=== PATIENT | male | born 1940 | race Caucasian/White ===

== ENCOUNTER 2019-01-05 08:22 | Inpatient (IN) ==
[2019-01-05 09:26] LABS: Hematocrit (blood only) 22.9 % (42-52); Hemoglobin 7.9 g/dL (14.0-18.0); Mean Corpuscular Hgb Conc 34.5 g/dL (32-36); Mean Corpuscular Volume 106.5 fL (80-100); Nucleated RBC # (auto) 0.06 K/uL (0-0); Nucleated RBC % (auto) 1.1 %; Platelet Count 259 K/uL (130-400); RDW Coefficient of Variation 21.7 % (11.5-14.5); RDW Standard Deviation 82.5 fL (36.4-46.3); Red Blood Count 2.15 M/uL (4.7-6.1); White Blood Count 4.96 K/uL (4.8-10.8)
[2019-01-05] MEDS ORDERED: SODIUM CHLORIDE 0.9% 1000ML 1,000 ML IV SCH (09:30)
[2019-01-05 09:34] LABS: Albumin Level 3.5 gm/dl (3.4-5.0); BUN Creatinine Ratio 17.8 (10-20); Calcium 8.4 mg/dl (8.5-10.1); Creatinine Clr Calc Pharmacy 45.3 ml/min; Est GFR (African American) 60.6; Est GFR (Non-African American) 52.3; Magnesium 2.2 mg/dl (1.8-2.4); Potassium 3.7 mmol/L (3.5-5.1)
[2019-01-05 09:42] LABS: Albumin Globulin Ratio 0.9 (0.9-2); Bilirubin,Total 1.2 mg/dl (0.2-1); Globulin 3.9 gm/dl (2.5-4.0); Total Protein 7.4 gm/dl (6.4-8.2); Troponin I 6.77 ng/ml (0-0.045)
[2019-01-05 09:43] LABS: INR 1.2 (0.9-1.1); Partial Thromboplastin Ratio 1.2; Prothrombin Time 12.4 Seconds (9.0-12.0)
[2019-01-05] MEDS ORDERED: OPTIRAY 320 125ml IV PRN (10:07)
[2019-01-05 10:11] LABS: Anisocytosis Present; Giant Platelets 1+; Ovalocytes 1+; Polychromasia 1+
[2019-01-05 10:13] LABS: ALC (manual) 0.13 K/uL (1.2-3.4); Basophils # (manual) 0.04 K/uL (0-0.2); Basophils % (manual) 0.9 %; Blast # (manual) 0.26 K/uL (0-0); Blast Cells % (manual) 5.3 %; Lymphocytes # (manual) 0.13 K/uL (1.2-3.4); Lymphocytes % (manual) 2.6 %; Monocytes # (manual) 0.09 K/uL (0.11-0.59); Monocytes % (manual) 1.8 %; Neutrophils % (manual) 89.4 %
--- NOTE | 2019-01-05 10:25 | XRay Report ---
XR chest 1V portable CLINICAL HISTORY: Sepsis COMPARISON STUDY: 06/30/2013 FINDINGS: The heart is at the upper limits of normal in size. There is an interstitial pulmonary mavis a pattern. There is no focal pulmonary consolidation. There are no large pleural effusions.[ IMPRESSION: Interstitial pulmonary edema Electronically signed by: Elmo Salazar M.D. 01/05/2019 10:23 AM
--- NOTE | 2019-01-05 10:26 | CT Scan Report ---
CT ANGIOGRAM OF THE CHEST CLINICAL HISTORY: Dyspnea. COMPARISON STUDY: Chest x-ray dated 01/05/2019. TECHNIQUE: Following the IV administration of 118 cc of Optiray 320, CT angiogram of the chest was pe rformed from the upper abdomen to the thoracic inlet utilizing the pulmonary embolus protocol. Images are reviewed in the axial, sagittal, and coronal planes. 3-D MIPS images are created and assessed. I V contrast was administered without complication. A dose lowering technique was utilized adhering to the principles of ALARA. CT DOSE: 416.50 mGy.cm FINDINGS: Thyroid: Imaged portions of the thyroid gland are normal in size and attenuation. Thoracic aorta: There is mild atherosclerotic calcification of the thoracic aorta, which is normal in caliber and demonstrates standard 3-vessel arch anatomy. No dissection is seen. Pulmonary vasculature: The pulmonary trunk is normal in caliber. There are no filling defects identif ied in main, lobar, or segmental pulmonary branches to suggest pulmonary embolus. Evaluation of the p eripheral branches is modestly degraded by motion artifact. Heart: The heart is enlarged and without pericardial effusion. The coronary arteries are densely calc ified. Lungs and pleural spaces: There are small bilateral pleural effusions with bibasilar consolidation. D iffuse intralobular septal thickening and peribronchial thickening are noted. The trachea and central airways are clear. Mediastinum: There is no mediastinal lymphadenopathy. Litzy: Clear. Axillae: There is no axillary lymphadenopathy. Upper abdomen: A 2.4 cm cyst is noted in the upper pole of the left kidney. Partially visualized uppe r abdominal viscera is otherwise grossly unremarkable. Skeletal structures: The skeletal structures are osteopenic. No lytic or blastic bony lesions are see n. Arthritic change is noted in the shoulders. Soft tissues: Gynecomastia is noted. IMPRESSION: 1. There is no evidence of pulmonary embolus in the main, lobar, or segmental pulmonary arteries. 2. Cardiomegaly with evidence of congestive failure. 3. There are small pleural effusions with bibasilar consolidation. This likely represents atelectasis . Correlate clinically for evidence of superimposed pneumonia. Radiographic follow-up to resolution i s recommended. Electronically signed by: Bryson Curry M.D. 01/05/2019 10:25 AM
[2019-01-05 10:33] LABS: Appearance Urine Clear (Clear); Bacteria Urine Automated Negative (Negative); Bilirubin Urine Negative (Negative); Blood Urine Negative (Negative); Color Urine Dark Yellow; Epithelial Cell Urine Auto >30 /lpf (0-5); Glucose Urine UA Trace (Negative); Ketones Urine Trace (Negative); Leukocyte Esterase Urine Negative (Negative); Nitrite Urine Negative (Negative); Protein Urine 1+ (Negative); RBC Urine Automated 0-4 /hpf (0-4); Specific Gravity Urine 1.039 (1.000-1.030); Urobilinogen Urine Negative (Negative)
--- NOTE | 2019-01-05 10:40 | Emergency Department Note ---
History of Present Illness General Chief complaint: Fever Stated complaint: FEVER Time Seen by Provider: 01/05/19 09:06 History of Present Illness Maximum Pain Intensity: 8 This is a 78-year-old male that presents to the emergency department via private vehicle accompanied by family member with complaints of "high fever and weakness". The patient presents to us today noting that he had blood work performed yesterday and notes that he has a platelet problem for the past 10 years. He is on medication for the elevated platelet count. He notes that his white cells are low. He states that over the past day or so he has had body aches, fatigue and increased shortness of breath. This is new. He denies any chest pain over the past few days or currently. He denies any history of AR or PE. He denies anticoagulant use. He does take an aspirin. 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) Hypercholesteremia (Chronic) Prostate cancer (Chronic) Surgical History History of appendectomy (Chronic) Family History Brother Heart disease Stroke Social History Preferred Language: Latvian Survey Coordinator Required: No Beliefs That Will Affect Care: None Current Living Situation: Family Other Information That Helps Us Care for You: No Feels Safe at Home: Yes Safety Concerns: Feels Safe At This Time Smoking Status: Former smoker Tobacco Type: cigars Do You Dip or Chew Tobacco: No Second Hand Exposure: No Tobacco Cessation Education Requested by Patient: No Hx Alcohol Use: No Hx Substance Use: No Review of Systems A total of 10 systems reviewed and were otherwise negative Physical Exam Vital Signs Vital Signs - 24 hr 01/05/19 08:26 01/05/19 08:47 01/05/19 09:44 Temperature 36.6 C Temperature Source Oral Sepsis Recent Fever Within 48 Hours No Sepsis Action Taken by Nursing No Action Required Pulse Rate 66 Pulse Rate [Left Finger] 109 H Respiratory Rate 20 24 Respiratory Effort / Characteristics Non-Labored Spontaneous Respiratory Depth Normal Blood Pressure 105/58 L Blood Pressure [Left Arm] 103/67 Blood Pressure Mean 73 Blood Pressure Mean [Left Arm] 79 Blood Pressure Position Sitting Pulse Oximetry 100 95 91 Oxygen Delivery Method Room Air Room Air Room Air Oxygen Flow Rate Fraction of Inspired Oxygen 01/05/19 10:20 01/05/19 11:22 01/05/19 11:48 Temperature Temperature Source Sepsis Recent Fever Within 48 Hours Sepsis Action Taken by Nursing Pulse Rate Pulse Rate [Left Finger] 113 H 112 H 120 H Respiratory Rate 26 H 28 H 36 H Respiratory Effort / Characteristics Respiratory Depth Blood Pressure Blood Pressure [Left Arm] 121/83 100/66 91/59 L Blood Pressure Mean Blood Pressure Mean [Left Arm] 95 77 69 Blood Pressure Position Pulse Oximetry 98 92 100 Oxygen Delivery Method Nasal Cannula Nasal Cannula Nasal Cannula Oxygen Flow Rate 4 4 4 Fraction of Inspired Oxygen 01/05/19 13:15 Temperature Temperature Source Sepsis Recent Fever Within 48 Hours Sepsis Action Taken by Nursing Pulse Rate 108 H Pulse Rate [Left Finger] Respiratory Rate 20 Respiratory Effort / Characteristics Non-Labored Spontaneous Respiratory Depth Blood Pressure Blood Pressure [Left Arm] Blood Pressure Mean Blood Pressure Mean [Left Arm] Blood Pressure Position Pulse Oximetry 93 Oxygen Delivery Method Oxygen Flow Rate Fraction of Inspired Oxygen 50 VITAL SIGNS - Vital signs and nursing notes were reviewed. Borderline hypotensive, saturating well on room air with normal respiratory rate. He is afebrile on arrival. GENERAL -78-year-old female appearing his stated age who is in no acute distress. He is resting comfortably in the examination bed. Communicates well with provider and answers questions appropriately. SKIN - Without rashes. No meningeal or petechial rash. HEAD - NC/AT. EYES - PERRL with EOMI bilaterally. Sclera anicteric. EARS - No deformities of external structures noted on gross examination bilaterally. NOSE - Midline and without cyanosis. No epistaxis or purulent drainage noted. MOUTH/OROPHARYNX - Without perioral cyanosis. NECK - Neck with FROM. Supple to palpation. No lymphadenopathy noted. No nuchal rigidity. LUNGS - Chest wall symmetric without accessory muscle use, intercostals retractions, or central cyanosis. Normal vesicular breath sounds CTA B/L. No wheezes, rales, or rhonchi appreciated. CARDIAC - RRR ABDOMEN - Abdominal contour normal without pulsations or visible masses. BS normoactive all four quadrants. No tenderness, palpable masses, hepatosplenomegaly, or ascites noted. EXTREMITIES - No clubbing or peripheral cyanosis. No pretibial edema present. +5/5 strength noted in UE/LE bilaterally. NEUROLOGIC - Cranial nerves II through XII grossly intact. PSYCH - A&O, and cooperates fully with examiner. Pt is very pleasant and inte racts well with examiner. Course Administered Medications Acetaminophen (Tylenol) 650 mg PO TODAY@1445 [facility] Stop: 01/05/19 23:59 Last Admin: 01/05/19 15:54 Dose: 650 mg Documented by: [id number] Admin: 01/05/19 15:32 Dose: 650 mg Documented by: [id number] Diphenhydramine HCl (Benadryl Capsule) 25 mg PO TODAY@1445 [facility] Stop: 01/05/19 23:59 Last Admin: 01/05/19 15:32 Dose: 25 mg Documented by: [id number] Norepinephrine Bitartrate 8 mg (/ Dextrose) 508 mls @ 0 mls/hr IV .Q0M [facility]; Protocol Stop: 02/04/19 14:14 Last Titration: 01/05/19 18:03 Dose: 0 mcg/kg/min, 0 mls/hr Documented by: [id number] Titration: 01/05/19 15:59 Dose: 0.01 mcg/kg/min, 3.1 mls/hr Documented by: [id number] Titration: 01/05/19 15:30 Dose: 0.02 mcg/kg/min, 6.2 mls/hr Documented by: [id number] Admin: 01/05/19 14:56 Dose: 0.03 mcg/kg/min, 9.3 mls/hr Documented by: [id number] Cosigned by: [id number] Furosemide 40 mg/ Syringe 4 mls @ 4 mls/min IV TODAY@1600 [facility] Stop: 01/05/19 23:59 Last Admin: 01/05/19 18:19 Dose: 4 mls/min Documented by: [id number] Miscellaneous (Order Awaiting Action) 1 ea N/A QS [facility] Stop: 02/04/19 15:59 Last Admin: 01/05/19 19:03 Dose: Not Given Documented by: [id number] Discontinued Medications Clopidogrel Bisulfate (Plavix) Confirm Administered Dose 600 mg .ROUTE .STK-MED ONE Stop: 01/05/19 13:54 Last Admin: 01/05/19 14:02 Dose: 600 mg Documented by: [id number] Fentanyl Citrate (Fentanyl Citrate) Confirm Administered Dose 100 mcg .ROUTE .STK-MED ONE Stop: 01/05/19 12:03 Last Increment: 01/05/19 13:57 Dose: 50 mcg Documented by: [id number] Furosemide (Lasix) Confirm Administered Dose 40 mg IV .STK-MED ONE Stop: 01/05/19 12:52 Last Admin: 01/05/19 14:02 Dose: 40 mg Documented by: [id number] Heparin Sodium (Porcine) (Heparin Sodium (Porcine)) Confirm Administered Dose 5,000 units .ROUTE .STK-MED ONE Stop: 01/05/19 11:16 Last Admin: 01/05/19 11:19 Dose: 4,000 units Documented by: [id number] Cosigned by: [id number] Heparin Sodium (Porcine) (Heparin Iv Bolus (Infrastructure Design Engineer Use Only)) Confirm Administered Dose 10,000 units .ROUTE .STK-MED ONE Stop: 01/05/19 12:03 Last Admin: 01/05/19 13:57 Dose: 8,000 units Documented by: [id number] Heparin Sodium/Dextrose () 1 ea IV NOW STA; Protocol Stop: 01/05/19 11:04 Last Admin: 01/05/19 11:21 Dose: Not Given Documented by: [id number] Heparin Sodium/Dextrose (Heparin Sodium/Dextrose) Confirm Administered Dose 25,000 units IV .STK-MED ONE Stop: 01/05/19 11:15 Last Admin: 01/05/19 11:20 Dose: 18 ml Documented by: [id number] Cosigned by: [id number] Heparin Sodium/Sodium Chloride (Heparin/Nss 1000 Unit/500ml Flush Bag) Confirm Administered Dose 3,000 units IV .STK-MED ONE Stop: 01/05/19 12:03 Last Admin: 01/05/19 13:58 Dose: 3,000 units Documented by: [id number] Sodium Chloride (Nss 1000ml) 1,000 mls @ 999 mls/hr IV .Q1H1M [facility] Stop: 01/05/19 10:30 Last Infusion: 01/05/19 10:35 Dose: 0 mls/hr Documented by: [id number] Admin: 01/05/19 09:34 Dose: 999 mls/hr Documented by: [id number] Furosemide 40 mg/ Syringe 4 mls @ 4 mls/min IV TODAY@1430 ONE Stop: 01/05/19 14:31 Last Admin: 01/05/19 15:13 Dose: Not Given Documented by: [id number] Ioversol (Optiray 320 125ml) 118 ml IV ONCE PRN PRN Reason: Interaction Checking Stop: 01/09/19 10:06 Last Admin: 01/05/19 10:08 Dose: 118 ml Documented by: [id number] Midazolam HCl (Versed) Confirm Administered Dose 2 mg .ROUTE .STK-MED ONE Stop: 01/05/19 12:02 Last Admin: 01/05/19 13:55 Dose: 2 mg Documented by: [id number] Midazolam HCl (Versed) Confirm Administered Dose 2 mg .ROUTE .STK-MED ONE Stop: 01/05/19 13:08 Last Admin: 01/05/19 14:02 Dose: Not Given Documented by: [id number] Nicardipine HCl (Cardene) Confirm Administered Dose 25 mg .ROUTE .STK-MED ONE Stop: 01/05/19 12:03 Last Admin: 01/05/19 13:56 Dose: Not Given Documented by: [id number] Nitroglycerin/Dextrose (Nitroglycerin/D5w 100 Mcg/Ml 20ml Syringe) Confirm A dministered Dose 2,000 mcg .ROUTE .STK-MED ONE Stop: 01/05/19 12:04 Last Admin: 01/05/19 13:58 Dose: 2,000 mcg Documented by: [id number] Norepinephrine Bitartrate (Levophed (Infrastructure Design Engineer Use Only)) Confirm Administered Dose 8 mg .ROUTE .STK-MED ONE Stop: 01/05/19 12:41 Last Admin: 01/05/19 13:58 Dose: 8 mg Documented by: [id number] Medical Decision Making Laboratory Data Result diagrams: 01/05/19 08:47 01/05/19 08:47 Lab Results 01/05/19 01/05/19 01/05/19 Range/Units 08:47 08:47 08:47 WBC 4.96 (4.8-10.8) K/uL RBC 2.15 L (4.7-6.1) M/uL Hgb 7.9 L (14.0-18.0) g/dL Hct 22.9 L (42-52) % MCV 106.5 H (80-100) fL MCH 36.7 H (25-34) pg MCHC 34.5 (32-36) g/dL RDW Std Deviation 82.5 H (36.4-46.3) fL RDW Coeff of Eliana 21.7 H (11.5-14.5) % Plt Count 259 (130-400) K/uL MPV 11.0 H (7.4-10.4) fL Absolute Nucleated RBC 0.06 H (0-0) K/uL Nucleated RBC % (auto) 1.1 % Neutrophils % (Manual) 89.4 % Lymphocytes % (Manual) 2.6 % Monocytes % (Manual) 1.8 % Basophils % (Manual) 0.9 % Blast Cells % (Manual) 5.3 % Neutrophils # (Manual) 4.43 (1.4-6.5) K/uL Total Absolute Neuts 4.43 (1.4-6.5) K/uL Lymphocytes # (Manual) 0.13 L (1.2-3.4) K/uL Total Abs Lymphocytes 0.13 L (1.2-3.4) K/uL Monocytes # (Manual) 0.09 L (0.11-0.59) K/uL Basophils # (Manual) 0.04 (0-0.2) K/uL Blast Cells # (Man) 0.26 H (0-0) K/uL Blood Smear Review Giant Platelets 1+ Polychromasia 1+ Anisocytosis Present Ovalocytes 1+ PT 12.4 H (9.0-12.0) Seconds INR 1.2 H (0.9-1.1) APTT 33.0 H (21.0-31.0) Seconds PTT Ratio 1.2 Activ Coag Time Kaolin (94-140) SECONDS POC pH (7.35-7.45) POC pCO2 (35-46) mmHg POC pO2 (80-95) mmHg POC HCO3 (19-24) mildred/L POC Total CO2 (24-31) mEq/l POC Base Excess (-9-1.8) mildred/L POC ABG O2 Sat (90-95) % Sodium 135 L (136-145) mmol/L Potassium 3.7 (3.5-5.1) mmol/L Chloride 103 (98-107) mmol/L Carbon Dioxide 21 (21-32) mmol/L Anion Gap 11.0 (3-11) BUN 23 H (7-18) mg/dl Creatinine 1.30 (0.6-1.4) mg/dl Est Cr Clr Drug Dosing 45.3 ml/min Est GFR ( Amer) 60.6 Est GFR (Non-Af Amer) 52.3 BUN/Creatinine Ratio 17.8 (10-20) Glucose 162 H (70-99) mg/dl Lactate (0.4-2.0) mmol/L Calcium 8.4 L (8.5-10.1) mg/dl Magnesium 2.2 (1.8-2.4) mg/dl Total Bilirubin 1.2 H (0.2-1) mg/dl AST 85 H (15-37) U/L ALT 24 (12-78) U/L Alkaline Phosphatase 60 (45-117) U/L Troponin I 6.770 H* (0-0.045) ng/ml Total Protein 7.4 (6.4-8.2) gm/dl Albumin 3.5 (3.4-5.0) gm/dl Globulin 3.9 (2.5-4.0) gm/dl Albumin/Globulin Ratio 0.9 (0.9-2) Lipase 48 L (73-393) U/L Urine Color Urine Appearance (Clear) Urine pH (4.5-7.5) Ur Specific Peculiar (1.000-1.030) Urine Protein (Negative) Urine Glucose (UA) (Negative) Urine Ketones (Negative) Urine Blood (Negative) Urine Nitrite (Negative) Urine Bilirubin (Negative) Urine Urobilinogen (Negative) Ur Leukocyte Esterase (Negative) Urine WBC (Auto) (0-5) /hpf Urine RBC (Auto) (0-4) /hpf U Hyaline Cast (Auto) (0-5) /lpf U Epithel Cells (Auto) (0-5) /lpf Urine Bacteria (Auto) (Negative) Ur Renal Epithelial Cell Urine Mucus (None Prsent) Influenza Type A Ag (Neg) Influenza Type B Ag (Neg) Blood Type Antibody Screen Crossmatch 01/05/19 01/05/19 01/05/19 Range/Units 09:31 10:00 10:20 WBC (4.8-10.8) K/uL RBC (4.7-6.1) M/uL Hgb (14.0-18.0) g/dL Hct (42-52) % MCV (80-100) fL MCH (25-34) pg MCHC (32-36) g/dL RDW Std Deviation (36.4-46.3) fL RDW Coeff of Eliana (11.5-14.5) % Plt Count (130-400) K/uL MPV (7.4-10.4) fL Absolute Nucleated RBC (0-0) K/uL Nucleated RBC % (auto) % Neutrophils % (Manual) % Lymphocytes % (Manual) % Monocytes % (Manual) % Basophils % (Manual) % Blast Cells % (Manual) % Neutrophils # (Manual) (1.4-6.5) K/uL Total Absolute Neuts (1.4-6.5) K/uL Lymphocytes # (Manual) (1.2-3.4) K/uL Total Abs Lymphocytes (1.2-3.4) K/uL Monocytes # (Manual) (0.11-0.59) K/uL Basophils # (Manual) (0-0.2) K/uL Blast Cells # (Man) (0-0) K/uL Blood Smear Review Giant Platelets Polychromasia Anisocytosis Ovalocytes PT (9.0-12.0) Seconds INR (0.9-1.1) APTT (21.0-31.0) Seconds PTT Ratio Activ Coag Time Kaolin (94-140) SECONDS POC pH (7.35-7.45) POC pCO2 (35-46) mmHg POC pO2 (80-95) mmHg POC HCO3 (19-24) mildred/L POC Total CO2 (24-31) mEq/l POC Base Excess (-9-1.8) mildred/L POC ABG O2 Sat (90-95) % Sodium (136-145) mmol/L Potassium (3.5-5.1) mmol/L Chloride (98-107) mmol/L Carbon Dioxide (21-32) mmol/L Anion Gap (3-11) BUN (7-18) mg/dl Creatinine (0.6-1.4) mg/dl Est Cr Clr Drug Dosing ml/min Est GFR ( Amer) Est GFR (Non-Af Amer) BUN/Creatinine Ratio (10-20) Glucose (70-99) mg/dl Lactate 2.0 (0.4-2.0) mmol/L Calcium (8.5-10.1) mg/dl Magnesium (1.8-2.4) mg/dl Total Bilirubin (0.2-1) mg/dl AST (15-37) U/L ALT (12-78) U/L Alkaline Phosphatase (45-117) U/L Troponin I (0-0.045) ng/ml Total Protein (6.4-8.2) gm/dl Albumin (3.4-5.0) gm/dl Globulin (2.5-4.0) gm/dl Albumin/Globulin Ratio (0.9-2) Lipase (73-393) U/L Urine Color Dark Yellow Urine Appearance Clear (Clear) Urine pH 5.0 (4.5-7.5) Ur Specific Peculiar 1.039 H (1.000-1.030) Urine Protein 1+ H (Negative) Urine Glucose (UA) Trace H (Negative) Urine Ketones Trace H (Negative) Urine Blood Negative (Negative) Urine Nitrite Negative (Negative) Urine Bilirubin Negative (Negative) Urine Urobilinogen Negative (Negative) Ur Leukocyte Esterase Negative (Negative) Urine WBC (Auto) 1-5 (0-5) /hpf Urine RBC (Auto) 0-4 (0-4) /hpf U Hyaline Cast (Auto) 5-10 H (0-5) /lpf U Epithel Cells (Auto) >30 H (0-5) /lpf Urine Bacteria (Auto) Negative (Negative) Ur Renal Epithelial Cell Not Reportable Urine Mucus Present A (None Prsent) Influenza Type A Ag Neg for Influ A (Neg) Influenza Type B Ag Neg for Influ B (Neg) Blood Type Antibody Screen Crossmatch 01/05/19 01/05/19 01/05/19 Range/Units 10:43 12:40 12:42 WBC (4.8-10.8) K/uL RBC (4.7-6.1) M/uL Hgb (14.0-18.0) g/dL Hct (42-52) % MCV (80-100) fL MCH (25-34) pg MCHC (32-36) g/dL RDW Std Deviation (36.4-46.3) fL RDW Coeff of Eliana (11.5-14.5) % Plt Count (130-400) K/uL MPV (7.4-10.4) fL Absolute Nucleated RBC (0-0) K/uL Nucleated RBC % (auto) % Neutrophils % (Manual) % Lymphocytes % (Manual) % Monocytes % (Manual) % Basophils % (Manual) % Blast Cells % (Manual) % Neutrophils # (Manual) (1.4-6.5) K/uL Total Absolute Neuts (1.4-6.5) K/uL Lymphocytes # (Manual) (1.2-3.4) K/uL Total Abs Lymphocytes (1.2-3.4) K/uL Monocytes # (Manual) (0.11-0.59) K/uL Basophils # (Manual) (0-0.2) K/uL Blast Cells # (Man) (0-0) K/uL Blood Smear Review Giant Platelets Polychromasia Anisocytosis Ovalocytes PT (9.0-12.0) Seconds INR (0.9-1.1) APTT (21.0-31.0) Seconds PTT Ratio Activ Coag Time Kaolin 169 H (94-140) SECONDS POC pH 7.41 (7.35-7.45) POC pCO2 31 L (35-46) mmHg POC pO2 63 L (80-95) mmHg POC HCO3 19 (19-24) mildred/L POC Total CO2 20 L (24-31) mEq/l POC Base Excess -6.0 (-9-1.8) mildred/L POC ABG O2 Sat 92.0 (90-95) % Sodium (136-145) mmol/L Potassium (3.5-5.1) mmol/L Chloride (98-107) mmol/L Carbon Dioxide (21-32) mmol/L Anion Gap (3-11) BUN (7-18) mg/dl Creatinine (0.6-1.4) mg/dl Est Cr Clr Drug Dosing ml/min Est GFR ( Amer) Est GFR (Non-Af Amer) BUN/Creatinine Ratio (10-20) Glucose (70-99) mg/dl Lactate (0.4-2.0) mmol/L Calcium (8.5-10.1) mg/dl Magnesium (1.8-2.4) mg/dl Total Bilirubin (0.2-1) mg/dl AST (15-37) U/L ALT (12-78) U/L Alkaline Phosphatase (45-117) U/L Troponin I (0-0.045) ng/ml Total Protein (6.4-8.2) gm/dl Albumin (3.4-5.0) gm/dl Globulin (2.5-4.0) gm/dl Albumin/Globulin Ratio (0.9-2) Lipase (73-393) U/L Urine Color Urine Appearance (Clear) Urine pH (4.5-7.5) Ur Specific Peculiar (1.000-1.030) Urine Protein (Negative) Urine Glucose (UA) (Negative) Urine Ketones (Negative) Urine Blood (Negative) Urine Nitrite (Negative) Urine Bilirubin (Negative) Urine Urobilinogen (Negative) Ur Leukocyte Esterase (Negative) Urine WBC (Auto) (0-5) /hpf Urine RBC (Auto) (0-4) /hpf U Hyaline Cast (Auto) (0-5) /lpf U Epithel Cells (Auto) (0-5) /lpf Urine Bacteria (Auto) (Negative) Ur Renal Epithelial Cell Urine Mucus (None Prsent) Influenza Type A Ag (Neg) Influenza Type B Ag (Neg) Blood Type O Positive Antibody Screen NEGATIVE Crossmatch See Detail 01/05/19 01/05/19 Range/Units 12:48 13:10 WBC (4.8-10.8) K/uL RBC (4.7-6.1) M/uL Hgb (14.0-18.0) g/dL Hct (42-52) % MCV (80-100) fL MCH (25-34) pg MCHC (32-36) g/dL RDW Std Deviation (36.4-46.3) fL RDW Coeff of Eliana (11.5-14.5) % Plt Count (130-400) K/uL MPV (7.4-10.4) fL Absolute Nucleated RBC (0-0) K/uL Nucleated RBC % (auto) % Neutrophils % (Manual) % Lymphocytes % (Manual) % Monocytes % (Manual) % Basophils % (Manual) % Blast Cells % (Manual) % Neutrophils # (Manual) (1.4-6.5) K/uL Total Absolute Neuts (1.4-6.5) K/uL Lymphocytes # (Manual) (1.2-3.4) K/uL Total Abs Lymphocytes (1.2-3.4) K/uL Monocytes # (Manual) (0.11-0.59) K/uL Basophils # (Manual) (0-0.2) K/uL Blast Cells # (Man) (0-0) K/uL Blood Smear Review Giant Platelets Polychromasia Anisocytosis Ovalocytes PT (9.0-12.0) Seconds INR (0.9-1.1) APTT (21.0-31.0) Seconds PTT Ratio Activ Coag Time Kaolin 219 H (94-140) SECONDS POC pH 7.39 (7.35-7.45) POC pCO2 31 L (35-46) mmHg POC pO2 79 L (80-95) mmHg POC HCO3 19 (19-24) mildred/L POC Total CO2 20 L (24-31) mEq/l POC Base Excess -6.0 (-9-1.8) mildred/L POC ABG O2 Sat 96.0 H (90-95) % Sodium (136-145) mmol/L Potassium (3.5-5.1) mmol/L Chloride (98-107) mmol/L Carbon Dioxide (21-32) mmol/L Anion Gap (3-11) BUN (7-18) mg/dl Creatinine (0.6-1.4) mg/dl Est Cr Clr Drug Dosing ml/min Est GFR ( Amer) Est GFR (Non-Af Amer) BUN/Creatinine Ratio (10-20) Glucose (70-99) mg/dl Lactate (0.4-2.0) mmol/L Calcium (8.5-10.1) mg/dl Magnesium (1.8-2.4) mg/dl Total Bilirubin (0.2-1) mg/dl AST (15-37) U/L ALT (12-78) U/L Alkaline Phosphatase (45-117) U/L Troponin I (0-0.045) ng/ml Total Protein (6.4-8.2) gm/dl Albumin (3.4-5.0) gm/dl Globulin (2.5-4.0) gm/dl Albumin/Globulin Ratio (0.9-2) Lipase (73-393) U/L Urine Color Urine Appearance (Clear) Urine pH (4.5-7.5) Ur Specific Peculiar (1.000-1.030) Urine Protein (Negative) Urine Glucose (UA) (Negative) Urine Ketones (Negative) Urine Blood (Negative) Urine Nitrite (Negative) Urine Bilirubin (Negative) Urine Urobilinogen (Negative) Ur Leukocyte Esterase (Negative) Urine WBC (Auto) (0-5) /hpf Urine RBC (Auto) (0-4) /hpf U Hyaline Cast (Auto) (0-5) /lpf U Epithel Cells (Auto) (0-5) /lpf Urine Bacteria (Auto) (Negative) Ur Renal Epithelial Cell Urine Mucus (None Prsent) Influenza Type A Ag (Neg) Influenza Type B Ag (Neg) Blood Type Antibody Screen Crossmatch Imaging Data Radiologist's Impression: XR chest 1V portable CLINICAL HISTORY: Sepsis COMPARISON STUDY: 06/30/2013 FINDINGS: The heart is at the upper limits of normal in size. There is an interstitial pulmonary edema pattern. There is no focal pulmonary consolidation. There are no large pleural effusions.[ IMPRESSION: Interstitial pulmonary edema Electronically signed by: Elmo Salazar M.D. 01/05/2019 10:[address] ANGIOGRAM OF THE CHEST CLINICAL HISTORY: Dyspnea. COMPARISON STUDY: Chest x-ray dated 01/05/2019. TECHNIQUE: Following the IV administration of 118 cc of Optiray 320, CT angiogram of the chest was performed from the upper abdomen to the thoracic inlet utilizing the pulmonary embolus protocol. Images are reviewed in the axial , sagittal, and coronal planes. 3-D MIPS images are created and assessed. IV contrast was administered without complication. A dose lowering technique was utilized adhering to the principles of ALARA. CT DOSE: 416.50 mGy.cm FINDINGS: Thyroid: Imaged portions of the thyroid gland are normal in size and attenuation. Thoracic aorta: There is mild atherosclerotic calcification of the thoracic aor ta, which is normal in caliber and demonstrates standard 3-vessel arch anatomy. No dissection is seen. Pulmonary vasculature: The pulmonary trunk is normal in caliber. There are no filling defects identified in main, lobar, or segmental pulmonary branches to suggest pulmonary embolus. Evaluation of the peripheral branches is modestly degraded by motion artifact. Heart: The heart is enlarged and without pericardial effusion. The coronary arteries are densely calcified. Lungs and pleural spaces: There are small bilateral pleural effusions with bibasilar consolidation. Diffuse intralobular septal thickening and peribronchial thickening are noted. The trachea and central airways are clear. Mediastinum: There is no mediastinal lymphadenopathy. Litzy: Clear. Axillae: There is no axillary lymphadenopathy. Upper abdomen: A 2.4 cm cyst is noted in the upper pole of the left kidney. Partially visualized upper abdominal viscera is otherwise grossly unremarkable. Skeletal structures: The skeletal structures are osteopenic. No lytic or blastic bony lesions are seen. Arthritic change is noted in the shoulders. Soft tissues: Gynecomastia is noted. IMPRESSION: 1. There is no evidence of pulmonary embolus in the main, lobar, or segmental pulmonary arteries. 2. Cardiomegaly with evidence of congestive failure. 3. There are small pleural effusions with bibasilar consolidation. This likely represents atelectasis. Correlate clinically for evidence of superimposed pneumonia. Radiographic follow-up to resolution is recommended. Electronically signed by: Bryson Curry M.D. 01/05/2019 10:25 AM MDM Narrative Patient was seen and evaluated as above in room B02. Review was performed of nursing notes and vital signs. After obtaining a thorough history and physical examination the above work up was performed. He presents to us today with body aches, subjective fevers recently and increased fatigue and dyspnea. He feels short of breath. No history of AR or PE. He denies chest pain today or over the past few days. On examination the patient looks okay, he does not appear to be in pain. IV access was established. Cultures were drawn. Lactic was drawn. A bedside EKG was also performed as well as a troponin. I was called e mergently noting the patient's troponin of 6.770. I then went to the bedside and again asked the patient if had any chest pain that he said no. I then noted that the patient was tachycardic in the 110-120 area, and his oxygen was no longer great noting it was in the low 90s to high 80s. With the increased heart rate with mild hypoxia and feeling short of breath it was felt that a CTA of the chest was emergently warranted. Although the chest x-ray was noncontributory to his presentation today the CTA did not reveal any PE. There is cardiomegaly with evidence of congestive failure. The patient was started on a heparin low-dose bolus and drip for suspected NSTEMI. Cardiology came to bedside with an emergent echocardiogram. There were findings concerning for need for cardiac catheterization and he was taken to the Infrastructure Design Engineer for further evaluation and management. Please refer to further documentation regarding his stay. Case was discussed with the attending physician. EKG reveals sinus tachycardia with PACs. There are ST depressions in leads V4 through 6. I attest that I have personally reviewed the patient medication list. I attest that I have reviewed the patient's blood pressure and it was found to be Low GCS: 15 In the evaluation and treatment of this patient, the following differential diagnoses were considered: AR, ASC, Dysrhythmia, Angina, Mediastinitis, GERD, Esophagitis, PE, Pneumonia, Bronchitis, Costochondritis, Rib Fracture, Zoster. Impression & Plan NSTEMI (non-ST elevated myocardial infarction), Anemia Critical Care Time I have personally spent greater than 60 minutes of critical care time in the direct management of this patient. This includes bedside care, interpretation of diagnostic studies, and testing, discussion with consultants, patient, and family members, and other required patient management activities. This 60 minutes is in excess of all separately billable procedures. Discharge Plan Visit Data *Final* Discharge Date/Time: 01/05/19 12:11 Chief Complaint: Fever Stated Complaint: FEVER ED Provider: Josey Trujillo ED Midlevel Provider: Stephen Romo Discharge Problem: NSTEMI (non-ST elevated myocardial infarction), Anemia Patient Disposition: Still a Patient Condition: Fair Discharge Instructions Interventions: ED Discharge Assessment Last Done: 01/05/19 12:11
[2019-01-05] MEDS ORDERED: Heparin IV Low Dose WITH Bolus IV STA (11:03)
[2019-01-05 11:04] LABS: Mucus Urine Present (None Prsent)
[2019-01-05] MEDS ORDERED: HEPARIN 25000 UNIT/500 ML D5W IV ONE (11:14)
[2019-01-05] MEDS ORDERED: HEPARIN SOD 5,000 UNIT/0.5 ML VIAL ONE (11:15)
[2019-01-05] MEDS ORDERED: MIDAZOLAM HCL 1 MG/ML 2ML VIAL ONE ×2 (12:01→13:07)
[2019-01-05] MEDS ORDERED: HEPARIN (PORCINE) 1000 UNIT/ML 10 ML (CATH LAB USE ONLY) ONE (12:02)
[2019-01-05] MEDS ORDERED: NiCARDipine HCL INJ 2.5 MG/ML 10 ML AMP ONE (12:02)
[2019-01-05] MEDS ORDERED: fentaNYL citrate 100 MCG/2 ML VIAL ONE (12:02)
[2019-01-05] MEDS ORDERED: NITROGLYCERIN/D5W 100MCG/ML 20ML SYR ONE (12:03)
--- NOTE | 2019-01-05 12:13 | History & Physical Report ---
Date of Service January 05, 2019 Assessment & Plan (1) NSTEMI (non-ST elevated myocardial infarction): (2) Cardiomyopathy: Pt presented to ER with c/o SOB, malaise over past 24 hours In ER pt afebrile, P: 66-113, R: 20-26, BP: 105/58- 121/83, O2 sat: 100% down to 91% on RA Was found to have troponin: 6, with EKG sinus tachycardia at 108, ST depression lateral leads -Bedside echo EF: 30%, mod-severe global hypokinesis -Heparin IV started in ER -Pt taken to chemical lab technician from ER. During procedure hypoxemic requiring 15 L O2 mask and eventual BiPAP. Was given 40 of IV Lasix for elevated LVEDP. Maintained on norepinephrine 0.1 -excavation laborer report: * Severe multi-vessel coronary artery disease. 95 to 99% diffuse mid LAD, 80 to 90% focal distal LAD. 90% distal circumflex into left PLB. Moderate caliber first OM with 90% focal stenosis. 95% earlymid RCA at bifurcation with acute marginal. * Elevated intracardiac filling pressure * Successful PCI of mid LAD with single drug-eluting stent (3.0 x 30 mm Corry). POBA of distal LAD with 2.5 balloon. -Pt to ICU for further management and treatment -Pt currently on norepinephrine -Plavix, aspirin, statin -Hold on further IV heparin per cardiology (3) Anemia: (4) Essential thrombocythemia: Hx essential thrombocythemia. Follows with Dr Turner - heme/onc. Was taken off hydroxyurea on 12/15/18 secondary to worsening anemia. H/H: 7.9/22.9 (Hgb was 8.5 on 01/04/19 and 8.1 on 01/01/19) Hemoccult negative in ER -2 units PRBCs to be transfused with lasix in between units secondary to pt unstable -continue anagrelide (5) Hyperglycemia: Random Glucose: 162 -A1c in AM -Monitor BSG (6) Hypercholesteremia: -Continue statin DVT Prophylaxis Heparin SQ Full Code as per discussion with pt Follows with Dr Elizalde for routine care Pt was seen and care coordinated with Dr Galdamez. See addendum History of Present Illness Chief Complaint: Myalgias, SOB Primary Care Provider: Guru Elizalde MD Pt is 78 y/o M with PMH of essential thrombocythemia, dyslipidemia, prostate CA S/P radiation implant, squamous cell CA skin presented to ER with c/o generalized myalgias and exertional shortness of breath starting yesterday. Patient states yesterday he started not feeling well with malaise, generalized myalgias and having shortness of breath with exertion, walking through the house. Patient denies any known fever but felt chilled yesterday. Denies any dizziness, palpitations, chest pain, cough, headache, nausea, vomiting. Patient states did not have appetite and did not eat anything yet today. Reports he did take his morning medications. Denies diaphoresis, diarrhea, constipation, melena, hematochezia, syncope, vision changes, neck pain, sore throat, choking, otalgia, rhinorrhea, abdominal pain, paresthesias, extremity edema, rashes, urinary symptoms. Saw Dr. Turner with heme/oncology 01/04/2019. Patient has been off hydroxyurea since 12/15/2018 secondary to worsening anemia thought secondary to bone suppression from hydroxyurea. Had repeat labs on 01/04/19: WBC: 4. H&H of 8.5/24.5, Plt: 301, Serum iron: 74, TIBC: 234, iron saturation 32%. Vitamin B12: 315. Ferritin level:486. Plan was to start Procrit if continued anemia. Allergies Allergy/AdvReac Type Severity Reaction Status Date / Time No Known Allergies Allergy Verified 01/05/19 09:33 Home Medications Home Medications Medication Instructions Recorded Confirmed Type acetaminophen [Arthritis Pain 1,300 mg PO Q8H PRN 07/08/18 01/05/19 History Reliever] aspirin 325 mg PO DAILY 07/08/18 01/05/19 History atorvastatin [Lipitor] 40 mg PO PM 07/08/18 01/05/19 History multivitamin 1 tab PO DAILY 07/08/18 01/05/19 History anagrelide 0.5 mg PO Q12H 01/05/19 01/05/19 History Past Med/Surg History Medical History Anemia (Chronic) 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 (Chronic) Hypercholesteremia (Chronic) Prostate cancer (Chronic) Surgical History History of appendectomy (Chronic) Family History Brother Heart disease Stroke Social History Preferred Language: Slovenian Latex Caster Required: No Beliefs That Will Affect Care: None Current Living Situation: Family Other Information That Helps Us Care for You: No Feels Safe at Home: Yes Safety Concerns: Feels Safe At This Time Smoking Status: Former smoker Tobacco Type: cigars Do You Dip or Chew Tobacco: No Second Hand Exposure: No Tobacco Cessation Education Requested by Patient: No Hx Alcohol Use: No Hx Substance Use: No Review of Systems Review of Systems: All systems reviewed & are unremarkable except as noted in HPI & below Physical Exam Physical Exam: General: ill appearing, mild distress, WDWN Head: normocephalic, atraumatic Eyes: PERRL, EOM's intact, conjunctiva pale, anicteric ENT: normal inspection external ears, nose, mucous membranes moist Neck: supple, trachea midline Lungs: RR: 28, no retractions, +rales bases bilaterally CV: tachycardia, no murmur, no pretibial edema Abd: normal BS, soft, non-tender Ext: no cyanosis, no calf tenderness Neuro: A&O x 3, no focal deficits noted, normal affect Skin: warm, dry, pale Results & Data Vital Signs (Past 12 Hours) Vital Signs Temp Pulse Pulse Resp BP BP Pulse Ox 01/05/19 11:48 120 H 36 H 91/59 L 100 01/05/19 11:22 112 H 28 H 100/66 92 01/05/19 10:20 113 H 26 H 121/83 98 01/05/19 09:44 109 H 24 103/67 91 01/05/19 08:47 95 01/05/19 08:26 36.6 C 66 20 105/58 L 100 Laboratory Results Short CBC 01/05/19 Range/Units 08:47 WBC 4.96 (4.8-10.8) K/uL Hgb 7.9 L (14.0-18.0) g/dL Hct 22.9 L (42-52) % Plt Count 259 (130-400) K/uL BMP 01/05/19 08:47 Sodium 135 L Potassium 3.7 Chloride 103 Carbon Dioxide 21 BUN 23 H Creatinine 1.30 Glucose 162 H Calcium 8.4 L Cardiac Enzymes 01/05/19 Range/Units 08:47 Troponin I 6.770 H* (0-0.045) ng/ml Liver Function 01/05/19 Range/Units 08:47 Total Bilirubin 1.2 H (0.2-1) mg/dl AST 85 H (15-37) U/L ALT 24 (12-78) U/L Alkaline Phosphatase 60 (45-117) U/L Albumin 3.5 (3.4-5.0) gm/dl Urine 01/05/19 Range/Units 10:20 Urine Color Dark Yellow Urine Appearance Clear (Clear) Urine pH 5.0 (4.5-7.5) Ur Specific [place] 1.039 H (1.000-1.030) Urine Protein 1+ H (Negative) Urine Glucose (UA) Trace H (Negative) Diagnostic Findings CXR: IMPRESSION: Interstitial pulmonary edema CTA CHEST: IMPRESSION: 1. There is no evidence of pulmonary embolus in the main, lobar, or segmental pulmonary arteries. 2. Cardiomegaly with evidence of congestive failure. 3. There are small pleural effusions with bibasilar consolidation. This likely represents atelectasis. Correlate clinically for evidence of superimposed pneumonia. Radiographic follow-up to resolution is recommended. ECHO: moderately reduced LV systolic function with moderate to severe global hypokinesis, EF 30-35%, grade 1 diastolic dysfunction, moderate mitral regurgitation, pulmonary hypertension with a PA systolic pressure of 40 mmHg. ECG Rate (beats per minute): 108 Rhythm: sinus tachycardia Findings: + ST depression (Lateral) Supervising Physician Co-Signing Physician Notes I have seen and examined the patient and have discussed the case with the provider above. I agree with the assessment and plan as stated with the following exceptions. 78 yo M presented with chills and malaise, found to have elevated troponin on workup in the ER. 1mm lateral ST depression on EKG. Cardiology performed bedside echo and found depressed EF with global HK. He was taken to catheterization where triple vessel disease was noted. The LAD was able to be stented, with a plan for staged PCI in a couple of days. The patient is recovering in the ICU on some Levophed for pressure support. He denies any chest pain or shortness of breath. He was consented for blood and will receive two units with Lasix in between units. He already received Lasix 40mg IV during catheterization. Anemia is present and stable from recent outpatient labwork, with etiology thought secondary to hydroxyurea use vs bone marrow suppression in the setting of essential thrombocythemia. On exam he is in no acute distress, BIPAP is in place and he is not working to breathe. He is mentating normally. Pulmonary auscultation reveals crackles throughout, cardiac exam reveals S1/2 heard without murmur present. There is no peripheral edema. Abdomen is soft and non-tender and skin is warm and dry. Cont with medical management and plan for staged PCI in two days per Cardiology. DO Rudolph
--- NOTE | 2019-01-05 12:17 | Consultation Report ---
DATE OF CONSULTATION: 01/05/2019 CONSULTATION REQUESTED BY: Dr. Trujillo. REASON FOR CONSULTATION: Elevated troponin. HISTORY OF PRESENT ILLNESS: Mr. Anderson is a very pleasant 78-year-old gentleman who has never been seen by a filling layer up before. He presents to [facility] with reported 24 hours' worth of shortness of breath and fatigue. The patient states he was in his normal state of health until he woke up yesterday morning and felt very dyspneic and overall very poorly. He states he was just very tired and worn out and could not catch his breath all day. Symptoms worsened over the next 24 hours and early in the a.m. of he came into the Emergency Department. Upon arrival, his troponin was elevated at 6. He was tachycardic and dyspneic and concern for PE was raised. He went for a CTA of the chest which showed no pulmonary emboli. EKG showed new lateral ST segment depressions. A stat echocardiogram was performed which showed moderately reduced LV systolic function with moderate to severe global hypokinesis, EF 30-35%, moderate mitral regurgitation, pulmonary hypertension with a PA systolic pressure of 40 mmHg. This is new compared to previous study of 2013. The patient was seen at the bedside with his brother. He states he still feels a little dyspneic at rest but denies any chest pain, palpitations, lightheadedness, dizziness, syncope, abdominal pain or shoulder pain. PAST SURGICAL HISTORY: 1. Prostate biopsy. 2. Colonoscopy. 3. Radiation treatment. 4. Appendectomy. 5. Prostate catheter. MEDICAL ILLNESSES: 1. History of prostate cancer. 2. History of CVA. 3. Central thrombocythemia. 4. Dyslipidemia. 5. Arthritis. 6. Nonmelanoma skin cancer. FAMILY HISTORY: Noncontributory. SOCIAL HISTORY: Denies any alcohol, tobacco or recreational drug use. ALLERGIES: No known drug allergies. MEDICATIONS AN OUTPATIENT: 1. Aspirin 325 mg daily. 2. Atorvastatin 40 mg daily. 3. Agrylin b.i.d. 4. Multivitamin. PHYSICAL EXAMINATION: VITALS: Temperature 36.6, pulse 112, respiratory rate 20, blood pressure 91/59. GENERAL: Awake, alert, oriented x3. Mild conversational dyspnea. No other distress. HEENT: Normocephalic, atraumatic. Pupils equal, round, reactive to light and accommodation. Extraocular muscles intact. Anicteric sclerae. Moist mucous membranes. Poor dentition. NECK: No JVD or bruit. CARDIOVASCULAR: Regular but fast. Positive S4. Normal S1 and S2. No S3. 3/6 holosystolic ejection murmur greatest at the left sternal border, midclavicular line with radiation of the left axilla. PULMONARY: Scant bibasilar crackles, no rhonchi or wheezing. ABDOMEN: Bowel sounds x4, soft. No rebound, guarding, tenderness. No organomegaly. EXTREMITIES: No clubbing, cyanosis or edema. +2 pedal pulses bilaterally. SKIN: Warm and dry. TEST RESULTS: A 12-lead EKG performed 01/05/19 independently reviewed at this time shows sinus tachycardia 108 beats per minute, normal axis, Q-waves in the inferior leads along with significant ST depressions in the lateral leads, new compared to previous studies. A 2D echocardiogram was read as normal LV chamber size with mild concentric LVH, severely reduced LV systolic function with moderate to severe global hypokinesis, EF 30-35%, normal RV systolic function, moderate mitral regurgitation, pulmonary hypertension is present with a PA systolic pressure of 40 mmHg. In [place] legislature I personally notified the patient's other results within 20 minutes of the completion of the exam. LABORATORY STUDIES OF SIGNIFICANCE: White count of 5, hemoglobin 7.9, platelet count 259. Sodium 135, potassium 3.7, BUN 23, creatinine 1.3. Troponin of 6.7. IMPRESSION: 1. Acute non-ST segment elevation myocardial infarction. 2. Cardiomyopathy, unclear etiology. 3. Anemia. 4. Moderate mitral regurgitation. 5. Pulmonary hypertension. RECOMMENDATIONS: It was my pleasure to see Mr. Anderson in stat consultation today. Given the patient's presentation along with his ST segment changes on EKG, troponin elevation and wall motion abnormalities on echocardiogram the patient will be taken for urgent cardiac catheterization for further evaluation. Further recommendations to follow.
[2019-01-05] MEDS ORDERED: NOREPINEPHRINE BITARTRATE 1 MG/ML 4 ML VIAL (CATH LAB USE ONLY) ONE (12:40)
[2019-01-05] MEDS ORDERED: FUROSEMIDE 40 MG/4 ML VIAL IV ONE (12:51)
[2019-01-05] MEDS ORDERED: CLOPIDOGREL BISULFATE 300 MG TAB ONE (13:53)
--- NOTE | 2019-01-05 13:54 | Pre Anesthesia Assessment ---
Date of Service January 05, 2019 Pre Sedation Assessment Vital Signs Temp Pulse Pulse Resp BP BP Pulse Ox 01/05/19 11:48 120 H 36 H 91/59 L 100 01/05/19 11:22 112 H 28 H 100/66 92 01/05/19 10:20 113 H 26 H 121/83 98 01/05/19 09:44 109 H 24 103/67 91 01/05/19 08:47 95 01/05/19 08:26 36.6 C 66 20 105/58 L 100 Cardiovascular RRR, no murmur, no edema Respiratory normal respiratory effort, lungs clear to auscultation Pre-Sedation Airway Assessment Smoking Status: Former smoker Hx Sleep Apnea: No Hx Difficult Intubation: No Short, Thick Neck: No Thyromental Distance: > or= 3.5 Finger Breadths Oral Cavity: + WNL Mallampati Class: III Procedure Planning Contraindications for Sedation: none Current Medications Reviewed: Yes Notes The planned sedation has been discussed with the patient. Informed Consent was obtained. I have identified the patient, determined the appropriateness of sedation and have assessed the patient immediately prior to the procedure. All medicine(s) and interventions are by my order.
--- NOTE | 2019-01-05 13:54 | Post Anesthesia Assessment ---
Date of Service January 05, 2019 Post Sedation Assessment Vital Signs Temp Pulse Pulse Resp BP BP Pulse Ox 01/05/19 11:48 120 H 36 H 91/59 L 100 01/05/19 11:22 112 H 28 H 100/66 92 01/05/19 10:20 113 H 26 H 121/83 98 01/05/19 09:44 109 H 24 103/67 91 01/05/19 08:47 95 01/05/19 08:26 36.6 C 66 20 105/58 L 100 Recovery Score Activity: Moves 4 extremities Respiration: Deep Breath/Cough Circulation: +/-20% PreAnes Value Consciousness: Fully Awake Oxygen Saturation: O2 needed for >90% Discharge Sedation Level of Care: Fast Track Phase II Post Sedation Plan On clinical assessment, the patient appears to have tolerated the sedation without complications. Patient is recovering as anticipated. Patient will continue to be monitored by nursing and may be discharged when sedation discharge criteria are met per below protocol. Upon Completions of procedure and additional 15 minutes continue every 5 minute vital signs and the P.A.R. score; then discharge to a Phase I or Fast Track to Phase II per the following guidelines: * Discharge Patient to appropriate Phase II area if PAR is 8 or greater or return to pre- procedure baseline. The post - procedure orders will be as directed. * If PAR score is less than 8 or not return to pre-procedure baseline then patient will follow Phase I monitoring till PAR is reached for Phase II. The Phase I may be done in procedure room or may call to secure a Phase I area. * If naloxone or flumazenil are used for reversal, hold in Phase I for continued monitoring from when last reversal dose was given for a minimum of 6 0 minutes or longer pending the nurse and/or physician discretion of patient condition before discharge to Phase II. Please call the Sedation Physician to re-evaluate and complete post-note for discharge to Phase II area. Do NOT discharge from procedure sedation or Phase 1 until post- sedation evaluation note is complete by procedure /sedation MD Sedation Discharge Instructions to be given to the patient at discharge to home.
[2019-01-05 13:57] LABS: iSTAT Arterial Blood Gas HCO3 18 meg/L (19-24); iSTAT Arterial Blood Gas pCO2 28 mmHg (35-46); iSTAT Arterial Blood Gas pH 7.43 (7.35-7.45); iSTAT Carbon Dioxide 19 mEq/l (24-31)
[2019-01-05 13:57] LABS: iSTAT Arterial Blood Gas HCO3 19 meg/L (19-24); iSTAT Arterial Blood Gas pCO2 31 mmHg (35-46); iSTAT Arterial Blood Gas pH 7.39 (7.35-7.45); iSTAT Carbon Dioxide 20 mEq/l (24-31)
[2019-01-05 13:57] LABS: iSTAT Arterial Blood Gas HCO3 19 meg/L (19-24); iSTAT Arterial Blood Gas pCO2 31 mmHg (35-46); iSTAT Arterial Blood Gas pH 7.41 (7.35-7.45); iSTAT Carbon Dioxide 20 mEq/l (24-31)
--- NOTE | 2019-01-05 14:09 | Cardiac Catheterization ---
Cardiac Cath Procedure Full Procedure Date January 05, 2019 Pre-Procedure Diagnosis Pre-Procedure Diagnosis: Non STEMI AUC Score AUC Score: 8 Post-Procedure Diagnosis Post-Procedure Diagnosis: Severe CAD, Successful PCI and Elevated Intracardiac Pressures Procedure(s) Performed Procedure(s) Performed: Coronary Angiography, Left Heart Cath and Drug Eluting Stent Pharmacy Technician Infusion Anthony Jaramillo MD Fiber Design Engineer(s) Franko Estimated Blood Loss Estimated Blood Loss: 15 Medication(s) Medication(s): Clopidogrel, Fentanyl, Heparin, Lidocaine 1%, Nitroglycerin and Versed Summary of Findings Indication: High risk NSTEMI Access: 6 Fr right radial artery Catheters: [place], pigtail, EBU 3.5 guide Findings: LM -Short, calcified, luminal irregularities LAD -large caliber vessel, heavily calcified proximally, diffuse 95 to 99% mid segment disease after takeoff of large second diagonal, 90% focal distal stenosis prior to vessel wrapping around apex Circumflex -moderate caliber vessel, 50% earlymid disease at takeoff of first OM, focal 80 to 90% narrowings in distal circumflex extending into left PLB, moderate caliber OM1 with 90% focal stenosis small OM 2 with 80 to 90% stenosis. RCA -moderate caliber vessel dominant, 95% earlymid focal stenosis at takeoff of acute marginal, distal luminal irregularities, small PDA widely patent LVEDP -21, 30 post procedure -- PCI -- Antithrombotic therapy: Heparin, clopidogrel Procedure: Left main cannulated with EBU 3.5 guide [facility] 50 wire passed across lesion into distal LAD Whisper wire passed into large second diagonal Mid LAD lesion predilated with 2.5 compliant balloon Distal LAD ballooned with 2.5 balloon Dilated lesion stented with 3.0 x 30 mm Angel drug-eluting stent Second diagonal rewired with whisper wire Stent post-dilated with 3.0 noncompliant balloon IC vasodilators administered for spasm Post procedure LIZBETH 3 flow, stent well expanded with minimal residual stenosis and no apparent cardiac complications. During procedure hypoxemic requiring 15 L O2 mask and eventual BiPAP Given 40 of IV Lasix for elevated LVEDP Maintained on norepinephrine 0.1 Arterial Closure: TR band Summary: 1. Severe multi-vessel coronary artery disease -95 to 99% diffuse mid LAD, 80 to 90% focal distal LAD 90% distal circumflex into left PLB. Moderate caliber first OM with 90% focal stenosis 95% earlymid RCA at bifurcation with acute marginal 2. Elevated intracardiac filling pressure 3. Successful PCI of mid LAD with single drug-eluting stent (3.0 x 30 mm Angel). - POBA of distal LAD with 2.5 balloon. Recommendations: To ICU for continued monitoring, additional diuresis, transfusion and hemodynamic support Loaded with clopidogrel 600 mg Continue dual-antiplatelet therapy for at least one year Continue statin, and ASCVD risk factor modification Will consider staged PCI of RCA later in hospitalization. Hemodynamics Rest Ao:: 78/47/63 Final Ao: 103/62/79 LV: 95/21 Recommendations Recommendations: PCI without planned CABG Specimens Specimens: None Radiation Exposure (mGy) 4199 Contrast (mls) 130 Fluids (cc crystalloids) Fluids (cc crystalloids): 150 Drains Drains: none Anesthesia moderate Procedural Complication(s) None Disposition ICU ACC Data: Sander Portable Machine Cardiac Status Clinical evaluation leading to the procedure CAD Presenation: Non STEMI Anginal Classification: CCS IV Heart Failure: No Cardiogenic Shock within 24 Hours: No Cardiac Arrest within 24 Hours: No Imaging Studies Past 6 Months: Yes Stress Studies Past 6 Months: No Diagnostic Physicians Name: Anthony Jaramillo MD Status: Urgent Closure Device Percutaneous Entry Location: Radial Closure Device: Radial Band Recommendations: PCI without planned CABG PCI Indication: PCI for high risk Non-SE Lesion Segment Name: mid LAD Culprit Artery: Yes Stenosis Prior to Rx (%): 95 Chronic Total Occlusion: No IVUS: No FFR: No Pre-Procedure LIZBETH Flow: 3 Previously Treated Lesion: No Lesion Complexity: High/C Lesion Length (mm): 25 Thrombus Present: Yes Bifurcation Lesion: Yes Guidewire Across Lesion: Stenosis Post-Procedure (%): 0 Post-Procedure LIZBETH Flow: 3 Devices(s) Deployed: Yes Yes Intraprocedure Events Significant Disection: No Perforation: No
[2019-01-05] MEDS ORDERED: ICU PROTOCOL FOR HYPERGLYCEMIA PRN (14:13)
[2019-01-05] MEDS ORDERED: SODIUM CHLORIDE 0.9% 250 ML IV PRN ×2 (14:13→14:23)
[2019-01-05] MEDS ORDERED: NOREPINEPHRINE BIT INJ 8 MG in DEXTROSE 5% 500 ML IV SCH (14:15)
[2019-01-05] MEDS ORDERED: FUROSEMIDE 40 MG in SYRINGE 0 ML IV ONE (14:30)
[2019-01-05] MEDS: ACETAMINOPHEN 325 MG TAB PO SCH ×2 (15:32→15:54)
[2019-01-05] MEDS ORDERED: FUROSEMIDE 40 MG in SYRINGE 0 ML IV SCH (16:00)
--- NOTE | 2019-01-05 16:19 | Critical Care Consultation ---
Date of Consultation January 05, 2019 Assessment & Plan (1) NSTEMI (non-ST elevated myocardial infarction): Neuro-awake alert CV- shock likely cardiogenic on decreasing doses of norepinephine. will try to titrate off. NSTEMI and ischemic cardiomyopathy s/p cath with stent to LAD. aspirin, ticagrelor, atorvastatin. KRISTINA and metorprolol if BP allows Pulmonary- acute hypoxic respiratory failure due to pulmonary edema. continue bipap if needed. can try off. snall bilateral pleural effusion-no need for intervention now ID- no clear infection follow cultures Renal- cr ok GI- diet if tolerates off bipap Heme- anemia. heparin proph Endocrine- keep blood sugars <180 Dispo- monitor in ICU for respiratory and hemodynamic support I have personally spent 25 minutes of critical care time in the direct management of this patient. This is a life/limb threatening event. This incl udes time spent evaluating patient, direct bedside care, chart review, placing orders, interpretation of diagnostic studies, discussion with consultants, patient, and/or family members regarding treatment decisions, as well as other required patient management activities. This time is exclusive of all separately billable procedures, and teaching time and separate from and in addition to any other critical care service time. (2) Cardiomyopathy: History of Present Illness Attending Physician: Eufemia Alexander MD History of Present Illness 78 y/o male with a history of prostate CA, essential thrombocythemia, hyperlipidemia who presented today with shortness of breath on exertion which started yesteday. He also complains of weakness and muscle aches. no fevers but chills yesterday. He was found to have decreased EF on echo and troponin was elevated and he was taken to the cath lab nurse where is was found to have multivessel disease and had stent of his mid LAD as well as balloon of his distal LAD. He was started on bipap during procedure because he became hypoxem ic and was started on bipap. He was also started on norepineprhine for his blood pressure and his requirment has been improving. He currently says he has no pain. no sob. only complaint is the bipap mask. 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) Hypercholesteremia (Chronic) Prostate cancer (Chronic) Surgical History History of appendectomy (Chronic) Family History Brother Heart disease Stroke Social History 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 Beliefs That Will Affect Care: None Current Living Situation: Family Other Information That Helps Us Care for You: No Feels Safe at Home: Yes Safety Concerns: Feels Safe At This Time Smoking Status: Former smoker Tobacco Type: cigars Do You Dip or Chew Tobacco: No Second Hand Exposure: No Tobacco Cessation Education Requested by Patient: No Hx Alcohol Use: No Hx Substance Use: No Review of Systems Review of Systems: Constitutional: no fevers + chills no weight loss Eyes: no blurry or double vision EENT: no sore throat, no congestion Respiratory: no cough + shortness of breath Cardiovascular: + chest pain no palpitations GI: no abdominal pain, no nausea, no vomiting, no diarrhea, no constipation Gu: no dysuria, no frequency MSK: no joint pain, no muscle aches Skin: no rash Neuro: no headache, no dizziness, no focal weakness Endocrine: no heat or cold intolerance heme: no easy bruising, no lymphadenopathy Psych: no depression, no anxiety Physical Exam Physical Exam: Constitutional: Comfortable NAD on bipap HEENT: normocephalic atraumatic. MMM. no cervical lymphadenopathy CV: RRR nl s1,s2 no murmurs rubs or gallops Lungs: clear to auscultation bilaterally. no accessory muscle use Abd: soft nontender nondistended. normal bowel sounds Ext: no edema. no cyanosis, no clubbing Skin: warm dry Neuro: alert and oriented. moving all extremities Psych: normal mood and affect Results & Data Vital Signs (Past 12 Hours) Vital Signs Temp Pulse Pulse Resp BP BP Pulse Ox 01/05/19 16:00 102 H 01/05/19 15:58 37.9 C H 102 H 22 103/67 94 01/05/19 15:51 37.8 C H 103 H 22 103/67 01/05/19 15:42 37.8 C H 109 H 24 106/80 94 01/05/19 15:21 103 H 23 01/05/19 15:00 37.0 C 108 H 103 H 24 111/73 94 01/05/19 14:09 36.9 C 105 H 24 97/76 L 96 01/05/19 13:15 108 H 20 93 01/05/19 11:48 120 H 36 H 91/59 L 100 01/05/19 11:22 112 H 28 H 100/66 92 01/05/19 10:20 113 H 26 H 121/83 98 01/05/19 09:44 109 H 24 103/67 91 01/05/19 08:47 95 01/05/19 08:26 36.6 C 66 20 105/58 L 100 Pulse Ox 01/05/19 16:00 01/05/19 15:58 01/05/19 15:51 01/05/19 15:42 01/05/19 15:21 01/05/19 15:00 96 01/05/19 14:09 01/05/19 13:15 01/05/19 11:48 01/05/19 11:22 01/05/19 10:20 01/05/19 09:44 01/05/19 08:47 01/05/19 08:26 Laboratory Results Laboratory Results - last 24 hr 01/05/19 01/05/19 01/05/19 08:47 08:47 08:47 WBC 4.96 RBC 2.15 L Hgb 7.9 L Hct 22.9 L MCV 106.5 H MCH 36.7 H MCHC 34.5 RDW Std Deviation 82.5 H RDW Coeff of Eliana 21.7 H Plt Count 259 MPV 11.0 H Absolute Nucleated RBC 0.06 H Nucleated RBC % (auto) 1.1 Neutrophils % (Manual) 89.4 Lymphocytes % (Manual) 2.6 Monocytes % (Manual) 1.8 Basophils % (Manual) 0.9 Blast Cells % (Manual) 5.3 Neutrophils # (Manual) 4.43 Total Absolute Neuts 4.43 Lymphocytes # (Manual) 0.13 L Total Abs Lymphocytes 0.13 L Monocytes # (Manual) 0.09 L Basophils # (Manual) 0.04 Blast Cells # (Man) 0.26 H Blood Smear Review Giant Platelets 1+ Polychromasia 1+ Anisocytosis Present Ovalocytes 1+ PT 12.4 H INR 1.2 H APTT 33.0 H PTT Ratio 1.2 Activ Coag Time Kaolin POC pH POC pCO2 POC pO2 POC HCO3 POC Total CO2 POC Base Excess POC ABG O2 Sat Sodium 135 L Potassium 3.7 Chloride 103 Carbon Dioxide 21 Anion Gap 11.0 BUN 23 H Creatinine 1.30 Est Cr Clr Drug Dosing 45.3 Est GFR ( Amer) 60.6 Est GFR (Non-Af Amer) 52.3 BUN/Creatinine Ratio 17.8 Glucose 162 H POC Glucose Lactate Calcium 8.4 L Magnesium 2.2 Total Bilirubin 1.2 H AST 85 H ALT 24 Alkaline Phosphatase 60 Troponin I 6.770 H* Total Protein 7.4 Albumin 3.5 Globulin 3.9 Albumin/Globulin Ratio 0.9 Lipase 48 L Urine Color Urine Appearance Urine pH Ur Specific [place] Urine Protein Urine Glucose (UA) Urine Ketones Urine Blood Urine Nitrite Urine Bilirubin Urine Urobilinogen Ur Leukocyte Esterase Urine WBC (Auto) Urine RBC (Auto) U Hyaline Cast (Auto) U Epithel Cells (Auto) Urine Bacteria (Auto) Ur Renal Epithelial Cell Urine Mucus Nasal Screen MRSA (PCR) Influenza Type A Ag Influenza Type B Ag Flow Cytometry Comment Blood Type Blood Type Recheck Antibody Screen Crossmatch 01/05/19 01/05/19 01/05/19 08:47 09:31 10:00 WBC RBC Hgb Hct MCV MCH MCHC RDW Std Deviation RDW Coeff of Eliana Plt Count MPV Absolute Nucleated RBC Nucleated RBC % (auto) Neutrophils % (Manual) Lymphocytes % (Manual) Monocytes % (Manual) Basophils % (Manual) Blast Cells % (Manual) Neutrophils # (Manual) Total Absolute Neuts Lymphocytes # (Manual) Total Abs Lymphocytes Monocytes # (Manual) Basophils # (Manual) Blast Cells # (Man) Blood Smear Review Giant Platelets Polychromasia Anisocytosis Ovalocytes PT INR APTT PTT Ratio Activ Coag Time Kaolin POC pH POC pCO2 POC pO2 POC HCO3 POC Total CO2 POC Base Excess POC ABG O2 Sat Sodium Potassium Chloride Carbon Dioxide Anion Gap BUN Creatinine Est Cr Clr Drug Dosing Est GFR ( Amer) Est GFR (Non-Af Amer) BUN/Creatinine Ratio Glucose POC Glucose Lactate 2.0 Calcium Magnesium Total Bilirubin AST ALT Alkaline Phosphatase Troponin I Total Protein Albumin Globulin Albumin/Globulin Ratio Lipase Urine Color Urine Appearance Urine pH Ur Specific [place] Urine Protein Urine Glucose (UA) Urine Ketones Urine Blood Urine Nitrite Urine Bilirubin Urine Urobilinogen Ur Leukocyte Esterase Urine WBC (Auto) Urine RBC (Auto) U Hyaline Cast (Auto) U Epithel Cells (Auto) Urine Bacteria (Auto) Ur Renal Epithelial Cell Urine Mucus Nasal Screen MRSA (PCR) Influenza Type A Ag Neg for Influ A Influenza Type B Ag Neg for Influ B Flow Cytometry Comment Pending Blood Type Blood Type Recheck Antibody Screen Crossmatch 01/05/19 01/05/19 01/05/19 10:20 10:43 12:40 WBC RBC Hgb Hct MCV MCH MCHC RDW Std Deviation RDW Coeff of Eliana Plt Count MPV Absolute Nucleated RBC Nucleated RBC % (auto) Neutrophils % (Manual) Lymphocytes % (Manual) Monocytes % (Manual) Basophils % (Manual) Blast Cells % (Manual) Neutrophils # (Manual) Total Absolute Neuts Lymphocytes # (Manual) Total Abs Lymphocytes Monocytes # (Manual) Basophils # (Manual) Blast Cells # (Man) Blood Smear Review Giant Platelets Polychromasia Anisocytosis Ovalocytes PT INR APTT PTT Ratio Activ Coag Time Kaolin 169 H POC pH POC pCO2 POC pO2 POC HCO3 POC Total CO2 POC Base Excess POC ABG O2 Sat Sodium Potassium Chloride Carbon Dioxide Anion Gap BUN Creatinine Est Cr Clr Drug Dosing Est GFR ( Amer) Est GFR (Non-Af Amer) BUN/Creatinine Ratio Glucose POC Glucose Lactate Calcium Magnesium Total Bilirubin AST ALT Alkaline Phosphatase Troponin I Total Protein Albumin Globulin Albumin/Globulin Ratio Lipase Urine Color Dark Yellow Urine Appearance Clear Urine pH 5.0 Ur Specific [place] 1.039 H Urine Protein 1+ H Urine Glucose (UA) Trace H Urine Ketones Trace H Urine Blood Negative Urine Nitrite Negative Urine Bilirubin Negative Urine Urobilinogen Negative Ur Leukocyte Esterase Negative Urine WBC (Auto) 1-5 Urine RBC (Auto) 0-4 U Hyaline Cast (Auto) 5-10 H U Epithel Cells (Auto) >30 H Urine Bacteria (Auto) Negative Ur Renal Epithelial Cell Not Reportable Urine Mucus Present A Nasal Screen MRSA (PCR) Influenza Type A Ag Influenza Type B Ag Flow Cytometry Comment Blood Type O Positive Blood Type Recheck Antibody Screen NEGATIVE Crossmatch See Detail 01/05/19 01/05/19 01/05/19 12:42 12:48 13:10 WBC RBC Hgb Hct MCV MCH MCHC RDW Std Deviation RDW Coeff of Eliana Plt Count MPV Absolute Nucleated RBC Nucleated RBC % (auto) Neutrophils % (Manual) Lymphocytes % (Manual) Monocytes % (Manual) Basophils % (Manual) Blast Cells % (Manual) Neutrophils # (Manual) Total Absolute Neuts Lymphocytes # (Manual) Total Abs Lymphocytes Monocytes # (Manual) Basophils # (Manual) Blast Cells # (Man) Blood Smear Review Giant Platelets Polychromasia Anisocytosis Ovalocytes PT INR APTT PTT Ratio Activ Coag Time Kaolin 219 H POC pH 7.41 7.39 POC pCO2 31 L 31 L POC pO2 63 L 79 L POC HCO3 19 19 POC Total CO2 20 L 20 L POC Base Excess -6.0 -6.0 POC ABG O2 Sat 92.0 96.0 H Sodium Potassium Chloride Carbon Dioxide Anion Gap BUN Creatinine Est Cr Clr Drug Dosing Est GFR ( Amer) Est GFR (Non-Af Amer) BUN/Creatinine Ratio Glucose POC Glucose Lactate Calcium Magnesium Total Bilirubin AST ALT Alkaline Phosphatase Troponin I Total Protein Albumin Globulin Albumin/Globulin Ratio Lipase Urine Color Urine Appearance Urine pH Ur Specific [place] Urine Protein Urine Glucose (UA) Urine Ketones Urine Blood Urine Nitrite Urine Bilirubin Urine Urobilinogen Ur Leukocyte Esterase Urine WBC (Auto) Urine RBC (Auto) U Hyaline Cast (Auto) U Epithel Cells (Auto) Urine Bacteria (Auto) Ur Renal Epithelial Cell Urine Mucus Nasal Screen MRSA (PCR) Influenza Type A Ag Influenza Type B Ag Flow Cytometry Comment Blood Type Blood Type Recheck Antibody Screen Crossmatch 01/05/19 01/05/19 01/05/19 13:42 14:26 15:00 WBC RBC Hgb Hct MCV MCH MCHC RDW Std Deviation RDW Coeff of Eliana Plt Count MPV Absolute Nucleated RBC Nucleated RBC % (auto) Neutrophils % (Manual) Lymphocytes % (Manual) Monocytes % (Manual) Basophils % (Manual) Blast Cells % (Manual) Neutrophils # (Manual) Total Absolute Neuts Lymphocytes # (Manual) Total Abs Lymphocytes Monocytes # (Manual) Basophils # (Manual) Blast Cells # (Man) Blood Smear Review Giant Platelets Polychromasia Anisocytosis Ovalocytes PT INR APTT PTT Ratio Activ Coag Time Kaolin POC pH 7.43 POC pCO2 28 L POC pO2 129 H POC HCO3 18 L POC Total CO2 19 L POC Base Excess -6.0 POC ABG O2 Sat 99.0 H Sodium Potassium Chloride Carbon Dioxide Anion Gap BUN Creatinine Est Cr Clr Drug Dosing Est GFR ( Amer) Est GFR (Non-Af Amer) BUN/Creatinine Ratio Glucose POC Glucose Lactate Calcium Magnesium Total Bilirubin AST ALT Alkaline Phosphatase Troponin I Total Protein Albumin Globulin Albumin/Globulin Ratio Lipase Urine Color Urine Appearance Urine pH Ur Specific [place] Urine Protein Urine Glucose (UA) Urine Ketones Urine Blood Urine Nitrite Urine Bilirubin Urine Urobilinogen Ur Leukocyte Esterase Urine WBC (Auto) Urine RBC (Auto) U Hyaline Cast (Auto) U Epithel Cells (Auto) Urine Bacteria (Auto) Ur Renal Epithelial Cell Urine Mucus Nasal Screen MRSA (PCR) Pending Influenza Type A Ag Influenza Type B Ag Flow Cytometry Comment Blood Type Blood Type Recheck O Positive Antibody Screen Crossmatch 01/05/19 15:47 WBC RBC Hgb Hct MCV MCH MCHC RDW Std Deviation RDW Coeff of Eliana Plt Count MPV Absolute Nucleated RBC Nucleated RBC % (auto) Neutrophils % (Manual) Lymphocytes % (Manual) Monocytes % (Manual) Basophils % (Manual) Blast Cells % (Manual) Neutrophils # (Manual) Total Absolute Neuts Lymphocytes # (Manual) Total Abs Lymphocytes Monocytes # (Manual) Basophils # (Manual) Blast Cells # (Man) Blood Smear Review Giant Platelets Polychromasia Anisocytosis Ovalocytes PT INR APTT PTT Ratio Activ Coag Time Kaolin POC pH POC pCO2 POC pO2 POC HCO3 POC Total CO2 POC Base Excess POC ABG O2 Sat Sodium Potassium Chloride Carbon Dioxide Anion Gap BUN Creatinine Est Cr Clr Drug Dosing Est GFR ( Amer) Est GFR (Non-Af Amer) BUN/Creatinine Ratio Glucose POC Glucose 125 H Lactate Calcium Magnesium Total Bilirubin AST ALT Alkaline Phosphatase Troponin I Total Protein Albumin Globulin Albumin/Globulin Ratio Lipase Urine Color Urine Appearance Urine pH Ur Specific [place] Urine Protein Urine Glucose (UA) Urine Ketones Urine Blood Urine Nitrite Urine Bilirubin Urine Urobilinogen Ur Leukocyte Esterase Urine WBC (Auto) Urine RBC (Auto) U Hyaline Cast (Auto) U Epithel Cells (Auto) Urine Bacteria (Auto) Ur Renal Epithelial Cell Urine Mucus Nasal Screen MRSA (PCR) Influenza Type A Ag Influenza Type B Ag Flow Cytometry Comment Blood Type Blood Type Recheck Antibody Screen Crossmatch Diagnostic Findings XR chest 1V portable CLINICAL HISTORY: Sepsis COMPARISON STUDY: 06/30/2013 FINDINGS: The heart is at the upper limits of normal in size. There is an interstitial pulmonary edema pattern. There is no focal pulmonary consolidation. There are no large pleural effusions.[ IMPRESSION: Interstitial pulmonary edema Electronically signed by: Elmo Salazar M.D. 01/05/2019 10:[address] ANGIOGRAM OF THE CHEST CLINICAL HISTORY: Dyspnea. COMPARISON STUDY: Chest x-ray dated 01/05/2019. TECHNIQUE: Following the IV administration of 118 cc of Optiray 320, CT angiogram of the chest was performed from the upper abdomen to the thoracic inlet utilizing the pulmonary embolus protocol. Images are reviewed in the axial, sagittal, and coronal planes. 3-D MIPS images are created and assessed. IV contrast was administered without complication. A dose lowering technique was utilized adhering to the principles of ALARA. CT DOSE: 416.50 mGy.cm FINDINGS: Thyroid: Imaged portions of the thyroid gland are normal in size and attenuation. Thoracic aorta: There is mild atherosclerotic calcification of the thoracic aorta, which is normal in caliber and demonstrates standard 3-vessel arch anatomy. No dissection is seen. Pulmonary vasculature: The pulmonary trunk is normal in caliber. There are no filling defects identified in main, lobar, or segmental pulmonary branches to suggest pulmonary embolus. Evaluation of the peripheral branches is modestly degraded by motion artifact. Heart: The heart is enlarged and without pericardial effusion. The coronary arteries are densely calcified. Lungs and pleural spaces: There are small bilateral pleural effusions with bibasilar consolidation. Diffuse intralobular septal thickening and peribronchial thickening are noted. The trachea and central airways are clear. Mediastinum: There is no mediastinal lymphadenopathy. Litzy: Clear. Axillae: There is no axillary lymphadenopathy. Upper abdomen: A 2.4 cm cyst is noted in the upper pole of the left kidney. Partially visualized upper abdominal viscera is otherwise grossly unremarkable. Skeletal structures: The skeletal structures are osteopenic. No lytic or blastic bony lesions are seen. Arthritic change is noted in the shoulders. Soft tissues: Gynecomastia is noted. IMPRESSION: 1. There is no evidence of pulmonary embolus in the main, lobar, or segmental pulmonary arteries. 2. Cardiomegaly with evidence of congestive failure. 3. There are small pleural effusions with bibasilar consolidation. This likely represents atelectasis. Correlate clinically for evidence of superimposed pneumonia. Radiographic follow-up to resolution is recommended. Electronically signed by: Bryson Curry M.D. 01/05/2019 10:25 AM
--- NOTE | 2019-01-05 17:34 | Cardiology Consultation ---
Date of Consultation January 05, 2019 Assessment & Plan (1) NSTEMI (non-ST elevated myocardial infarction): 2. Severe multivessel CAD 3. Severe LV dysfunction with acute systolic heart failure 4. Cardiogenic shock 5. Respiratory failure requiring Bipap 6. Anemia 7. Essential thrombocytopenia Patient underwent cardiac catheterization via right radial artery. Found to have severe 3 vessel CAD including a 95% mid LAD stenosis which was thought to be culprit. Underwent PCI with singld JERSON to mid LAD with good angiographic result. Procedure complicated by cardiogenic shock requiring vasopressors, respiratory failure requiring bipap and diuresis. Going forward Dr. Galindo will guide cardiac care. Patient started on DAPT with aspirin and clopidogrel. Tentatively plan for staged PCI of mid RCA Monday 01/08 pending clinical course following additional diuresis and transfusion. History of Present Illness Attending Physician: Eufemia Alexander MD History of Present Illness Mr. Anderson is a 78 year old man with a history of essential thrombocytopenia, dyslipidemia admitted with NSTEMI, new severe LV dysfunction. Presenting symptoms of dyspnea/fatigue for approximately 24 hrs. Found to have a troponin of 6 on arrival and was tachycardic, hypoxic with borderline blood pressures. CTA negative for PE. Echo showed global LV dysfunction, EF 30-35% and in terventional cardiology consulted for catheterization. 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) Hypercholesteremia (Chronic) Prostate cancer (Chronic) Surgical History History of appendectomy (Chronic) Family History Brother Heart disease Stroke Social History 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 Beliefs That Will Affect Care: None Current Living Situation: Family Other Information That Helps Us Care for You: No Feels Safe at Home: Yes Safety Concerns: Feels Safe At This Time Smoking Status: Former smoker Tobacco Type: cigars Do You Dip or Chew Tobacco: No Second Hand Exposure: No Tobacco Cessation Education Requested by Patient: No Hx Alcohol Use: No Hx Substance Use: No Review of Systems Review of Systems: Not completed in the setting of emergent situation Physical Exam Constitutional: + ill appearing Eyes: + scleral abnormality Respiratory: + respiratory distress Cardiovascular: Rate/Rhythm: + tachycardic Heart Sounds: no murmur Gastrointestinal (Abdomen): Percussion/Palpation: abdomen soft; abdomen nontender Skin: no rashes, warm and dry Neurologic: moves all extremities; no focal motor deficits Psychiatric: Orientation: alert and oriented x 3 Results & Data Vital Signs (Past 12 Hours) Vital Signs Temp Pulse Pulse Resp BP BP Pulse Ox 01/05/19 16:45 105 H 91/64 L 99 01/05/19 16:43 36.8 C 108 H 22 89/59 L 95 01/05/19 16:37 36.8 C 107 H 22 93/57 L 99 01/05/19 16:30 106 H 93/57 L 01/05/19 16:15 100 H 90/58 L 100 01/05/19 16:13 38.1 C H 102 H 22 90/58 L 96 01/05/19 16:00 103 H 92/63 L 01/05/19 15:58 37.9 C H 102 H 22 103/67 94 01/05/19 15:51 37.8 C H 103 H 22 103/67 01/05/19 15:46 102 H 103/67 95 01/05/19 15:45 103 H 01/05/19 15:42 37.8 C H 109 H 24 106/80 94 01/05/19 15:41 108 H 106/60 01/05/19 15:30 106 H 99 01/05/19 15:21 103 H 23 01/05/19 15:15 102 H 01/05/19 15:01 104 H 111/73 95 01/05/19 15:00 37.0 C 110 H 103 H 24 111/73 99 01/05/19 14:45 104 H 01/05/19 14:40 103 H 109/71 96 01/05/19 14:33 107 H 99/68 L 01/05/19 14:30 107 H 01/05/19 14:09 36.9 C 105 H 24 97/76 L 96 01/05/19 13:15 108 H 20 93 01/05/19 11:48 120 H 36 H 91/59 L 100 01/05/19 11:22 112 H 28 H 100/66 92 01/05/19 10:20 113 H 26 H 121/83 98 01/05/19 09:44 109 H 24 103/67 91 01/05/19 08:47 95 01/05/19 08:26 36.6 C 66 20 105/58 L 100 Pulse Ox 01/05/19 16:45 01/05/19 16:43 01/05/19 16:37 01/05/19 16:30 01/05/19 16:15 01/05/19 16:13 01/05/19 16:00 01/05/19 15:58 01/05/19 15:51 01/05/19 15:46 01/05/19 15:45 01/05/19 15:42 01/05/19 15:41 01/05/19 15:30 01/05/19 15:21 01/05/19 15:15 01/05/19 15:01 01/05/19 15:00 96 01/05/19 14:45 01/05/19 14:40 01/05/19 14:33 01/05/19 14:30 01/05/19 14:09 01/05/19 13:15 01/05/19 11:48 01/05/19 11:22 01/05/19 10:20 01/05/19 09:44 01/05/19 08:47 01/05/19 08:26
[2019-01-05] MEDS: [UNRECOGNIZED DRUG - OTHER] SCH ×2 (19:03→23:58)
[2019-01-05] MEDS ORDERED: ATORVASTATIN 40 MG TAB PO SCH (21:00)
[2019-01-05] MEDS: HEPARIN SOD 5,000 UNIT/0.5 ML VIAL SQ SCH (21:29)
[2019-01-05] MEDS ORDERED: AMIODARONE / D5W 150 MG/100 ML BAG IV STA (23:21)
[2019-01-05] MEDS ORDERED: AMIODARONE IV BOLUS / DRIP IV STA (23:21)
--- NOTE | 2019-01-05 23:22 | Critical Care Progress Note ---
Date of Service January 05, 2019 Assessment & Plan (1) A-fib: (2) Hypoxia: (3) Pulmonary edema: (4) Status post percutaneous transluminal coronary angioplasty: (5) NSTEMI (non-ST elevated myocardial infarction): (6) Cardiomyopathy: (7) Cardiogenic shock: Subjective At approximately 2300, the patient was noted to develop abrupt onset of fluctuating heart rate into the 150s to 160s which appeared irregularly irregular on monitor. I did assess the patient at bedside. He is laying on his right side and offers no complaints. His oxygen saturation had been noted to be in the mid to high 80s at this point. He was wearing his nasal cannula. BiPAP was at bedside as the patient did have symptomatic hypoxia with pulmonary edema intraprocedurally during PCI. He was treated with IV Lasix during that time and was eventually weaned off the BiPAP. On exam, the patient is awake and alert. He denies any complaints at this time, specifically denies any complaints of chest pain, pleuritic pain, shortness of breath, or cough. Patient's temperature was reassessed as he was found to be with temperatures of 38.1 at change of shift. This had since subsequently declined throughout shift without intervention. Most recent temperature documented was 37.9. I did review the patient's chart and no history of A. fib was noted. Verbal order for emergent EKG was provided to nursing staff. Read on EKG was noted to be defined as, "Sinus tachycardia with premature supraventricular complexes" at a rate of 148 bpm. QTc 386. There appeared to be resolve of initial concerns of ST depression in lateral leads. Despite this read, I am unable to discern P waves on this EKG and patient has persistent irregularly irregular rhythm with transient heart rates in the 150s to 160s. I did review the patient's chart and there was no reported history of A. fib noted. Patient did recently undergo PCI with certainly would put the patient at high risk for aberrancy. In review of documentation, the patient had not received dose of beta-kiko and no comments were made as to plans for institution of beta-kiko at this time. Patient had recently required low-dose norepinephrine during and shortly after the procedure. There was concern for cardiogenic shock. Because of this, and the underlying likelihood that the patient may certainly be progressing into worsening cardiogenic shock, I did elect to choose amiodarone as antiarrhythmic of choice. Orders are placed for bolus and drip. Prior to this, labs were drawn to evaluate for possible worsening anemia as the patient did require 2 units PRBCs earlier in the day. In addition, concern for electrolyte derangement in the presence of new onset A. fib certainly is of high priority, especially after receiving IV Lasix. Assessment of labs demonstrates improvement of patient's hemoglobin and hematocrit. Thankfully, there is been no change in the patient's electrolytes, specifically potassium. I do not see the utility and replacing electrolytes at this time. Patient had been placed in the BiPAP by myself during initial bedside ass essment. He did have improvement of his oxygen saturations on settings of 14/5 with FiO2 of 50%. Patient was increasingly anxious with this and had complaints of discomfort of the mask alone. After patient's heart rate had normalized back into the 100s to 1 teens with more normal rhythm noted on monitor, we did remove the BiPAP and placed on oxygen mask. Chest x-ray was ordered and interpreted by myself as worsening pulmonary edema from initial chest x-ray reviewed in the emergency setting. Because of this, and with the patient's recent presumed drop in EF as well as added volume with blood products, I did elect to treat the patient with an additional dose of IV Lasix. He will receive 40 mg IV. Certainly, the patient would benefit from positive pressure ventilatory techniques for positive hydrostatic pressure, patient will not tolerate this and worsens his heart rate and symptoms. Because of this, we will place the patient on Vapotherm to provide a degree of positive pressure with increasing airflow. We will continue to monitor closely for changes worsening hemodynamics. At this point, patient has shown improvement back to near baseline at this time. I have personally spent 60 minutes of critical care time in the direct management of this patient. This is a life/limb threatening event. This includes time spent evaluating patient, direct bedside care, chart review, placing orders, interpretation of diagnostic studies, discussion with consultants, patient, and family members, as well as other required patient management activities. This time is exclusive of all separately billable procedures, and teaching time and separate from and in addition to any other critical care service time. Results & Data Vital Signs (Past 12 Hours) Vital Signs Temp Pulse Pulse Resp BP BP Pulse Ox 01/05/19 21:30 37.9 C H 115 H 20 100/73 92 07/02/19 20:36 38.1 C H 110 H 20 109/68 94 01/05/19 19:36 37.9 C H 110 H 20 96/66 L 93 01/05/19 19:06 37.9 C H 108 H 18 93/58 L 95 01/05/19 18:51 38.3 C H 109 H 18 88/58 L 100 01/05/19 18:34 37.6 C H 109 H 22 91/56 L 96 01/05/19 18:17 37.7 C H 109 H 22 88/58 L 96 01/05/19 17:39 36.9 C 108 H 22 115/55 L 96 01/05/19 16:45 105 H 91/64 L 99 01/05/19 16:43 36.8 C 108 H 22 89/59 L 95 01/05/19 16:37 36.8 C 107 H 22 93/57 L 99 01/05/19 16:30 106 H 93/57 L 01/05/19 16:15 100 H 90/58 L 100 01/05/19 16:13 38.1 C H 102 H 22 90/58 L 96 01/05/19 16:00 108 H 92/63 L 01/05/19 15:58 37.9 C H 102 H 22 103/67 94 01/05/19 15:51 37.8 C H 103 H 22 103/67 01/05/19 15:46 102 H 103/67 95 01/05/19 15:45 103 H 01/05/19 15:42 37.8 C H 109 H 24 106/80 94 01/05/19 15:41 108 H 106/60 01/05/19 15:30 106 H 99 01/05/19 15:21 103 H 23 01/05/19 15:15 102 H 01/05/19 15:01 104 H 111/73 95 01/05/19 15:00 37.0 C 110 H 103 H 24 111/73 99 01/05/19 14:45 104 H 01/05/19 14:40 103 H 109/71 96 01/05/19 14:33 107 H 99/68 L 01/05/19 14:30 107 H 01/05/19 14:09 36.9 C 105 H 24 97/76 L 96 01/05/19 13:15 108 H 20 93 01/05/19 11:48 120 H 36 H 91/59 L 100 Pulse Ox 01/05/19 21:30 01/05/19 20:36 01/05/19 19:36 01/05/19 19:06 01/05/19 18:51 01/05/19 18:34 01/05/19 18:17 01/05/19 17:39 01/05/19 16:45 01/05/19 16:43 01/05/19 16:37 01/05/19 16:30 01/05/19 16:15 01/05/19 16:13 01/05/19 16:00 01/05/19 15:58 01/05/19 15:51 01/05/19 15:46 01/05/19 15:45 01/05/19 15:42 01/05/19 15:41 01/05/19 15:30 01/05/19 15:21 01/05/19 15:15 01/05/19 15:01 01/05/19 15:00 96 01/05/19 14:45 01/05/19 14:40 01/05/19 14:33 01/05/19 14:30 01/05/19 14:09 01/05/19 13:15 01/05/19 11:48 PG Care Time/CCT Critical Care Time: Yes Total Critical Care Time: 60
[2019-01-05] MEDS ORDERED: AMIODARONE 360MG / 200ML D5W IV ONE (23:23)
[2019-01-05] MEDS ORDERED: AMIODARONE 150MG / 100ML D5W IV ONE (23:26)
[2019-01-05] MEDS ORDERED: ACETAMINOPHEN 1,000 MG/100 ML VIAL IV STA (23:28)
[2019-01-05] MEDS ORDERED: AMIODARONE / D5W 360 MG/200 ML BAG IV SCH (23:45)
[2019-01-05] MEDS ORDERED: FUROSEMIDE 40 MG/4 ML VIAL IV STA (23:58)
[2019-01-05 23:59] LABS: Hematocrit (blood only) 27.4 % (42-52); Hemoglobin 9.8 g/dL (14.0-18.0); Mean Corpuscular Hgb Conc 35.8 g/dL (32-36); Mean Corpuscular Volume 98.9 fL (80-100); Mean Platelet Volume 10.1 fL (7.4-10.4); Nucleated RBC # (auto) 0.06 K/uL (0-0); Nucleated RBC % (auto) 1.3 %; Platelet Count 203 K/uL (130-400); RDW Coefficient of Variation 23.2 % (11.5-14.5); RDW Standard Deviation 82.8 fL (36.4-46.3); Red Blood Count 2.77 M/uL (4.7-6.1)
[2019-01-06] LABS: BUN Creatinine Ratio 20.6 (10-20); Creatinine Clr Calc Pharmacy 48.7 ml/min; Est GFR (African American) 58.4; Est GFR (Non-African American) 50.4; Magnesium 2.2 mg/dl (1.8-2.4); Phosphorus 2.4 mg/dl (2.5-4.9); Potassium 3.7 mmol/L (3.5-5.1)
[2019-01-06 00:27] LABS: ALC (manual) 0.45 K/uL (1.2-3.4); Blast Cells % (manual) 4.4 %; Lymphocytes # (manual) 0.45 K/uL (1.2-3.4); Lymphocytes % (manual) 9.7 %; Myelocytes # (manual) 0.04 K/uL (0-0); Myelocytes % (manual) 0.9 %
[2019-01-06 00:33] LABS: Anisocytosis Present; Dohle Bodies Occasional; Giant Platelets 1+; Ovalocytes 1+
[2019-01-06 04:49] LABS: Hematocrit (blood only) 29.5 % (42-52); Hemoglobin 10.4 g/dL (14.0-18.0); Mean Corpuscular Hgb Conc 35.3 g/dL (32-36); Mean Corpuscular Volume 100.3 fL (80-100); Mean Platelet Volume 11.2 fL (7.4-10.4); Nucleated RBC # (auto) 0.09 K/uL (0-0); Nucleated RBC % (auto) 1.8 %; Platelet Count 220 K/uL (130-400); RDW Coefficient of Variation 23.6 % (11.5-14.5); Red Blood Count 2.94 M/uL (4.7-6.1); White Blood Count 4.95 K/uL (4.8-10.8)
[2019-01-06 05:07] LABS: Albumin Level 3.1 gm/dl (3.4-5.0); BUN Creatinine Ratio 20.4 (10-20); Calcium 7.6 mg/dl (8.5-10.1); Creatinine Clr Calc Pharmacy 44.4 ml/min; Est GFR (African American) 52.2; Magnesium 2.3 mg/dl (1.8-2.4); Potassium 3.7 mmol/L (3.5-5.1)
[2019-01-06 05:15] LABS: Bilirubin Direct 0.6 mg/dl (0-0.2); Bilirubin,Total 1.5 mg/dl (0.2-1); Phosphorus 3.4 mg/dl (2.5-4.9); Total Protein 7.2 gm/dl (6.4-8.2); Troponin I 27.2 ng/ml (0-0.045)
[2019-01-06 05:27] LABS: Procalcitonin 10.82 ng/ml (0-0.5)
[2019-01-06] MEDS ORDERED: AMIODARONE / D5W 360 MG/200 ML BAG IV SCH (05:45)
[2019-01-06 05:50] LABS: Anisocytosis Present; Blast Cells % (manual) 6.1 %; Giant Platelets 1+; Lymphocytes % (manual) 6.1 %; Monocytes # (manual) 0.04 K/uL (0.11-0.59); Monocytes % (manual) 0.9 %; Neutrophils % (manual) 86.9 %; Poikilocytosis Present
[2019-01-06 06:03] LABS: Lyme Ab IgG w/WB Rflx Negative (Negative); Lyme Ab IgM w/WB Rflx Negative (Negative)
[2019-01-06 06:36] LABS: Estimated Average Glucose 146 mg/dl; Hemoglobin A1C 6.7 % (4.5-5.6)
[2019-01-06] MEDS: HEPARIN SOD 5,000 UNIT/0.5 ML VIAL SQ SCH ×3 (06:37→20:52)
--- NOTE | 2019-01-06 06:40 | XRay Report ---
XR chest 1V portable CLINICAL HISTORY: sob/hypoxia COMPARISON STUDY: Chest radiograph and chest CT January 05, 2019. FINDINGS: Small bilateral pleural effusions are noted. There is no pneumothorax. Hazy right lower bg g opacity persists. Moderate pulmonary edema has progressed. Cardiomediastinal silhouette is stable. IMPRESSION: 1. Interval progression of pulmonary edema. 2. Small bilateral pleural effusions with bibasilar opacities. Electronically signed by: Delano Stanley M.D. 01/06/2019 6:39 AM
--- NOTE | 2019-01-06 06:57 | XRay Report ---
XR chest 1V portable CLINICAL HISTORY: f/u COMPARISON STUDY: Chest radiograph January 05, 2019 11:[address] January 05, 2019. FINDINGS: There is no pneumothorax. There are small bilateral pleural effusions. Moderate edema is si milar to prior exam. Bibasilar opacities, right greater than left, are unchanged. Cardiomediastinal s ilhouette is stable. IMPRESSION: No change in moderate pulmonary edema, small bilateral pleural effusions and associated bibasilar opacities. Electronically signed by: Delano Stanley M.D. 01/06/2019 6:55 AM
[2019-01-06] MEDS: [UNRECOGNIZED DRUG - OTHER] SCH (07:33)
[2019-01-06] MEDS: CLOPIDOGREL BISULFATE 75 MG TAB PO SCH (07:36)
[2019-01-06] MEDS: ASPIRIN 325 MG ECTAB PO SCH (07:36)
--- NOTE | 2019-01-06 07:56 | Critical Care Progress Note ---
Date of Service January 06, 2019 Assessment & Plan (1) NSTEMI (non-ST elevated myocardial infarction): Neuro-awake alert CV- shock resolved off vasopressors. will try to titrate off. NSTEMI and ischemic cardiomyopathy s/p cath with stent to LAD. aspirin, ticagrelor, atorvastatin. KRISTINA and metorprolol if BP allows. for possible staged procedure. tachycardia irregular but does appear to have some p waves. now sinus in low 10s on amiodarone. will start metoprolol if BP tolerates Pulmonary- acute hypoxic respiratory failure due to pulmonary edema. high flow nasal cannula titrate for sat >92%. small bilateral pleural effusion-no need for intervention now ID- no clear infection follow cultures. if continued fevers may need empiric abx Renal- cr ok. good UOP GI- diet as tolerated Heme- anemia. responded appropriately to blood heparin proph Endocrine- blood sugars controlled Dispo- monitor in ICU for respiratory and hemodynamic support I have personally spent 25 minutes of critical care time in the direct management of this patient. This is a life/limb threatening event. This includes time spent evaluating patient, direct bedside care, chart review, placing orders, interpretation of diagnostic studies, discussion with consultants, patient, and/or family members regarding treatment decisions, as well as other required patient management activities. This time is exclusive of all separately billable procedures, and teaching time and separate from and in addition to any other critical care service time. (2) A-fib: (3) Hypoxia: (4) Pulmonary edema: (5) Status post percutaneous transluminal coronary angioplasty: (6) Cardiomyopathy: (7) Cardiogenic shock: Subjective overnight with tachycardia possible afib more hypoxic with pulmonary edema. now doing better on amiodarone and high flow nasal cannula denies chest pain or shortness of breath also with fever overnight Physical Exam Physical Exam: Constitutional: Comfortable NAD on high flow nasal cannula 65% HEENT: normocephalic atraumatic. MMM. CV: RRR nl s1,s2 no murmurs rubs or gallops Lungs: decreased bilaterally. no accessory muscle use Abd: soft nontender nondistended. normal bowel sounds Ext: no edema. no cyanosis, no clubbing Skin: warm dry Neuro: alert and oriented. moving all extremities Psych: normal mood and affect Results & Data Vital Signs (Past 12 Hours) Vital Signs Temp Pulse Pulse Resp BP Pulse Ox 07/03/19 07:42 102 H 20 98 01/06/19 06:30 97 H 101/65 97 01/06/19 06:00 99 H 106/67 94 01/06/19 05:30 94 H 92/61 L 94 01/06/19 05:02 96 H 96/61 L 95 01/06/19 05:01 97 H 80/64 L 94 01/06/19 04:30 97 H 91/61 L 96 01/06/19 04:00 37.2 C 96 H 82/58 L 96 01/06/19 03:30 93 H 86/54 L 94 01/06/19 03:01 99 H 92/58 L 93 01/06/19 02:36 91 H 20 96 01/06/19 02:30 97 H 90/56 L 95 01/06/19 02:00 92 H 81/55 L 96 01/06/19 01:00 102 H 87/54 L 95 01/06/19 00:30 106 H 87/53 L 94 01/06/19 00:25 107 H 107 H 26 H 91/59 L 93 01/06/19 00:20 107 H 94/63 L 91 01/06/19 00:15 111 H 93/67 L 92 01/06/19 00:10 109 H 96/62 L 91 01/06/19 00:05 111 H 106/65 93 01/06/19 00:00 37.9 C H 113 H 105/68 92 01/05/19 23:55 113 H 100/74 91 01/05/19 23:51 119 H 105/65 87 L 01/05/19 23:45 118 H 120/70 100 01/05/19 23:35 123 H 118/71 100 01/05/19 23:30 146 H 30 H 101/84 95 01/05/19 23:25 140 H 97/84 L 92 01/05/19 23:23 157 H 105/71 89 L 01/05/19 23:10 145 H 118/81 96 01/05/19 23:00 119 H 94/58 L 91 01/05/19 22:30 117 H 110/68 89 L 01/05/19 22:00 118 H 98/75 L 92 01/05/19 21:30 37.9 C H 115 H 20 100/73 88 L 01/05/19 21:10 116 H 104/65 91 01/05/19 21:00 115 H 104/70 92 01/05/19 20:36 38.1 C H 110 H 20 109/68 94 01/05/19 20:33 117 H 109/68 91 01/05/19 20:32 122 H 95 01/05/19 20:00 108 H 112/75 95 Laboratory Results Laboratory Results - last 24 hr 01/05/19 01/05/19 01/05/19 08:47 08:47 08:47 WBC 4.96 RBC 2.15 L Hgb 7.9 L Hct 22.9 L MCV 106.5 H MCH 36.7 H MCHC 34.5 RDW Std Deviation 82.5 H RDW Coeff of Eliana 21.7 H Plt Count 259 MPV 11.0 H Absolute Nucleated RBC 0.06 H Nucleated RBC % (auto) 1.1 Neutrophils % (Manual) 89.4 Lymphocytes % (Manual) 2.6 Monocytes % (Manual) 1.8 Basophils % (Manual) 0.9 Myelocytes % (Man) Blast Cells % (Manual) 5.3 Neutrophils # (Manual) 4.43 Total Absolute Neuts 4.43 Lymphocytes # (Manual) 0.13 L Total Abs Lymphocytes 0.13 L Monocytes # (Manual) 0.09 L Basophils # (Manual) 0.04 Myelocytes # (Manual) Blast Cells # (Man) 0.26 H Blood Smear Review Dohle Bodies Giant Platelets 1+ Polychromasia 1+ Poikilocytosis Anisocytosis Present Ovalocytes 1+ PT 12.4 H INR 1.2 H APTT 33.0 H PTT Ratio 1.2 Activ Coag Time Kaolin POC pH POC pCO2 POC pO2 POC HCO3 POC Total CO2 POC Base Excess POC ABG O2 Sat Sodium 135 L Potassium 3.7 Chloride 103 Carbon Dioxide 21 Anion Gap 11.0 BUN 23 H Creatinine 1.30 Est Cr Clr Drug Dosing 45.3 Est GFR ( Amer) 60.6 Est GFR (Non-Af Amer) 52.3 BUN/Creatinine Ratio 17.8 Glucose 162 H POC Glucose Estimat Average Glucose Hemoglobin A1c Lactate Calcium 8.4 L Phosphorus Magnesium 2.2 Total Bilirubin 1.2 H Direct Bilirubin AST 85 H ALT 24 Alkaline Phosphatase 60 Troponin I 6.770 H* Total Protein 7.4 Albumin 3.5 Globulin 3.9 Albumin/Globulin Ratio 0.9 Triglycerides Cholesterol LDL Cholesterol, Calc VLDL Cholesterol, Calc HDL Cholesterol Cholesterol/HDL Ratio Lipase 48 L Procalcitonin Urine Color Urine Appearance Urine pH Ur Specific [place] Urine Protein Urine Glucose (UA) Urine Ketones Urine Blood Urine Nitrite Urine Bilirubin Urine Urobilinogen Ur Leukocyte Esterase Urine WBC (Auto) Urine RBC (Auto) U Hyaline Cast (Auto) U Epithel Cells (Auto) Urine Bacteria (Auto) Ur Renal Epithelial Cell Urine Mucus Nasal Screen MRSA (PCR) Lyme Disease IgG Ab Lyme Disease IgM Ab Influenza Type A Ag Influenza Type B Ag Flow Cytometry Comment Blood Type Blood Type Recheck Antibody Screen Crossmatch 01/05/19 01/05/19 01/05/19 08:47 09:31 10:00 WBC RBC Hgb Hct MCV MCH MCHC RDW Std Deviation RDW Coeff of Eliana Plt Count MPV Absolute Nucleated RBC Nucleated RBC % (auto) Neutrophils % (Manual) Lymphocytes % (Manual) Monocytes % (Manual) Basophils % (Manual) Myelocytes % (Man) Blast Cells % (Manual) Neutrophils # (Manual) Total Absolute Neuts Lymphocytes # (Manual) Total Abs Lymphocytes Monocytes # (Manual) Basophils # (Manual) Myelocytes # (Manual) Blast Cells # (Man) Blood Smear Review Dohle Bodies Giant Platelets Polychromasia Poikilocytosis Anisocytosis Ovalocytes PT INR APTT PTT Ratio Activ Coag Time Kaolin POC pH POC pCO2 POC pO2 POC HCO3 POC Total CO2 POC Base Excess POC ABG O2 Sat Sodium Potassium Chloride Carbon Dioxide Anion Gap BUN Creatinine Est Cr Clr Drug Dosing Est GFR ( Amer) Est GFR (Non-Af Amer) BUN/Creatinine Ratio Glucose POC Glucose Estimat Average Glucose Hemoglobin A1c Lactate 2.0 Calcium Phosphorus Magnesium Total Bilirubin Direct Bilirubin AST ALT Alkaline Phosphatase Troponin I Total Protein Albumin Globulin Albumin/Globulin Ratio Triglycerides Cholesterol LDL Cholesterol, Calc VLDL Cholesterol, Calc HDL Cholesterol Cholesterol/HDL Ratio Lipase Procalcitonin Urine Color Urine Appearance Urine pH Ur Specific [place] Urine Protein Urine Glucose (UA) Urine Ketones Urine Blood Urine Nitrite Urine Bilirubin Urine Urobilinogen Ur Leukocyte Esterase Urine WBC (Auto) Urine RBC (Auto) U Hyaline Cast (Auto) U Epithel Cells (Auto) Urine Bacteria (Auto) Ur Renal Epithelial Cell Urine Mucus Nasal Screen MRSA (PCR) Lyme Disease IgG Ab Lyme Disease IgM Ab Influenza Type A Ag Neg for Influ A Influenza Type B Ag Neg for Influ B Flow Cytometry Comment Pending Blood Type Blood Type Recheck Antibody Screen Crossmatch 01/05/19 01/05/19 01/05/19 10:20 10:43 12:40 WBC RBC Hgb Hct MCV MCH MCHC RDW Std Deviation RDW Coeff of Eliana Plt Count MPV Absolute Nucleated RBC Nucleated RBC % (auto) Neutrophils % (Manual) Lymphocytes % (Manual) Monocytes % (Manual) Basophils % (Manual) Myelocytes % (Man) Blast Cells % (Manual) Neutrophils # (Manual) Total Absolute Neuts Lymphocytes # (Manual) Total Abs Lymphocytes Monocytes # (Manual) Basophils # (Manual) Myelocytes # (Manual) Blast Cells # (Man) Blood Smear Review Dohle Bodies Giant Platelets Polychromasia Poikilocytosis Anisocytosis Ovalocytes PT INR APTT PTT Ratio Activ Coag Time Kaolin 169 H POC pH POC pCO2 POC pO2 POC HCO3 POC Total CO2 POC Base Excess POC ABG O2 Sat Sodium Potassium Chloride Carbon Dioxide Anion Gap BUN Creatinine Est Cr Clr Drug Dosing Est GFR ( Amer) Est GFR (Non-Af Amer) BUN/Creatinine Ratio Glucose POC Glucose Estimat Average Glucose Hemoglobin A1c Lactate Calcium Phosphorus Magnesium Total Bilirubin Direct Bilirubin AST ALT Alkaline Phosphatase Troponin I Total Protein Albumin Globulin Albumin/Globulin Ratio Triglycerides Cholesterol LDL Cholesterol, Calc VLDL Cholesterol, Calc HDL Cholesterol Cholesterol/HDL Ratio Lipase Procalcitonin Urine Color Dark Yellow Urine Appearance Clear Urine pH 5.0 Ur Specific [place] 1.039 H Urine Protein 1+ H Urine Glucose (UA) Trace H Urine Ketones Trace H Urine Blood Negative Urine Nitrite Negative Urine Bilirubin Negative Urine Urobilinogen Negative Ur Leukocyte Esterase Negative Urine WBC (Auto) 1-5 Urine RBC (Auto) 0-4 U Hyaline Cast (Auto) 5-10 H U Epithel Cells (Auto) >30 H Urine Bacteria (Auto) Negative Ur Renal Epithelial Cell Not Reportable Urine Mucus Present A Nasal Screen MRSA (PCR) Lyme Disease IgG Ab Lyme Disease IgM Ab Influenza Type A Ag Influenza Type B Ag Flow Cytometry Comment Blood Type O Positive Blood Type Recheck Antibody Screen NEGATIVE Crossmatch See Detail 01/05/19 01/05/19 01/05/19 12:42 12:48 13:10 WBC RBC Hgb Hct MCV MCH MCHC RDW Std Deviation RDW Coeff of Eliana Plt Count MPV Absolute Nucleated RBC Nucleated RBC % (auto) Neutrophils % (Manual) Lymphocytes % (Manual) Monocytes % (Manual) Basophils % (Manual) Myelocytes % (Man) Blast Cells % (Manual) Neutrophils # (Manual) Total Absolute Neuts Lymphocytes # (Manual) Total Abs Lymphocytes Monocytes # (Manual) Basophils # (Manual) Myelocytes # (Manual) Blast Cells # (Man) Blood Smear Review Dohle Bodies Giant Platelets Polychromasia Poikilocytosis Anisocytosis Ovalocytes PT INR APTT PTT Ratio Activ Coag Time Kaolin 219 H POC pH 7.41 7.39 POC pCO2 31 L 31 L POC pO2 63 L 79 L POC HCO3 19 19 POC Total CO2 20 L 20 L POC Base Excess -6.0 -6.0 POC ABG O2 Sat 92.0 96.0 H Sodium Potassium Chloride Carbon Dioxide Anion Gap BUN Creatinine Est Cr Clr Drug Dosing Est GFR ( Amer) Est GFR (Non-Af Amer) BUN/Creatinine Ratio Glucose POC Glucose Estimat Average Glucose Hemoglobin A1c Lactate Calcium Phosphorus Magnesium Total Bilirubin Direct Bilirubin AST ALT Alkaline Phosphatase Troponin I Total Protein Albumin Globulin Albumin/Globulin Ratio Triglycerides Cholesterol LDL Cholesterol, Calc VLDL Cholesterol, Calc HDL Cholesterol Cholesterol/HDL Ratio Lipase Procalcitonin Urine Color Urine Appearance Urine pH Ur Specific [place] Urine Protein Urine Glucose (UA) Urine Ketones Urine Blood Urine Nitrite Urine Bilirubin Urine Urobilinogen Ur Leukocyte Esterase Urine WBC (Auto) Urine RBC (Auto) U Hyaline Cast (Auto) U Epithel Cells (Auto) Urine Bacteria (Auto) Ur Renal Epithelial Cell Urine Mucus Nasal Screen MRSA (PCR) Lyme Disease IgG Ab Lyme Disease IgM Ab Influenza Type A Ag Influenza Type B Ag Flow Cytometry Comment Blood Type Blood Type Recheck Antibody Screen Crossmatch 01/05/19 01/05/19 01/05/19 13:42 14:26 15:00 WBC RBC Hgb Hct MCV MCH MCHC RDW Std Deviation RDW Coeff of Eliana Plt Count MPV Absolute Nucleated RBC Nucleated RBC % (auto) Neutrophils % (Manual) Lymphocytes % (Manual) Monocytes % (Manual) Basophils % (Manual) Myelocytes % (Man) Blast Cells % (Manual) Neutrophils # (Manual) Total Absolute Neuts Lymphocytes # (Manual) Total Abs Lymphocytes Monocytes # (Manual) Basophils # (Manual) Myelocytes # (Manual) Blast Cells # (Man) Blood Smear Review Dohle Bodies Giant Platelets Polychromasia Poikilocytosis Anisocytosis Ovalocytes PT INR APTT PTT Ratio Activ Coag Time Kaolin POC pH 7.43 POC pCO2 28 L POC pO2 129 H POC HCO3 18 L POC Total CO2 19 L POC Base Excess -6.0 POC ABG O2 Sat 99.0 H Sodium Potassium Chloride Carbon Dioxide Anion Gap BUN Creatinine Est Cr Clr Drug Dosing Est GFR ( Amer) Est GFR (Non-Af Amer) BUN/Creatinine Ratio Glucose POC Glucose Estimat Average Glucose Hemoglobin A1c Lactate Calcium Phosphorus Magnesium Total Bilirubin Direct Bilirubin AST ALT Alkaline Phosphatase Troponin I Total Protein Albumin Globulin Albumin/Globulin Ratio Triglycerides Cholesterol LDL Cholesterol, Calc VLDL Cholesterol, Calc HDL Cholesterol Cholesterol/HDL Ratio Lipase Procalcitonin Urine Color Urine Appearance Urine pH Ur Specific [place] Urine Protein Urine Glucose (UA) Urine Ketones Urine Blood Urine Nitrite Urine Bilirubin Urine Urobilinogen Ur Leukocyte Esterase Urine WBC (Auto) Urine RBC (Auto) U Hyaline Cast (Auto) U Epithel Cells (Auto) Urine Bacteria (Auto) Ur Renal Epithelial Cell Urine Mucus Nasal Screen MRSA (PCR) Negative Lyme Disease IgG Ab Lyme Disease IgM Ab Influenza Type A Ag Influenza Type B Ag Flow Cytometry Comment Blood Type Blood Type Recheck O Positive Antibody Screen Crossmatch 01/05/19 01/05/19 01/05/19 15:47 22:32 23:33 WBC 4.60 L RBC 2.77 L Hgb 9.8 L Hct 27.4 L MCV 98.9 D MCH 35.4 H MCHC 35.8 RDW Std Deviation 82.8 H RDW Coeff of Eliana 23.2 H Plt Count 203 MPV 10.1 Absolute Nucleated RBC 0.06 H Nucleated RBC % (auto) 1.3 Neutrophils % (Manual) 85.0 Lymphocytes % (Manual) 9.7 Monocytes % (Manual) Basophils % (Manual) Myelocytes % (Man) 0.9 Blast Cells % (Manual) 4.4 Neutrophils # (Manual) 3.91 Total Absolute Neuts 3.91 Lymphocytes # (Manual) 0.45 L Total Abs Lymphocytes 0.45 L Monocytes # (Manual) Basophils # (Manual) Myelocytes # (Manual) 0.04 H Blast Cells # (Man) 0.20 H Blood Smear Review Dohle Bodies Occasional Giant Platelets 1+ Polychromasia Poikilocytosis Anisocytosis Present Ovalocytes 1+ PT INR APTT PTT Ratio Activ Coag Time Kaolin POC pH POC pCO2 POC pO2 POC HCO3 POC Total CO2 POC Base Excess POC ABG O2 Sat Sodium Potassium Chloride Carbon Dioxide Anion Gap BUN Creatinine Est Cr Clr Drug Dosing Est GFR ( Amer) Est GFR (Non-Af Amer) BUN/Creatinine Ratio Glucose POC Glucose 125 H Estimat Average Glucose Hemoglobin A1c Lactate Calcium Phosphorus Magnesium Total Bilirubin Direct Bilirubin AST ALT Alkaline Phosphatase Troponin I 24.500 H* Total Protein Albumin Globulin Albumin/Globulin Ratio Triglycerides Cholesterol LDL Cholesterol, Calc VLDL Cholesterol, Calc HDL Cholesterol Cholesterol/HDL Ratio Lipase Procalcitonin Urine Color Urine Appearance Urine pH Ur Specific [place] Urine Protein Urine Glucose (UA) Urine Ketones Urine Blood Urine Nitrite Urine Bilirubin Urine Urobilinogen Ur Leukocyte Esterase Urine WBC (Auto) Urine RBC (Auto) U Hyaline Cast (Auto) U Epithel Cells (Auto) Urine Bacteria (Auto) Ur Renal Epithelial Cell Urine Mucus Nasal Screen MRSA (PCR) Lyme Disease IgG Ab Lyme Disease IgM Ab Influenza Type A Ag Influenza Type B Ag Flow Cytometry Comment Blood Type Blood Type Recheck Antibody Screen Crossmatch 01/05/19 01/05/19 01/05/19 23:33 23:33 23:33 WBC RBC Hgb Hct MCV MCH MCHC RDW Std Deviation RDW Coeff of Eliana Plt Count MPV Absolute Nucleated RBC Nucleated RBC % (auto) Neutrophils % (Manual) Lymphocytes % (Manual) Monocytes % (Manual) Basophils % (Manual) Myelocytes % (Man) Blast Cells % (Manual) Neutrophils # (Manual) Total Absolute Neuts Lymphocytes # (Manual) Total Abs Lymphocytes Monocytes # (Manual) Basophils # (Manual) Myelocytes # (Manual) Blast Cells # (Man) Blood Smear Review Dohle Bodies Giant Platelets Polychromasia Poikilocytosis Anisocytosis Ovalocytes PT INR APTT PTT Ratio Activ Coag Time Kaolin POC pH POC pCO2 POC pO2 POC HCO3 POC Total CO2 POC Base Excess POC ABG O2 Sat Sodium 135 L Potassium 3.7 Chloride 103 Carbon Dioxide 23 Anion Gap 9.0 BUN 28 H Creatinine 1.34 Est Cr Clr Drug Dosing 48.7 Est GFR ( Amer) 58.4 Est GFR (Non-Af Amer) 50.4 BUN/Creatinine Ratio 20.6 H Glucose 135 H POC Glucose Estimat Average Glucose Hemoglobin A1c Lactate 2.1 H* Calcium 8.0 L Phosphorus 2.4 L Magnesium 2.2 Total Bilirubin Direct Bilirubin AST ALT Alkaline Phosphatase Troponin I Total Protein Albumin Globulin Albumin/Globulin Ratio Triglycerides Cholesterol LDL Cholesterol, Calc VLDL Cholesterol, Calc HDL Cholesterol Cholesterol/HDL Ratio Lipase Procalcitonin 6.67 H Urine Color Urine Appearance Urine pH Ur Specific [place] Urine Protein Urine Glucose (UA) Urine Ketones Urine Blood Urine Nitrite Urine Bilirubin Urine Urobilinogen Ur Leukocyte Esterase Urine WBC (Auto) Urine RBC (Auto) U Hyaline Cast (Auto) U Epithel Cells (Auto) Urine Bacteria (Auto) Ur Renal Epithelial Cell Urine Mucus Nasal Screen MRSA (PCR) Lyme Disease IgG Ab Lyme Disease IgM Ab Influenza Type A Ag Influenza Type B Ag Flow Cytometry Comment Blood Type Blood Type Recheck Antibody Screen Crossmatch 01/06/19 01/06/19 01/06/19 04:35 04:35 04:35 WBC 4.95 RBC 2.94 L Hgb 10.4 L Hct 29.5 L MCV 100.3 H MCH 35.4 H MCHC 35.3 RDW Std Deviation 86.0 H RDW Coeff of Eliana 23.6 H Plt Count 220 MPV 11.2 H Absolute Nucleated RBC 0.09 H Nucleated RBC % (auto) 1.8 Neutrophils % (Manual) 86.9 Lymphocytes % (Manual) 6.1 Monocytes % (Manual) 0.9 Basophils % (Manual) Myelocytes % (Man) Blast Cells % (Manual) 6.1 Neutrophils # (Manual) 4.30 Total Absolute Neuts 4.30 Lymphocytes # (Manual) 0.30 L Total Abs Lymphocytes 0.30 L Monocytes # (Manual) 0.04 L Basophils # (Manual) Myelocytes # (Manual) Blast Cells # (Man) 0.30 H Blood Smear Review Dohle Bodies Giant Platelets 1+ Polychromasia Poikilocytosis Present Anisocytosis Present Ovalocytes PT INR APTT PTT Ratio Activ Coag Time Kaolin POC pH POC pCO2 POC pO2 POC HCO3 POC Total CO2 POC Base Excess POC ABG O2 Sat Sodium 133 L Potassium 3.7 Chloride 102 Carbon Dioxide 23 Anion Gap 8.0 BUN 30 H Creatinine 1.47 H Est Cr Clr Drug Dosing 44.4 Est GFR ( Amer) 52.2 Est GFR (Non-Af Amer) 45.0 BUN/Creatinine Ratio 20.4 H Glucose 135 H POC Glucose Estimat Average Glucose 146 Hemoglobin A1c 6.7 H Lactate Calcium 7.6 L Phosphorus 3.4 D Magnesium 2.3 Total Bilirubin 1.5 H Direct Bilirubin 0.6 H AST 178 H ALT 36 Alkaline Phosphatase 57 Troponin I 27.200 H* Total Protein 7.2 Albumin 3.1 L Globulin Albumin/Globulin Ratio Triglycerides 50 Cholesterol 94 LDL Cholesterol, Calc 43 VLDL Cholesterol, Calc 10 HDL Cholesterol 41 Cholesterol/HDL Ratio 2 Lipase Procalcitonin Urine Color Urine Appearance Urine pH Ur Specific [place] Urine Protein Urine Glucose (UA) Urine Ketones Urine Blood Urine Nitrite Urine Bilirubin Urine Urobilinogen Ur Leukocyte Esterase Urine WBC (Auto) Urine RBC (Auto) U Hyaline Cast (Auto) U Epithel Cells (Auto) Urine Bacteria (Auto) Ur Renal Epithelial Cell Urine Mucus Nasal Screen MRSA (PCR) Lyme Disease IgG Ab Lyme Disease IgM Ab Influenza Type A Ag Influenza Type B Ag Flow Cytometry Comment Blood Type Blood Type Recheck Antibody Screen Crossmatch 01/06/19 01/06/19 04:35 04:35 WBC RBC Hgb Hct MCV MCH MCHC RDW Std Deviation RDW Coeff of Eliana Plt Count MPV Absolute Nucleated RBC Nucleated RBC % (auto) Neutrophils % (Manual) Lymphocytes % (Manual) Monocytes % (Manual) Basophils % (Manual) Myelocytes % (Man) Blast Cells % (Manual) Neutrophils # (Manual) Total Absolute Neuts Lymphocytes # (Manual) Total Abs Lymphocytes Monocytes # (Manual) Basophils # (Manual) Myelocytes # (Manual) Blast Cells # (Man) Blood Smear Review Dohle Bodies Giant Platelets Polychromasia Poikilocytosis Anisocytosis Ovalocytes PT INR APTT PTT Ratio Activ Coag Time Kaolin POC pH POC pCO2 POC pO2 POC HCO3 POC Total CO2 POC Base Excess POC ABG O2 Sat Sodium Potassium Chloride Carbon Dioxide Anion Gap BUN Creatinine Est Cr Clr Drug Dosing Est GFR ( Amer) Est GFR (Non-Af Amer) BUN/Creatinine Ratio Glucose POC Glucose Estimat Average Glucose Hemoglobin A1c Lactate 2.2 H* Calcium Phosphorus Magnesium Total Bilirubin Direct Bilirubin AST ALT Alkaline Phosphatase Troponin I Total Protein Albumin Globulin Albumin/Globulin Ratio Triglycerides Cholesterol LDL Cholesterol, Calc VLDL Cholesterol, Calc HDL Cholesterol Cholesterol/HDL Ratio Lipase Procalcitonin 10.82 H Urine Color Urine Appearance Urine pH Ur Specific [place] Urine Protein Urine Glucose (UA) Urine Ketones Urine Blood Urine Nitrite Urine Bilirubin Urine Urobilinogen Ur Leukocyte Esterase Urine WBC (Auto) Urine RBC (Auto) U Hyaline Cast (Auto) U Epithel Cells (Auto) Urine Bacteria (Auto) Ur Renal Epithelial Cell Urine Mucus Nasal Screen MRSA (PCR) Lyme Disease IgG Ab Negative Lyme Disease IgM Ab Negative Influenza Type A Ag Influenza Type B Ag Flow Cytometry Comment Blood Type Blood Type Recheck Antibody Screen Crossmatch PG Care Time/CCT Critical Care Time: Yes Total Critical Care Time: 35
[2019-01-06] MEDS ORDERED: FUROSEMIDE 40 MG in SYRINGE 0 ML IV ONE (09:30)
--- NOTE | 2019-01-06 10:14 | Cardiology Progress Note ---
Date of Service January 06, 2019 Assessment & Plan (1) NSTEMI (non-ST elevated myocardial infarction): s/p successful PCI to culprit vessel: LAD troponin trending up, to be expected EKG improving, lateral ST segment depressions resolving renal function has remained stable despite significant dye load received with CTA and cath sob improved cont aspirin and plavix will increase atorvastatin to 80mg (2) Cardiogenic shock: resolved pressors titrated off will optimize meds once revascularization completed will initiate evidence based beta kiko (metoprolol succinate) once BP tolerates will hold off ARB until after second cath and following renal function will also be indicated to start aldosterone antagonism with spironolactone +/- Neprilysin inhibitor based on clinical course and ability to maximize beta kiko dose follow volume status clinically and loop diuretics to be used as necessary (3) Cardiomyopathy: still examines as volume overloaded will give IV lasix now and follow volume status clinically global hypokinesis pattern fits with balanced ischemia from LAD and RCA lesions hopeful will improve w (4) CAD (coronary artery disease): given dye load and need for transfusion plan on staged PCI to RCA on 01/08 will optimize medically (5) A-fib: pt did have prolonged episode last PM converted with IV amiodarone would not continue amiodarone in the setting of acute ischemia due to proarrhythmic potential will start beta kiko once bp allows Subjective Pt seen and examined, states that he feels well. Arrhythmia noted overnight, thought to be afib, resolved with amio IV bolus and load. Asymptomatic. Pt denies cp, sob, palpitations, lightheadedness or dizziness. Still requiring significant supplemental O2. Tele reviewed: sinus rhythm/sinus tach with episode last PM of atrial fibrillation with RVR Review of Systems Review of Systems: All systems reviewed & are unremarkable except as noted in HPI & below Physical Exam Physical Exam: General: Awake, alert and oriented x 3. No acute distress. HEENT: Normocephalic, atraumatic. Pupils equal, round and reactive to light and accommodation. Extraocular muscles are intact. Anicteric sclera. Moist mucous membranes. Neck: No JVD. No bruit. Cardiovascular: Regular. Positive S-4. Normal S-1 and S-2. No S-3. No murmurs or rubs. Pulmonary: Reduced air movement. Bibasilar crackles present. No rhonchi or wheezing Abdomen: Bowel sounds x 4, soft. No rebound, guarding or tenderness. No organomegaly. Extremities: No clubbing, cyanosis or edema. +2 pedal pulses bilaterally. Skin: Warm and dry. Results & Data Vital Signs (Past 12 Hours) Vital Signs Temp Pulse Pulse Resp BP BP Pulse Ox 01/06/19 10:01 110 H 14 106/72 98 01/06/19 10:00 112 H 01/06/19 09:11 102 H 113/70 98 01/06/19 09:00 105 H 18 113/70 01/06/19 08:30 100 H 16 96/64 L 94 01/06/19 08:01 105 H 96/61 L 01/06/19 08:00 36.4 C L 105 H 16 96/61 L 98 01/06/19 07:42 102 H 20 98 01/06/19 07:30 103 H 96/68 L 98 01/06/19 07:00 36.7 C 97 H 104 H 16 98/66 L 96/61 L 98 01/06/19 06:30 97 H 101/65 97 01/06/19 06:00 99 H 106/67 94 01/06/19 05:30 94 H 92/61 L 94 01/06/19 05:02 96 H 96/61 L 95 01/06/19 05:01 97 H 80/64 L 94 01/06/19 04:30 97 H 91/61 L 96 01/06/19 04:00 37.2 C 96 H 82/58 L 96 01/06/19 03:30 93 H 86/54 L 94 01/06/19 03:01 99 H 92/58 L 93 01/06/19 02:36 91 H 20 96 01/06/19 02:30 97 H 90/56 L 95 01/06/19 02:00 92 H 81/55 L 96 01/06/19 01:00 102 H 87/54 L 95 01/06/19 00:30 106 H 87/53 L 94 01/06/19 00:25 107 H 107 H 26 H 91/59 L 93 01/06/19 00:20 107 H 94/63 L 91 01/06/19 00:15 111 H 93/67 L 92 01/06/19 00:10 109 H 96/62 L 91 01/06/19 00:05 111 H 106/65 93 01/06/19 00:00 37.9 C H 113 H 105/68 92 01/05/19 23:55 113 H 100/74 91 01/05/19 23:51 119 H 105/65 87 L 01/05/19 23:45 118 H 120/70 100 01/05/19 23:35 123 H 118/71 100 01/05/19 23:30 146 H 30 H 101/84 95 01/05/19 23:25 140 H 97/84 L 92 01/05/19 23:23 157 H 105/71 89 L 01/05/19 23:10 145 H 118/81 96 01/05/19 23:00 119 H 94/58 L 91 01/05/19 22:30 117 H 110/68 89 L
[2019-01-06] MEDS ORDERED: POTASSIUM CHLORIDE 20 MEQ TABCR PO STA (17:04)
[2019-01-06] MEDS: FUROSEMIDE 40 MG in SYRINGE 0 ML IV SCH (17:43)
[2019-01-06] MEDS ORDERED: GLUCOSE 40% GEL 15 GM TUBE PO PRN (17:45)
[2019-01-06] MEDS ORDERED: CARBOHYDRATES FOR HYPOGLYCEMIA PO PRN (17:45)
[2019-01-06] MEDS ORDERED: DEXTROSE 50% 50 ML SYRINGE IV PRN (17:45)
[2019-01-06] MEDS ORDERED: GLUCOSE 10 TABS/TUBE PO PRN (17:45)
[2019-01-06] MEDS ORDERED: GLUCAGON FOR INJ 1 MG VIAL IM PRN (17:45)
[2019-01-06] MEDS ORDERED: ICU MODERATE HYPERGLYCEMIA PROTOCOL ONE (18:05)
--- NOTE | 2019-01-06 18:18 | Hospitalist Progress Note ---
Date of Service January 06, 2019 Assessment & Plan (1) NSTEMI (non-ST elevated myocardial infarction): (2) Cardiomyopathy: per Dr. Alexander's notes: Pt presented to ER with c/o SOB, malaise over past 24 hours In ER pt afebrile, P: 66-113, R: 20-26, BP: 105/58- 121/83, O2 sat: 100% down to 91% on RA Was found to have troponin: 6, with EKG sinus tachycardia at 108, ST depression lateral leads -Bedside echo EF: 30%, mod-severe global hypokinesis -Heparin IV started in ER -Pt taken to laborer hoisting from ER. During procedure hypoxemic requiring 15 L O2 mask and eventual BiPAP. Was given 40 of IV Lasix for elevated LVEDP. Maintained on norepinephrine 0.1 -rn labor delivery report: * Severe multi-vessel coronary artery disease. 95 to 99% diffuse mid LAD, 80 to 90% focal distal LAD. 90% distal circumflex into left PLB. Moderate caliber first OM with 90% focal stenosis. 95% earlymid RCA at bifurcation with acute marginal. * Elevated intracardiac filling pressure * Successful PCI of mid LAD with single drug-eluting stent (3.0 x 30 mm Angel). POBA of distal LAD with 2.5 balloon. - ASA + Plavix , Atorvastatin started Lasix 40mg BID started ATRIAL FIBRILLATION EPISODE - resolved with IV Amiodaron (3) Anemia: (4) Essential thrombocythemia: Hx essential thrombocythemia. Follows with Dr Turner - heme/onc. Was taken off hydroxyurea on 12/15/18 secondary to worsening anemia. H/H: 7.9/22.9 (Hgb was 8.5 on 01/04/19 and 8.1 on 01/01/19) Hemoccult negative in ER -2 units PRBCs to be transfused with lasix in between units secondary to pt unstable Hg 10.4 on Anagrelide as outpatient notified by [facility] that Anagrelide + ASA and Plavix may result in i ncreased bleeding risk will discuss with [employer] Dr. Turner (5) Hyperglycemia: Random Glucose: 162 -A1c 6.7 -Monitor BSG (6) Hypercholesteremia: -Continue statin DVT Prophylaxis Heparin SQ Full Code as per discussion with pt Follows with Dr Elizalde for routine care Subjective ff up for NSTEMI Events overnight noted Seen resting in bed, sitting up, comfortable States breathing is improved Denies cough or fever chills Denies chest pain, shortness of breath, palpitations, dizziness Denies any symptoms Review of Systems Review of Systems: All systems reviewed & are unremarkable except as noted in HPI & below Physical Exam Physical Exam: General- oriented x 3, not in distress, speaks in sentences with no effort or accessory muscle use Head- atraumatic Eyes- PERRL, EOMI, anicteric ENT- oropharynx clear Neck- supple, no JVD, no adenopathy, no thyromegaly; carotids +2/2, no bruits appreciated Lungs-mild rales bilateral bases, no wheezing Heart- normal rate, regular rhythm; no murmur, no gallop, no rub appreciated Abdomen- normal bowel sounds, nondistended, soft, nontender, no masses or hepatosplenomegaly Extremities- no pretibial edema, no calf tenderness; peripheral pulses intact Neuro- alert, oriented x 3; CN 2-12 grossly intact; motor 5/5 bilaterally;sensation 100% on all extremities; no other gross focal neurologic deficits Skin- warm & dry Results & Data Vital Signs (Past 12 Hours) Vital Signs Temp Pulse Pulse Resp BP BP Pulse Ox 01/06/19 16:00 107 H 105/74 100 01/06/19 15:30 102 H 97/63 L 99 01/06/19 15:00 36.9 C 102 H 92/64 L 100 01/06/19 14:55 103 H 20 93 01/06/19 12:33 36.7 C 101 H 16 89/54 L 95 01/06/19 12:30 104 H 84/55 L 95 01/06/19 12:00 106 H 96/61 L 98 01/06/19 11:31 111 H 93 01/06/19 11:30 113 H 16 104/73 98 01/06/19 11:14 105 H 22 93 01/06/19 11:00 105 H 16 104/73 97 01/06/19 10:31 105 H 100/58 L 01/06/19 10:02 103 H 01/06/19 10:01 110 H 14 106/72 98 01/06/19 10:00 112 H 01/06/19 09:11 102 H 113/70 98 01/06/19 09:00 105 H 18 113/70 01/06/19 08:30 100 H 16 96/64 L 94 01/06/19 08:01 105 H 96/61 L 01/06/19 08:00 36.4 C L 105 H 16 96/61 L 98 01/06/19 07:42 102 H 20 98 01/06/19 07:30 103 H 96/68 L 98 01/06/19 07:00 36.7 C 97 H 104 H 16 98/66 L 96/61 L 98 01/06/19 06:30 97 H 101/65 97 Laboratory Results Laboratory Results - last 24 hr 01/05/19 01/05/19 01/05/19 08:47 10:43 22:32 WBC RBC Hgb Hct MCV MCH MCHC RDW Std Deviation RDW Coeff of Eliana Plt Count MPV Absolute Nucleated RBC Nucleated RBC % (auto) Neutrophils % (Manual) Lymphocytes % (Manual) Monocytes % (Manual) Myelocytes % (Man) Blast Cells % (Manual) Neutrophils # (Manual) Total Absolute Neuts Lymphocytes # (Manual) Total Abs Lymphocytes Monocytes # (Manual) Myelocytes # (Manual) Blast Cells # (Man) Dohle Bodies Giant Platelets Poikilocytosis Anisocytosis Ovalocytes Sodium Potassium Chloride Carbon Dioxide Anion Gap BUN Creatinine Est Cr Clr Drug Dosing Est GFR ( Amer) Est GFR (Non-Af Amer) BUN/Creatinine Ratio Glucose POC Glucose Estimat Average Glucose Hemoglobin A1c Lactate Calcium Phosphorus Magnesium Total Bilirubin Direct Bilirubin AST ALT Alkaline Phosphatase Troponin I 24.500 H* Total Protein Albumin Triglycerides Cholesterol LDL Cholesterol, Calc VLDL Cholesterol, Calc HDL Cholesterol Cholesterol/HDL Ratio Procalcitonin Lyme Disease IgG Ab Lyme Disease IgM Ab Flow Cytometry Comment See Comment Blood Type O Positive Antibody Screen NEGATIVE Crossmatch See Detail 01/05/19 01/05/19 01/05/19 23:33 23:33 23:33 WBC 4.60 L RBC 2.77 L Hgb 9.8 L Hct 27.4 L MCV 98.9 D MCH 35.4 H MCHC 35.8 RDW Std Deviation 82.8 H RDW Coeff of Eliana 23.2 H Plt Count 203 MPV 10.1 Absolute Nucleated RBC 0.06 H Nucleated RBC % (auto) 1.3 Neutrophils % (Manual) 85.0 Lymphocytes % (Manual) 9.7 Monocytes % (Manual) Myelocytes % (Man) 0.9 Blast Cells % (Manual) 4.4 Neutrophils # (Manual) 3.91 Total Absolute Neuts 3.91 Lymphocytes # (Manual) 0.45 L Total Abs Lymphocytes 0.45 L Monocytes # (Manual) Myelocytes # (Manual) 0.04 H Blast Cells # (Man) 0.20 H Dohle Bodies Occasional Giant Platelets 1+ Poikilocytosis Anisocytosis Present Ovalocytes 1+ Sodium 135 L Potassium 3.7 Chloride 103 Carbon Dioxide 23 Anion Gap 9.0 BUN 28 H Creatinine 1.34 Est Cr Clr Drug Dosing 48.7 Est GFR ( Amer) 58.4 Est GFR (Non-Af Amer) 50.4 BUN/Creatinine Ratio 20.6 H Glucose 135 H POC Glucose Estimat Average Glucose Hemoglobin A1c Lactate 2.1 H* Calcium 8.0 L Phosphorus 2.4 L Magnesium 2.2 Total Bilirubin Direct Bilirubin AST ALT Alkaline Phosphatase Troponin I Total Protein Albumin Triglycerides Cholesterol LDL Cholesterol, Calc VLDL Cholesterol, Calc HDL Cholesterol Cholesterol/HDL Ratio Procalcitonin Lyme Disease IgG Ab Lyme Disease IgM Ab Flow Cytometry Comment Blood Type Antibody Screen Crossmatch 01/05/19 01/06/19 01/06/19 23:33 04:35 04:35 WBC 4.95 RBC 2.94 L Hgb 10.4 L Hct 29.5 L MCV 100.3 H MCH 35.4 H MCHC 35.3 RDW Std Deviation 86.0 H RDW Coeff of Eliana 23.6 H Plt Count 220 MPV 11.2 H Absolute Nucleated RBC 0.09 H Nucleated RBC % (auto) 1.8 Neutrophils % (Manual) 86.9 Lymphocytes % (Manual) 6.1 Monocytes % (Manual) 0.9 Myelocytes % (Man) Blast Cells % (Manual) 6.1 Neutrophils # (Manual) 4.30 Total Absolute Neuts 4.30 Lymphocytes # (Manual) 0.30 L Total Abs Lymphocytes 0.30 L Monocytes # (Manual) 0.04 L Myelocytes # (Manual) Blast Cells # (Man) 0.30 H Dohle Bodies Giant Platelets 1+ Poikilocytosis Present Anisocytosis Present Ovalocytes Sodium 133 L Potassium 3.7 Chloride 102 Carbon Dioxide 23 Anion Gap 8.0 BUN 30 H Creatinine 1.47 H Est Cr Clr Drug Dosing 44.4 Est GFR ( Amer) 52.2 Est GFR (Non-Af Amer) 45.0 BUN/Creatinine Ratio 20.4 H Glucose 135 H POC Glucose Estimat Average Glucose Hemoglobin A1c Lactate Calcium 7.6 L Phosphorus 3.4 D Magnesium 2.3 Total Bilirubin 1.5 H Direct Bilirubin 0.6 H AST 178 H ALT 36 Alkaline Phosphatase 57 Troponin I 27.200 H* Total Protein 7.2 Albumin 3.1 L Triglycerides 50 Cholesterol 94 LDL Cholesterol, Calc 43 VLDL Cholesterol, Calc 10 HDL Cholesterol 41 Cholesterol/HDL Ratio 2 Procalcitonin 6.67 H Lyme Disease IgG Ab Lyme Disease IgM Ab Flow Cytometry Comment Blood Type Antibody Screen Crossmatch 01/06/19 01/06/19 01/06/19 04:35 04:35 04:35 WBC RBC Hgb Hct MCV MCH MCHC RDW Std Deviation RDW Coeff of Eliana Plt Count MPV Absolute Nucleated RBC Nucleated RBC % (auto) Neutrophils % (Manual) Lymphocytes % (Manual) Monocytes % (Manual) Myelocytes % (Man) Blast Cells % (Manual) Neutrophils # (Manual) Total Absolute Neuts Lymphocytes # (Manual) Total Abs Lymphocytes Monocytes # (Manual) Myelocytes # (Manual) Blast Cells # (Man) Dohle Bodies Giant Platelets Poikilocytosis Anisocytosis Ovalocytes Sodium Potassium Chloride Carbon Dioxide Anion Gap BUN Creatinine Est Cr Clr Drug Dosing Est GFR ( Amer) Est GFR (Non-Af Amer) BUN/Creatinine Ratio Glucose POC Glucose Estimat Average Glucose 146 Hemoglobin A1c 6.7 H Lactate 2.2 H* Calcium Phosphorus Magnesium Total Bilirubin Direct Bilirubin AST ALT Alkaline Phosphatase Troponin I Total Protein Albumin Triglycerides Cholesterol LDL Cholesterol, Calc VLDL Cholesterol, Calc HDL Cholesterol Cholesterol/HDL Ratio Procalcitonin 10.82 H Lyme Disease IgG Ab Negative Lyme Disease IgM Ab Negative Flow Cytometry Comment Blood Type Antibody Screen Crossmatch 01/06/19 01/06/19 11:32 16:24 WBC RBC Hgb Hct MCV MCH MCHC RDW Std Deviation RDW Coeff of Eliana Plt Count MPV Absolute Nucleated RBC Nucleated RBC % (auto) Neutrophils % (Manual) Lymphocytes % (Manual) Monocytes % (Manual) Myelocytes % (Man) Blast Cells % (Manual) Neutrophils # (Manual) Total Absolute Neuts Lymphocytes # (Manual) Total Abs Lymphocytes Monocytes # (Manual) Myelocytes # (Manual) Blast Cells # (Man) Dohle Bodies Giant Platelets Poikilocytosis Anisocytosis Ovalocytes Sodium Potassium Chloride Carbon Dioxide Anion Gap BUN Creatinine Est Cr Clr Drug Dosing Est GFR ( Amer) Est GFR (Non-Af Amer) BUN/Creatinine Ratio Glucose POC Glucose 154 H 147 H Estimat Average Glucose Hemoglobin A1c Lactate Calcium Phosphorus Magnesium Total Bilirubin Direct Bilirubin AST ALT Alkaline Phosphatase Troponin I Total Protein Albumin Triglycerides Cholesterol LDL Cholesterol, Calc VLDL Cholesterol, Calc HDL Cholesterol Cholesterol/HDL Ratio Procalcitonin Lyme Disease IgG Ab Lyme Disease IgM Ab Flow Cytometry Comment Blood Type Antibody Screen Crossmatch
--- NOTE | 2019-01-06 18:35 | Hospitalist Progress Note ---
Date of Service January 06, 2019 Subjective Follow-up for non-ST elevation MA Seen sitting up in bed, watching TV, comfortable Events of last night noted Patient states his breathing has improved, no active shortness of breath Denies fever, cough No chest pain, palpitations, dizziness, nausea Still feels weak, poor appetite but otherwise feels fine as per patient No other symptoms Review of Systems Review of Systems: All systems reviewed & are unremarkable except as noted in HPI & below Physical Exam Physical Exam: General- oriented x 3, not in distress, speaks in sentences with no effort or accessory muscle use Head- atraumatic Eyes- PERRL, EOMI, anicteric ENT- oropharynx clear Neck- supple, no JVD, no adenopathy, no thyromegaly; carotids +2/2, no bruits appreciated Lungs-mild rales at the bases, no wheezing Heart- normal rate, regular rhythm; no murmur, no gallop, no rub appreciated Abdomen- normal bowel sounds, nondistended, soft, nontender, no masses or hepatosplenomegaly Extremities- no pretibial edema, no calf tenderness; peripheral pulses intact Neuro- alert, oriented x 3; CN 2-12 grossly intact; motor 5/5 bilaterally;sensation 100% on all extremities; no other gross focal neurologic deficits Skin- warm & dry Results & Data Vital Signs (Past 12 Hours) Vital Signs Temp Pulse Pulse Resp BP BP Pulse Ox 01/06/19 18:00 107 H 98/65 L 100 01/06/19 17:30 107 H 92/62 L 100 01/06/19 17:00 106 H 96/63 L 100 01/06/19 16:30 103 H 92/64 L 99 01/06/19 16:00 107 H 105/74 100 01/06/19 15:30 102 H 97/63 L 99 01/06/19 15:00 36.9 C 102 H 92/64 L 100 01/06/19 14:55 103 H 20 93 01/06/19 12:33 36.7 C 101 H 16 89/54 L 95 01/06/19 12:30 104 H 84/55 L 95 01/06/19 12:00 106 H 96/61 L 98 01/06/19 11:31 111 H 93 01/06/19 11:30 113 H 16 104/73 98 01/06/19 11:14 105 H 22 93 01/06/19 11:00 105 H 16 104/73 97 01/06/19 10:31 105 H 100/58 L 01/06/19 10:02 103 H 01/06/19 10:01 110 H 14 106/72 98 01/06/19 10:00 112 H 01/06/19 09:11 102 H 113/70 98 01/06/19 09:00 105 H 18 113/70 01/06/19 08:30 100 H 16 96/64 L 94 01/06/19 08:01 105 H 96/61 L 01/06/19 08:00 36.4 C L 105 H 16 96/61 L 98 01/06/19 07:42 102 H 20 98 01/06/19 07:30 103 H 96/68 L 98 01/06/19 07:00 36.7 C 97 H 104 H 16 98/66 L 96/61 L 98 Laboratory Results Laboratory Results - last 24 hr 01/05/19 01/05/19 01/05/19 08:47 10:43 22:32 WBC RBC Hgb Hct MCV MCH MCHC RDW Std Deviation RDW Coeff of Eliana Plt Count MPV Absolute Nucleated RBC Nucleated RBC % (auto) Neutrophils % (Manual) Lymphocytes % (Manual) Monocytes % (Manual) Myelocytes % (Man) Blast Cells % (Manual) Neutrophils # (Manual) Total Absolute Neuts Lymphocytes # (Manual) Total Abs Lymphocytes Monocytes # (Manual) Myelocytes # (Manual) Blast Cells # (Man) Dohle Bodies Giant Platelets Poikilocytosis Anisocytosis Ovalocytes Sodium Potassium Chloride Carbon Dioxide Anion Gap BUN Creatinine Est Cr Clr Drug Dosing Est GFR ( Amer) Est GFR (Non-Af Amer) BUN/Creatinine Ratio Glucose POC Glucose Estimat Average Glucose Hemoglobin A1c Lactate Calcium Phosphorus Magnesium Total Bilirubin Direct Bilirubin AST ALT Alkaline Phosphatase Troponin I 24.500 H* Total Protein Albumin Triglycerides Cholesterol LDL Cholesterol, Calc VLDL Cholesterol, Calc HDL Cholesterol Cholesterol/HDL Ratio Procalcitonin Lyme Disease IgG Ab Lyme Disease IgM Ab Flow Cytometry Comment See Comment Blood Type O Positive Antibody Screen NEGATIVE Crossmatch See Detail 01/05/19 01/05/19 01/05/19 23:33 23:33 23:33 WBC 4.60 L RBC 2.77 L Hgb 9.8 L Hct 27.4 L MCV 98.9 D MCH 35.4 H MCHC 35.8 RDW Std Deviation 82.8 H RDW Coeff of Eliana 23.2 H Plt Count 203 MPV 10.1 Absolute Nucleated RBC 0.06 H Nucleated RBC % (auto) 1.3 Neutrophils % (Manual) 85.0 Lymphocytes % (Manual) 9.7 Monocytes % (Manual) Myelocytes % (Man) 0.9 Blast Cells % (Manual) 4.4 Neutrophils # (Manual) 3.91 Total Absolute Neuts 3.91 Lymphocytes # (Manual) 0.45 L Total Abs Lymphocytes 0.45 L Monocytes # (Manual) Myelocytes # (Manual) 0.04 H Blast Cells # (Man) 0.20 H Dohle Bodies Occasional Giant Platelets 1+ Poikilocytosis Anisocytosis Present Ovalocytes 1+ Sodium 135 L Potassium 3.7 Chloride 103 Carbon Dioxide 23 Anion Gap 9.0 BUN 28 H Creatinine 1.34 Est Cr Clr Drug Dosing 48.7 Est GFR ( Amer) 58.4 Est GFR (Non-Af Amer) 50.4 BUN/Creatinine Ratio 20.6 H Glucose 135 H POC Glucose Estimat Average Glucose Hemoglobin A1c Lactate 2.1 H* Calcium 8.0 L Phosphorus 2.4 L Magnesium 2.2 Total Bilirubin Direct Bilirubin AST ALT Alkaline Phosphatase Troponin I Total Protein Albumin Triglycerides Cholesterol LDL Cholesterol, Calc VLDL Cholesterol, Calc HDL Cholesterol Cholesterol/HDL Ratio Procalcitonin Lyme Disease IgG Ab Lyme Disease IgM Ab Flow Cytometry Comment Blood Type Antibody Screen Crossmatch 01/05/19 01/06/19 01/06/19 23:33 04:35 04:35 WBC 4.95 RBC 2.94 L Hgb 10.4 L Hct 29.5 L MCV 100.3 H MCH 35.4 H MCHC 35.3 RDW Std Deviation 86.0 H RDW Coeff of Eliana 23.6 H Plt Count 220 MPV 11.2 H Absolute Nucleated RBC 0.09 H Nucleated RBC % (auto) 1.8 Neutrophils % (Manual) 86.9 Lymphocytes % (Manual) 6.1 Monocytes % (Manual) 0.9 Myelocytes % (Man) Blast Cells % (Manual) 6.1 Neutrophils # (Manual) 4.30 Total Absolute Neuts 4.30 Lymphocytes # (Manual) 0.30 L Total Abs Lymphocytes 0.30 L Monocytes # (Manual) 0.04 L Myelocytes # (Manual) Blast Cells # (Man) 0.30 H Dohle Bodies Giant Platelets 1+ Poikilocytosis Present Anisocytosis Present Ovalocytes Sodium 133 L Potassium 3.7 Chloride 102 Carbon Dioxide 23 Anion Gap 8.0 BUN 30 H Creatinine 1.47 H Est Cr Clr Drug Dosing 44.4 Est GFR ( Amer) 52.2 Est GFR (Non-Af Amer) 45.0 BUN/Creatinine Ratio 20.4 H Glucose 135 H POC Glucose Estimat Average Glucose Hemoglobin A1c Lactate Calcium 7.6 L Phosphorus 3.4 D Magnesium 2.3 Total Bilirubin 1.5 H Direct Bilirubin 0.6 H AST 178 H ALT 36 Alkaline Phosphatase 57 Troponin I 27.200 H* Total Protein 7.2 Albumin 3.1 L Triglycerides 50 Cholesterol 94 LDL Cholesterol, Calc 43 VLDL Cholesterol, Calc 10 HDL Cholesterol 41 Cholesterol/HDL Ratio 2 Procalcitonin 6.67 H Lyme Disease IgG Ab Lyme Disease IgM Ab Flow Cytometry Comment Blood Type Antibody Screen Crossmatch 01/06/19 01/06/19 01/06/19 04:35 04:35 04:35 WBC RBC Hgb Hct MCV MCH MCHC RDW Std Deviation RDW Coeff of Eliana Plt Count MPV Absolute Nucleated RBC Nucleated RBC % (auto) Neutrophils % (Manual) Lymphocytes % (Manual) Monocytes % (Manual) Myelocytes % (Man) Blast Cells % (Manual) Neutrophils # (Manual) Total Absolute Neuts Lymphocytes # (Manual) Total Abs Lymphocytes Monocytes # (Manual) Myelocytes # (Manual) Blast Cells # (Man) Dohle Bodies Giant Platelets Poikilocytosis Anisocytosis Ovalocytes Sodium Potassium Chloride Carbon Dioxide Anion Gap BUN Creatinine Est Cr Clr Drug Dosing Est GFR ( Amer) Est GFR (Non-Af Amer) BUN/Creatinine Ratio Glucose POC Glucose Estimat Average Glucose 146 Hemoglobin A1c 6.7 H Lactate 2.2 H* Calcium Phosphorus Magnesium Total Bilirubin Direct Bilirubin AST ALT Alkaline Phosphatase Troponin I Total Protein Albumin Triglycerides Cholesterol LDL Cholesterol, Calc VLDL Cholesterol, Calc HDL Cholesterol Cholesterol/HDL Ratio Procalcitonin 10.82 H Lyme Disease IgG Ab Negative Lyme Disease IgM Ab Negative Flow Cytometry Comment Blood Type Antibody Screen Crossmatch 01/06/19 01/06/19 11:32 16:24 WBC RBC Hgb Hct MCV MCH MCHC RDW Std Deviation RDW Coeff of Eliana Plt Count MPV Absolute Nucleated RBC Nucleated RBC % (auto) Neutrophils % (Manual) Lymphocytes % (Manual) Monocytes % (Manual) Myelocytes % (Man) Blast Cells % (Manual) Neutrophils # (Manual) Total Absolute Neuts Lymphocytes # (Manual) Total Abs Lymphocytes Monocytes # (Manual) Myelocytes # (Manual) Blast Cells # (Man) Dohle Bodies Giant Platelets Poikilocytosis Anisocytosis Ovalocytes Sodium Potassium Chloride Carbon Dioxide Anion Gap BUN Creatinine Est Cr Clr Drug Dosing Est GFR ( Amer) Est GFR (Non-Af Amer) BUN/Creatinine Ratio Glucose POC Glucose 154 H 147 H Estimat Average Glucose Hemoglobin A1c Lactate Calcium Phosphorus Magnesium Total Bilirubin Direct Bilirubin AST ALT Alkaline Phosphatase Troponin I Total Protein Albumin Triglycerides Cholesterol LDL Cholesterol, Calc VLDL Cholesterol, Calc HDL Cholesterol Cholesterol/HDL Ratio Procalcitonin Lyme Disease IgG Ab Lyme Disease IgM Ab Flow Cytometry Comment Blood Type Antibody Screen Crossmatch
[2019-01-06] MEDS: INSULIN ASPART 100 UNITS/ML 3 ML PEN SC SCH (20:47)
[2019-01-06] MEDS: ATORVASTATIN 40 MG TAB PO SCH (20:48)
[2019-01-06] MEDS: POTASSIUM CHLORIDE 20 MEQ TABCR PO SCH (20:48)
[2019-01-07 05:42] LABS: Hematocrit (blood only) 28.5 % (42-52); Mean Corpuscular Hgb Conc 35.1 g/dL (32-36); Mean Corpuscular Volume 99.3 fL (80-100); Mean Platelet Volume 11.8 fL (7.4-10.4); Nucleated RBC # (auto) 0.05 K/uL (0-0); Platelet Count 222 K/uL (130-400); RDW Coefficient of Variation 23.4 % (11.5-14.5); RDW Standard Deviation 84.4 fL (36.4-46.3); Red Blood Count 2.87 M/uL (4.7-6.1); White Blood Count 4.63 K/uL (4.8-10.8)
[2019-01-07 06:21] LABS: ALC (manual) 0.53 K/uL (1.2-3.4); Anisocytosis Present; Blast # (manual) 0.41 K/uL (0-0); Blast Cells % (manual) 8.8 %; Lymphocytes # (manual) 0.53 K/uL (1.2-3.4); Lymphocytes % (manual) 11.5 %; Neutrophils % (manual) 79.7 %; Ovalocytes 1+
[2019-01-07] MEDS: HEPARIN SOD 5,000 UNIT/0.5 ML VIAL SQ SCH ×3 (06:27→21:16)
[2019-01-07 06:37] LABS: BUN Creatinine Ratio 25.3 (10-20); Calcium 8.1 mg/dl (8.5-10.1); Creatinine Clr Calc Pharmacy 39.5 ml/min; Est GFR (African American) 51.4; Est GFR (Non-African American) 44.3; Magnesium 2.6 mg/dl (1.8-2.4); Potassium 4.3 mmol/L (3.5-5.1)
[2019-01-07] MEDS: INSULIN ASPART 100 UNITS/ML 3 ML PEN SC SCH ×4 (07:36→21:16)
[2019-01-07] MEDS: POTASSIUM CHLORIDE 20 MEQ TABCR PO SCH (07:39)
[2019-01-07] MEDS: ASPIRIN 325 MG ECTAB PO SCH (07:39)
[2019-01-07] MEDS: FUROSEMIDE 40 MG in SYRINGE 0 ML IV SCH (07:39)
[2019-01-07] MEDS: CLOPIDOGREL BISULFATE 75 MG TAB PO SCH (07:39)
--- NOTE | 2019-01-07 09:10 | Critical Care Progress Note ---
Date of Service January 07, 2019 Assessment & Plan (1) NSTEMI (non-ST elevated myocardial infarction): Neuro-awake alert CV- shock resolved off vasopressors. NSTEMI and ischemic cardiomyopathy s/p cath with stent to LAD. aspirin, clopidogrel, atorvastatin. will add metoprolol low dose. KRISTINA BP allows. for possible staged procedure. Pulmonary- acute hypoxic respiratory failure due to pulmonary edema. high flow nasal cannula titrate for sat >92%. small bilateral pleural effusion-no need for intervention now. oxygenation improving ID- no clear infection follow cultures. Renal- cr about the same. good UOP GI- diet as tolerated Heme- anemia. responded appropriately to blood heparin proph Endocrine- blood sugars controlled Dispo- monitor in ICU for respiratory support (2) A-fib: (3) Hypoxia: (4) Pulmonary edema: (5) Status post percutaneous transluminal coronary angioplasty: (6) Cardiomyopathy: (7) Cardiogenic shock: Subjective breathing better. no chest pain improving oxygenation Physical Exam Physical Exam: Constitutional: Comfortable NAD on high flow nasal cannula 55% HEENT: normocephalic atraumatic. MMM. CV: tachycardia nl s1,s2 no murmurs rubs or gallops Lungs: decreased bilaterally. no accessory muscle use Abd: soft nontender nondistended. normal bowel sounds Ext: no edema. no cyanosis, no clubbing Skin: warm dry Neuro: alert and oriented. moving all extremities Psych: normal mood and affect Results & Data Vital Signs (Past 12 Hours) Vital Signs Temp Pulse Pulse Pulse Resp BP Pulse Ox 01/07/19 08:24 109 H 22 100 01/07/19 06:00 111 H 104/68 96 01/07/19 05:00 118 H 114/66 96 01/07/19 04:44 113 H 22 98 01/07/19 04:00 36.9 C 111 H 85/53 L 97 01/07/19 03:00 111 H 112/71 99 01/07/19 02:00 113 H 91/54 L 99 01/07/19 01:00 110 H 108/66 95 01/07/19 00:00 37 C 111 H 103/72 98 01/06/19 23:26 123 H 18 97 01/06/19 23:00 111 H 103/66 98 01/06/19 22:00 105 H 83/50 L 98 Laboratory Results Laboratory Results - last 24 hr 01/05/19 01/06/19 01/06/19 08:47 11:32 16:24 WBC RBC Hgb Hct MCV MCH MCHC RDW Std Deviation RDW Coeff of Eliana Plt Count MPV Absolute Nucleated RBC Nucleated RBC % (auto) Neutrophils % (Manual) Lymphocytes % (Manual) Blast Cells % (Manual) Neutrophils # (Manual) Total Absolute Neuts Lymphocytes # (Manual) Total Abs Lymphocytes Blast Cells # (Man) Anisocytosis Ovalocytes Sodium Potassium Chloride Carbon Dioxide Anion Gap BUN Creatinine Est Cr Clr Drug Dosing Est GFR ( Amer) Est GFR (Non-Af Amer) BUN/Creatinine Ratio Glucose POC Glucose 154 H 147 H Calcium Magnesium Flow Cytometry Comment See Comment 01/06/19 01/07/19 01/07/19 20:45 05:26 05:26 WBC 4.63 L RBC 2.87 L Hgb 10.0 L Hct 28.5 L MCV 99.3 MCH 34.8 H MCHC 35.1 RDW Std Deviation 84.4 H RDW Coeff of Eliana 23.4 H Plt Count 222 MPV 11.8 H Absolute Nucleated RBC 0.05 H Nucleated RBC % (auto) 1.0 Neutrophils % (Manual) 79.7 Lymphocytes % (Manual) 11.5 Blast Cells % (Manual) 8.8 Neutrophils # (Manual) 3.69 Total Absolute Neuts 3.69 Lymphocytes # (Manual) 0.53 L Total Abs Lymphocytes 0.53 L Blast Cells # (Man) 0.41 H Anisocytosis Present Ovalocytes 1+ Sodium 133 L Potassium 4.3 D Chloride 101 Carbon Dioxide 22 Anion Gap 10.0 BUN 38 H Creatinine 1.49 H Est Cr Clr Drug Dosing 39.5 Est GFR ( Amer) 51.4 Est GFR (Non-Af Amer) 44.3 BUN/Creatinine Ratio 25.3 H Glucose 120 H POC Glucose 107 H Calcium 8.1 L Magnesium 2.6 H Flow Cytometry Comment 01/07/19 07:28 WBC RBC Hgb Hct MCV MCH MCHC RDW Std Deviation RDW Coeff of Eliana Plt Count MPV Absolute Nucleated RBC Nucleated RBC % (auto) Neutrophils % (Manual) Lymphocytes % (Manual) Blast Cells % (Manual) Neutrophils # (Manual) Total Absolute Neuts Lymphocytes # (Manual) Total Abs Lymphocytes Blast Cells # (Man) Anisocytosis Ovalocytes Sodium Potassium Chloride Carbon Dioxide Anion Gap BUN Creatinine Est Cr Clr Drug Dosing Est GFR ( Amer) Est GFR (Non-Af Amer) BUN/Creatinine Ratio Glucose POC Glucose 121 H Calcium Magnesium Flow Cytometry Comment
[2019-01-07] MEDS ORDERED: METOPROLOL TARTRATE 25 MG TAB PO SCH (09:15)
--- NOTE | 2019-01-07 09:16 | Cardiology Progress Note ---
Date of Service January 07, 2019 Assessment & Plan (1) NSTEMI (non-ST elevated myocardial infarction): s/p successful PCI to culprit vessel: LAD troponin trending up, to be expected EKG improving, lateral ST segment depressions resolving renal function has remained relatively stable, 1.5 today sob improved cont aspirin, atorvastatin and plavix will start low dose metoprolol today at 12.5mg bid, would like to uptitrate to Q6 as bp allows npo after midnight (2) Cardiogenic shock: resolved pressors titrated off will optimize meds once revascularization completed will initiate evidence based beta kiko (metoprolol succinate) once BP tolerates will hold off ARB until after second cath and following renal function will also be indicated to start aldosterone antagonism with spironolactone +/- Neprilysin inhibitor based on clinical course and ability to maximize beta kiko dose follow volume status clinically and loop diuretics to be used as necessary (3) Cardiomyopathy: does not appear to be significantly volume overloaded on examine today creat up slightly good urine output O2 requirement decreasing will hold lasix for now and follow volume status clinically (4) CAD (coronary artery disease): given dye load and need for transfusion plan on staged PCI to RCA on 01/08 will optimize medically (5) A-fib: no recurrence to start beta kiko today Subjective Pt seen and examined, states that he feels better today. Breathing is improving, as is appetite. Denies cp, palpitations, lightheadedness or dizziness. tele reviewed: sinus tachycardia 100's, no ventricular arrhythmias, no recurrence of atrial fibrillation. Review of Systems Review of Systems: All systems reviewed & are unremarkable except as noted in HPI & below Physical Exam Physical Exam: General: Awake, alert and oriented x 3. No acute distress. HEENT: Normocephalic, atraumatic. Pupils equal, round and reactive to light a nd accommodation. Extraocular muscles are intact. Anicteric sclera. Moist mucous membranes. Neck: No JVD. No bruit. Cardiovascular: Regular. Positive S-4. Normal S-1 and S-2. No S-3. No murm urs or rubs. Pulmonary: Clear with slightly diminished breath sounds in bases. No rales, rhonchi or wheezing. Abdomen: Bowel sounds x 4, soft. No rebound, guarding or tenderness. No organomegaly. Extremities: No clubbing, cyanosis or edema. +2 pedal pulses bilaterally. Skin: Warm and dry. Results & Data Vital Signs (Past 12 Hours) Vital Signs Temp Pulse Pulse Pulse Resp BP Pulse Ox 01/07/19 08:24 109 H 22 100 01/07/19 06:00 111 H 104/68 96 01/07/19 05:00 118 H 114/66 96 01/07/19 04:44 113 H 22 98 01/07/19 04:00 36.9 C 111 H 85/53 L 97 01/07/19 03:00 111 H 112/71 99 01/07/19 02:00 113 H 91/54 L 99 01/07/19 01:00 110 H 108/66 95 01/07/19 00:00 37 C 111 H 103/72 98 01/06/19 23:26 123 H 18 97 01/06/19 23:00 111 H 103/66 98 01/06/19 22:00 105 H 83/50 L 98
--- NOTE | 2019-01-07 09:56 | Hospitalist Progress Note ---
Date of Service January 07, 2019 Assessment & Plan (1) NSTEMI (non-ST elevated myocardial infarction): (2) Cardiomyopathy: per Dr. Alexander's notes: Pt presented to ER with c/o SOB, malaise over past 24 hours In ER pt afebrile, P: 66-113, R: 20-26, BP: 105/58- 121/83, O2 sat: 100% down to 91% on RA Was found to have troponin: 6, with EKG sinus tachycardia at 108, ST depression lateral leads -Bedside echo EF: 30%, mod-severe global hypokinesis -Heparin IV started in ER -Pt taken to forestry laborer from ER. During procedure hypoxemic requiring 15 L O2 mask and eventual BiPAP. Was given 40 of IV Lasix for elevated LVEDP. Maintained on norepinephrine 0.1 -optical lab technician report: * Severe multi-vessel coronary artery disease. 95 to 99% diffuse mid LAD, 80 to 90% focal distal LAD. 90% distal circumflex into left PLB. Moderate caliber first OM with 90% focal stenosis. 95% earlymid RCA at bifurcation with acute marginal. * Elevated intracardiac filling pressure * Successful PCI of mid LAD with single drug-eluting stent (3.0 x 30 mm Angel). POBA of distal LAD with 2.5 balloon. - ASA + Plavix , Atorvastatin started Lasix 40mg BID given yesterday, appears to be compensated and euvolemic today, hold off on Lasix today Plan for repeat cardiac cath tomorrow ATRIAL FIBRILLATION EPISODE - resolved with IV Amiodarone (3) Anemia: (4) Essential thrombocythemia: Hx essential thrombocythemia. Follows with Dr Turner - heme/onc. Was taken off hydroxyurea on 12/15/18 secondary to worsening anemia. H/H: 7.9/22.9 (Hgb was 8.5 on 01/04/19 and 8.1 on 01/01/19) Hemoccult negative in ER -2 units PRBCs to be transfused with lasix in between units secondary to pt unstable Hg 10.4 Platelet count remains up to 222 on Anagrelide as outpatient notified by [facility] that Anagrelide + ASA and Plavix may result in increased bleeding risk Discussed with Dr. Turner, recommend to hold anagrelide for now until follow-up with him as an outpatient (5) Hyperglycemia: Random Glucose: 162 -A1c 6.7 -Monitor BSG (6) Hypercholesteremia: -Continue statin DVT Prophylaxis Heparin SQ Full Code as per discussion with pt Follows with Dr Elizalde for routine care Subjective ff up NSTEMI Seen resting in bed, comfortable States breathing improved further today compared to yesterday Denies chest pain, palpitations, dizziness No other symptoms Review of Systems Review of Systems: All systems reviewed & are unremarkable except as noted in HPI & below Physical Exam Physical Exam: General- oriented x 3, not in distress, speaks in sentences with no effort or accessory muscle use Eyes- anicteric Neck- no JVD Lungs-clear breath sounds bilaterally, no rales or wheezes Heart- normal rate, regular rhythm; no murmurs Abdomen- normal bowel sounds, nondistended, soft, nontender Extremities- no pretibial edema, no calf tenderness Neuro- alert, oriented x 3; no gross focal neurologic deficits Skin- warm & dry Results & Data Vital Signs (Past 12 Hours) Vital Signs Temp Pulse Pulse Pulse Resp BP Pulse Ox 01/07/19 08:24 109 H 22 100 01/07/19 06:00 111 H 104/68 96 01/07/19 05:00 118 H 114/66 96 01/07/19 04:44 113 H 22 98 01/07/19 04:00 36.9 C 111 H 85/53 L 97 01/07/19 03:00 111 H 112/71 99 01/07/19 02:00 113 H 91/54 L 99 01/07/19 01:00 110 H 108/66 95 01/07/19 00:00 37 C 111 H 103/72 98 01/06/19 23:26 123 H 18 97 01/06/19 23:00 111 H 103/66 98 01/06/19 22:00 105 H 83/50 L 98 Laboratory Results Laboratory Results - last 24 hr 01/05/19 01/06/19 01/06/19 08:47 16:24 20:45 WBC RBC Hgb Hct MCV MCH MCHC RDW Std Deviation RDW Coeff of Eliana Plt Count MPV Absolute Nucleated RBC Nucleated RBC % (auto) Neutrophils % (Manual) Lymphocytes % (Manual) Blast Cells % (Manual) Neutrophils # (Manual) Total Absolute Neuts Lymphocytes # (Manual) Total Abs Lymphocytes Blast Cells # (Man) Anisocytosis Ovalocytes Sodium Potassium Chloride Carbon Dioxide Anion Gap BUN Creatinine Est Cr Clr Drug Dosing Est GFR ( Amer) Est GFR (Non-Af Amer) BUN/Creatinine Ratio Glucose POC Glucose 147 H 107 H Calcium Magnesium Flow Cytometry Comment See Comment 01/07/19 01/07/19 01/07/19 05:26 05:26 07:28 WBC 4.63 L RBC 2.87 L Hgb 10.0 L Hct 28.5 L MCV 99.3 MCH 34.8 H MCHC 35.1 RDW Std Deviation 84.4 H RDW Coeff of Eliana 23.4 H Plt Count 222 MPV 11.8 H Absolute Nucleated RBC 0.05 H Nucleated RBC % (auto) 1.0 Neutrophils % (Manual) 79.7 Lymphocytes % (Manual) 11.5 Blast Cells % (Manual) 8.8 Neutrophils # (Manual) 3.69 Total Absolute Neuts 3.69 Lymphocytes # (Manual) 0.53 L Total Abs Lymphocytes 0.53 L Blast Cells # (Man) 0.41 H Anisocytosis Present Ovalocytes 1+ Sodium 133 L Potassium 4.3 D Chloride 101 Carbon Dioxide 22 Anion Gap 10.0 BUN 38 H Creatinine 1.49 H Est Cr Clr Drug Dosing 39.5 Est GFR ( Amer) 51.4 Est GFR (Non-Af Amer) 44.3 BUN/Creatinine Ratio 25.3 H Glucose 120 H POC Glucose 121 H Calcium 8.1 L Magnesium 2.6 H Flow Cytometry Comment 01/07/19 11:29 WBC RBC Hgb Hct MCV MCH MCHC RDW Std Deviation RDW Coeff of Eliana Plt Count MPV Absolute Nucleated RBC Nucleated RBC % (auto) Neutrophils % (Manual) Lymphocytes % (Manual) Blast Cells % (Manual) Neutrophils # (Manual) Total Absolute Neuts Lymphocytes # (Manual) Total Abs Lymphocytes Blast Cells # (Man) Anisocytosis Ovalocytes Sodium Potassium Chloride Carbon Dioxide Anion Gap BUN Creatinine Est Cr Clr Drug Dosing Est GFR ( Amer) Est GFR (Non-Af Amer) BUN/Creatinine Ratio Glucose POC Glucose 124 H Calcium Magnesium Flow Cytometry Comment
[2019-01-07] MEDS: ATORVASTATIN 40 MG TAB PO SCH (21:05)
[2019-01-08] MEDS ORDERED: DIGOXIN 250 MCG in SYRINGE 9 ML IV ONE (04:15)
[2019-01-08] MEDS ORDERED: ALBUMIN 25% 50 ML IV ONE (04:19)
[2019-01-08 04:53] LABS: Hematocrit (blood only) 27.2 % (42-52); Hemoglobin 9.4 g/dL (14.0-18.0); Mean Corpuscular Hgb Conc 34.6 g/dL (32-36); Mean Corpuscular Volume 99.6 fL (80-100); Mean Platelet Volume 10.7 fL (7.4-10.4); Nucleated RBC # (auto) 0.05 K/uL (0-0); Nucleated RBC % (auto) 1.1 %; Platelet Count 239 K/uL (130-400); RDW Coefficient of Variation 22.3 % (11.5-14.5); Red Blood Count 2.73 M/uL (4.7-6.1); White Blood Count 4.21 K/uL (4.8-10.8)
[2019-01-08 05:01] LABS: Partial Thromboplastin Ratio 1.4; Partial Thromboplastin Time 38.1 Seconds (21.0-31.0)
[2019-01-08 05:09] LABS: BUN Creatinine Ratio 27.5 (10-20); Calcium 8.1 mg/dl (8.5-10.1); Creatinine Clr Calc Pharmacy 45.7 ml/min; Est GFR (African American) 61.1; Est GFR (Non-African American) 52.8; Magnesium 2.9 mg/dl (1.8-2.4)
[2019-01-08] MEDS ORDERED: METOPROLOL TARTRATE 1 MG/ML VIAL IV STA (05:20)
[2019-01-08 05:36] LABS: ALC (manual) 0.41 K/uL (1.2-3.4); Anisocytosis Present; Blast # (manual) 0.63 K/uL (0-0); Lymphocytes # (manual) 0.41 K/uL (1.2-3.4); Lymphocytes % (manual) 9.7 %; Monocytes # (manual) 0.08 K/uL (0.11-0.59); Monocytes % (manual) 1.8 %; Neutrophils % (manual) 73.5 %; Ovalocytes 1+
[2019-01-08] MEDS: HEPARIN SOD 5,000 UNIT/0.5 ML VIAL SQ SCH ×3 (05:38→22:11)
[2019-01-08] MEDS ORDERED: METOPROLOL TARTRATE 25 MG TAB PO SCH (08:15)
[2019-01-08] MEDS: CLOPIDOGREL BISULFATE 75 MG TAB PO SCH (08:26)
[2019-01-08] MEDS: INSULIN ASPART 100 UNITS/ML 3 ML PEN SC SCH ×4 (08:26→20:31)
[2019-01-08] MEDS: ASPIRIN 325 MG ECTAB PO SCH (08:26)
[2019-01-08] MEDS ORDERED: dilTIAZem HCl 5 MG/ML 5 ML VIAL IV STA (08:36)
[2019-01-08] MEDS ORDERED: dilTIAZem HCl 5 MG/ML 5 ML VIAL IV ONE (08:41)
[2019-01-08] MEDS ORDERED: dilTIAZem HCL 30 MG TAB PO ONE (08:42)
[2019-01-08] MEDS ORDERED: dilTIAZem HCl 125 MG in DEXTROSE 5% 100 ML IV SCH (08:45)
[2019-01-08] MEDS ORDERED: POTASSIUM CHLORIDE 20 MEQ TABCR PO SCH (09:00)
[2019-01-08] MEDS ORDERED: MIDAZOLAM HCL 1 MG/ML 2ML VIAL ONE (10:19)
[2019-01-08] MEDS ORDERED: HEPARIN (PORCINE) 1000 UNIT/ML 10 ML (CATH LAB USE ONLY) ONE (10:19)
[2019-01-08] MEDS ORDERED: fentaNYL citrate 100 MCG/2 ML VIAL ONE (10:19)
[2019-01-08] MEDS ORDERED: NiCARDipine HCL INJ 2.5 MG/ML 10 ML AMP ONE (10:19)
[2019-01-08] MEDS ORDERED: NITROGLYCERIN/D5W 100MCG/ML 20ML SYR ONE (10:20)
[2019-01-08] MEDS ORDERED: NOREPINEPHRINE BITARTRATE 1 MG/ML 4 ML VIAL (CATH LAB USE ONLY) ONE (11:35)
[2019-01-08] MEDS ORDERED: DOPamine 400MG / 250ML D5W (CATH LAB USE ONLY) ONE (11:35)
[2019-01-08] MEDS ORDERED: CLOPIDOGREL BISULFATE 300 MG TAB ONE (11:43)
--- NOTE | 2019-01-08 11:44 | Pre Anesthesia Assessment ---
Date of Service January 08, 2019 Pre Sedation Assessment Vital Signs Temp Pulse Pulse Resp BP BP Pulse Ox 01/08/19 10:00 91 H 24 100/58 L 95 01/08/19 09:00 95 H 22 90/61 L 97 01/08/19 08:00 36.5 C 131 H 22 130/62 92 01/08/19 07:00 145 H 22 127/88 91 01/08/19 06:00 120 H 22 103/62 97 01/08/19 05:37 135 H 105/68 01/08/19 04:28 146 H 01/08/19 04:00 36.9 C 153 H 24 105/70 96 01/08/19 02:00 104 H 24 98/64 L 93 01/08/19 00:00 37.2 C 110 H 24 103/69 94 01/07/19 22:00 109 H 24 107/67 91 01/07/19 20:00 37.4 C 109 H 20 104/69 94 01/07/19 18:00 111 H 28 H 107/76 90 01/07/19 17:30 112 H 33 H 01/07/19 17:00 106 H 31 H 110/70 91 01/07/19 16:30 109 H 31 H 90 01/07/19 16:22 105 H 29 H 120/47 L 93 01/07/19 16:01 108 H 33 H 120/47 L 97 01/07/19 16:00 110 H 31 H 90 01/07/19 15:30 108 H 33 H 97/54 L 91 01/07/19 15:27 108 H 32 H 97/54 L 92 01/07/19 15:23 120 H 34 H 97/54 L 92 01/07/19 15:00 106 H 23 97/54 L 90 01/07/19 14:30 107 H 29 H 95 01/07/19 14:19 105 H 33 H 100/63 85 L 01/07/19 14:17 107 H 19 100/63 01/07/19 14:16 106 H 19 100/63 95 01/07/19 14:15 105 H 20 100/63 95 01/07/19 14:01 104 H 30 H 100/63 97 01/07/19 14:00 105 H 27 H 100/63 95 01/07/19 13:30 104 H 31 H 93 01/07/19 13:00 102 H 34 H 84/69 L 89 L 01/07/19 12:30 108 H 26 H 94 01/07/19 12:00 100 H 23 86/55 L 96 Cardiovascular RRR, no murmur, no edema Respiratory normal respiratory effort, lungs clear to auscultation Pre-Sedation Airway Assessment Smoking Status: Former smoker Hx Sleep Apnea: No Hx Difficult Intubation: No Short, Thick Neck: No Thyromental Distance: > or= 3.5 Finger Breadths Oral Cavity: + WNL Mallampati Class: III Procedure Planning Contraindications for Sedation: none Current Medications Reviewed: Yes Notes The planned sedation has been discussed with the patient. Informed Consent was obtained. I have identified the patient, determined the appropriateness of sedation and have assessed the patient immediately prior to the procedure. All medicine(s) and interventions are by my order.
[2019-01-08] MEDS ORDERED: SODIUM CHLORIDE 0.9% 1000ML 1,000 ML IV SCH (11:45)
--- NOTE | 2019-01-08 11:45 | Post Anesthesia Assessment ---
Date of Service January 08, 2019 Post Sedation Assessment Vital Signs Temp Pulse Pulse Resp BP BP Pulse Ox 01/08/19 10:00 91 H 24 100/58 L 95 01/08/19 09:00 95 H 22 90/61 L 97 01/08/19 08:00 36.5 C 131 H 22 130/62 92 01/08/19 07:00 145 H 22 127/88 91 01/08/19 06:00 120 H 22 103/62 97 01/08/19 05:37 135 H 105/68 01/08/19 04:28 146 H 01/08/19 04:00 36.9 C 153 H 24 105/70 96 01/08/19 02:00 104 H 24 98/64 L 93 01/08/19 00:00 37.2 C 110 H 24 103/69 94 01/07/19 22:00 109 H 24 107/67 91 01/07/19 20:00 37.4 C 109 H 20 104/69 94 01/07/19 18:00 111 H 28 H 107/76 90 01/07/19 17:30 112 H 33 H 01/07/19 17:00 106 H 31 H 110/70 91 01/07/19 16:30 109 H 31 H 90 01/07/19 16:22 105 H 29 H 120/47 L 93 01/07/19 16:01 108 H 33 H 120/47 L 97 01/07/19 16:00 110 H 31 H 90 01/07/19 15:30 108 H 33 H 97/54 L 91 01/07/19 15:27 108 H 32 H 97/54 L 92 01/07/19 15:23 120 H 34 H 97/54 L 92 01/07/19 15:00 106 H 23 97/54 L 90 01/07/19 14:30 107 H 29 H 95 01/07/19 14:19 105 H 33 H 100/63 85 L 01/07/19 14:17 107 H 19 100/63 01/07/19 14:16 106 H 19 100/63 95 01/07/19 14:15 105 H 20 100/63 95 01/07/19 14:01 104 H 30 H 100/63 97 01/07/19 14:00 105 H 27 H 100/63 95 01/07/19 13:30 104 H 31 H 93 01/07/19 13:00 102 H 34 H 84/69 L 89 L 01/07/19 12:30 108 H 26 H 94 01/07/19 12:00 100 H 23 86/55 L 96 Recovery Score Activity: Moves 4 extremities Respiration: Deep Breath/Cough Circulation: +/-20% PreAnes Value Consciousness: Fully Awake Oxygen Saturation: O2 needed for >90% Discharge Sedation Level of Care: Fast Track Phase II Post Sedation Plan On clinical assessment, the patient appears to have tolerated the sedation without complications. Patient is recovering as anticipated. Patient will continue to be monitored by nursing and may be discharged when sedation discharge criteria are met per below protocol. Upon Completions of procedure and additional 15 minutes continue every 5 minute vital signs and the P.A.R. score; then discharge to a Phase I or Fast Track to Phase II per the following guidelines: * Discharge Patient to appropriate Phase II area if PAR is 8 or greater or return to pre- procedure baseline. The post - procedure orders will be as directed. * If PAR score is less than 8 or not return to pre-procedure baseline then patient will follow Phase I monitoring till PAR is reached for Phase II. The Phase I may be done in procedure room or may call to secure a Phase I area. * If naloxone or flumazenil are used for reversal, hold in Phase I for continued monitoring from when last reversal dose was given for a minimum of 60 minutes or longer pending the nurse and/or physician discretion of patient condition before discharge to Phase II. Please call the Sedation Physician to re-evaluate and complete post-note for discharge to Phase II area. Do NOT discharge from procedure sedation or Phase 1 until post- sedation evaluation note is complete by procedure /sedation MD Sedation Discharge Instructions to be given to the patient at discharge to home.
--- NOTE | 2019-01-08 12:12 | Critical Care Progress Note ---
Date of Service January 08, 2019 Assessment & Plan (1) NSTEMI (non-ST elevated myocardial infarction): Neuro-awake alert CV- shock resolved off vasopressors. NSTEMI and ischemic cardiomyopathy s/p cath with stent to LAD. aspirin, clopidogrel, atorvastatin. metoprolol. KRISTINA if BP and kidney function allows. for repeat cath today. tachycardia/afib improved on metoprolol Pulmonary- acute hypoxic respiratory failure due to pulmonary edema. oxygentaion improving. small bilateral pleural effusion-no need for intervention now. oxygenation improving ID- no clear infection follow cultures. Renal- cr improved. good UOP GI- diet as tolerated Heme- anemia. heparin proph Endocrine- blood sugars controlled Dispo- monitor in ICU for respiratory support and post cardiac cath (2) A-fib: (3) Hypoxia: (4) Pulmonary edema: (5) Status post percutaneous transluminal coronary angioplasty: (6) Cardiomyopathy: (7) Cardiogenic shock: Subjective no chest pain or sob. tachycardic again last night got digoxin then IV metoprolol HR up again this morning improved after PO metoprolol Physical Exam Physical Exam: Constitutional: Comfortable NAD HEENT: normocephalic atraumatic. MMM. CV: RRR nl s1,s2 no murmurs rubs or gallops Lungs: decreased bilaterally. no accessory muscle use Abd: soft nontender nondistended. normal bowel sounds Ext: no edema. no cyanosis, no clubbing Skin: warm dry Neuro: alert and oriented. moving all extremities Psych: normal mood and affect Results & Data Vital Signs (Past 12 Hours) Vital Signs Temp Pulse Pulse Resp BP BP Pulse Ox 01/08/19 10:00 91 H 24 100/58 L 95 01/08/19 09:00 95 H 22 90/61 L 97 01/08/19 08:00 36.5 C 131 H 22 130/62 92 01/08/19 07:00 145 H 22 127/88 91 01/08/19 06:00 120 H 22 103/62 97 01/08/19 05:37 135 H 105/68 01/08/19 04:28 146 H 01/08/19 04:00 36.9 C 153 H 24 105/70 96 01/08/19 02:00 104 H 24 98/64 L 93
--- NOTE | 2019-01-08 12:40 | Cardiac Catheterization ---
Cardiac Cath Procedure Full Procedure Date January 08, 2019 Pre-Procedure Diagnosis Pre-Procedure Diagnosis: Non STEMI AUC Score AUC Score: 8 Post-Procedure Diagnosis Post-Procedure Diagnosis: Severe CAD, Successful PCI and Elevated Intracardiac Pressures Procedure(s) Performed Procedure(s) Performed: Coronary Angiography, Left Heart Cath and Drug Eluting Stent Rubber Flap Tuber Machine Operator Anthony Jaramillo MD Setter Off(s) Franko Estimated Blood Loss Estimated Blood Loss: 15 Medication(s) Medication(s): Clopidogrel, Fentanyl, Heparin, Lidocaine 1%, Nitroglycerin and Versed Summary of Findings Indication: Staged PCI Access: 6 Fr right radial artery Catheters: AR1 guide Findings: Patient previously found to have multivessel coronary artery disease and underwent stenting of his mid LAD. Returns today for staged PCI of severe mid RCA stenosis. -- PCI -- Antithrombotic therapy: Heparin, clopidogrel Procedure: RCA cannulated with AR-1 guide Ankle Patch Molder 50 placed into acute marginal Whisper wire passed across stenosis into distal RCA Mid RCA dilated with 2.0 and 2.5 balloons Proximal to mid RCA stented with 2.5 x 18 mm [place] drug-eluting stent Stent postdilated with 2.5 balloon Post procedure LIZBETH 3 flow, stent well expanded with minimal residual stenosis and no apparent cardiac complications. Arterial Closure: TR band Summary: 1. Successful PCI of mid RCA with single drug-eluting stent (2.5 x 18 mm [place]) to see. Recommendations: Return to ICU for continued monitoring Reloaded with clopidogrel 300 mg in chemical processing laborer Continue dual-antiplatelet therapy for at least one year Continue statin, and ASCVD risk factor modification Hemodynamics Rest Ao:: 76/39/57 Final Ao: 82/45/62 LV: -- Recommendations Recommendations: PCI without planned CABG Specimens Specimens: None Radiation Exposure (mGy) 2513 Contrast (mls) 113 Fluids (cc crystalloids) Fluids (cc crystalloids): 100 Drains Drains: none Anesthesia moderate Procedural Complication(s) None Disposition ICU ACC Data: Drapery Rod Assembler Cardiac Status Clinical evaluation leading to the procedure CAD Presenation: Non STEMI Anginal Classification: CCS IV Heart Failure: NYHA Class: CCS IV Cardiogenic Shock within 24 Hours: No Cardiac Arrest within 24 Hours: No Imaging Studies Past 6 Months: Yes Stress Studies Past 6 Months: No Diagnostic Physicians Name: Anthony Jaramillo MD Status: Elective Closure Device Percutaneous Entry Location: Radial Closure Device: Radial Band Recommendations: PCI without planned CABG PCI Indication: Staged PCI Lesion Segment Name: Mid RCA Culprit Artery: No Stenosis Prior to Rx (%): 95 Chronic Total Occlusion: No IVUS: No FFR: No Pre-Procedure LIZBETH Flow: 3 Previously Treated Lesion: No Lesion Complexity: High/C Lesion Length (mm): 12 Thrombus Present: No Bifurcation Lesion: Yes Guidewire Across Lesion: Stenosis Post-Procedure (%): 0 Post-Procedure LIZBETH Flow: 3 Devices(s) Deployed: Yes Yes Intraprocedure Events Significant Disection: No Perforation: No
--- NOTE | 2019-01-08 13:39 | Cardiology Progress Note ---
Date of Service January 08, 2019 Assessment & Plan (1) NSTEMI (non-ST elevated myocardial infarction): s/p successful PCI to culprit vessel: LAD staged PCI to RCA performed today with excellent result, now revascularized sob improved cont aspirin, atorvastatin and plavix (reloaded in laboratory development technician) would like to initiate evidence based beta kiko once BP will tolerate (2) Cardiogenic shock: resolved will optimize meds once BP allows will initiate evidence based beta kiko (metoprolol succinate) once BP tolerates ARB once BP tolerates also indicated to start aldosterone antagonism with spironolactone +/- Neprilysin inhibitor based on clinical course and ability to maximize beta kiko dose follow volume status clinically and loop diuretics to be used as necessary (3) Cardiomyopathy: does not appear to be significantly volume overloaded on examine today creat up slightly good urine output O2 requirement decreasing will hold lasix for now and follow volume status clinically (4) CAD (coronary artery disease): as above (5) A-fib: will avoid antiarrhythmics given recent revascularization will start beta kiko Subjective Pt seen and examined, s/p PCI to RCA, family at bedside. States that he feels well. Breathing improved. Denies cp, palpitations, lightheadedness or dizziness. tele reviewed: afib overnight with rates up to 160's, broke to sinus tach 100's. Review of Systems Review of Systems: All systems reviewed & are unremarkable except as noted in HPI & below Physical Exam Physical Exam: General: Awake, alert and oriented x 3. No acute distress. HEENT: Normocephalic, atraumatic. Pupils equal, round and reactive to light and accommodation. Extraocular muscles are intact. Anicteric sclera. Moist mucous membranes. Neck: No JVD. No bruit. Cardiovascular: Regular. Positive S-4. Normal S-1 and S-2. No S-3. No murmurs or rubs. Pulmonary: Clear to auscultation B/L. No rales, rhonchi or wheezing Abdomen: Bowel sounds x 4, soft. No rebound, guarding or tenderness. No organomegaly. Extremities: No clubbing, cyanosis or edema. +2 pedal pulses bilaterally. Skin: Warm and dry. Results & Data Vital Signs (Past 12 Hours) Vital Signs Temp Pulse Pulse Resp BP BP Pulse Ox 01/08/19 13:00 112 H 21 97/61 L 90 01/08/19 12:45 87 20 97/53 L 93 01/08/19 12:30 90 18 103/60 99 01/08/19 12:15 91 H 24 101/59 L 95 01/08/19 12:01 36.5 C 90 22 103/65 93 01/08/19 10:00 91 H 24 100/58 L 95 01/08/19 09:00 95 H 22 90/61 L 97 01/08/19 08:00 36.5 C 131 H 22 130/62 92 01/08/19 07:00 145 H 22 127/88 91 01/08/19 06:00 120 H 22 103/62 97 01/08/19 05:37 135 H 105/68 01/08/19 04:28 146 H 01/08/19 04:00 36.9 C 153 H 24 105/70 96 01/08/19 02:00 104 H 24 98/64 L 93
[2019-01-08] MEDS ORDERED: METOPROLOL TARTRATE 25 MG TAB PO ONE (14:00)
[2019-01-08] MEDS ORDERED: AMIODARONE IV BOLUS / DRIP IV STA (18:01)
--- NOTE | 2019-01-08 18:07 | Communication Note ---
Date of Service: January 08, 2019 Paged by nursing, and advised pt has been in AF with V rates of 120-130s for about 2-3 hrs. Most Recent SBP 102 mm Hg. Low BP limites agents available for rate control. Also rhythm control of importance in this pt who requires dual antiplatelet therapy, however is considered high risk for stroke given CAD and low LVEF. Would prefer to avoid adding anticoagulation given anemia. Amiodarone and digoxin are the rate control medications that will not lower the BP. IV digoxin was not effective earlier today and is not a very effective rhythm control agent. Will start IV amiodarone, no bolus, start infusion at 1 mg / min x 6 hrs then 0.5 mg/min,
[2019-01-08] MEDS ORDERED: AMIODARONE / D5W 360 MG/200 ML BAG IV SCH (18:15)
--- NOTE | 2019-01-08 18:33 | Hospitalist Progress Note ---
Date of Service January 08, 2019 Assessment & Plan (1) NSTEMI (non-ST elevated myocardial infarction): (2) Cardiomyopathy: per Dr. Alexander's notes: Pt presented to ER with c/o SOB, malaise over past 24 hours In ER pt afebrile, P: 66-113, R: 20-26, BP: 105/58- 121/83, O2 sat: 100% down to 91% on RA Was found to have troponin: 6, with EKG sinus tachycardia at 108, ST depression lateral leads -Bedside echo EF: 30%, mod-severe global hypokinesis -Heparin IV started in ER -Pt taken to laboratory clerk from ER. During procedure hypoxemic requiring 15 L O2 mask and eventual BiPAP. Was given 40 of IV Lasix for elevated LVEDP. Maintained on norepinephrine 0.1 -collaborative teacher report: * Severe multi-vessel coronary artery disease. 95 to 99% diffuse mid LAD, 80 to 90% focal distal LAD. 90% distal circumflex into left PLB. Moderate caliber first OM with 90% focal stenosis. 95% earlymid RCA at bifurcation with acute marginal. * Elevated intracardiac filling pressure * Successful PCI of mid LAD with single drug-eluting stent (3.0 x 30 mm Angel). POBA of distal LAD with 2.5 balloon. - ASA + Plavix , Atorvastatin started Status post second PCI today, with placement of drug-eluting stent to the RCA ATRIAL FIBRILLATION -Metoprolol increased Continue to monitor, further management per cardiology service (3) Anemia: (4) Essential thrombocythemia: Hx essential thrombocythemia. Follows with Dr Turner - heme/onc. Was taken off hydroxyurea on 12/15/18 secondary to worsening anemia. H/H: 7.9/22.9 (Hgb was 8.5 on 01/04/19 and 8.1 on 01/01/19) Hemoccult negative in ER -2 units PRBCs to be transfused with lasix in between units secondary to pt unstable Hg 9.4 Platelet count remains up to 239 on Anagrelide as outpatient notified by [facility] that Anagrelide + ASA and Plavix may result in increased bleeding risk Discussed with Dr. Turner, recommend to hold anagrelide for now until follow-up with him as an outpatient (5) Hyperglycemia: Random Glucose: 162 -A1c 6.7 -Monitor BSG (6) Hypercholesteremia: -Continue statin DVT Prophylaxis Heparin SQ Full Code as per discussion with pt Follows with Dr Elizalde for routine care Subjective Follow-up for non-ST elevation NE Patient status post second PCI today, with placement of drug-eluting stent to the RCA Seen resting in bed, comfortable Chest pain, shortness of breath, dizziness, palpitations, nausea No other symptoms Review of Systems Review of Systems: All systems reviewed & are unremarkable except as noted in HPI & below Physical Exam Physical Exam: General- oriented x 3, not in distress, speaks in sentences with no effort or accessory muscle use Eyes- anicteric Neck- no JVD Lungs- clear BS bilaterally, no crackles or wheezing Heart-mild tachycardia, irregularly irregular rhythm; no murmurs Abdomen- normal bowel sounds, nondistended, soft, nontender Extremities- no pretibial edema, no calf tenderness Neuro- alert, oriented x 3; no gross focal neurologic deficits Skin- warm & dry Results & Data Vital Signs (Past 12 Hours) Vital Signs Temp Pulse Resp BP Pulse Ox 01/08/19 18:00 120 H 30 H 112/81 91 01/08/19 17:45 118 H 21 104/60 01/08/19 17:30 135 H 19 105/70 01/08/19 17:00 123 H 16 102/67 91 01/08/19 16:00 120 H 20 103/63 90 01/08/19 15:00 112 H 13 92/59 L 94 01/08/19 14:30 97 H 22 91/62 L 92 01/08/19 14:00 113 H 22 94/58 L 91 01/08/19 13:30 112 H 24 101/62 90 01/08/19 13:00 112 H 21 97/61 L 90 01/08/19 12:45 87 20 97/53 L 93 01/08/19 12:30 90 18 103/60 99 01/08/19 12:15 91 H 24 101/59 L 95 01/08/19 12:01 36.5 C 90 22 103/65 93 01/08/19 10:00 91 H 24 100/58 L 95 01/08/19 09:00 95 H 22 90/61 L 97 01/08/19 08:00 36.5 C 131 H 22 130/62 92 01/08/19 07:00 145 H 22 127/88 91 Laboratory Results Laboratory Results - last 24 hr 01/07/19 01/08/19 01/08/19 21:14 04:24 04:24 WBC 4.21 L RBC 2.73 L Hgb 9.4 L Hct 27.2 L MCV 99.6 MCH 34.4 H MCHC 34.6 RDW Std Deviation 81.0 H RDW Coeff of Eliana 22.3 H Plt Count 239 MPV 10.7 H Absolute Nucleated RBC 0.05 H Nucleated RBC % (auto) 1.1 Neutrophils % (Manual) 73.5 Lymphocytes % (Manual) 9.7 Monocytes % (Manual) 1.8 Blast Cells % (Manual) 15.0 Neutrophils # (Manual) 3.09 Total Absolute Neuts 3.09 Lymphocytes # (Manual) 0.41 L Total Abs Lymphocytes 0.41 L Monocytes # (Manual) 0.08 L Blast Cells # (Man) 0.63 H Anisocytosis Present Ovalocytes 1+ APTT 38.1 H PTT Ratio 1.4 Activ Coag Time Kaolin Sodium Potassium Chloride Carbon Dioxide Anion Gap BUN Creatinine Est Cr Clr Drug Dosing Est GFR ( Amer) Est GFR (Non-Af Amer) BUN/Creatinine Ratio Glucose POC Glucose 132 H Calcium Magnesium TSH 01/08/19 01/08/19 01/08/19 04:24 04:24 11:16 WBC RBC Hgb Hct MCV MCH MCHC RDW Std Deviation RDW Coeff of Eliana Plt Count MPV Absolute Nucleated RBC Nucleated RBC % (auto) Neutrophils % (Manual) Lymphocytes % (Manual) Monocytes % (Manual) Blast Cells % (Manual) Neutrophils # (Manual) Total Absolute Neuts Lymphocytes # (Manual) Total Abs Lymphocytes Monocytes # (Manual) Blast Cells # (Man) Anisocytosis Ovalocytes APTT PTT Ratio Activ Coag Time Kaolin 246 H Sodium 134 L Potassium 4.0 Chloride 102 Carbon Dioxide 24 Anion Gap 8.0 BUN 35 H Creatinine 1.29 Est Cr Clr Drug Dosing 45.7 Est GFR ( Amer) 61.1 Est GFR (Non-Af Amer) 52.8 BUN/Creatinine Ratio 27.5 H Glucose 111 H POC Glucose Calcium 8.1 L Magnesium 2.9 H TSH 1.240 01/08/19 01/08/19 12:06 16:24 WBC RBC Hgb Hct MCV MCH MCHC RDW Std Deviation RDW Coeff of Eliana Plt Count MPV Absolute Nucleated RBC Nucleated RBC % (auto) Neutrophils % (Manual) Lymphocytes % (Manual) Monocytes % (Manual) Blast Cells % (Manual) Neutrophils # (Manual) Total Absolute Neuts Lymphocytes # (Manual) Total Abs Lymphocytes Monocytes # (Manual) Blast Cells # (Man) Anisocytosis Ovalocytes APTT PTT Ratio Activ Coag Time Kaolin Sodium Potassium Chloride Carbon Dioxide Anion Gap BUN Creatinine Est Cr Clr Drug Dosing Est GFR ( Amer) Est GFR (Non-Af Amer) BUN/Creatinine Ratio Glucose POC Glucose 107 H 123 H Calcium Magnesium TSH
[2019-01-08] MEDS: METOPROLOL TARTRATE 25 MG TAB PO SCH (20:33)
[2019-01-08] MEDS: ATORVASTATIN 40 MG TAB PO SCH (20:34)
[2019-01-08] MEDS: AMIODARONE / D5W 360 MG/200 ML BAG IV SCH (23:40)
[2019-01-09] MEDS: METOPROLOL TARTRATE 25 MG TAB PO SCH ×3 (06:21→21:35)
[2019-01-09] MEDS: HEPARIN SOD 5,000 UNIT/0.5 ML VIAL SQ SCH ×2 (06:58→14:14)
--- NOTE | 2019-01-09 08:05 | Critical Care Progress Note ---
Date of Service January 09, 2019 Assessment & Plan (1) NSTEMI (non-ST elevated myocardial infarction): Neuro-awake alert CV- shock resolved off vasopressors. NSTEMI and ischemic cardiomyopathy s/p cath with stent to LAD and RCA. aspirin, clopidogrel, atorvastatin. metoprolol. KRISTINA if BP and kidney function allows. tachycardia/afib improved on metoprolol. now in sinus. will reevaluate need for amiodarone Pulmonary- acute hypoxic respiratory failure due to pulmonary edema. oxygenation improving titrate down fio2 for sat >92%. small bilateral pleural effusion-no need for intervention now. oxygenation improving ID- no clear infection follow cultures. Renal- cr improved. good UOP GI- diet as tolerated Heme- anemia. heparin proph Endocrine- blood sugars controlled Dispo- can transfer out of ICU (2) A-fib: (3) Hypoxia: (4) Pulmonary edema: (5) Status post percutaneous transluminal coronary angioplasty: (6) Cardiomyopathy: (7) Cardiogenic shock: Subjective no complaints today. rapid afib yesteday improved after metoprolol PO. also got amiodarone but was only on for an hour prior to converting and no bolus was given. s/p RCA stent yesterday Physical Exam Physical Exam: Constitutional: Comfortable NAD HEENT: normocephalic atraumatic. MMM. CV: RRR nl s1,s2 no murmurs rubs or gallops Lungs: clear to auscultation bilaterally. no accessory muscle use Abd: soft nontender nondistended. normal bowel sounds Ext: no edema. no cyanosis, no clubbing Skin: warm dry Neuro: alert and oriented. moving all extremities Psych: normal mood and affect Results & Data Vital Signs (Past 12 Hours) Vital Signs Temp Pulse Resp BP Pulse Ox 01/09/19 06:00 90 22 125/78 93 01/09/19 05:00 94 H 21 101/63 94 01/09/19 04:00 36.5 C 94 H 22 117/66 95 01/09/19 03:00 91 H 12 101/59 L 91 01/09/19 02:00 91 H 14 103/66 94 01/09/19 01:00 94 H 29 H 104/59 L 93 01/09/19 00:00 36.6 C 94 H 16 112/63 95 01/08/19 23:32 94 H 01/08/19 23:00 98 H 19 104/63 93 01/08/19 22:30 97 H 19 110/63 93 01/08/19 22:15 98 H 17 120/69 91 01/08/19 21:15 91 H 24 103/60 90 01/08/19 21:00 97 H 21 118/65 92 01/08/19 20:15 107 H 20 101/70 90 Laboratory Results Laboratory Results - last 24 hr 01/08/19 01/08/19 01/08/19 11:16 12:06 16:24 WBC RBC Hgb Hct MCV MCH MCHC Plt Count Activ Coag Time Kaolin 246 H Sodium Potassium Chloride Carbon Dioxide Anion Gap BUN Creatinine Est Cr Clr Drug Dosing Est GFR ( Amer) Est GFR (Non-Af Amer) BUN/Creatinine Ratio Glucose POC Glucose 107 H 123 H Calcium Phosphorus Magnesium 01/08/19 01/09/19 01/09/19 20:25 07:37 07:47 WBC Pending RBC Pending Hgb Pending Hct Pending MCV Pending MCH Pending MCHC Pending Plt Count Pending Activ Coag Time Kaolin Sodium Potassium Chloride Carbon Dioxide Anion Gap BUN Creatinine Est Cr Clr Drug Dosing Est GFR ( Amer) Est GFR (Non-Af Amer) BUN/Creatinine Ratio Glucose POC Glucose 123 H 123 H Calcium Phosphorus Magnesium 01/09/19 07:47 WBC RBC Hgb Hct MCV MCH MCHC Plt Count Activ Coag Time Kaolin Sodium Pending Potassium Pending Chloride Pending Carbon Dioxide Pending Anion Gap Pending BUN Pending Creatinine Pending Est Cr Clr Drug Dosing Pending Est GFR ( Amer) Pending Est GFR (Non-Af Amer) Pending BUN/Creatinine Ratio Pending Glucose Pending POC Glucose Calcium Pending Phosphorus Pending Magnesium Pending
[2019-01-09 08:07] LABS: Hematocrit (blood only) 24.4 % (42-52); Hemoglobin 8.5 g/dL (14.0-18.0); Mean Corpuscular Hgb Conc 34.8 g/dL (32-36); Mean Corpuscular Volume 102.1 fL (80-100); Mean Platelet Volume 10.5 fL (7.4-10.4); Nucleated RBC # (auto) 0.05 K/uL (0-0); Nucleated RBC % (auto) 1.1 %; Platelet Count 230 K/uL (130-400); RDW Coefficient of Variation 22.1 % (11.5-14.5); RDW Standard Deviation 83.3 fL (36.4-46.3); Red Blood Count 2.39 M/uL (4.7-6.1); White Blood Count 4.38 K/uL (4.8-10.8)
[2019-01-09] MEDS: CLOPIDOGREL BISULFATE 75 MG TAB PO SCH (08:18)
[2019-01-09] MEDS: INSULIN ASPART 100 UNITS/ML 3 ML PEN SC SCH ×4 (08:18→20:39)
[2019-01-09] MEDS: ASPIRIN 325 MG ECTAB PO SCH (08:18)
[2019-01-09 08:32] LABS: ALC (manual) 0.53 K/uL (1.2-3.4); Anisocytosis Present; Blast # (manual) 1.06 K/uL (0-0); Blast Cells % (manual) 24.3 %; Giant Platelets 1+; Lymphocytes # (manual) 0.53 K/uL (1.2-3.4); Lymphocytes % (manual) 12.2 %; Metamyelocytes # (manual) 0.07 K/uL (0-0); Metamyelocytes % (manual) 1.7 %; Monocytes # (manual) 0.04 K/uL (0.11-0.59); Monocytes % (manual) 0.9 %; Myelocytes # (manual) 0.04 K/uL (0-0); Myelocytes % (manual) 0.9 %; Schistocytes 1+
[2019-01-09 08:35] LABS: BUN Creatinine Ratio 32.1 (10-20); Calcium 7.5 mg/dl (8.5-10.1); Creatinine Clr Calc Pharmacy 50.3 ml/min; Est GFR (African American) 68.8; Est GFR (Non-African American) 59.4; Magnesium 3.1 mg/dl (1.8-2.4); Phosphorus 2.5 mg/dl (2.5-4.9); Potassium 4.1 mmol/L (3.5-5.1)
--- NOTE | 2019-01-09 09:10 | Cardiology Progress Note ---
Date of Service January 09, 2019 Assessment & Plan (1) NSTEMI (non-ST elevated myocardial infarction): 78-year-old male with a past medical history of essential thrombocythemia, dyslipidemia, and prostate carcinoma presented to the emergency department on 01/05/2019 with 24 hours of exertional shortness of breath and generalized ill feeling. Chest x-ray and CT of the chest performed on arrival revealed findings consistent with congestive heart failure with pulmonary edema and small bilateral pleural effusions. Initial troponin was elevated at 6.7. Emergent cardiac catheterization revealed multivessel coronary heart disease with diffuse 95-9 9% mid LAD stenosis after the takeoff of the second diagonal branch, 90% focal distal stenosis of the LAD. Circumflex was a moderate caliber vessel with 50% early to mid disease and 80 to 90% narrowing in the distal circumflex extending to the left posterolateral branch, moderate caliber OM1 with 90% focal stenosis and small OM 2 with 80 to 90% stenosis. The right coronary artery was noted to have a 95% early to mid stenosis. The LVEDP was elevated to have cardiac catheterization. Salvador increased to 27.2 post PCI to the LAD. He underwent successful PCI of the mid LAD with a single drug-eluting stent 3 x 30 millimeter Dimitris, and plain balloon angioplasty of the distal LAD. Patient returned to the [facility] on 01/08/2019 for planned staged PCI of the mid RCA receiving a 2.5 x 18 mm dimitris drug-eluting stent. Continue dual antiplatelet therapy. The patient had already been on full dose aspirin 325 mg daily on admission, I speculate that this is due to his history of essential thrombocythemia. The typical dose of aspirin post myocardial infarction with PCI is 81 mg daily, however the patient has been receiving 325. I will try to clarify this dosing rationale with his other providers from earlier this hospital stay. Continue clopidogrel 75 mg daily. Continue metoprolol tartrate, currently patient is receiving metoprolol tartrate 25 mg 3 times per day. Will continue this trending his blood pressure due to relative hypotension, and plan to transition him to metoprolol succinate prior to discharge due to his LV systolic dysfunction. Continue atorvastatin 80 mg daily. Patient had been on 40 mg prior to admission. (2) Cardiomyopathy: Newly diagnosed ischemic CM, LVEF 30% on admission. Continue metoprolol tartrate, transition to succinate, likely tomorrow. Loop diuretics on hold given contrast administration yesterday. Volume status appears stable. Moving forward given his LV systolic dysfunction, will add low-dose spironolactone today. Will likely need daily dose of loop diuretic moving forward and will reassess candidacy for this tomorrow. Hold off on KRISTINA/ARB/Enstresto given relatively low BP for now. (3) A-fib: Had brief episodes of PAF earlier this hospital stay. Had sustained an episode for several hours after returning from the [facility] yesterday 01/08/2019. Due to relative low blood pressure, and the importance of rhythm control strategy given his cardiomyopathy, and relative low blood pressure, and anemia, amiodarone added for rhythm control strategy, and converted back to sinus rhythm. Rhythm control: Continue metoprolol, continue IV amiodarone, add oral amiodarone. TSH within normal limits on 01/08/2019. Repeat LFTs tomorrow. (4) Anemia: Hgb 7.9 g/dl on admission in the setting of volume overload. Received 2 units of packed red blood cells, hemoglobin was as high as 10.4 on 01/06/2019, 8.5 today. Given need for dual antiplatelet therapy status post multivessel PCI. Holding off on anticoagulation despite his relatively high risk of cardio embolic stroke in the setting of cardiomyopathy and PAF due to bleeding risk. This is once again why her rhythm control strategy is being selected to hopefully reduce his atrial fibrillation burden and therefore reduce his risk of stroke. If hemoglobin stabilizes in the future, perhaps he will be a candidate for aspirin plus clopidogrel plus to like her Coumadin, will hold off on this for now. (5) Hypercholesteremia: Atorvastatin 80 mg daily DVT prophylaxis: continue SQ heparin. Subjective Chief complaint: Follow-up shortness of breath Subjective: Patient sitting in the bedside chair, he was seen and examined at room 103. He states he is comfortable. He denies any chest discomfort or shortness of breath. He describes feeling significantly improved compared to when he first presented to the emergency department. After PCI to the RCA yesterday, he was transferred back to the intensive care unit and reverted to atrial fibrillation with rapid ventricular response in the range of 120 to 130 bpm for several hours. He was ultimately placed on IV amiodarone and converted to sinus rhythm last evening 01/08/2019 at 1932. He remains in sinus rhythm this morning. His systolic blood pressures have been over 100 mmHg overnight and again this morning. Review of Systems Review of Systems: All systems reviewed & are unremarkable except as noted in HPI & below Physical Exam Constitutional: WD/WN, vitals as above Eyes: PERRL, conjunctivae normal, anicteric sclerae Neck: trachea midline, no thyromegaly trachea midline Respiratory: normal respiratory effort, lungs clear to auscultation Cardiovascular: RRR, no murmur, no edema Skin: no rashes, warm and dry Neurologic: PERRL, EOMI, accommodation nl, no face palsy, no dysarthria moves all extremities; no focal motor deficits Results & Data Vital Signs (Past 12 Hours) Vital Signs Temp Pulse Resp BP Pulse Ox 01/09/19 09:00 90 22 105/68 94 01/09/19 08:00 36.5 C 88 22 110/76 93 01/09/19 07:00 81 24 103/64 95 01/09/19 06:00 90 22 125/78 93 01/09/19 05:00 94 H 21 101/63 94 01/09/19 04:00 36.5 C 94 H 22 117/66 95 01/09/19 03:00 91 H 12 101/59 L 91 01/09/19 02:00 91 H 14 103/66 94 01/09/19 01:00 94 H 29 H 104/59 L 93 01/09/19 00:00 36.6 C 94 H 16 112/63 95 01/08/19 23:32 94 H 01/08/19 23:00 98 H 19 104/63 93 01/08/19 22:30 97 H 19 110/63 93 01/08/19 22:15 98 H 17 120/69 91 01/08/19 21:15 91 H 24 103/60 90 Laboratory Results CBC 01/09/19 Range/Units 07:47 WBC 4.38 L (4.8-10.8) K/uL RBC 2.39 L (4.7-6.1) M/uL Hgb 8.5 L (14.0-18.0) g/dL Hct 24.4 L (42-52) % Plt Count 230 (130-400) K/uL Comprehensive Metabolic Panel 01/09/19 Range/Units 07:47 Sodium 133 L (136-145) mmol/L Potassium 4.1 (3.5-5.1) mmol/L Chloride 101 (98-107) mmol/L Carbon Dioxide 25 (21-32) mmol/L BUN 38 H (7-18) mg/dl Creatinine 1.17 (0.6-1.4) mg/dl Glucose 119 H (70-99) mg/dl Calcium 7.5 L (8.5-10.1) mg/dl Intake and Output 01/08/19 01/09/19 01/09/19 22:59 06:59 14:59 Intake Total 850 / 1410 560 / 1410 240 / 240 Output Total 550 / 1625 675 / 1625 100 / 100 Balance 300 / -215 -115 / -215 140 / 140 Intake: IV 250 / 450 200 / 450 NEXTERONE / D5W 360 mg In 200 200 / 200 ml @ 1 MG/MIN 33.333 mls/hr IV .Q6H [facility]TER Rx#:[id number] Nss 1000ML 1,000 ml @ 75 mls/hr 250 / 250 IV .[id number] WALTER Rx#:[id number] Oral 600 / 960 360 / 960 240 / 240 Output: Urine Amount (Catheter) 550 / 1625 675 / 1625 100 / 100 Qiu/Indwelling 550 / 1625 675 / 1625 100 / 100 # Bowel Movements 0 / 0 Other: Weight 79.4 kg Diagnostic Findings EKG performed 01/08/2019 at 1441, post PCI, revealed atrial fibrillation with rapid ventricular response 102 bpm. Nonspecific diffuse repolarization changes noted. Compared to the prior study performed 1026 that morning, atrial fibrillation had replaced sinus rhythm. Medications Administered Current Inpatient Medications Aspirin (Ecotrin) 325 mg PO DAILY [facility] Stop: 02/05/19 08:59 Last Admin: 01/09/19 08:18 Dose: 325 mg Documented by: Atorvastatin Calcium (Lipitor) 80 mg PO PM [facility]TER Stop: 02/05/19 20:59 Last Admin: 01/08/19 20:34 Dose: 80 mg Documented by: Clopidogrel Bisulfate (Plavix) 75 mg PO QAM [facility] Stop: 02/05/19 08:59 Last Admin: 01/09/19 08:18 Dose: 75 mg Documented by: Dextrose (Dextrose 50%) 25 - 50 ml IV UD PRN; Protocol PRN Reason: Hypoglycemia Protocol Stop: 02/05/19 17:44 Glucagon (Glucagen) 1 mg IM UD PRN; Protocol PRN Reason: Hypoglycemia Protocol Stop: 02/05/19 17:44 Glucose (Glucose 40%) 15 - 30 gm PO UD PRN; Protocol PRN Reason: Hypoglycemia Protocol Stop: 02/05/19 17:44 Glucose (Dex4 Glucose) 4 - 8 tabs PO UD PRN; Protocol PRN Reason: Hypoglycemia Protocol Stop: 02/05/19 17:44 Heparin Sodium (Porcine) (Heparin Sodium (Porcine)) 5,000 units SQ Q8 [facility] Stop: 02/04/19 21:59 Last Admin: 01/09/19 06:58 Dose: Not Given Documented by: Furosemide 40 mg/ Syringe 4 mls @ 4 mls/min IV [id number] [facility]TER Stop: 02/05/19 16:59 Last Admin: 01/07/19 07:39 Dose: 4 mls/min Documented by: Amiodarone HCl/Dextrose (Nexterone / D5w) 360 mg in 200 mls @ 16.667 mls/hr IV .Q12H [facility] Stop: 02/08/19 00:00 Last Admin: 01/08/19 23:40 Dose: 0.5 mg/min, 16.7 mls/hr Documented by: Insulin Aspart (Novolog Flexpen) 0 units SC ACHS [facility] Stop: 02/05/19 20:59 Last Admin: 01/09/19 08:18 Dose: Not Given Documented by: Metoprolol Tartrate (Lopressor) 25 mg PO Q8 [facility]TER Stop: 02/07/19 19:59 Last Admin: 01/09/19 06:21 Dose: 25 mg Documented by: Miscellaneous (Carbohydrates For Hypoglycemia) 15 - 30 gm PO UD PRN PRN Reason: Hypoglycemia Treatment Stop: 02/05/19 17:44 Miscellaneous (Order Awaiting Action) 1 ea N/A QS [facility] Stop: 02/04/19 15:59 Last Admin: 01/06/19 07:33 Dose: Not Given Documented by:
[2019-01-09] MEDS ORDERED: AMIODARONE 200 MG TAB PO ONE (10:00)
--- NOTE | 2019-01-09 10:20 | XRay Report ---
XR chest 2V routine HISTORY: Follow-up congestive heart failure. Shortness of breath. COMPARISON: Chest 01/06/2019. FINDINGS: Mild interstitial pulmonary edema has improved. Small bilateral pleural effusions persist. No new focal lung consolidations identified. The heart is normal in size. IMPRESSION: Improvement in the mild interstitial pulmonary edema. Small bilateral pleural effusions persist. Electronically signed by: Antoni Quick M.D. 01/09/2019 10:19 AM
[2019-01-09] MEDS: SPIRONOLACTONE 25 MG TAB PO SCH (10:30)
[2019-01-09] MEDS: AMIODARONE / D5W 360 MG/200 ML BAG IV SCH (11:43)
--- NOTE | 2019-01-09 16:35 | Hospitalist Progress Note ---
Date of Service January 09, 2019 Assessment & Plan (1) NSTEMI (non-ST elevated myocardial infarction): per Dr. Alexander's notes: Pt presented to ER with c/o SOB, malaise over past 24 hours In ER pt afebrile, P: 66-113, R: 20-26, BP: 105/58- 121/83, O2 sat: 100% down to 91% on RA Was found to have troponin: 6, with EKG sinus tachycardia at 108, ST depression lateral leads -Bedside echo EF: 30%, mod-severe global hypokinesis -Heparin IV started in ER -Pt taken to labor delivery rn from ER. During procedure hypoxemic requiring 15 L O2 mask and eventual BiPAP. Was given 40 of IV Lasix for elevated LVEDP. Maintained on norepinephrine 0.1 -cork slabs sawyer report: * Severe multi-vessel coronary artery disease. 95 to 99% diffuse mid LAD, 80 to 90% focal distal LAD. 90% distal circumflex into left PLB. Moderate caliber first OM with 90% focal stenosis. 95% earlymid RCA at bifurcation with acute marginal. * Elevated intracardiac filling pressure * Successful PCI of mid LAD with single drug-eluting stent (3.0 x 30 mm [place]). POBA of distal LAD with 2.5 balloon. January 08, 2019: Status post second PCI today, with placement of drug-eluting stent to the RCA Patient remains on aspirin, Plavix, Lipitor 80 mg daily (2) Cardiomyopathy: Received Lasix IV for volume overload Patient seems to be euvolemic today Aldactone 12.5 mg p.o. daily started Continue to monitor volume status closely Plan for Lasix future (3) Atrial fibrillation: Has been on amiodarone drip since yesterday, p.o. amiodarone started today Currently in sinus rhythm Holding of anticoagulation at this time (4) Hematuria: Was on Qiu catheter, per RN report patient may have pulled the catheter overnight Patient was on high-dose aspirin 325 mg p.o. daily since admission, also on heparin subcutaneous for DVT prophylaxis Hemoglobin downtrending from 10 now down to 8.5 Aspirin lower to 81 mg p.o. daily, hold off on heparin today Has history of prostate cancer We will continue to monitor off catheter, low-dose of aspirin, off heparin We will monitor H&H If without improvement, will consult urology Like to maintain hemoglobin at least around 9 in light of recent NSTEMI (5) Anemia: Acute on chronic Likely secondary to acute blood loss from hematuria Management per above (6) Essential thrombocythemia: Hx essential thrombocythemia. Follows with Dr Turner - heme/onc. Was taken off hydroxyurea on 12/15/18 secondary to worsening anemia. H/H: 7.9/22.9 (Hgb was 8.5 on 01/04/19 and 8.1 on 01/01/19) Hemoccult negative in ER -2 units PRBCs to be transfused with lasix in between units secondary to pt unstable Platelet count remains up to 30s on Anagrelide as outpatient notified by Pharmacy [facility] that Anagrelide + ASA and Plavix may result in increased bleeding risk Discussed with Dr. Turner, recommend to hold anagrelide for now until follow-up with him as an outpatient (7) Hyperglycemia: Random Glucose: 162 -A1c 6.7 Blood glucose level within normal range Insulin sliding scale (8) Hypercholesteremia: -Continue statin DVT Prophylaxis Heparin SQ being held in light of hematuria SCDs Full Code as per discussion with pt Follows with Dr Elizalde for routine care Subjective Follow-up for non-ST elevation MS Seen resting in bed, comfortable, sleeping but easily awakened Appears brighter, more alert States he feels better compared to yesterday Denies chest pain, palpitations, dizziness, shortness of breath, nausea vomiting Noted to have hematuria, Qiu catheter removed today, patient denies dysuria or suprapubic pain No other symptoms Review of Systems Review of Systems: All systems reviewed & are unremarkable except as noted in HPI & below Physical Exam Physical Exam: General- oriented x 3, not in distress, speaks in sentences with no effort or accessory muscle use Eyes- anicteric Neck- no JVD Lungs- clear BS, no crackles no wheezing bilaterally Heart- normal rate, regular rhythm; no murmurs Abdomen- normal bowel sounds, nondistended, soft, nontender Extremities- no pretibial edema, no calf tenderness Neuro- alert, oriented x 3; no gross focal neurologic deficits Skin- warm & dry Results & Data Vital Signs (Past 12 Hours) Vital Signs Temp Pulse Resp BP Pulse Ox 01/09/19 15:00 82 20 103/62 92 01/09/19 14:00 88 22 97/59 L 90 07/06/19 13:00 90 22 104/59 L 92 01/09/19 12:00 36.5 C 90 22 108/53 L 94 01/09/19 11:00 88 14 86/56 L 92 01/09/19 10:08 92 H 20 107/58 L 96 01/09/19 09:00 90 22 105/68 94 01/09/19 08:00 36.5 C 88 22 110/76 93 01/09/19 07:00 81 24 103/64 95 01/09/19 06:00 90 22 125/78 93 01/09/19 05:00 94 H 21 101/63 94 Laboratory Results Laboratory Results - last 24 hr 01/08/19 01/09/19 01/09/19 20:25 07:37 07:47 WBC 4.38 L RBC 2.39 L Hgb 8.5 L Hct 24.4 L MCV 102.1 H MCH 35.6 H MCHC 34.8 RDW Std Deviation 83.3 H RDW Coeff of Eliana 22.1 H Plt Count 230 MPV 10.5 H Absolute Nucleated RBC 0.05 H Nucleated RBC % (auto) 1.1 Neutrophils % (Manual) 60.0 Lymphocytes % (Manual) 12.2 Monocytes % (Manual) 0.9 Metamyelocytes % (Man) 1.7 Myelocytes % (Man) 0.9 Blast Cells % (Manual) 24.3 Neutrophils # (Manual) 2.63 Total Absolute Neuts 2.63 Lymphocytes # (Manual) 0.53 L Total Abs Lymphocytes 0.53 L Monocytes # (Manual) 0.04 L Metamyelocytes # (Man) 0.07 H Myelocytes # (Manual) 0.04 H Blast Cells # (Man) 1.06 H Giant Platelets 1+ Anisocytosis Present Schistocytes 1+ Sodium Potassium Chloride Carbon Dioxide Anion Gap BUN Creatinine Est Cr Clr Drug Dosing Est GFR ( Amer) Est GFR (Non-Af Amer) BUN/Creatinine Ratio Glucose POC Glucose 123 H 123 H Calcium Phosphorus Magnesium 01/09/19 01/09/19 01/09/19 07:47 11:45 16:03 WBC RBC Hgb Hct MCV MCH MCHC RDW Std Deviation RDW Coeff of Eliana Plt Count MPV Absolute Nucleated RBC Nucleated RBC % (auto) Neutrophils % (Manual) Lymphocytes % (Manual) Monocytes % (Manual) Metamyelocytes % (Man) Myelocytes % (Man) Blast Cells % (Manual) Neutrophils # (Manual) Total Absolute Neuts Lymphocytes # (Manual) Total Abs Lymphocytes Monocytes # (Manual) Metamyelocytes # (Man) Myelocytes # (Manual) Blast Cells # (Man) Giant Platelets Anisocytosis Schistocytes Sodium 133 L Potassium 4.1 Chloride 101 Carbon Dioxide 25 Anion Gap 6.0 BUN 38 H Creatinine 1.17 Est Cr Clr Drug Dosing 50.3 Est GFR ( Amer) 68.8 Est GFR (Non-Af Amer) 59.4 BUN/Creatinine Ratio 32.1 H Glucose 119 H POC Glucose 109 H 127 H Calcium 7.5 L Phosphorus 2.5 Magnesium 3.1 H
[2019-01-09] MEDS: ATORVASTATIN 40 MG TAB PO SCH (19:52)
[2019-01-10] MEDS: AMIODARONE / D5W 360 MG/200 ML BAG IV SCH (00:03)
[2019-01-10 03:49] LABS: Hematocrit (blood only) 22.8 % (42-52); Hemoglobin 7.9 g/dL (14.0-18.0); Mean Corpuscular Hgb Conc 34.6 g/dL (32-36); Mean Corpuscular Volume 99.1 fL (80-100); Mean Platelet Volume 9.9 fL (7.4-10.4); Platelet Count 204 K/uL (130-400); RDW Coefficient of Variation 21.9 % (11.5-14.5); RDW Standard Deviation 78.5 fL (36.4-46.3); White Blood Count 4.57 K/uL (4.8-10.8)
[2019-01-10 04:06] LABS: Albumin Level 2.4 gm/dl (3.4-5.0); BUN Creatinine Ratio 28.1 (10-20); Calcium 7.4 mg/dl (8.5-10.1); Creatinine Clr Calc Pharmacy 48.3 ml/min; Est GFR (African American) 65.4; Est GFR (Non-African American) 56.4; Potassium 3.7 mmol/L (3.5-5.1)
[2019-01-10 04:08] LABS: Albumin Globulin Ratio 0.6 (0.9-2); Bilirubin,Total 1.1 mg/dl (0.2-1); Total Protein 6.4 gm/dl (6.4-8.2)
[2019-01-10 04:19] LABS: Giant Platelets 1+; Ovalocytes 1+
[2019-01-10] MEDS ORDERED: SODIUM CHLORIDE 0.9% 250 ML IV PRN (04:29)
[2019-01-10] MEDS ORDERED: POTASSIUM CHLORIDE 20 MEQ TABCR PO ONE (04:30)
[2019-01-10 04:32] LABS: ALC (manual) 0.72 K/uL (1.2-3.4); Blast Cells % (manual) 30.7 %; Eosinophils # (manual) 0.04 K/uL (0-0.5); Eosinophils % (manual) 0.9 %; Lymphocytes # (manual) 0.72 K/uL (1.2-3.4); Lymphocytes % (manual) 15.8 %; Monocytes # (manual) 0.08 K/uL (0.11-0.59); Monocytes % (manual) 1.8 %; Neutrophils % (manual) 49.9 %; Promyelocytes # (manual) 0.04 K/uL (0-0); Promyelocytes % (manual) 0.9 %
[2019-01-10 05:00] LABS: Bacteria Urine Automated Negative (Negative); Bilirubin Urine Negative (Negative); Blood Urine 3+ (Negative); Glucose Urine UA Negative (Negative); Ketones Urine Negative (Negative); Leukocyte Esterase Urine 1+ (Negative); Nitrite Urine Negative (Negative); Protein Urine 3+ (Negative); RBC Urine Automated >30 /hpf (0-4); Specific Gravity Urine 1.026 (1.000-1.030); Urobilinogen Urine Negative (Negative)
[2019-01-10 05:09] LABS: Appearance Urine Turbid (Clear); Color Urine Brown
[2019-01-10] MEDS: METOPROLOL TARTRATE 25 MG TAB PO SCH ×3 (05:10→21:06)
[2019-01-10 05:36] LABS: Cast Urine Automated 0 /lpf (0-5)
[2019-01-10] MEDS: INSULIN ASPART 100 UNITS/ML 3 ML PEN SC SCH ×4 (08:03→21:06)
[2019-01-10] MEDS: SPIRONOLACTONE 25 MG TAB PO SCH (08:04)
[2019-01-10] MEDS: ASPIRIN 81 MG ECTAB PO SCH (08:05)
[2019-01-10] MEDS: CLOPIDOGREL BISULFATE 75 MG TAB PO SCH (08:06)
--- NOTE | 2019-01-10 10:20 | Cardiology Progress Note ---
Date of Service January 10, 2019 Assessment & Plan (1) NSTEMI (non-ST elevated myocardial infarction): No symptoms suggestive angina at present. Continue aspirin, dose reduced from 325 down to 81 mg daily, clopidogrel, metoprolol tartrate 25 mg p.o. every 8 hours, atorvastatin 80 mg. (2) Ischemic cardiomyopathy: Chest x-ray reveals suggestion of ongoing mild interstitial edema, however the patient is having difficulty with having to get up to the bathroom frequently with dysuria at present, I think it is most prudent to avoid diuretic therapy at present because clinically he is not exhibiting signs and symptoms of volume overload. Plan to transition him in the future from metoprolol tartrate to metoprolol succinate, but will continue short acting for now given his relatively low blood pressure for ease of titration. Spironolactone 12.5 mg added. He is not on an KRISTINA inhibitor or angiotensin receptor kiko due to relative low blood pressure. Hopefully this will be added prior to discharge or as an outpatient. Discussed indication for Life Vest wearable defibrillator, as pt had ischemic CM with LVEF < 35% on presentation for use during the window period post PCI as LVEF will be reassessed at a 3 month interval. Pt is going to think about it. Plan for repeat limited echo for reassessment of LVEF today. (3) Atrial fibrillation: Paroxysmal atrial fibrillation, several brief episodes early in his hospital stay culminating in an episode of several hours after his LAD PCI on Friday. Ultimately converted to sinus rhythm on IV amiodarone. Given anemia, and need for clopidogrel plus aspirin given his multivessel PCI, it is not ideal for him to be on full dose anticoagulation. Therefore proceeding with rhythm control strategy with amiodarone. (4) Anemia: Preexistent anemia prior to cardiac catheterization. Questionable source, does have microscopic hematuria. Received 2 units of packed red blood cells earlier in hospital stay, and another unit overnight. Subcu heparin DVT prophylaxis dose currently on hold. (5) Elevated transaminase level: AST level has been 85 on admission, then 178, and most recently 113 units/L. ALT level was normal at 36 units/L on 01/06/2019, and is trended up to 129 units/L. This needs to be followed closely given his amiodarone treatment. I do think there are alternative explanations such as his congestive heart failure, and transient low blood pressure that may explain these. IV amiodarone has been discontinued, continue oral amiodarone with caution. Trend AST ALT. Subjective Chief complaint: Follow-up shortness of breath Subjective: Patient states he is feeling well from a shortness of breath and chest pain standpoint. Denies any subjective palpitations. Telemetry reveals that he has remained in sinus rhythm throughout the day yesterday, overnight, and thus far today. Sinus rhythm 80 bpm noted with amiodarone infusion ongoing, as well as oral amiodarone and oral metoprolol. He does note difficulty with voiding. He had difficulty passing his urine yesterday, and was straight cathed. He notes in the meantime he has had urinary frequency. He does have a history of past prostate carcinoma with radioactive seed implantation and follows with urology. Patient received 1 unit of packed red blood cells this morning as his hemoglobin had trended down to 7.9. Review of Systems Review of Systems: All systems reviewed & are unremarkable except as noted in HPI & below Physical Exam Physical Exam: Temp Pulse Resp BP Pulse Ox 36.4 C L 82 18 118/78 95 01/10/19 08:21 01/10/19 08:21 01/10/19 08:21 01/10/19 08:21 01/10/19 08:21 Constitutional: WD/WN, vitals as above Neck: trachea midline, no thyromegaly Respiratory: normal respiratory effort, lungs clear to auscultation Cardiovascular: RRR, no murmur, no edema Gastrointestinal (Abdomen): normal bowel sounds, soft, nontender, no hepatosplenomegaly Neurologic: PERRL, EOMI, accommodation nl, no face palsy, no dysarthria moves all extremities; no focal motor deficits Results & Data Vital Signs (Past 12 Hours) Vital Signs Temp Pulse Pulse Resp BP BP Pulse Ox 01/10/19 08:21 36.4 C L 82 18 118/78 95 01/10/19 07:21 36.2 C L 81 20 115/70 94 01/10/19 06:51 37.3 C 78 18 92/55 L 94 01/10/19 06:36 36.9 C 77 20 96/60 L 92 01/10/19 06:19 36.5 C 84 16 102/64 94 01/10/19 03:49 36.8 C 85 19 102/64 92 01/09/19 23:51 91 01/09/19 23:47 37.0 C 87 17 102/64 87 L Laboratory Results Cardiac Enzymes 01/10/19 Range/Units 03:37 AST 113 H (15-37) U/L CBC 01/10/19 Range/Units 03:37 WBC 4.57 L (4.8-10.8) K/uL RBC 2.30 L (4.7-6.1) M/uL Hgb 7.9 L (14.0-18.0) g/dL Hct 22.8 L (42-52) % Plt Count 204 (130-400) K/uL Comprehensive Metabolic Panel 01/10/19 01/10/19 Range/Units 03:37 03:37 Sodium 131 L (136-145) mmol/L Potassium 3.7 (3.5-5.1) mmol/L Chloride 100 (98-107) mmol/L Carbon Dioxide 24 (21-32) mmol/L BUN 34 H (7-18) mg/dl Creatinine 1.22 (0.6-1.4) mg/dl Glucose 106 H (70-99) mg/dl Calcium 7.4 L (8.5-10.1) mg/dl AST 113 H (15-37) U/L ALT 129 H (12-78) U/L Alkaline Phosphatase 68 (45-117) U/L Total Protein 6.4 (6.4-8.2) gm/dl Albumin 2.4 L 2.5 L (3.4-5.0) gm/dl Intake and Output 01/09/19 01/10/19 01/10/19 22:59 06:59 14:59 Intake Total 360 / 1420 500 / 1420 444.435 / 444.435 Output Total 400 / 1327 627 / 1327 Balance -40 / 93 -127 / 93 444.435 / 444.435 Intake: IV 200 / 400 134.435 / 134.435 NEXTERONE / D5W 360 mg In 200 200 / 400 134.435 / 134.435 ml @ 0.5 MG/MIN 16.667 mls/hr IV .Q12H [facility] Rx#:[id number] Oral 360 / 1020 300 / 1020 Intake (Blood Product) Amt 0 / 0 310 / 310 Packed Cells, Leukoreduced 0 / 0 310 / 310 Unit [id number] Output: Urine 400 / 625 25 / 625 Urine Amount (Catheter) 600 / 700 Straight 600 / 600 # Bowel Movements 2 / 2 Other: Weight 79.6 kg Medications Administered Cardiac Enzymes 01/10/19 Range/Units 03:37 AST 113 H (15-37) U/L CBC 01/10/19 Range/Units 03:37 WBC 4.57 L (4.8-10.8) K/uL RBC 2.30 L (4.7-6.1) M/uL Hgb 7.9 L (14.0-18.0) g/dL Hct 22.8 L (42-52) % Plt Count 204 (130-400) K/uL Comprehensive Metabolic Panel 01/10/19 01/10/19 Range/Units 03:37 03:37 Sodium 131 L (136-145) mmol/L Potassium 3.7 (3.5-5.1) mmol/L Chloride 100 (98-107) mmol/L Carbon Dioxide 24 (21-32) mmol/L BUN 34 H (7-18) mg/dl Creatinine 1.22 (0.6-1.4) mg/dl Glucose 106 H (70-99) mg/dl Calcium 7.4 L (8.5-10.1) mg/dl AST 113 H (15-37) U/L ALT 129 H (12-78) U/L Alkaline Phosphatase 68 (45-117) U/L Total Protein 6.4 (6.4-8.2) gm/dl Albumin 2.4 L 2.5 L (3.4-5.0) gm/dl Intake and Output 01/09/19 01/10/19 01/10/19 22:59 06:59 14:59 Intake Total 360 / 1420 500 / 1420 444.435 / 444.435 Output Total 400 / 1327 627 / 1327 Balance -40 / 93 -127 / 93 444.435 / 444.435 Intake: IV 200 / 400 134.435 / 134.435 NEXTERONE / D5W 360 mg In 200 200 / 400 134.435 / 134.435 ml @ 0.5 MG/MIN 16.667 mls/hr IV .Q12H [facility] Rx#:[id number] Oral 360 / 1020 300 / 1020 Intake (Blood Product) Amt 0 / 0 310 / 310 Packed Cells, Leukoreduced 0 / 0 310 / 310 Unit [id number] Output: Urine 400 / 625 25 / 625 Urine Amount (Catheter) 600 / 700 Straight 600 / 600 # Bowel Movements 2 / 2 Other: Weight 79.6 kg
--- NOTE | 2019-01-10 10:35 | Hospitalist Progress Note ---
Date of Service January 10, 2019 Assessment & Plan (1) NSTEMI (non-ST elevated myocardial infarction): per Dr. Alexander's notes: Pt presented to ER with c/o SOB, malaise over past 24 hours In ER pt afebrile, P: 66-113, R: 20-26, BP: 105/58- 121/83, O2 sat: 100% down to 91% on RA Was found to have troponin: 6, with EKG sinus tachycardia at 108, ST depression lateral leads -Bedside echo EF: 30%, mod-severe global hypokinesis -Heparin IV started in ER -Pt taken to maintenance shop laborer from ER. During procedure hypoxemic requiring 15 L O2 mask and eventual BiPAP. Was given 40 of IV Lasix for elevated LVEDP. Maintained on norepinephrine 0.1 -distillery laborer report: * Severe multi-vessel coronary artery disease. 95 to 99% diffuse mid LAD, 80 to 90% focal distal LAD. 90% distal circumflex into left PLB. Moderate caliber first OM with 90% focal stenosis. 95% earlymid RCA at bifurcation with acute marginal. * Elevated intracardiac filling pressure * Successful PCI of mid LAD with single drug-eluting stent (3.0 x 30 mm [place]). POBA of distal LAD with 2.5 balloon. January 08, 2019: Status post second PCI today, with placement of drug-eluting stent to the RCA Remains hemodynamically stable Continue aspirin, Plavix, Lipitor 80 mg daily, metoprolol tartrate (2) Cardiomyopathy: Received Lasix IV for volume overload Patient remains euvolemic Aldactone 12.5 mg p.o. daily started Continue to monitor volume status closely Plan for Lasix in the future (3) Atrial fibrillation: Paroxysmal atrial fibrillation Initially was on amiodarone drip, p.o. amiodarone continued Patient remains in sinus rhythm Holding of anticoagulation at this time (4) Hematuria: Was on Qiu catheter, per RN report patient may have pulled the catheter overnight Patient was on high-dose aspirin 325 mg p.o. daily since admission, also on heparin subcutaneous for DVT prophylaxis Hemoglobin downtrending from 10 down to 8.5 Aspirin lower to 81 mg p.o. daily, hold off on heparin Has history of prostate cancer Hemoglobin further decreased, requiring 1 unit of blood transfusion Hemoglobin posttransfusion is 9.[address] Patricia consulted, she perform bladder irrigation the bedside will monitor for urinary retention, if without improvement, may need cystoscopy Monitor closely (5) Anemia: Acute on chronic Likely secondary to acute blood loss from hematuria Management per above (6) Essential thrombocythemia: Hx essential thrombocythemia. Follows with Dr Turner - heme/onc. Was taken off hydroxyurea on 12/15/18 secondary to worsening anemia. H/H: 7.9/22.9 (Hgb was 8.5 on 01/04/19 and 8.1 on 01/01/19) Hemoccult negative in ER -2 units PRBCs to be transfused with lasix in between units secondary to pt unstable Platelet count remains in the 200s on Anagrelide as outpatient notified by Pharmacy [facility] that Anagrelide + ASA and Plavix may result in increased bleeding risk Discussed with Dr. Turner, recommend to hold anagrelide for now until follow-up with him as an outpatient (7) Hyperglycemia: Random Glucose: 162 -A1c 6.7 Blood glucose level within normal range Insulin sliding scale (8) Hypercholesteremia: -Continue statin DVT Prophylaxis Heparin SQ being held in light of hematuria SCDs Full Code as per discussion with pt Discussed case in detail and at length with patient's children at the waiting room All questions answered They are all understanding, comfortable, agreeable to plan of care Subjective Follow-up for non-ST elevation OR Transferred to telemetry unit yesterday Overnight the patient continued to have passage of clots per urethra, also noted to have urinary retention, requiring straight cath This morning the patient was reporting severe suprapubic pain, still having urinary retention and passage of clots Seen resting in bed, uncomfortable due to suprapubic pain Denies chest pain, shortness of breath, dizziness, palpitations, nausea Called Dr. Patricia for advice, she recommend to evaluate the patient possibly perform irrigation Denies other symptoms Review of Systems Review of Systems: All systems reviewed & are unremarkable except as noted in HPI & below Physical Exam Physical Exam: General- oriented x 3, uncomfortable secondary to suprapubic pain, speaks in sentences with no effort or accessory muscle use Eyes- anicteric Neck- no JVD Lungs- clear breath sounds bilaterally No crackles, no wheezing Heart- normal rate, regular rhythm; no murmurs Abdomen- normal bowel sounds, nondistended, soft, mild tenderness suprapubic area Extremities- no pretibial edema, no calf tenderness Neuro- alert, oriented x 3; no gross focal neurologic deficits Skin- warm & dry Results & Data Vital Signs (Past 12 Hours) Vital Signs Temp Pulse Pulse Resp BP BP Pulse Ox 01/10/19 08:21 36.4 C L 82 18 118/78 95 01/10/19 07:21 36.2 C L 81 20 115/70 94 01/10/19 06:51 37.3 C 78 18 92/55 L 94 01/10/19 06:36 36.9 C 77 20 96/60 L 92 01/10/19 06:19 36.5 C 84 16 102/64 94 01/10/19 03:49 36.8 C 85 19 102/64 92 01/09/19 23:51 91 01/09/19 23:47 37.0 C 87 17 102/64 87 L Laboratory Results Laboratory Results - last 24 hr 01/09/19 01/09/19 01/10/19 16:03 20:23 03:35 WBC RBC Hgb Hct MCV MCH MCHC RDW Std Deviation RDW Coeff of Eliana Plt Count MPV Neutrophils % (Manual) Lymphocytes % (Manual) Monocytes % (Manual) Eosinophils % (Manual) Promyelocytes % (Man) Blast Cells % (Manual) Neutrophils # (Manual) Total Absolute Neuts Lymphocytes # (Manual) Total Abs Lymphocytes Monocytes # (Manual) Eosinophils # (Manual) Promyelocytes # (Man) Blast Cells # (Man) Giant Platelets Ovalocytes Sodium Potassium Chloride Carbon Dioxide Anion Gap BUN Creatinine Est Cr Clr Drug Dosing Est GFR ( Amer) Est GFR (Non-Af Amer) BUN/Creatinine Ratio Glucose POC Glucose 127 H 105 H Calcium Magnesium Total Bilirubin AST ALT Alkaline Phosphatase Total Protein Albumin Globulin Albumin/Globulin Ratio Urine Color Brown Urine Appearance Turbid A Urine pH 5.0 Ur Specific [place] 1.026 Urine Protein 3+ H Urine Glucose (UA) Negative Urine Ketones Negative Urine Blood 3+ H Urine Nitrite Negative Urine Bilirubin Negative Urine Urobilinogen Negative Ur Leukocyte Esterase 1+ H Urine WBC (Auto) 10-30 H Urine RBC (Auto) >30 H U Hyaline Cast (Auto) 0 U Epithel Cells (Auto) 10-20 H Urine Bacteria (Auto) Negative RBC Casts 1-5 H Blood Type Antibody Screen Crossmatch 01/10/19 01/10/19 01/10/19 03:37 03:37 03:37 WBC 4.57 L RBC 2.30 L Hgb 7.9 L Hct 22.8 L MCV 99.1 MCH 34.3 H MCHC 34.6 RDW Std Deviation 78.5 H RDW Coeff of Eliana 21.9 H Plt Count 204 MPV 9.9 Neutrophils % (Manual) 49.9 Lymphocytes % (Manual) 15.8 Monocytes % (Manual) 1.8 Eosinophils % (Manual) 0.9 Promyelocytes % (Man) 0.9 Blast Cells % (Manual) 30.7 Neutrophils # (Manual) 2.28 Total Absolute Neuts 2.28 Lymphocytes # (Manual) 0.72 L Total Abs Lymphocytes 0.72 L Monocytes # (Manual) 0.08 L Eosinophils # (Manual) 0.04 Promyelocytes # (Man) 0.04 H Blast Cells # (Man) 1.40 H Giant Platelets 1+ Ovalocytes 1+ Sodium 131 L Potassium 3.7 Chloride 100 Carbon Dioxide 24 Anion Gap 7.0 BUN 34 H Creatinine 1.22 Est Cr Clr Drug Dosing 48.3 Est GFR ( Amer) 65.4 Est GFR (Non-Af Amer) 56.4 BUN/Creatinine Ratio 28.1 H Glucose 106 H POC Glucose Calcium 7.4 L Magnesium 3.0 H Total Bilirubin 1.1 H AST 113 H ALT 129 H Alkaline Phosphatase 68 Total Protein 6.4 Albumin 2.4 L 2.5 L Globulin 4.0 Albumin/Globulin Ratio 0.6 L Urine Color Urine Appearance Urine pH Ur Specific [place] Urine Protein Urine Glucose (UA) Urine Ketones Urine Blood Urine Nitrite Urine Bilirubin Urine Urobilinogen Ur Leukocyte Esterase Urine WBC (Auto) Urine RBC (Auto) U Hyaline Cast (Auto) U Epithel Cells (Auto) Urine Bacteria (Auto) RBC Casts Blood Type Antibody Screen Crossmatch 01/10/19 01/10/19 01/10/19 03:37 07:56 10:43 WBC RBC Hgb 9.9 L Hct 28.2 L MCV MCH MCHC RDW Std Deviation RDW Coeff of Eliana Plt Count MPV Neutrophils % (Manual) Lymphocytes % (Manual) Monocytes % (Manual) Eosinophils % (Manual) Promyelocytes % (Man) Blast Cells % (Manual) Neutrophils # (Manual) Total Absolute Neuts Lymphocytes # (Manual) Total Abs Lymphocytes Monocytes # (Manual) Eosinophils # (Manual) Promyelocytes # (Man) Blast Cells # (Man) Giant Platelets Ovalocytes Sodium Potassium Chloride Carbon Dioxide Anion Gap BUN Creatinine Est Cr Clr Drug Dosing Est GFR ( Amer) Est GFR (Non-Af Amer) BUN/Creatinine Ratio Glucose POC Glucose 114 H Calcium Magnesium Total Bilirubin AST ALT Alkaline Phosphatase Total Protein Albumin Globulin Albumin/Globulin Ratio Urine Color Urine Appearance Urine pH Ur Specific [place] Urine Protein Urine Glucose (UA) Urine Ketones Urine Blood Urine Nitrite Urine Bilirubin Urine Urobilinogen Ur Leukocyte Esterase Urine WBC (Auto) Urine RBC (Auto) U Hyaline Cast (Auto) U Epithel Cells (Auto) Urine Bacteria (Auto) RBC Casts Blood Type O Positive Antibody Screen NEGATIVE Crossmatch See Detail 01/10/19 11:28 WBC RBC Hgb Hct MCV MCH MCHC RDW Std Deviation RDW Coeff of Eliana Plt Count MPV Neutrophils % (Manual) Lymphocytes % (Manual) Monocytes % (Manual) Eosinophils % (Manual) Promyelocytes % (Man) Blast Cells % (Manual) Neutrophils # (Manual) Total Absolute Neuts Lymphocytes # (Manual) Total Abs Lymphocytes Monocytes # (Manual) Eosinophils # (Manual) Promyelocytes # (Man) Blast Cells # (Man) Giant Platelets Ovalocytes Sodium Potassium Chloride Carbon Dioxide Anion Gap BUN Creatinine Est Cr Clr Drug Dosing Est GFR ( Amer) Est GFR (Non-Af Amer) BUN/Creatinine Ratio Glucose POC Glucose 106 H Calcium Magnesium Total Bilirubin AST ALT Alkaline Phosphatase Total Protein Albumin Globulin Albumin/Globulin Ratio Urine Color Urine Appearance Urine pH Ur Specific [place] Urine Protein Urine Glucose (UA) Urine Ketones Urine Blood Urine Nitrite Urine Bilirubin Urine Urobilinogen Ur Leukocyte Esterase Urine WBC (Auto) Urine RBC (Auto) U Hyaline Cast (Auto) U Epithel Cells (Auto) Urine Bacteria (Auto) RBC Casts Blood Type Antibody Screen Crossmatch
[2019-01-10 11:16] LABS: Hematocrit (blood only) 28.2 % (42-52); Hemoglobin 9.9 g/dL (14.0-18.0)
[2019-01-10] MEDS ORDERED: SULFAMETHOXAZOLE/TRIMETHOPRIM DS 800/160MG TAB PO ONE (12:00)
--- NOTE | 2019-01-10 12:48 | Urology Consultation ---
Date of Consultation January 10, 2019 Assessment & Plan (1) Hematuria: Clot retention- I obtained patients permission and placed a 20 fr coude gardner easily. I drained 800 dark red urine. I then hand irrigated with 1500mL of water. I removed a few small clots and suspect there are sizeable clots adherent to the bladder lateral vo. I asked pt preference to try to void them out of have a gardner to drainage and he wants to attempt to void. Will see over the next few hours how it goes. If he goes back into retention we might have to go to OR for clot removal. bactrim one tab DS to cover catheter irrigation I changed diet to clear liquids. Present on Admission?: Yes History of Present Illness Reason for Consultation: clot retention Requesting Physician: Dr nayak Attending Physician: Baudilio Nayak MD History of Present Illness I am asked by Dr Nayak to evaluate and treat for clot retention. he is admitted with severe CAD and acute CA. He had a staged cardiac cath Friday10/07/18 and Friday10/09/18. he had a gardner catheter placed on Friday and he had it in until his urine turned very bloody on Friday. He had clot retention on Friday and had further straight caths to try to relieve the retention. He has never had acute urinary retention from detrusor dysfunction but has had clot retention fro urinary bleeds several times. he had therapeutic radiation to prostate 2013. He is JED from a cancer standpoint. He has a pvr of 600mL now and is painfully full. He has passed a few spurts of blood but not emptying much of anything. 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) Hypercholesteremia (Chronic) Prostate cancer (Chronic) Surgical History History of appendectomy (Chronic) Family History Brother Heart disease Stroke Social History Preferred Language: Maltese Communication Ability: Effective Child Care Specialist Required: No Beliefs That Will Affect Care: None Current Living Situation: Family Other Information That Helps Us Care for You: No Feels Safe at Home: Yes Safety Concerns: Feels Safe At This Time Smoking Status: Former smoker Tobacco Type: cigars Do You Dip or Chew Tobacco: No Second Hand Exposure: No Tobacco Cessation Education Requested by Patient: No Hx Alcohol Use: No Hx Substance Use: No Review of Systems Review of Systems: PMH- CAD, CAP, thrombocytopenia chronic NKDA Soc- former tobacco , Children live locally, retired ROS- + chest pain, + weakness, - fever no chills, no nausea, no rash, bowels fine, has pain right forearm from hematoma Physical Exam Constitutional: WD/WN, vitals as above + overweight Gastrointestinal (Abdomen): normal bowel sounds, soft, nontender, no hep atosplenomegaly suprapubic area os tender and bladder is palpably full ext- no edema, normal perfusion, no ulcers Psychiatric: A+Ox3, euthymic affect Orientation: alert, oriented x 3, oriented to person and cooperative Genitourinary: + hypospadias (very mild glanular ); no hydrocele and no hernia Results & Data Vital Signs (Past 12 Hours) Vital Signs Temp Pulse Pulse Pulse Resp BP BP 01/10/19 11:54 36.7 C 83 22 115/73 01/10/19 08:21 36.4 C L 82 18 118/78 01/10/19 07:21 36.2 C L 81 20 115/70 01/10/19 06:51 37.3 C 78 18 92/55 L 01/10/19 06:36 36.9 C 77 20 96/60 L 01/10/19 06:19 36.5 C 84 16 102/64 01/10/19 03:49 36.8 C 85 19 102/64 Pulse Ox 01/10/19 11:54 94 01/10/19 08:21 95 01/10/19 07:21 94 01/10/19 06:51 94 01/10/19 06:36 92 01/10/19 06:19 94 01/10/19 03:49 92
[2019-01-10] MEDS ORDERED: PERFLUTREN LIPID MICROSPHERE (DEFINITY) IV ONE (13:40)
[2019-01-10] MEDS: ATORVASTATIN 40 MG TAB PO SCH (21:04)
[2019-01-11] MEDS ORDERED: CEFAZOLIN 2000MG 2,000 MG/15 ML SYR IV SCH (06:00)
[2019-01-11 06:52] LABS: Hemoglobin 8.5 g/dL (14.0-18.0); Mean Corpuscular Volume 99.2 fL (80-100); Mean Platelet Volume 9.8 fL (7.4-10.4); Platelet Count 219 K/uL (130-400); RDW Standard Deviation 75.1 fL (36.4-46.3); Red Blood Count 2.52 M/uL (4.7-6.1)
[2019-01-11 07:17] LABS: Albumin Level 2.5 gm/dl (3.4-5.0); BUN Creatinine Ratio 24.1 (10-20); Calcium 7.6 mg/dl (8.5-10.1); Creatinine Clr Calc Pharmacy 55.6 ml/min; Est GFR (African American) 77.5; Est GFR (Non-African American) 66.9; Potassium 3.8 mmol/L (3.5-5.1)
[2019-01-11 07:20] LABS: Albumin Globulin Ratio 0.7 (0.9-2); Bilirubin,Total 1.3 mg/dl (0.2-1); Globulin 3.5 gm/dl (2.5-4.0)
[2019-01-11] MEDS: INSULIN ASPART 100 UNITS/ML 3 ML PEN SC SCH ×4 (08:39→20:53)
[2019-01-11] MEDS: METOPROLOL SUCC 25MG EXT REL TAB PO SCH (08:40)
[2019-01-11] MEDS: ASPIRIN 81 MG ECTAB PO SCH (08:40)
[2019-01-11] MEDS: SPIRONOLACTONE 25 MG TAB PO SCH (08:40)
[2019-01-11] MEDS: CLOPIDOGREL BISULFATE 75 MG TAB PO SCH (08:40)
[2019-01-11] MEDS ORDERED: SODIUM CHLORIDE 0.9% 250 ML IV PRN (08:41)
--- NOTE | 2019-01-11 08:48 | Hospitalist Progress Note ---
Date of Service January 11, 2019 Assessment & Plan (1) Hematuria: Was on Qiu catheter, per RN report patient may have pulled the catheter overnight Patient was on high-dose aspirin 325 mg p.o. daily since admission, also on heparin subcutaneous for DVT prophylaxis Hemoglobin downtrending from 10 down to 8.5 Aspirin lower to 81 mg p.o. daily, hold off on heparin Has history of prostate cancer Hemoglobin further decreased, requiring 1 unit of blood transfusion Hemoglobin posttransfusion is 9.[address] Patricia consulted, she perform bladder irrigation the bedside will monitor for urinary retention, if without improvement, may need cystoscopy Monitor closely 01/11/2019 Still having hematuria, urinary retention Case discussed with Dr. Patricia, recommended irrigation with normal saline, plan for cystoscopy at 4 PM Will maintain good pain control, also address anxiety in light of recent non-ST elevation OR Also discussed with Dr. Browning (2) Acute blood loss anemia: Acute on chronic anemia Likely secondary to hematuria Hemoglobin decreased this morning to 8.5 1 unit packed RBCs ordered to maintain hemoglobin above 9 Repeat hemoglobin at 6 PM, Hemoglobin 9.7 (3) NSTEMI (non-ST elevated myocardial infarction): per Dr. Alexander's notes: Pt presented to ER with c/o SOB, malaise over past 24 hours In ER pt afebrile, P: 66-113, R: 20-26, BP: 105/58- 121/83, O2 sat: 100% down to 91% on RA Was found to have troponin: 6, with EKG sinus tachycardia at 108, ST depression lateral leads -Bedside echo EF: 30%, mod-severe global hypokinesis -Heparin IV started in ER -[facility] taken to [facility] from [facility]. During procedure hypoxemic requiring 15 L O2 mask and eventual BiPAP. Was given 40 of IV Lasix for elevated LVEDP. Maintained on norepinephrine 0.1 -labor standards director report: * Severe multi-vessel coronary artery disease. 95 to 99% diffuse mid LAD, 80 to 90% focal distal LAD. 90% distal circumflex into left PLB. Moderate caliber first OM with 90% focal stenosis. 95% earlymid RCA at bifurcation with acute marginal. * Elevated intracardiac filling pressure * Successful PCI of mid LAD with single drug-eluting stent (3.0 x 30 mm Angel). POBA of distal LAD with 2.5 balloon. January 08, 2019: Status post second PCI today, with placement of drug-eluting stent to the RCA Blood pressure on the low normal side, heart rate within normal limits, sinus rhythm Continue aspirin, Plavix, Lipitor 80 mg daily, metoprolol succinate 75 mg daily Continue to monitor telemetry unit We will order physical therapy and Occupational Therapy (4) Cardiomyopathy: Aldactone 12.5 mg p.o. daily started Lasix 20 mg IV dose ordered today, after blood transfusion Continue to monitor volume status closely Plan for p.o. Lasix in the future (5) Atrial fibrillation: Paroxysmal atrial fibrillation Initially was on amiodarone drip, p.o. amiodarone continued Patient remains in sinus rhythm Holding of anticoagulation at this time (6) Essential thrombocythemia: Hx essential thrombocythemia. Follows with Dr Turner - heme/onc. Was taken off hydroxyurea on 12/15/18 secondary to worsening anemia. H/H: 7.9/22.9 (Hgb was 8.5 on 01/04/19 and 8.1 on 01/01/19) Hemoccult negative in ER -2 units PRBCs to be transfused with lasix in between units secondary to pt unstable Platelet count remains in the 200s on Anagrelide as outpatient notified by [facility] that Anagrelide + ASA and Plavix may result in increased bleeding risk Discussed with Dr. Turner, recommend to hold anagrelide for now until follow-up with him as an outpatient (7) Hyperglycemia: Random Glucose: 162 -A1c 6.7 Blood glucose level within normal range Insulin sliding scale DVT prophylaxis Heparin sub-cutaneous held secondary to hematuria SCDs, early ambulation Disposition PT OT evaluations ordered Patient lives at home with family (8) Hypercholesteremia: -Continue statin DVT Prophylaxis Heparin SQ being held in light of hematuria SCDs Full Code as per discussion with pt Discussed case in detail and at length with patient's children at the waiting room All questions answered They are all understanding, comfortable, agreeable to plan of care Subjective Follow-up non-ST elevation OR, hematuria Overnight, patient had difficulty with urinary retention and passage of clots Qiu catheter Malian 20-gauge was placed This morning, patient still having silver hematuria per catheter, having s uprapubic pain On exam, patient denies any active pain, but is concerned about the hematuria Denies fevers or chills Denies chest pain, shortness of breath, dizziness, nausea vomiting No other symptoms Review of Systems Review of Systems: All systems reviewed & are unremarkable except as noted in HPI & below Physical Exam Physical Exam: General- oriented x 3, not in distress, speaks in sentences with no effort or accessory muscle use Eyes- anicteric Neck- no JVD Lungs-mild rales bilateral bases, no wheezing Heart- normal rate, regular rhythm; no murmurs Abdomen- normal bowel sounds, nondistended, soft, nontender, no suprapubic tenderness Genitals-Qiu catheter in place, draining bright red urine Extremities- no pretibial edema, no calf tenderness Neuro- alert, oriented x 3; no gross focal neurologic deficits Skin- warm & dry Results & Data Vital Signs (Past 12 Hours) Vital Signs Temp Pulse Resp BP Pulse Ox 01/11/19 07:00 36.6 C 97 H 18 100/59 L 90 01/11/19 03:13 36.9 C 82 16 106/65 90 01/10/19 23:06 36.6 C 73 16 97/62 L 93 Laboratory Results Laboratory Results - last 24 hr 01/10/19 01/10/19 01/11/19 03:37 20:54 06:13 WBC 6.90 RBC 2.52 L Hgb 8.5 L Hct 25.0 L MCV 99.2 MCH 33.7 MCHC 34.0 RDW Std Deviation 75.1 H RDW Coeff of Eliana 21.0 H Plt Count 219 MPV 9.8 Sodium Potassium Chloride Carbon Dioxide Anion Gap BUN Creatinine Est Cr Clr Drug Dosing Est GFR ( Amer) Est GFR (Non-Af Amer) BUN/Creatinine Ratio Glucose POC Glucose 111 H Calcium Total Bilirubin AST ALT Alkaline Phosphatase Total Protein Albumin Globulin Albumin/Globulin Ratio Blood Type O Positive Antibody Screen NEGATIVE Crossmatch See Detail 01/11/19 01/11/19 01/11/19 06:13 07:21 11:27 WBC RBC Hgb Hct MCV MCH MCHC RDW Std Deviation RDW Coeff of Eliana Plt Count MPV Sodium 134 L Potassium 3.8 Chloride 104 Carbon Dioxide 23 Anion Gap 7.0 BUN 26 H Creatinine 1.06 Est Cr Clr Drug Dosing 55.6 Est GFR ( Amer) 77.5 Est GFR (Non-Af Amer) 66.9 BUN/Creatinine Ratio 24.1 H Glucose 94 POC Glucose 101 H 118 H Calcium 7.6 L Total Bilirubin 1.3 H AST 70 H ALT 112 H Alkaline Phosphatase 67 Total Protein 6.0 L Albumin 2.5 L Globulin 3.5 Albumin/Globulin Ratio 0.7 L Blood Type Antibody Screen Crossmatch 01/11/19 01/11/19 11:54 17:54 WBC RBC Hgb 9.3 L 9.7 L Hct 27.7 L MCV MCH MCHC RDW Std Deviation RDW Coeff of Eliana Plt Count MPV Sodium Potassium Chloride Carbon Dioxide Anion Gap BUN Creatinine Est Cr Clr Drug Dosing Est GFR ( Amer) Est GFR (Non-Af Amer) BUN/Creatinine Ratio Glucose POC Glucose Calcium Total Bilirubin AST ALT Alkaline Phosphatase Total Protein Albumin Globulin Albumin/Globulin Ratio Blood Type Antibody Screen Crossmatch
[2019-01-11] MEDS ORDERED: FUROSEMIDE 20 MG in SYRINGE 0 ML IV SCH (09:00)
[2019-01-11] MEDS ORDERED: MoRPHine SULFATE 2 MG/ML CARP ONE (09:46)
[2019-01-11] MEDS ORDERED: MoRPHine SULFATE 2 MG/ML CARP IV STA (09:48)
--- NOTE | 2019-01-11 10:04 | Cardiology Progress Note ---
Date of Service January 11, 2019 Assessment & Plan (1) Ischemic cardiomyopathy: Patient presented with respiratory distress, cardiogenic shock picture with volume overload, newly diagnosed left ventricular systolic dysfunction, non-ST segment myocardial infarction, 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 Return to the lab and underwent LAD PCI on 01/08/2019. Details of his hospital course described in more detail in my 01/09/2019 progress note. Patient had improved significantly from a cardiac perspective with cautious diuresis, and was monitored in the ICU due to relative hypotension with systolic blood pressure in the 90s to 100 mmHg range earlier this hospital stay. Diuretics have been on hold since his 01/08/2019 intervention volume status has been relatively stable. Repeat echocardiogram performed yesterday 01/10/2019 reveals findings of scar noted at the basal segment of the inferior wall, with improved LV systolic function the remaining myocardial segments, and the qualitative ejection fraction has improved from 30% to 50% per my interpretation. He had no significant ventricular arrhythmias on library monitor, and as long as things did not change from a rhythm standpoint, his risk of sudden cardiac from a cardiomyopathy standpoint is considered low at this point, and I do not think a LifeVest will be necessary at discharge. Continue aspirin 81 mg daily, Plavix, given recent multivessel PCI. Continue metoprolol, transition to succinate formulation 75 mg daily today. Continue spironolactone, will readdress candidacy for KRISTINA inhibitor or an giotensin receptor kiko as an outpatient depending upon his blood pressure. These are held at present due to the relative low blood pressure. (2) Atrial fibrillation: Episodes of paroxysmal atrial fibrillation noted this hospital stay, initially they are brief, with sustained episode on 01/08/2019. Patient subsequently converted to sinus rhythm the evening of 01/08/2019 after treatment IV amiodarone he has since been transitioned to oral amiodarone 200 mg twice daily plus metoprolol. He is considered high risk for cardioembolic stroke from an atrial fibrillation standpoint with history of heart failure and CAD however he is not a candidate for anticoagulation due to hematuria. Continue dual antiplatelet therapy, and rhythm control strategy. (3) Elevated transaminase level: AST level has been 113 on 01/10/2019, down to 70 today 01/11/2019. ALT had been 129 on 01/10/2019, down to 112 today 01/11/2019. Continue to follow closely given use of amiodarone and statin therapy. (4) Hematuria: Patient with history of prostate carcinoma with past radiation therapy in 2013. He has developed gross hematuria with clot retention. He was seen by urology yesterday, cystoscopy planned for later today. Patient is in a significant amount of distress over his dysuria he feels poorly. Aspirin and clopidogrel need to be continued given his recent PCI's and PR. Agree with plan to proceed with cystoscopy, and although he is at risk for cardiac complication, I believe the procedure is urgent and necessary, and I would actually be more concerned about the decline in the patient from a cardiac status if we do not do our best to treat his hematuria. -Patient is without angina at present, and he is well comp stated from heart failure standpoint. (5) Hypercholesteremia: Continue statin therapy, monitor LFTs. Reduce atorvastatin to 40 mg daily given elevated transaminases. DVT prophylaxis: Subcutaneous heparin has been on hold, I am going to remove this from his orders. Subjective Chief complaint: Follow-up shortness of breath, acute complaint of dysuria, gross hematuria Subjective: Patient feeling poorly today. He has had symptoms of urinary frequency, and gross hematuria noted in his Qiu catheter. On telemetry he remains in sinus rhythm with no recurrence of atrial fibrillation since the evening of 01/08/2019. Review of Systems Review of Systems: All systems reviewed & are unremarkable except as noted in HPI & below Physical Exam Physical Exam: Temp Pulse Resp BP Pulse Ox 37.2 C 84 20 110/74 95 01/11/19 09:32 01/11/19 09:32 01/11/19 09:32 01/11/19 09:32 01/11/19 09:32 Constitutional: + acute distress and + ill appearing Respiratory: normal respiratory effort, lungs clear to auscultation Cardiovascular: RRR, no murmur, no edema Gastrointestinal (Abdomen): normal bowel sounds, soft, nontender, no hepatosplenomegaly Neurologic: PERRL, EOMI, accommodation nl, no face palsy, no dysarthria Genitourinary: Gross hematuria noted in Qiu bag Results & Data Vital Signs (Past 12 Hours) Vital Signs Temp Pulse Pulse Resp BP BP Pulse Ox 01/11/19 09:32 37.2 C 84 20 110/74 95 01/11/19 09:12 37.1 C 90 18 99/62 L 94 01/11/19 07:00 36.6 C 97 H 18 100/59 L 90 01/11/19 03:13 36.9 C 82 16 106/65 90 01/10/19 23:06 36.6 C 73 16 97/62 L 93 Laboratory Results Cardiac Enzymes 01/11/19 Range/Units 06:13 AST 70 H (15-37) U/L CBC 01/10/19 01/11/19 Range/Units 10:43 06:13 WBC 6.90 (4.8-10.8) K/uL RBC 2.52 L (4.7-6.1) M/uL Hgb 9.9 L 8.5 L (14.0-18.0) g/dL Hct 28.2 L 25.0 L (42-52) % Plt Count 219 (130-400) K/uL Comprehensive Metabolic Panel 01/11/19 Range/Units 06:13 Sodium 134 L (136-145) mmol/L Potassium 3.8 (3.5-5.1) mmol/L Chloride 104 (98-107) mmol/L Carbon Dioxide 23 (21-32) mmol/L BUN 26 H (7-18) mg/dl Creatinine 1.06 (0.6-1.4) mg/dl Glucose 94 (70-99) mg/dl Calcium 7.6 L (8.5-10.1) mg/dl AST 70 H (15-37) U/L ALT 112 H (12-78) U/L Alkaline Phosphatase 67 (45-117) U/L Total Protein 6.0 L (6.4-8.2) gm/dl Albumin 2.5 L (3.4-5.0) gm/dl Intake and Output 01/10/19 01/11/19 01/11/19 22:59 06:59 14:59 Intake Total 120 / 744.435 0 / 0 Output Total / 2099 / 2099 Balance -680 / -1355.565 -500 / -1355.565 0 / 0 Intake: Oral 120 / 300 Intake (Blood Product) Amt 0 / 0 Packed Cells, Leukoreduced 0 / 0 Unit [id number] Output: Urine Amount (Catheter) 800 / 2100 500 / 2100 Qiu/Indwelling 300 / 1600 500 / 1600 Straight 500 / 500 Other: Weight 80.2 kg Medications Administered Current Inpatient Medications Aspirin (Ecotrin Ectab) 81 mg PO QAM [facility] Stop: 02/09/19 08:59 Last Admin: 01/11/19 08:40 Dose: 81 mg Documented by: Atorvastatin Calcium (Lipitor) 80 mg PO PM [facility] Stop: 02/05/19 20:59 Last Admin: 01/10/19 21:04 Dose: 80 mg Documented by: Clopidogrel Bisulfate (Plavix) 75 mg PO QAM [facility] Stop: 02/05/19 08:59 Last Admin: 01/11/19 08:40 Dose: 75 mg Documented by: Dextrose (Dextrose 50%) 25 - 50 ml IV UD PRN; Protocol PRN Reason: Hypoglycemia Protocol Stop: 02/05/19 17:44 Glucagon (Glucagen) 1 mg IM UD PRN; Protocol PRN Reason: Hypoglycemia Protocol Stop: 02/05/19 17:44 Glucose (Glucose 40%) 15 - 30 gm PO UD PRN; Protocol PRN Reason: Hypoglycemia Protocol Stop: 02/05/19 17:44 Glucose (Dex4 Glucose) 4 - 8 tabs PO UD PRN; Protocol PRN Reason: Hypoglycemia Protocol Stop: 02/05/19 17:44 Heparin Sodium (Porcine) (Heparin Sodium (Porcine)) 5,000 units SQ Q8 [facility] Stop: 02/04/19 21:59 Last Admin: 01/09/19 14:14 Dose: 5,000 units Documented by: Sodium Chloride (Nss) 250 mls @ 15 mls/hr IV .[id number] PRN PRN Reason: For Transfusion Stop: 02/09/19 04:28 Furosemide 20 mg/ Syringe 2 mls @ 4 mls/min IV TODAY@0900 [facility] Stop: 01/11/19 12:00 Last Admin: 01/11/19 09:21 Dose: 4 mls/min Documented by: Insulin Aspart (Novolog Flexpen) 0 units SC ACHS [facility] Stop: 02/05/19 20:59 Last Admin: 01/11/19 08:39 Dose: Not Given Documented by: Metoprolol Succinate (Toprol Xl) 75 mg PO QAM [facility] Stop: 02/10/19 08:59 Last Admin: 01/11/19 08:40 Dose: 75 mg Documented by: Miscellaneous (Carbohydrates For Hypoglycemia) 15 - 30 gm PO UD PRN PRN Reason: Hypoglycemia Treatment Stop: 02/05/19 17:44 Miscellaneous (Order Awaiting Action) 1 ea N/A QS [facility] Stop: 02/04/19 15:59 Last Admin: 01/06/19 07:33 Dose: Not Given Documented by: Spironolactone (Aldactone) 12.5 mg PO DAILY [facility] Stop: 02/08/19 09:59 Last Admin: 01/11/19 08:40 Dose: 12.5 mg Documented by:
--- NOTE | 2019-01-11 11:25 | Urology Progress Note ---
Date of Service January 11, 2019 Assessment & Plan (1) Hematuria: Has had 3 episodes of clot retention We plan to go to OR to look for any active bleeding and remove any residual clot hemoglobin is continuing to fall. He understands he is high risk for cardiac complications from trip to OR but feel this is necessary as conservative measures have failed to control clot retention. I have described procedure cysto clot evaluation fulguration of any bleeding areas. will need ancef eight section blower. plan to go mid afternoon had venkata liquid breakfast at 7:45am and had a few sips of apple juice at 10:45am. Present on Admission?: Yes Subjective Patient had a difficult night. He had a clot irrigation at about 11am Friday and drained about 800mL of merlot colored urine. He failed a void trial and had a in and out cath for 600mL bloody urine at 7pm. He had a gardner for several hours but went into clot retention at about 2-3 am and a catheter exchange was attempted but the new 3am catheter did not seem to be positioned properly and drained poorly. He had an attempted irrigation this am at about 9am which did not succeed and most of irrigation squirted out the urethra again suggesting cath was malpositioned. Irrigations were very painful for patient. This catheter was removed and a new coude gardner was placed, drained bloody urine then was used for about 1000mL of hand irrigation which removed a lot of clot. Patients hemoglobin continues to drop and he is receiving a blood transfusion now. He has o chest pain. His bladder is comfortable now. Review of Systems Review of Systems: tolerated clear tray at breakfast, no chest pain no breathing problems, feels tired from the tough night last night. Physical Exam Constitutional: WD/WN, vitals as above average body habitus and healthy appearing Respiratory: normal respiratory effort, lungs clear to auscultation Cardiovascular: RRR, no murmur, no edema Gastrointestinal (Abdomen): normal bowel sounds, soft, nontender, no hepatosplenomegaly Psychiatric: A+Ox3, euthymic affect Genitourinary: gardner draining light pink urine at this time. A few clots int he bag. Suprapubic area is not tender and not distended. Results & Data Vital Signs (Past 12 Hours) Vital Signs Temp Pulse Pulse Resp BP BP Pulse Ox 01/11/19 09:47 36.8 C 83 20 110/70 94 01/11/19 09:32 37.2 C 84 20 110/74 95 01/11/19 09:12 37.1 C 90 18 99/62 L 94 01/11/19 07:00 36.6 C 97 H 18 100/59 L 90 01/11/19 03:13 36.9 C 82 16 106/65 90
--- NOTE | 2019-01-11 12:28 | Anesthesiology Consultation ---
Date of Service January 11, 2019 Assessment & Plan Chart Review Chart Review: Acceptable Risk for Surgery (emergent due to hematuria, anemia and bladder clots) and Patient NOT seen in Pre Admission Testing Consults Requested none Pt is being followed by hospitalist team and agricultural lender. Pt is on ASA and plavix. Had his last dose of plavix this am ASA [id number] Proposed Anesthesia Anesthesia Type: MAC Risk / Benefits Reviewed With: PT / POA / Parent / Guardian, Accepts Plan and Informed Consent Obtained Additional Comments: Discussed risk of anesthesia with patient and his brother including his high risk of complications given his recent IN and stents placement along with his other cardiac comorbidities. All questions and concerns were answered. Pt accepting risks and willing to proceed. Consent was signed and witnessed. History Surgery Operation Date: 01/05/19 12:00 Proposed Procedures p Cardiac Cath Procedure - Gopi Jaramillo MD Operation Date: 01/08/19 11:00 Proposed Procedures p Cardiac Cath Procedure - Gopi Jaramillo MD Operation Date: 01/11/19 07:00 Proposed Procedures p Cystoscopy, Clot Evacuation Under IV Sedation - Michelle Patricia MD Height/Weight Height: 1.73 m Weight: 80.2 kg Allergies Allergy/AdvReac Type Severity Reaction Status Date / Time No Known Allergies Allergy Verified 01/05/19 09:33 Medications Home Medications Medication Instructions Recorded Confirmed Last Taken acetaminophen [Arthritis Pain 1,300 mg PO Q8H PRN 07/08/18 01/05/19 Unknown Reliever] aspirin 325 mg PO DAILY 07/08/18 01/05/19 01/05/19 atorvastatin [Lipitor] 40 mg PO PM 07/08/18 01/05/19 01/04/19 multivitamin 1 tab PO DAILY 07/08/18 01/05/19 Unknown anagrelide 0.5 mg PO Q12H 01/05/19 01/05/19 01/05/19 Active Medications Generic Name Dose Route Start Last Admin Trade Name Freq PRN Reason Stop Dose Admin Aspirin 81 mg 01/10/19 09:00 01/11/19 08:40 Ecotrin Ectab PO 02/09/19 08:59 81 mg QAM WALTER Administration Clopidogrel Bisulfate 75 mg 01/06/19 09:00 01/11/19 08:40 Plavix PO 02/05/19 08:59 75 mg QAM WALTER Administration Insulin Aspart 0 units 01/06/19 21:00 01/11/19 08:39 Novolog Flexpen SC 02/05/19 20:59 Not Given ACHS WALTER Metoprolol Succinate 75 mg 01/11/19 09:00 01/11/19 08:40 Toprol Xl PO 02/10/19 08:59 75 mg QAM WALTER Administration Miscellaneous 1 ea 01/05/19 16:00 01/06/19 07:33 Order Awaiting Action N/A 02/04/19 15:59 Not Given QS WALTER Spironolactone 12.5 mg 01/09/19 10:00 01/11/19 08:40 Aldactone PO 02/08/19 09:59 12.5 mg DAILY WALTER Administration NPO Date Last Intake of Fluids: 01/10/19 Time Last Intake of Fluids: 10:00 Last Intake of Fluids Comment: Sip of water at 10am Date Last Intake of Solids: 01/10/19 Time Last Intake of Solids: 13:00 Past Medical History Medical History Elevated transaminase level Ischemic cardiomyopathy Hematuria Atrial fibrillation was on amiodarone but discontinued due to increase LFTs CAD (coronary artery disease) Cardiogenic shock Pulmonary edema NSTEMI (non-ST elevated myocardial infarction) (Acute) Anemia (Chronic) s/p 1 unit PRBC this am 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 (Chronic) Hypercholesteremia (Chronic) Prostate cancer (Chronic) Elevated troponin I level Exercise / Class Metabolic Activity III < 4 Walking/Shop/Light housework Past Family History Family History Brother Heart disease Stroke Past Surgical History Surgical History Status post percutaneous transluminal coronary angioplasty History of appendectomy (Chronic) S/P TURP S/P cardiac catheterization 01/06 and 01/08/with JERSON to LAD and RCA Past Anesthesia History No Hx of Anesthesia Complications and No Family Hx of Anesthesia Complications History of PONV No Hx of PONV and No Hx of Motion Sickness Social History Smoking Status: Former smoker (Quit 15-20 years ago) tobacco type: cigars Do You Dip or Chew Tobacco: No Hx Alcohol Use: No Hx Substance Use: No Review of Systems Respiratory: no cough and no dyspnea Cardiovascular: no chest pain and no dyspnea Gastrointestinal: no heartburn, no nausea and no vomiting Physical Exam Vital Signs Last Vital Signs Temp 37.2 C 01/11/19 11:50 Pulse 79 01/11/19 11:50 Resp 20 01/11/19 11:50 BP 98/58 L 01/11/19 11:50 Pulse Ox 96 01/11/19 11:50 ENMT Mouth: + dentures (Upper); no TMJ abnormality and no TMJ clicking Thyromental Distance: > or= 3.5 Finger Breadths Mallampati Class: III Missing several bottom teeth Neck normal visual inspection; neck extension not limited Respiratory Auscultation: lungs clear to auscultation bilaterally Cardiovascular Rate/Rhythm: regular rate and regular rhythm Psychiatric Orientation: alert and oriented x 3 Testing Laboratory Results 01/11/19 11:54 01/11/19 06:13 PT 12.4 Seconds (9.0-12.0) H 01/05/19 08:47 INR 1.2 (0.9-1.1) H 01/05/19 08:47 APTT 38.1 Seconds (21.0-31.0) H 01/08/19 04:24 Hemoglobin A1c 6.7 % (4.5-5.6) H 01/06/19 04:35 Urine Color Brown 01/10/19 03:35 Urine Appearance Turbid (Clear) A 01/10/19 03:35 Urine pH 5.0 (4.5-7.5) 01/10/19 03:35 Ur Specific [place] 1.026 (1.000-1.030) 01/10/19 03:35 Urine Protein 3+ (Negative) H 01/10/19 03:35 Urine Glucose (UA) Negative (Negative) 01/10/19 03:35 Urine Ketones Negative (Negative) 01/10/19 03:35 Urine Nitrite Negative (Negative) 01/10/19 03:35 Ur Leukocyte Esterase 1+ (Negative) H 01/10/19 03:35 Urine WBC (Auto) 10-30 /hpf (0-5) H 01/10/19 03:35 Urine RBC (Auto) >30 /hpf (0-4) H 01/10/19 03:35 U Hyaline Cast (Auto) 0 /lpf (0-5) 01/10/19 03:35 U Epithel Cells (Auto) 10-20 /lpf (0-5) H 01/10/19 03:35 Urine Bacteria (Auto) Negative (Negative) 01/10/19 03:35 Blood Type O Positive 01/10/19 03:37 Antibody Screen NEGATIVE 01/10/19 03:37 01/05/19 09:31 Aerobic Blood Culture - Final Blood No growth in Aerobic bottle after 5 days. Anaerobic Blood Culture - Final No growth in Anaerobic bottle after 5 days. 01/05/19 08:47 Aerobic Blood Culture - Final Blood No growth in Aerobic bottle after 5 days. Anaerobic Blood Culture - Final No growth in Anaerobic bottle after 5 days. 01/11/19 01/11/19 11:27 07:21 POC Glucose 118 H 101 H Laboratory Tests 01/11/19 01/11/19 06:13 11:54 WBC 6.90 Hgb 9.3 L Hct 25.0 L Plt Count 219 Electrocardiogram Date: 01/08/19 Findings: + AFIB @ (102 bpm) Atrial fibrillation with rapid ventricular response Nonspecific ST and T wave abnormality Abnormal ECG When compared with ECG of 08-JAN-2019 10:26, (unconfirmed) Atrial fibrillation has replaced Sinus rhythm Confirmed by Favio Beauchamp ([id number]) on 01/08/2019 8:18:22 PM Chest X-Ray Date: 01/09/19 FINDINGS: Mild interstitial pulmonary edema has improved. Small bilateral pleural effusions persist. No new focal lung consolidations identified. The heart is normal in size. IMPRESSION: Improvement in the mild interstitial pulmonary edema. Small bilateral pleural effusions persist. Echocardiogram Date: 01/10/19 EF: 50% LV systolic function is mildly reduced There is a small sized wall motion abnormality with akinesis of the basal segment of the inferior wall The qualitative left ventricular EF is 50% There is a trace degree of loculated pericardial fluid adjacent to the right atrium which iscompatible with normal physiology There are no echocardiographic indication of cardiac tamponade Cardiac Catheterization Date: 01/09/19 [facility] [place] [address] Cardiac Catheterization Draft Patient: DAVID COPELAND SrAdmit Date: 01/05/19 MR#: [id number] Phy: Baudilio Nayak MD Acct ID:[id number] Phy: TonioGuru MD Date: 1940Fam Phy: Age: 78Location: 1E Sex: M Room/Bed: [facility] cc: ~ *NOTICE TO RECEIVING REPUBLICAN/AGENCY This information is strictly Confidential and protected under [place] law. [place] law prohibits you from making any further disclosure of this information unless further disclosure is expressly permitted by the written consent of the person to whom it pertains or is authorized by law. A general authorization for the release of medical or other information is not sufficient for this purpose. Hospital accepts no responsibility if the information is made available to any other person, INCLUDING THE PATIENT. Cardiac Cath Procedure Full Procedure Date January 08, 2019 Pre-Procedure Diagnosis Pre-Procedure Diagnosis: Non STEMI AUC Score AUC Score: 8 Post-Procedure Diagnosis Post-Procedure Diagnosis: Severe CAD, Successful PCI and Elevated Intracardiac Pressures Procedure(s) Performed Procedure(s) Performed: Coronary Angiography, Left Heart Cath and Drug Eluting Stent Hand Candy Dipper Anthony Jaramillo MD Grain Weigher(s) Franko Estimated Blood Loss Estimated Blood Loss: 15 Medication(s) Medication(s): Clopidogrel, Fentanyl, Heparin, Lidocaine 1%, Nitroglycerin and Versed Summary of Findings Indication: Staged PCI Access: 6 Fr right radial artery Catheters: AR1 guide Findings: Patient previously found to have multivessel coronary artery disease and underwent stenting of his mid LAD. Returns today for staged PCI of severe mid RCA stenosis. -- PCI -- Antithrombotic therapy: Heparin, clopidogrel Procedure: RCA cannulated with AR-1 guide Guard Manager 50 placed into acute marginal Whisper wire passed across stenosis into distal RCA Mid RCA dilated with 2.0 and 2.5 balloons Proximal to mid RCA stented with 2.5 x 18 mm [place] drug-eluting stent Stent postdilated with 2.5 balloon Post procedure LIZBETH 3 flow, stent well expanded with minimal residual stenosis and no apparent cardiac complications. Arterial Closure: TR band Summary: 1. Successful PCI of mid RCA with single drug-eluting stent (2.5 x 18 mm Angel) to see. Recommendations: Return to ICU for continued monitoring Reloaded with clopidogrel 300 mg in paint laboratory technician Continue dual-antiplatelet therapy for at least one year Continue statin, and ASCVD risk factor modification
[2019-01-11] MEDS ORDERED: LIDOCAINE HCL 2% 2 ML VIAL/AMP(20MG/ML) INFIL ONE (12:39)
[2019-01-11] MEDS ORDERED: PROPOFOL IV EMULSION 10 MG/ML 20 ML VIAL IV ONE (12:39)
[2019-01-11] MEDS ORDERED: fentaNYL citrate 100 MCG/2 ML VIAL ONE (12:39)
[2019-01-11] MEDS ORDERED: ATROPINE SULFATE 0.1 MG/ML 10ML SYR IV PRN (13:00)
[2019-01-11] MEDS ORDERED: ONDANSETRON INJ 2 MG/ML 2 ML VIAL IV PRN (13:00)
[2019-01-11] MEDS ORDERED: fentaNYL citrate 100 MCG/2 ML VIAL IV PRN (13:00)
[2019-01-11] MEDS ORDERED: ePHEDrine sulfate 50 MG/ML AMP IV PRN (13:00)
[2019-01-11] MEDS ORDERED: PHENYLEPHRINE 100MCG/ML 5ML SYR IV PRN (13:00)
--- NOTE | 2019-01-11 13:31 | Urology Progress Note ---
Date of Service January 11, 2019 Subjective Patient feels tired but otherwise well. He has no bladder pain. Since the very thorough bedside irrigation this am he has remained with normla yellow urine. There has been no return of bleeding and there is no staining of the urine to suggest residual clot in bladder. I spoke with the patient about postponing our trip to OR. I think we should hold off as clinical eval now suggests the bleeding has ceased and there is no more clot. he is high risk for procedure. Plan keep him on liquids rest of today. if return of bleeding or clot retention go to OR later today or tonight. If he stays clear all night he may have a full solid breakfast tomorrow. Patient agreeable to plan. I told OR desk he is cancelled for now. Results & Data Vital Signs (Past 12 Hours) Vital Signs Temp Pulse Pulse Pulse Resp BP BP 01/11/19 12:44 36.9 C 81 18 107/59 L 01/11/19 11:50 37.2 C 79 20 98/58 L 01/11/19 11:17 36.8 C 79 18 100/70 01/11/19 10:17 37.1 C 78 18 97/58 L 01/11/19 09:47 36.8 C 83 20 110/70 01/11/19 09:32 37.2 C 84 20 110/74 01/11/19 09:12 37.1 C 90 18 99/62 L 01/11/19 07:00 36.6 C 97 H 18 100/59 L 01/11/19 03:13 36.9 C 82 16 106/65 Pulse Ox 01/11/19 12:44 93 01/11/19 11:50 96 01/11/19 11:17 96 01/11/19 10:17 94 01/11/19 09:47 94 01/11/19 09:32 95 01/11/19 09:12 94 01/11/19 07:00 90 01/11/19 03:13 90
[2019-01-11 18:35] LABS: Hematocrit (blood only) 27.7 % (42-52); Hemoglobin 9.7 g/dL (14.0-18.0)
[2019-01-11] MEDS: ATORVASTATIN 40 MG TAB PO SCH (20:54)
[2019-01-12 07:23] LABS: Hematocrit (blood only) 28.3 % (42-52); Hemoglobin 9.7 g/dL (14.0-18.0); Mean Corpuscular Hgb Conc 34.3 g/dL (32-36); Mean Corpuscular Volume 98.6 fL (80-100); Mean Platelet Volume 10.1 fL (7.4-10.4); Nucleated RBC # (auto) 0.02 K/uL (0-0); Nucleated RBC % (auto) 0.3 %; Platelet Count 213 K/uL (130-400); RDW Coefficient of Variation 20.8 % (11.5-14.5); RDW Standard Deviation 72.9 fL (36.4-46.3); Red Blood Count 2.87 M/uL (4.7-6.1)
[2019-01-12 07:54] LABS: Albumin Level 2.4 gm/dl (3.4-5.0); BUN Creatinine Ratio 21.8 (10-20); Calcium 7.9 mg/dl (8.5-10.1); Creatinine Clr Calc Pharmacy 60.1 ml/min; Est GFR (African American) 85.2; Est GFR (Non-African American) 73.6; Potassium 3.8 mmol/L (3.5-5.1)
[2019-01-12 07:57] LABS: Albumin Globulin Ratio 0.6 (0.9-2); Bilirubin,Total 1.4 mg/dl (0.2-1); Globulin 3.8 gm/dl (2.5-4.0); Total Protein 6.2 gm/dl (6.4-8.2)
[2019-01-12 08:09] LABS: ALC (manual) 0.67 K/uL (1.2-3.4); Anisocytosis Present; Basophils # (manual) 0.07 K/uL (0-0.2); Basophils % (manual) 0.9 %; Blast # (manual) 2.68 K/uL (0-0); Blast Cells % (manual) 34.8 %; Eosinophils # (manual) 0.07 K/uL (0-0.5); Eosinophils % (manual) 0.9 %; Giant Platelets 1+; Lymphocytes # (manual) 0.67 K/uL (1.2-3.4); Lymphocytes % (manual) 8.7 %; Monocytes # (manual) 0.33 K/uL (0.11-0.59); Monocytes % (manual) 4.3 %; Myelocytes # (manual) 0.07 K/uL (0-0); Myelocytes % (manual) 0.9 %; Neutrophils % (manual) 49.5 %; Toxic Granulation 1+
[2019-01-12] MEDS: SPIRONOLACTONE 25 MG TAB PO SCH (09:00)
[2019-01-12] MEDS: CLOPIDOGREL BISULFATE 75 MG TAB PO SCH (09:00)
[2019-01-12] MEDS: METOPROLOL SUCC 25MG EXT REL TAB PO SCH (09:00)
[2019-01-12] MEDS: ASPIRIN 81 MG ECTAB PO SCH (09:00)
[2019-01-12] MEDS: INSULIN ASPART 100 UNITS/ML 3 ML PEN SC SCH ×4 (09:01→20:36)
--- NOTE | 2019-01-12 13:07 | Hospitalist Progress Note ---
Date of Service January 12, 2019 Assessment & Plan (1) NSTEMI (non-ST elevated myocardial infarction): per Dr. Alexander's notes: Pt presented to ER with c/o SOB, malaise over past 24 hours In ER pt afebrile, P: 66-113, R: 20-26, BP: 105/58- 121/83, O2 sat: 100% down to 91% on RA Was found to have troponin: 6, with EKG sinus tachycardia at 108, ST depression lateral leads -Bedside echo EF: 30%, mod-severe global hypokinesis -Heparin IV started in ER -Pt taken to shipyard laborer from ER. During procedure hypoxemic requiring 15 L O2 mask and eventual BiPAP. Was given 40 of IV Lasix for elevated LVEDP. Maintained on norepinephrine 0.1 -clay processing labourer report: * Severe multi-vessel coronary artery disease. 95 to 99% diffuse mid LAD, 80 to 90% focal distal LAD. 90% distal circumflex into left PLB. Moderate caliber first OM with 90% focal stenosis. 95% earlymid RCA at bifurcation with acute marginal. * Elevated intracardiac filling pressure * Successful PCI of mid LAD with single drug-eluting stent (3.0 x 30 mm [place]). POBA of distal LAD with 2.5 balloon. January 08, 2019: Status post second PCI today, with placement of drug-eluting stent to the RCA Remained hemodynamically stable overall after transfer to telemetry Continue aspirin, Plavix, Lipitor 80 mg daily, metoprolol succinate 75 mg daily physical therapy and Occupational Therapy Ordered (2) Atrial fibrillation: Paroxysmal atrial fibrillation Noted while in the ICU Initially was on amiodarone drip, Transitioned to p.o. amiodarone Patient remains in sinus rhythm Holding off on anticoagulation at this time (3) Cardiomyopathy: Initial echo revealed EF of 30% Aldactone 12.5 mg p.o. daily started Lasix 20 mg IV dose ordered PRN Repeat echo showed improvement of EF to 50% Euvolemic today, monitor volume status closely (4) Hematuria: Was on Qiu catheter, per RN report patient may have pulled the catheter overnight Patient was on high-dose aspirin 325 mg p.o. daily since admission, also on heparin subcutaneous for DVT prophylaxis Hemoglobin downtrended from 10 down to 8.5 Aspirin lowered to 81 mg p.o. daily,Heparin subcu was discontinued Has history of prostate cancer Hemoglobin further decreased, requiring 1 unit of blood transfusion Hemoglobin posttransfusion is 9.[address] Patricia consulted, she performed bladder irrigation the bedside 01/11/2019 Still having hematuria, urinary retention Case discussed with Dr. Patricia, recommended irrigation with normal saline, plan for cystoscopy Canceled as patient's hematuria improved Continue Qiu catheter, monitor for hematuria (5) Acute blood loss anemia: Acute on chronic anemia Likely secondary to hematuria Hemoglobin decreased to 8.5 Another1 unit packed RBCs ordered to maintain hemoglobin above 9 Repeat Hg 9.7- Stable since yesterday Monitor CBC (6) Essential thrombocythemia: Hx essential thrombocythemia. Follows with Dr Turner - heme/onc. Was taken off hydroxyurea on 12/15/18 secondary to worsening anemia. H/H: 7.9/22.9 (Hgb was 8.5 on 01/04/19 and 8.1 on 01/01/19) Hemoccult negative in ER -2 units PRBCs to be transfused with lasix in between units secondary to pt unstable Platelet count remains in the 200s on Anagrelide as outpatient notified by [facility] that Anagrelide + ASA and Plavix may result in increased bleeding risk Discussed with Dr. Turner, recommend to hold anagrelide for now until follow-up with him as an outpatient (7) Hyperglycemia: Random Glucose: 162 -A1c 6.7 Blood glucose level within normal range Insulin sliding scale DVT prophylaxis Heparin sub-cutaneous held secondary to hematuria SCDs, early ambulation Disposition PT OT evaluations ordered May need rehab on discharge Otherwise,Patient lives at home with family (8) Hypercholesteremia: -Continue statin DVT Prophylaxis Heparin SQ being held in light of hematuria SCDs Full Code as per discussion with pt Discussed case in detail and at length with patient's children at the waiting room All questions answered They are all understanding, comfortable, agreeable to plan of care Subjective Follow-up for non-ST elevation WI, hematuria Qiu catheter remains in place, no noted hematuria overnight Seen resting in bed, comfortable, not in distress feels fine overall, just tired No chest pain, shortness of breath, palpitations, dizziness, nausea vomiting No other symptoms Review of Systems Review of Systems: All systems reviewed & are unremarkable except as noted in HPI & below Physical Exam Physical Exam: General- oriented x 3, not in distress, speaks in sentences with no effort or accessory muscle use Eyes- anicteric Neck- no JVD Lungs- clear BS, no crackles, no wheezing on auscultation bilaterally Heart- normal rate, regular rhythm; no murmurs Abdomen- normal bowel sounds, nondistended, soft, nontender Extremities- no pretibial edema, no calf tenderness Qiu catheter in place-yellow urine noted Neuro- alert, oriented x 3; no gross focal neurologic deficits Skin- warm & dry Results & Data Vital Signs (Past 12 Hours) Vital Signs Temp Pulse Pulse Pulse Resp BP Pulse Ox 01/12/19 12:13 37.1 C 77 18 102/65 94 01/12/19 08:00 81 01/12/19 06:35 37.4 C 84 18 107/66 95 01/12/19 02:35 36.6 C 82 20 112/70 93 Laboratory Results Laboratory Results - last 24 hr 01/11/19 01/11/19 01/11/19 16:23 17:54 20:28 WBC RBC Hgb 9.7 L Hct 27.7 L MCV MCH MCHC RDW Std Deviation RDW Coeff of Eliana Plt Count MPV Absolute Nucleated RBC Nucleated RBC % (auto) Neutrophils % (Manual) Lymphocytes % (Manual) Monocytes % (Manual) Eosinophils % (Manual) Basophils % (Manual) Myelocytes % (Man) Blast Cells % (Manual) Neutrophils # (Manual) Total Absolute Neuts Lymphocytes # (Manual) Total Abs Lymphocytes Monocytes # (Manual) Eosinophils # (Manual) Basophils # (Manual) Myelocytes # (Manual) Blast Cells # (Man) Toxic Granulation Giant Platelets Anisocytosis Sodium Potassium Chloride Carbon Dioxide Anion Gap BUN Creatinine Est Cr Clr Drug Dosing Est GFR ( Amer) Est GFR (Non-Af Amer) BUN/Creatinine Ratio Glucose POC Glucose 110 H 161 H Calcium Total Bilirubin AST ALT Alkaline Phosphatase Total Protein Albumin Globulin Albumin/Globulin Ratio 01/12/19 01/12/19 01/12/19 06:55 06:55 07:56 WBC 7.70 RBC 2.87 L Hgb 9.7 L Hct 28.3 L MCV 98.6 MCH 33.8 MCHC 34.3 RDW Std Deviation 72.9 H RDW Coeff of Eliana 20.8 H Plt Count 213 MPV 10.1 Absolute Nucleated RBC 0.02 H Nucleated RBC % (auto) 0.3 Neutrophils % (Manual) 49.5 Lymphocytes % (Manual) 8.7 Monocytes % (Manual) 4.3 Eosinophils % (Manual) 0.9 Basophils % (Manual) 0.9 Myelocytes % (Man) 0.9 Blast Cells % (Manual) 34.8 Neutrophils # (Manual) 3.81 Total Absolute Neuts 3.81 Lymphocytes # (Manual) 0.67 L Total Abs Lymphocytes 0.67 L Monocytes # (Manual) 0.33 Eosinophils # (Manual) 0.07 Basophils # (Manual) 0.07 Myelocytes # (Manual) 0.07 H Blast Cells # (Man) 2.68 H Toxic Granulation 1+ Giant Platelets 1+ Anisocytosis Present Sodium 135 L Potassium 3.8 Chloride 103 Carbon Dioxide 24 Anion Gap 8.0 BUN 21 H Creatinine 0.98 Est Cr Clr Drug Dosing 60.1 Est GFR ( Amer) 85.2 Est GFR (Non-Af Amer) 73.6 BUN/Creatinine Ratio 21.8 H Glucose 95 POC Glucose 98 Calcium 7.9 L Total Bilirubin 1.4 H AST 56 H ALT 108 H Alkaline Phosphatase 69 Total Protein 6.2 L Albumin 2.4 L Globulin 3.8 Albumin/Globulin Ratio 0.6 L 01/12/19 11:25 WBC RBC Hgb Hct MCV MCH MCHC RDW Std Deviation RDW Coeff of Eliana Plt Count MPV Absolute Nucleated RBC Nucleated RBC % (auto) Neutrophils % (Manual) Lymphocytes % (Manual) Monocytes % (Manual) Eosinophils % (Manual) Basophils % (Manual) Myelocytes % (Man) Blast Cells % (Manual) Neutrophils # (Manual) Total Absolute Neuts Lymphocytes # (Manual) Total Abs Lymphocytes Monocytes # (Manual) Eosinophils # (Manual) Basophils # (Manual) Myelocytes # (Manual) Blast Cells # (Man) Toxic Granulation Giant Platelets Anisocytosis Sodium Potassium Chloride Carbon Dioxide Anion Gap BUN Creatinine Est Cr Clr Drug Dosing Est GFR ( Amer) Est GFR (Non-Af Amer) BUN/Creatinine Ratio Glucose POC Glucose 126 H Calcium Total Bilirubin AST ALT Alkaline Phosphatase Total Protein Albumin Globulin Albumin/Globulin Ratio
--- NOTE | 2019-01-12 14:53 | Cardiology Progress Note ---
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 Return to the lab and underwent LAD PCI on 01/08/2019. Details of his hospital course described in more detail in my 01/09/2019 progress note. Patient had improved significantly from a cardiac perspective with cautious diuresis, and was monitored in the ICU due to relative hypotension with systolic blood pressure in the 90s to 100 mmHg range earlier this hospital stay. Diuretics have been on hold since his 01/08/2019 intervention volume status has been relatively stable. Repeat echocardiogram performed yesterday 01/10/2019 reveals findings of scar noted at the basal segment of the inferior wall, with improved LV systolic function the remaining myocardial segments, and the qualitative ejection fraction has improved from 30% to 50% per my interpretation. He had no significant ventricular arrhythmias on traffic monitor specialist, and as long as things did not change from a rhythm standpoint, his risk of sudden cardiac from a cardiomyopathy standpoint is considered low at this point, and I do not think a LifeVest will be necessary at discharge. Continue aspirin 81 mg daily, Plavix, given recent multivessel PCI. Continue metoprolol, transition to succinate formulation 75 mg daily today. Continue spironolactone, will readdress candidacy for KRISTINA inhibitor or an giotensin receptor kiko as an outpatient depending upon his blood pressure. These are held at present due to the relative low blood pressure. The patient should be able to be discharged soon cardiology perspective. Patient should continue with physical therapy. (2) Atrial fibrillation: Episodes of paroxysmal atrial fibrillation noted this hospital stay, initially they are brief, with sustained episode on 01/08/2019. Patient subsequently converted to sinus rhythm the evening of 01/08/2019 after treatment IV amiodarone he has since been transitioned to oral amiodarone 200 mg twice daily plus metoprolol. He is considered high risk for cardioembolic stroke from an atrial fibrillation standpoint with history of heart failure and CAD however he is not a candidate for anticoagulation due to hematuria. Continue dual antiplatelet therapy, and rhythm control strategy. No recent episodes of atrial fibrillation. (3) Elevated transaminase level: AST level has been 113 on 01/10/2019, down to 70 today 01/11/2019. ALT had been 129 on 01/10/2019, down to 112 today 01/11/2019. Continue to follow closely given use of amiodarone and statin therapy. (4) Hematuria: Patient with history of prostate carcinoma with past radiation therapy in 2013. He has developed gross hematuria with clot retention. He was seen by urology yesterday, cystoscopy planned for later today. Patient is in a significant amount of distress over his dysuria he feels poorly. Aspirin and clopidogrel need to be continued given his recent PCI's and [place]. Agree with plan to proceed with cystoscopy, and although he is at risk for cardiac complication, I believe the procedure is urgent and necessary, and I would actually be more concerned about the decline in the patient from a cardiac status if we do not do our best to treat his hematuria. -Patient is without angina at present, and he is well comp stated from heart failure standpoint. The patient's hematuria has resolved over the past 24 hours. (5) Hypercholesteremia: Continue statin therapy, monitor LFTs. Reduce atorvastatin to 40 mg daily given elevated transaminases. DVT prophylaxis: Subcutaneous heparin has been on hold, I am going to remove this from his orders. Subjective The patient is doing well. He had physical therapy today. Review of Systems Review of Systems: All systems reviewed & are unremarkable except as noted in HPI & below Nothing additional Physical Exam Physical Exam: General: no acute distress and stated age Head: normocephalic, no masses, lesions, tenderness or abnormalities Eyes: conjunctiva are pink and non-injected, sclera clear Neck: supple, no adenopathy, no bruits, normal jugular venous pulse, no hepatojugular reflux Chest: normal shape and normal respiratory effort Lungs: clear to auscultation and percussion Cardiac Exam: - regular rate & rhythm, no murmurs gallops or rubs - normal S1, normal S2 Pulses: 2(+) throughout Abdomen: abdomen soft, non-tender, no abnormal masses and no hepatosplenomegaly Musculoskeletal: no gait disturbance, no joint inflammation, no deforming arthritis Extremities: no edema and no cyanosis Neuro: grossly normal exam Results & Data Vital Signs (Past 12 Hours) Vital Signs Temp Pulse Pulse Pulse Resp BP Pulse Ox 01/12/19 12:13 37.1 C 77 18 102/65 94 07/09/19 08:00 81 01/12/19 06:35 37.4 C 84 18 107/66 95 Laboratory Results Laboratory Results - last 24 hr 01/11/19 01/11/19 01/11/19 16:23 17:54 20:28 WBC RBC Hgb 9.7 L Hct 27.7 L MCV MCH MCHC RDW Std Deviation RDW Coeff of Eliana Plt Count MPV Absolute Nucleated RBC Nucleated RBC % (auto) Neutrophils % (Manual) Lymphocytes % (Manual) Monocytes % (Manual) Eosinophils % (Manual) Basophils % (Manual) Myelocytes % (Man) Blast Cells % (Manual) Neutrophils # (Manual) Total Absolute Neuts Lymphocytes # (Manual) Total Abs Lymphocytes Monocytes # (Manual) Eosinophils # (Manual) Basophils # (Manual) Myelocytes # (Manual) Blast Cells # (Man) Toxic Granulation Giant Platelets Anisocytosis Sodium Potassium Chloride Carbon Dioxide Anion Gap BUN Creatinine Est Cr Clr Drug Dosing Est GFR ( Amer) Est GFR (Non-Af Amer) BUN/Creatinine Ratio Glucose POC Glucose 110 H 161 H Calcium Total Bilirubin AST ALT Alkaline Phosphatase Total Protein Albumin Globulin Albumin/Globulin Ratio 01/12/19 01/12/19 01/12/19 06:55 06:55 07:56 WBC 7.70 RBC 2.87 L Hgb 9.7 L Hct 28.3 L MCV 98.6 MCH 33.8 MCHC 34.3 RDW Std Deviation 72.9 H RDW Coeff of Eliana 20.8 H Plt Count 213 MPV 10.1 Absolute Nucleated RBC 0.02 H Nucleated RBC % (auto) 0.3 Neutrophils % (Manual) 49.5 Lymphocytes % (Manual) 8.7 Monocytes % (Manual) 4.3 Eosinophils % (Manual) 0.9 Basophils % (Manual) 0.9 Myelocytes % (Man) 0.9 Blast Cells % (Manual) 34.8 Neutrophils # (Manual) 3.81 Total Absolute Neuts 3.81 Lymphocytes # (Manual) 0.67 L Total Abs Lymphocytes 0.67 L Monocytes # (Manual) 0.33 Eosinophils # (Manual) 0.07 Basophils # (Manual) 0.07 Myelocytes # (Manual) 0.07 H Blast Cells # (Man) 2.68 H Toxic Granulation 1+ Giant Platelets 1+ Anisocytosis Present Sodium 135 L Potassium 3.8 Chloride 103 Carbon Dioxide 24 Anion Gap 8.0 BUN 21 H Creatinine 0.98 Est Cr Clr Drug Dosing 60.1 Est GFR ( Amer) 85.2 Est GFR (Non-Af Amer) 73.6 BUN/Creatinine Ratio 21.8 H Glucose 95 POC Glucose 98 Calcium 7.9 L Total Bilirubin 1.4 H AST 56 H ALT 108 H Alkaline Phosphatase 69 Total Protein 6.2 L Albumin 2.4 L Globulin 3.8 Albumin/Globulin Ratio 0.6 L 01/12/19 11:25 WBC RBC Hgb Hct MCV MCH MCHC RDW Std Deviation RDW Coeff of Eliana Plt Count MPV Absolute Nucleated RBC Nucleated RBC % (auto) Neutrophils % (Manual) Lymphocytes % (Manual) Monocytes % (Manual) Eosinophils % (Manual) Basophils % (Manual) Myelocytes % (Man) Blast Cells % (Manual) Neutrophils # (Manual) Total Absolute Neuts Lymphocytes # (Manual) Total Abs Lymphocytes Monocytes # (Manual) Eosinophils # (Manual) Basophils # (Manual) Myelocytes # (Manual) Blast Cells # (Man) Toxic Granulation Giant Platelets Anisocytosis Sodium Potassium Chloride Carbon Dioxide Anion Gap BUN Creatinine Est Cr Clr Drug Dosing Est GFR ( Amer) Est GFR (Non-Af Amer) BUN/Creatinine Ratio Glucose POC Glucose 126 H Calcium Total Bilirubin AST ALT Alkaline Phosphatase Total Protein Albumin Globulin Albumin/Globulin Ratio Medications Administered Current Inpatient Medications Aspirin (Ecotrin Ectab) 81 mg PO [facility] Stop: 02/09/19 08:59 Last Admin: 01/12/19 09:00 Dose: 81 mg Documented by: Atorvastatin Calcium (Lipitor) [address] [facility] Stop: 02/10/19 20:59 Last Admin: 01/11/19 20:54 Dose: 40 mg Documented by: Clopidogrel Bisulfate (Plavix) 75 mg PO [facility] Stop: 02/05/19 08:59 Last Admin: 01/12/19 09:00 Dose: 75 mg Documented by: Dextrose (Dextrose 50%) 25 - 50 ml IV UD PRN; Protocol PRN Reason: Hypoglycemia Protocol Stop: 02/05/19 17:44 Glucagon (Glucagen) 1 mg IM UD PRN; Protocol PRN Reason: Hypoglycemia Protocol Stop: 02/05/19 17:44 Glucose (Glucose 40%) 15 - 30 gm PO UD PRN; Protocol PRN Reason: Hypoglycemia Protocol Stop: 02/05/19 17:44 Glucose (Dex4 Glucose) 4 - 8 tabs PO UD PRN; Protocol PRN Reason: Hypoglycemia Protocol Stop: 02/05/19 17:44 Sodium Chloride (Nss) 250 mls @ 15 mls/hr IV .[id number] PRN PRN Reason: For Transfusion Stop: 02/09/19 04:28 Insulin Aspart (Novolog Flexpen) 0 units SC ACHS [facility] Stop: 02/05/19 20:59 Last Admin: 01/12/19 12:54 Dose: 6 units Documented by: Metoprolol Succinate (Toprol Xl) 75 mg PO QAM [facility] Stop: 02/10/19 08:59 Last Admin: 01/12/19 09:00 Dose: 75 mg Documented by: Miscellaneous (Carbohydrates For Hypoglycemia) 15 - 30 gm PO UD PRN PRN Reason: Hypoglycemia Treatment Stop: 02/05/19 17:44 Miscellaneous (Order Awaiting Action) 1 ea N/A QS [facility] Stop: 02/04/19 15:59 Last Admin: 01/06/19 07:33 Dose: Not Given Documented by: Spironolactone (Aldactone) 12.5 mg PO DAILY [facility] Stop: 02/08/19 09:59 Last Admin: 01/12/19 09:00 Dose: 12.5 mg Documented by:
--- NOTE | 2019-01-12 17:21 | Urology Progress Note ---
Date of Service January 12, 2019 Assessment & Plan (1) Hematuria: has resolved and all clots have been evacuated yesterday has remained with clear urine for over 24 hours seems to be passing his void trial. If he begins to retain urine he should have a 16 fr coude gardner placed with lots of lubricant. will be discharged soon will need iron replacement therapy for 1-2 months Present on Admission?: Yes Subjective Patint feels weary but did get some sleep overnight. Had clear urine from gardner. We removed the gardner at 2pm and he has voided once and feels empty. urine not bloody. no clots. Review of Systems Review of Systems: + fatigue, + good appetite, no nausea no emesis, no chest pain, + dysuria, no hematuria, no fever Physical Exam Physical Exam: alert awake sitting up in chair at bedside. Good skin color and turgor. he has no edema on shins Results & Data Vital Signs (Past 12 Hours) Vital Signs Temp Pulse Pulse Pulse Resp BP Pulse Ox 01/12/19 15:47 36.8 C 80 19 94/57 L 96 01/12/19 12:13 37.1 C 77 18 102/65 94 01/12/19 08:00 81 01/12/19 06:35 37.4 C 84 18 107/66 95
[2019-01-12] MEDS: ATORVASTATIN 40 MG TAB PO SCH (20:36)
[2019-01-13] MEDS: CLOPIDOGREL BISULFATE 75 MG TAB PO SCH (08:02)
[2019-01-13] MEDS: ASPIRIN 81 MG ECTAB PO SCH (08:02)
[2019-01-13] MEDS: SPIRONOLACTONE 25 MG TAB PO SCH (08:02)
[2019-01-13] MEDS: METOPROLOL SUCC 25MG EXT REL TAB PO SCH (08:02)
[2019-01-13] MEDS: INSULIN ASPART 100 UNITS/ML 3 ML PEN SC SCH ×4 (08:03→20:52)
--- NOTE | 2019-01-13 09:15 | Cardiology Progress Note ---
Date of Service January 13, 2019 Assessment & Plan (1) Ischemic cardiomyopathy: The patient LV function normalized after stent placement. No additional treatment indicated. I believe the patient may be discharged to outpatient follow-up. (2) Atrial fibrillation: Patient has maintained sinus rhythm off antiarrhythmics. (3) Elevated transaminase level: Amiodarone was discontinued. Will follow as an outpatient (4) Hematuria: Urology's help appreciated. Patient's hematuria has resolved. He is not a candidate for anticoagulation for his atrial arrhythmias due to the hematuria (5) Hypercholesteremia: Subjective The patient had an uneventful night. No new cardiac complaints. He is receiving physical therapy. He is maintaining normal sinus rhythm on the telemetry Review of Systems Review of Systems: All systems reviewed & are unremarkable except as noted in HPI & below Nothing additional except the patient has had no further hematuria Physical Exam Physical Exam: General: no acute distress and stated age Head: normocephalic, no masses, lesions, tenderness or abnormalities Eyes: conjunctiva are pink and non-injected, sclera clear Neck: supple, no adenopathy, no bruits, normal jugular venous pulse, no hepatojugular reflux Chest: normal shape and normal respiratory effort Lungs: clear to auscultation and percussion Cardiac Exam: - regular rate & rhythm, no murmurs gallops or rubs - normal S1, normal S2 Pulses: 2(+) throughout Abdomen: abdomen soft, non-tender, no abnormal masses and no hepatosplenomegaly Musculoskeletal: no gait disturbance, no joint inflammation, no deforming arthritis Extremities: no edema and no cyanosis Neuro: grossly normal exam Results & Data Vital Signs (Past 12 Hours) Vital Signs Temp Pulse Resp BP Pulse Ox 01/13/19 07:00 37.5 C 85 16 107/67 94 01/13/19 03:08 37.1 C 87 20 104/67 91 01/12/19 23:08 37.0 C 83 16 100/64 91 Laboratory Results Laboratory Results - last 24 hr 01/12/19 01/12/19 01/12/19 07:56 11:25 16:26 POC Glucose 98 126 H 71 01/12/19 01/13/19 20:26 07:36 POC Glucose 83 98 Medications Administered Current Inpatient Medications [facility]ir[facility] ([facility]rin Ectab) [facility] Stop: 02/09/19 08:59 Last Admin: 01/13/19 08:02 Dose: 81 mg Documented by: Atorvastatin Calcium (Lipitor) 40 mg PO HS [facility] Stop: 02/10/19 20:59 Last Admin: 01/12/19 20:36 Dose: 40 mg Documented by: Clopidogrel Bisulfate (Plavix) 75 mg PO QAM [facility] Stop: 02/05/19 08:59 Last Admin: 01/13/19 08:02 Dose: 75 mg Documented by: Dextrose (Dextrose 50%) 25 - 50 ml IV UD PRN; Protocol PRN Reason: Hypoglycemia Protocol Stop: 02/05/19 17:44 Glucagon (Glucagen) 1 mg IM UD PRN; Protocol PRN Reason: Hypoglycemia Protocol Stop: 02/05/19 17:44 Glucose (Glucose 40%) 15 - 30 gm PO UD PRN; Protocol PRN Reason: Hypoglycemia Protocol Stop: 02/05/19 17:44 Glucose (Dex4 Glucose) 4 - 8 tabs PO UD PRN; Protocol PRN Reason: Hypoglycemia Protocol Stop: 02/05/19 17:44 Sodium Chloride (Nss) 250 mls @ 15 mls/hr IV .[id number] PRN PRN Reason: For Transfusion Stop: 02/09/19 04:28 Insulin Aspart (Novolog Flexpen) 0 units SC ACHS [facility] Stop: 02/05/19 20:59 Last Admin: 01/13/19 08:03 Dose: 3 units Documented by: Metoprolol Succinate (Toprol Xl) 75 mg PO QAM [facility] Stop: 02/10/19 08:59 Last Admin: 01/13/19 08:02 Dose: 75 mg Documented by: Miscellaneous (Carbohydrates For Hypoglycemia) 15 - 30 gm PO UD PRN PRN Reason: Hypoglycemia Treatment Stop: 02/05/19 17:44 Miscellaneous (Order Awaiting Action) 1 ea N/A QS [facility] Stop: 02/04/19 15:59 Last Admin: 01/06/19 07:33 Dose: Not Given Documented by: Spironolactone (Aldactone) 12.5 mg PO DAILY [facility] Stop: 02/08/19 09:59 Last Admin: 01/13/19 08:02 Dose: 12.5 mg Documented by:
--- NOTE | 2019-01-13 18:06 | Hospitalist Progress Note ---
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 Return to the lab and underwent LAD PCI on 01/08/2019. Patient had improved significantly from a cardiac perspective with cautious diuresis, and was monitored in the ICU due to relative hypotension with systolic blood pressure in the 90s to 100 mmHg range earlier this hospital stay. Diuretics have been on hold since his 01/08/2019 intervention volume status has been relatively stable. Repeat echocardiogram performed yesterday 01/10/2019 reveals findings of scar noted at the basal segment of the inferior wall, with improved LV systolic function the remaining myocardial segments, and the qualitative ejection fraction has improved from 30% to 50% Continue aspirin, Plavix, Lipitor 80 mg daily, metoprolol succinate 75 mg daily. Continue spironolactone (2) Atrial fibrillation: Paroxysmal atrial fibrillation Noted while in the ICU Initially was on amiodarone drip, Transitioned to p.o. amiodarone Patient remains in sinus rhythm Holding off on anticoagulation at this time (3) Cardiomyopathy: Initial echo revealed EF of 30% Repeat echo showed improvement of EF management as above in description of NSTEMI management (4) Hematuria: -Hospital Course was complicated when patient had been on gardner catheter and then had hematuria while on antiplatelets and and heparin subcutaneous for DVT prophylaxis -required blood transfusion because of the hematuria -Urologist Dr. Patricia has resolved the clots with irrigation -no gardner at this time and patient is urinating (5) Acute blood loss anemia: Acute on chronic anemia a total of 4 PRBC has been given on this admission (2 units on 01/05/19, 1 unit on 01/10/19, 1 unit on 01/11/19) (6) Essential thrombocythemia: Hx essential thrombocythemia. -Follows with Dr Turner - heme/onc. Was taken off hydroxyurea on 12/15/18 secondary to worsening anemia. -on Anagrelide as outpatient; on this hospital stay Pharmacy services noted that Anagrelide with antiplatelets of ASA and Plavix may result in increased bleeding risk -as per discussions with Dr. Turner, hold anagrelide for now until follow-up with him as an outpatient (7) Hyperglycemia: Diagnosis of Type 2 diabetes mellitus -HbA1c 6.7 -Insulin sliding scale while inpatient and Blood glucose level generally within normal range -start on metformin 500 mg daily with plans of using this a discharge medication (8) Hypercholesteremia: -Continue statin DVT Prophylaxis SCDs Full Code Daughter [phone] Subjective Patient has been able to urinate without gardner. Today the supplementary nasal cannula was titrated off and patient currently on room air. will monitor patient if any hypoxia with sleep. no chest pain. no shortness of breath. no abdomen pain. no headache. no lightheadedness. Physical Exam Constitutional: WD/WN, vitals as above Eyes: PERRL, conjunctivae normal, anicteric sclerae EOM intact bilaterally ENMT: external ear and nose normal, oropharynx normal Neck: trachea midline, no thyromegaly Respiratory: normal respiratory effort, lungs clear to auscultation Cardiovascular: RRR, no murmur, no edema Gastrointestinal (Abdomen): normal bowel sounds, soft, nontender, no hepatosplenomegaly Musculoskeletal: Head/Neck/Chest: normocephalic and head atraumatic Neurologic: PERRL, EOMI, accommodation nl, no face palsy, no dysarthria CN's II-XI intact bilaterally Psychiatric: A+Ox3, euthymic affect Results & Data Vital Signs (Past 12 Hours) Vital Signs Temp Pulse Pulse Resp BP BP Pulse Ox 01/13/19 15:38 36.8 C 81 19 111/66 92 01/13/19 11:20 36.8 C 77 18 100/62 94 01/13/19 07:00 37.5 C 85 16 107/67 94
[2019-01-13] MEDS ORDERED: METFORMIN HCL 500 MG TAB PO STA (18:25)
[2019-01-13] MEDS: ATORVASTATIN 40 MG TAB PO SCH (20:51)
[2019-01-14] MEDS ORDERED: ACETAMINOPHEN 325 MG TAB PO PRN (03:53)
[2019-01-14] MEDS ORDERED: ALBUMIN 25% 50 ML IV ONE (03:55)
[2019-01-14 04:21] LABS: Mean Corpuscular Hgb Conc 34.5 g/dL (32-36); Platelet Count 190 K/uL (130-400)
[2019-01-14 04:39] LABS: BUN Creatinine Ratio 18.3 (10-20); Calcium 7.7 mg/dl (8.5-10.1); Creatinine Clr Calc Pharmacy 58.9 ml/min; Est GFR (African American) 83.2; Est GFR (Non-African American) 71.8; Magnesium 2.2 mg/dl (1.8-2.4); Potassium 4.2 mmol/L (3.5-5.1)
[2019-01-14 04:52] LABS: ALC (manual) 0.92 K/uL (1.2-3.4); Anisocytosis Present; Blast # (manual) 3.16 K/uL (0-0); Eosinophils # (manual) 0.16 K/uL (0-0.5); Eosinophils % (manual) 1.7 %; Lymphocytes # (manual) 0.92 K/uL (1.2-3.4); Lymphocytes % (manual) 9.6 %; Monocytes # (manual) 0.34 K/uL (0.11-0.59); Monocytes % (manual) 3.5 %; Myelocytes # (manual) 0.34 K/uL (0-0); Myelocytes % (manual) 3.5 %; Neutrophils % (manual) 48.7 %; Ovalocytes 1+
[2019-01-14 04:55] LABS: Hematocrit (blood only) 28.7 % (42-52); Hemoglobin 9.9 g/dL (14.0-18.0); Mean Corpuscular Volume 97.6 fL (80-100); RDW Coefficient of Variation 20.1 % (11.5-14.5); Red Blood Count 2.94 M/uL (4.7-6.1); White Blood Count 9.59 K/uL (4.8-10.8)
[2019-01-14] MEDS ORDERED: guaiFENesin 600 MG TABCR PO SCH (06:50)
--- NOTE | 2019-01-14 07:36 | XRay Report ---
XR chest 1V portable CLINICAL HISTORY: Cough. COMPARISON STUDY: Chest CT January 05, 2019. Chest radiograph January 09, 2019. FINDINGS: There is no pneumothorax. Small bilateral pleural effusions are noted with mild bibasilar o pacities. Pulmonary edema has slightly progressed. Cardiomediastinal silhouette is stable. IMPRESSION: 1. Slight progression of pulmonary edema. 2. Small bilateral pleural effusions with bibasilar opacities. Electronically signed by: Delano Stanley M.D. 01/14/2019 7:35 AM
[2019-01-14] MEDS: METOPROLOL SUCC 25MG EXT REL TAB PO SCH (09:12)
[2019-01-14] MEDS: SPIRONOLACTONE 25 MG TAB PO SCH (09:12)
[2019-01-14] MEDS: CLOPIDOGREL BISULFATE 75 MG TAB PO SCH (09:12)
[2019-01-14] MEDS: ASPIRIN 81 MG ECTAB PO SCH (09:13)
[2019-01-14] MEDS: INSULIN ASPART 100 UNITS/ML 3 ML PEN SC SCH (09:15)
[2019-01-14 09:34] LABS: Appearance Urine Clear (Clear); Bilirubin Urine Negative (Negative); Blood Urine Negative (Negative); Color Urine Yellow; Glucose Urine UA Negative (Negative); Ketones Urine Trace (Negative); Leukocyte Esterase Urine Negative (Negative); Nitrite Urine Negative (Negative); Protein Urine Negative (Negative); Specific Gravity Urine 1.019 (1.000-1.030); Urobilinogen Urine Negative (Negative)
--- NOTE | 2019-01-14 11:25 | Hospitalist Progress Note ---
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 Return to the lab and underwent LAD PCI on 01/08/2019. Patient had improved significantly from a cardiac perspective with cautious diuresis, and was monitored in the ICU due to relative hypotension with systolic blood pressure in the 90s to 100 mmHg range earlier this hospital stay. Diuretics have been on hold since his 01/08/2019 intervention volume status has been relatively stable. Repeat echocardiogram performed yesterday 01/10/2019 reveals findings of scar noted at the basal segment of the inferior wall, with improved LV systolic function the remaining myocardial segments, and the qualitative ejection fraction has improved from 30% to 50% Continue aspirin 81 mg, clopidogrel 75 mg daily, atorvastatin 40 mg daily, metoprolol succinate 75 mg daily, spirolactone 12.5 mg daily aspirin 81 mg, clopidogrel 75 mg daily, atorvastatin 40 mg daily, metoprolol succinate 75 mg daily, spirolactone 12.5 mg daily, electronically sent to [facility] [address] [place] [address] (2) Atrial fibrillation: Paroxysmal atrial fibrillation Noted while in the ICU Initially was on amiodarone drip, Transitioned to p.o. amiodarone Patient remains in sinus rhythm Holding off on anticoagulation at this time especially in context of hematuria during the hospital stay with acute blood loss anemia that required blood transfusions (3) Cardiomyopathy: Ischemic Cardiomyopathy Initial echo revealed EF of 30% Repeat echo showed improvement of EF management as above in description of NSTEMI management (4) Hematuria: -Hospital Course was complicated when patient had been on gardner catheter and then had hematuria while on antiplatelets and and heparin subcutaneous for DVT prophylaxis -required blood transfusion because of the hematuria -Urologist Dr. Patricia has resolved the clots with irrigation -no gardner at this time and patient is urinating (5) Acute blood loss anemia: Acute on chronic anemia a total of 4 PRBC has been given on this admission (2 units on 01/05/19, 1 unit on 01/10/19, 1 unit on 01/11/19) (6) Essential thrombocythemia: Hx essential thrombocythemia. -Follows with Dr Turner - heme/onc. Was taken off hydroxyurea on 12/15/18 secondary to worsening anemia. -on Anagrelide as outpatient; on this hospital stay Pharmacy services noted that Anagrelide with antiplatelets of ASA and Plavix may result in increased bleeding risk as per discussions with Dr. Turner, hold anagrelide for now until follow-up with him as an outpatient -Patient should also avoid aspirin 325 mg (7) Hyperglycemia: Type 2 diabetes without current buttermaker continuous churn use of insulin -HbA1c 6.7 -Insulin sliding scale while inpatient and Blood glucose level generally within normal range -started on metformin 500 mg daily during hospital stay -metformin 500 mg daily electronically sent to [facility] [address] [place] [phone] (8) Hypercholesteremia: -Continue atorvastatin 40 mg daily DVT Prophylaxis SCDs Full Code Daughter [phone] Discharge Diagnosis NSTEMI (non-ST elevated myocardial infarction); Paroxysmal atrial fibrillation, Ischemic Cardiomyopathy, Hematuria (resolved), acute blood loss anemia, Essential thrombocythemia, Type 2 diabetes without current buttermaker continuous churn use of insulin Discharge Instructions as per discussions with Dr. Turner, hold anagrelide for now until follow-up with him as an outpatient. Patient should also avoid aspirin 325 mg Patient has discharge medication of aspirin 81 mg, clopidogrel 75 mg daily, atorvastatin 40 mg daily, metoprolol succinate 75 mg daily, spirolactone 12.5 mg daily, metformin 500 mg daily electronically sent to [facility] [address] [place] [id number] Clinic follow ups 01/19/2019 10:50 AM Provider Og Specialty Refill Medication, [facility] Department [facility] 01/21/2019 11:00 AM Provider [facility]/2019 9:00 AM Provider Og Specialty Medication, [facility] Department [facility] 01/29/2019 10:00 AM Provider Zion Parrish DO Department Cardiology, [facility] 04/12/2019 7:45 AM Provider Shawn Turner MD Department Hematology/Oncology [facility] (an earlier appointment with Dr. Turner also was requested through [facility] appointment phone system) Subjective patient had mildly elevated temperature of 100F over night. normal urine analysis. patient denies fever symptoms. no chest pain. continues to be breathing on room air. no problems with using the bathroom. no headache. no dizzinesss Physical Exam Constitutional: WD/WN, vitals as above Eyes: PERRL, conjunctivae normal, anicteric sclerae EOM intact bilaterally ENMT: external ear and nose normal, oropharynx normal Neck: trachea midline, no thyromegaly Respiratory: normal respiratory effort, lungs clear to auscultation Cardiovascular: RRR, no murmur, no edema Gastrointestinal (Abdomen): normal bowel sounds, soft, nontender, no hepatosplenomegaly Musculoskeletal: Head/Neck/Chest: normocephalic and head atraumatic Neurologic: PERRL, EOMI, accommodation nl, no face palsy, no dysarthria CN's II-XI intact bilaterally Psychiatric: A+Ox3, euthymic affect Results & Data Vital Signs (Past 12 Hours) Vital Signs Temp Pulse Resp BP BP Pulse Ox 01/14/19 11:06 36.7 C 92 H 18 99/62 L 94 01/14/19 07:09 37 C 93 H 16 104/65 96 01/14/19 03:28 37.8 C H 97 H 18 99/61 L 96 01/14/19 00:20 37.7 C H 70 16 101/59 L 90
--- NOTE | 2019-01-14 11:31 | Discharge Summary ---
Date of Service January 14, 2019 Admission HPI Per Admitting Provider Pt is 78 y/o M with PMH of essential thrombocythemia, dyslipidemia, prostate CA S/P radiation implant, squamous cell CA skin presented to ER with c/o generalized myalgias and exertional shortness of breath starting yesterday. Patient states yesterday he started not feeling well with malaise, generalized myalgias and having shortness of breath with exertion, walking through the house. Patient denies any known fever but felt chilled yesterday. Denies any dizziness, palpitations, chest pain, cough, headache, nausea, vomiting. Patient states did not have appetite and did not eat anything yet today. Reports he did take his morning medications. Denies diaphoresis, diarrhea, constipation, melena, hematochezia, syncope, vision changes, neck pain, sore throat, choking, otalgia, rhinorrhea, abdominal pain, paresthesias, extremity edema, rashes, urinary symptoms. Saw Dr. Turner with heme/oncology 01/04/2019. Patient has been off hydroxyurea since 12/15/2018 secondary to worsening anemia thought secondary to bone suppression from hydroxyurea. Had repeat labs on 01/04/19: WBC: 4. H&H of 8.5/24.5, Plt: 301, Serum iron: 74, TIBC: 234, iron saturation 32%. Vitamin B12: 315. Ferritin level:486. Plan was to start Procrit if continued anemia. Admission Exam Per Admitting Provider General: ill appearing, mild distress, WDWN Head: normocephalic, atraumatic Eyes: PERRL, EOM's intact, conjunctiva pale, anicteric ENT: normal inspection external ears, nose, mucous membranes moist Neck: supple, trachea midline Lungs: RR: 28, no retractions, +rales bases bilaterally CV: tachycardia, no murmur, no pretibial edema Abd: normal BS, soft, non-tender Ext: no cyanosis, no calf tenderness Neuro: A&O x 3, no focal deficits noted, normal affect Skin: warm, dry, pale Principal Diagnosis NSTEMI (non-ST elevated myocardial infarction); Paroxysmal atrial fibrillation, Ischemic Cardiomyopathy, Hematuria (resolved), acute blood loss anemia, Essential thrombocythemia, Type 2 diabetes without current oysterman use of insulin Discharge Exam Constitutional WD/WN, vitals as above Eyes PERRL, conjunctivae normal, anicteric sclerae EOM intact bilaterally ENMT external ear and nose normal, oropharynx normal Neck trachea midline, no thyromegaly Respiratory normal respiratory effort, lungs clear to auscultation Cardiovascular RRR, no murmur, no edema Gastrointestinal (Abdomen) normal bowel sounds, soft, nontender, no hepatosplenomegaly Musculoskeletal Head/Neck/Chest: normocephalic and head atraumatic Neurologic PERRL, EOMI, accommodation nl, no face palsy, no dysarthria CN's II-XI intact bilaterally Psychiatric A+Ox3, euthymic affect Discharge Data Allergies Allergy/AdvReac Type Severity Reaction Status Date / Time No Known Allergies Allergy Verified 01/05/19 09:33 Consultations 01/05/19 11:13 ED Decision to Admit Stat 01/05/19 11:51 Consult Cardiac Catheterization Stat 01/05/19 14:13 Consult Case Management - Discharge Planning Routine Consult Three Knife Trimmer Routine 01/05/19 17:04 Consult Cardiology Routine 01/10/19 11:55 Consult Urology Routine Procedures Performed Operation Date: 01/05/19 12:00 Actual Procedures p Cath, Left with Cors and Vent - Gopi Jaramillo MD s Cineradiography w/Routine Exam - Gopi Jaramillo MD p Drug Eluting Stent SGl Vessel - Gopi Jaramillo MD Operation Date: 01/08/19 11:00 Actual Procedures p Drug Eluting Stent SGl Vessel - Gopi Jaramillo MD s Cineradiography w/Routine Exam - Gopi Jaramillo MD Operation Date: 01/11/19 07:00 <No data on this case meets the specified criteria> Ordered Studies 01/05/19 09:50 CT angio chest PE protocol Stat 01/05/19 11:57 CL Cath Imgs for PACS use only Stat 01/08/19 08:11 CL Cath Imgs for PACS use only Urgent Hospital Course (1) NSTEMI (non-ST elevated myocardial infarction): Patient presented with respiratory distress, cardiogenic shock picture with volume overload, newly diagnosed left ventricular systolic dysfunction, non-ST segment myocardial infarction, 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 Return to the lab and underwent LAD PCI on 01/08/2019. Patient had improved significantly from a cardiac perspective with cautious diuresis, and was monitored in the ICU due to relative hypotension with systolic blood pressure in the 90s to 100 mmHg range earlier this hospital stay. Diuretics have been on hold since his 01/08/2019 intervention volume status has been relatively stable. Repeat echocardiogram performed yesterday 01/10/2019 reveals findings of scar noted at the basal segment of the inferior wall, with improved LV systolic function the remaining myocardial segments, and the qualitative ejection fraction has improved from 30% to 50% Continue aspirin 81 mg, clopidogrel 75 mg daily, atorvastatin 40 mg daily, metoprolol succinate 75 mg daily, spirolactone 12.5 mg daily aspirin 81 mg, clopidogrel 75 mg daily, atorvastatin 40 mg daily, metoprolol succinate 75 mg daily, spirolactone 12.5 mg daily, electronically sent to [facility] [address] [place] [address] (2) Atrial fibrillation: Paroxysmal atrial fibrillation Noted while in the ICU Initially was on amiodarone drip, Transitioned to p.o. amiodarone Patient remains in sinus rhythm Holding off on anticoagulation at this time especially in context of hematuria during the hospital stay with acute blood loss anemia that required blood transfusions (3) Cardiomyopathy: Ischemic Cardiomyopathy Initial echo revealed EF of 30% Repeat echo showed improvement of EF management as above in description of NSTEMI management (4) Hematuria: -Hospital Course was complicated when patient had been on gardner catheter and then had hematuria while on antiplatelets and and heparin subcutaneous for DVT prophylaxis -required blood transfusion because of the hematuria -Urologist Dr. Patricia has resolved the clots with irrigation -no gardner at this time and patient is urinating (5) Acute blood loss anemia: Acute on chronic anemia a total of 4 PRBC has been given on this admission (2 units on 01/05/19, 1 unit on 01/10/19, 1 unit on 01/11/19) (6) Essential thrombocythemia: Hx essential thrombocythemia. -Follows with Dr Turner - heme/onc. Was taken off hydroxyurea on 12/15/18 secondary to worsening anemia. -on Anagrelide as outpatient; on this hospital stay Pharmacy services noted that Anagrelide with antiplatelets of ASA and Plavix may result in increased bleeding risk as per discussions with Dr. Turner, hold anagrelide for now until follow-up with him as an outpatient -Patient should also avoid aspirin 325 mg (7) Hyperglycemia: Type 2 diabetes without current half-way use of insulin -HbA1c 6.7 -Insulin sliding scale while inpatient and Blood glucose level generally within normal range -started on metformin 500 mg daily during hospital stay -metformin 500 mg daily electronically sent to [facility] [address] [place] [phone] (8) Hypercholesteremia: -Continue atorvastatin 40 mg daily DVT Prophylaxis SCDs Full Code Daughter [phone] Discharge Diagnosis NSTEMI (non-ST elevated myocardial infarction); Paroxysmal atrial fibrillation, Ischemic Cardiomyopathy, Hematuria (resolved), acute blood loss anemia, Essential thrombocythemia, Type 2 diabetes without current oysterman use of insulin Discharge Instructions as per discussions with Dr. Turner, hold anagrelide for now until follow-up with him as an outpatient. Patient should also avoid aspirin 325 mg Patient has discharge medication of aspirin 81 mg, clopidogrel 75 mg daily, atorvastatin 40 mg daily, metoprolol succinate 75 mg daily, spirolactone 12.5 mg daily, metformin 500 mg daily electronically sent to [facility] [address] [place] [phone] Clinic follow ups 01/19/2019 10:50 AM Provider Og Specialty Refill Medication, LTAC, located [facility] Department [facility] 01/21/2019 11:00 AM Provider Guru Elizalde MD Department [facility] 01/29/2019 9:00 AM Provider Og Specialty Medication, LTAC[facility] Department [facility] 01/29/2019 10:00 AM Provider Zion Parrish DO Department Cardiology, [facility] 04/12/2019 7:45 AM Provider Shawn Turner MD Department Hematology/Oncology [facility] (an earlier appointment with Dr. Turner also was requested through [facility] appointment phone system) Total Time Total Time Spent Total Time Spent (In Minutes): 40 minutes Total Time Includes: Examination of the Patient, Discharge Planning, Medication Reconciliation and Communication With Other Providers Discharge Plan Discharge Items Patient Disposition: Home - Home Health Services Reason For Visit: ELEVATED TROPONIN Discharge Diagnosis: NSTEMI (non-ST elevated myocardial infarction); Paroxysmal atrial fibrillation, Ischemic Cardiomyopathy, Hematuria (resolved), acute blood loss anemia, Essential thrombocythemia, Type 2 diabetes without current half-way use of insulin Condition: Fair Discharge Goals: Improve disease control Activity: Per 'Additional Instructions' section Non-emergency contact: Primary Care Provider and Oncologist Follow-up/Referrals: Guru Elizalde MD [Primary Care Provider] - Diet: Carb Consistent or DM2 and Heart Healthy Addtl Provider Instructions: "Patient presented with respiratory distress, cardiogenic shock picture with volume overload, newly diagnosed left ventricular systolic dysfunction, non-ST segment myocardial infarction, 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 Return to the lab and underwent LAD PCI on 01/08/2019." Discharge Instructions as per discussions with Dr. Turner, hold anagrelide for now until follow-up with him as an outpatient. Patient should also avoid aspirin 325 mg Patient has discharge medication of aspirin 81 mg, clopidogrel 75 mg daily, atorvastatin 40 mg daily, metoprolol succinate 75 mg daily, spirolactone 12.5 mg daily, metformin 500 [place] [address] Clinic follow ups 01/19/2019 10:50 AM Provider [facility] Specialty Refill Medication, LTAC[facility] Department [facility] 01/21/2019 11:00 AM Provider Guru Elizalde MD Department [facility] 01/29/2019 9:00 AM Provider Mtm Specialty Medication, LTAC[facility] Department [facility] 01/29/2019 10:00 AM Provider Zion Parrish DO Department Cardiology, [facility] 04/12/2019 7:45 AM Provider Shawn Turner MD Department Hematology/Oncology [facility] (an earlier appointment with Dr. Turner also was requested through [facility] appointment phone system) Prescriptions: New atorvastatin 40 mg Tablet 40 mg PO HS 30 Days Qty: 30 RF: 0 metformin [Glucophage] 500 mg Tablet 500 mg PO QDD 30 Days Qty: 30 RF: 0 clopidogrel 75 mg Tablet 75 mg PO QAM 30 Days Qty: 30 RF: 0 aspirin [Ecotrin Low Strength] 81 mg Tablet,Delayed Release (Dr/Ec) 81 mg PO QAM 30 Days Qty: 30 RF: 0 spironolactone 25 mg Tablet 12.5 mg PO DAILY 30 Days Qty: 15 RF: 0 metoprolol succinate 25 mg Tablet Extended Release 24 Hr 75 mg PO QAM 30 Days Qty: 90 RF: 0 Continued multivitamin Tablet 1 tab PO DAILY RF: 0 Discontinued atorvastatin [Lipitor] 40 mg tablet 40 mg PO PM RF: 0 aspirin 325 mg Tablet,Delayed Release (Dr/Ec) 325 mg PO DAILY RF: 0 acetaminophen [Arthritis Pain Reliever] 650 mg Tablet Extended Release 1,300 mg PO Q8H PRN (Reason: Pain) RF: 0 anagrelide 0.5 mg Capsule 0.5 mg PO Q12H RF: 0 Stand-Alone Forms: [facility]Other Patient Handouts: Diabetes Meal Planning Discharge Orders: Discharge Order (Routine); Ordered 01/14/19 Ordered By: George Fernandez Admission Data Admit Date/Time: 01/05/19 13:26 Attending Provider: George Fernandez Admit Provider: Ileana Galdamez Primary Care Provider: Guru Elizalde Other Providers: Eufemia Alexander ; Ileana Galdamez ; Gopi Jaramillo ; Eric Hernandez ; Benedict Galindo ; Michelle Patricia Service: Telemetry
[2019-01-14] MEDS ORDERED: METFORMIN HCL 500 MG TAB PO SCH (16:30)
== END 2019-01-14 12:51 | disposition home health service (06) | DRG 246 ==
LOC: ED 08:22 → CC 12:11 → 1E 13:26 → SUATTDRO 13:26 → 2S 01-09 18:43
DX: R31.9 Hematuria, unspecified; D47.3 Essential (hemorrhagic) thrombocythemia; J96.01 Acute respiratory failure with hypoxia; E78.5 Hyperlipidemia, unspecified; I21.4 Non-ST elevation (NSTEMI) myocardial infarction; I50.21 Acute systolic (congestive) heart failure; Z79.82 Long term (current) use of aspirin; I25.5 Ischemic cardiomyopathy; I48.0 Paroxysmal atrial fibrillation; Z87.891 Personal history of nicotine dependence; Z82.49 Family history of ischemic heart disease and other diseases of the circulatory system; E11.9 Type 2 diabetes mellitus without complications; R57.0 Cardiogenic shock; D62 Acute posthemorrhagic anemia; I25.10 Atherosclerotic heart disease of native coronary artery without angina pectoris; Z92.3 Personal history of irradiation

== ENCOUNTER 2019-01-17 09:17 | Inpatient (IN) ==
--- OUTSIDE RECORDS SUMMARY | 2019-01-17 09:19 | External Medical Summary | Continuity of Care Document ---
:1940 Author Name [place] Palacios Address Unavailable Unavailable , Care Team Providers Name Role Phone Clint Palacios Unavailable [email or web address] Stephanie CONROY Unavailable Unavailable Problems Active medical history not documented Allergies and Adverse Reactions Allergy history not documented Medications Medications not documented Procedures Procedures not documented Immunizations Immunizations not documented Plan of Treatment Planned Observations Planned Goals not documented Results No Known Results Results not documented
[2019-01-17] MEDS ORDERED: VANCOMYCIN HCL 1,600 MG in SODIUM CHLORIDE 0.9% 500 ML IV ONE (09:47)
[2019-01-17] MEDS ORDERED: VANCOMYCIN CONSULT ACTIVE PRN (09:47)
[2019-01-17] MEDS ORDERED: PIPERACILLIN/TAZOBACTAM 4.5 GM/120 ML BAG IV ONE (09:47)
[2019-01-17] MEDS ORDERED: PIPERACILL/TAZOBAC CONSULT ACTIVE PRN (09:47)
--- NOTE | 2019-01-17 09:54 | XRay Report ---
SINGLE VIEW CHEST CLINICAL HISTORY: Fever. Dyspnea. FINDINGS: An AP, portable, upright chest radiograph is compared to study dated 01/14/2019 and correlat ed with chest CT dated 01/05/2019. The examination is degraded by portable technique and patient rotati on. The heart is enlarged and there is atherosclerotic calcification of the thoracic aorta. There is pulmonary vascular congestion and interstitial edema. There are small pleural effusions with bibasil ar consolidation. No pneumothorax is seen. The skeletal structures are osteopenic. The bony thorax is grossly intact. IMPRESSION: 1. Cardiomegaly with evidence of congestive failure and interstitial edema. 2. There are small pleural effusions with bibasilar consolidation. This could represent atelectasis a nd/or pneumonia. Clinical correlation will be required. Electronically signed by: Bryson Curry M.D. 01/17/2019 9:52 AM
[2019-01-17 09:59] LABS: Mean Corpuscular Hgb Conc 33.8 g/dL (32-36); Mean Platelet Volume 10.5 fL (7.4-10.4); Nucleated RBC # (auto) 0.05 K/uL (0-0); Nucleated RBC % (auto) 0.4 %; Platelet Count 166 K/uL (130-400)
[2019-01-17 10:15] LABS: Albumin Level 2.6 gm/dl (3.4-5.0); Calcium 8.5 mg/dl (8.5-10.1); Creatinine Clr Calc Pharmacy 49.1 ml/min; Est GFR (African American) 66.7; Est GFR (Non-African American) 57.6; Potassium 4.2 mmol/L (3.5-5.1)
[2019-01-17] MEDS ORDERED: VANCOMYCIN HCL 1,750 MG in SODIUM CHLORIDE 0.9% 500 ML IV ONE (10:15)
[2019-01-17] MEDS ORDERED: FUROSEMIDE 40 MG/4 ML VIAL IV STA (10:21)
[2019-01-17 10:23] LABS: Albumin Globulin Ratio 0.6 (0.9-2); Bilirubin,Total 1.3 mg/dl (0.2-1); Total Protein 6.6 gm/dl (6.4-8.2); Troponin I 0.181 ng/ml (0-0.045)
[2019-01-17 10:24] LABS: Hematocrit (blood only) 27.8 % (42-52); Hemoglobin 9.4 g/dL (14.0-18.0); Mean Corpuscular Volume 98.9 fL (80-100); RDW Coefficient of Variation 19.6 % (11.5-14.5); RDW Standard Deviation 69.9 fL (36.4-46.3); Red Blood Count 2.81 M/uL (4.7-6.1); White Blood Count 12.73 K/uL (4.8-10.8)
[2019-01-17 10:26] LABS: ALC (manual) 6.25 K/uL (1.2-3.4); Lymphocytes % (manual) 18.1 %; Metamyelocytes # (manual) 0.11 K/uL (0-0); Metamyelocytes % (manual) 0.9 %; Monocytes # (manual) 0.66 K/uL (0.11-0.59); Monocytes % (manual) 5.2 %; Myelocytes # (manual) 0.11 K/uL (0-0); Myelocytes % (manual) 0.9 %; Neutrophils % (manual) 43.9 %; RBC Morphology Unremarkable
--- NOTE | 2019-01-17 11:05 | Ultrasound Report ---
ULTRASOUND RIGHT UPPER EXTREMITY VENOUS CLINICAL HISTORY: Right arm swelling. COMPARISON STUDY: No prior. TECHNIQUE: Real-time, grayscale, and color Doppler sonography of the deep veins of the right upper ex tremity is performed. Compression and augmentation were utilized. FINDINGS: There is no sonographic evidence of deep venous thrombosis identified in the right upper ex tremity. The right internal jugular, axillary, and brachial veins are patent and normally compressibl e. Normal venous waveforms and augmentation are seen within the right subclavian vein. The basilic ve in is clear. There is a long segment of occlusive superficial venous thrombus identified within the c ephalic vein extending from the antecubital fossa to the mid upper arm. This measures over 5 cm in le ngth. The visualized radial and ulnar veins are patent. IMPRESSION: 1. There is no sonographic evidence of deep venous thrombosis identified in the right upper extremity . 2. There is a long segment of occlusive superficial venous thrombus identified within the cephalic ve in as above. Electronically signed by: Bryson Curry M.D. 01/17/2019 11:03 AM
[2019-01-17 11:30] LABS: Appearance Urine Cloudy (Clear); Bacteria Urine Automated Negative (Negative); Bilirubin Urine Negative (Negative); Blood Urine Negative (Negative); Color Urine Dark Yellow; Epithelial Cell Urine Auto 20-30 /lpf (0-5); Glucose Urine UA Negative (Negative); Ketones Urine Trace (Negative); Leukocyte Esterase Urine Trace (Negative); Nitrite Urine Negative (Negative); Protein Urine 1+ (Negative); RBC Urine Automated 0-4 /hpf (0-4); Specific Gravity Urine 1.028 (1.000-1.030); Urobilinogen Urine Negative (Negative)
[2019-01-17] MEDS ORDERED: OPTIRAY 320 125ml IV PRN (12:11)
--- NOTE | 2019-01-17 12:38 | History & Physical Report ---
Date of Service January 17, 2019 Assessment & Plan (1) Sepsis: (2) Hospital acquired PNA: This is a 78-year-old male who has a significant PMH of recently diagnosed an NSTEMI with multivessel CAD status post PCI, newly diagnosed AML, anemia, essential thrombocytosis, HLD, history of prostate cancer s/p brachytherapy who presents to [facility] ED secondary to fever x1 day. Of significance patient was recently hospitalized at [facility] on 01/05 to 01/14/2019. He presented to ED with an NSTEMI and cardiogenic shock with a new left ventricular systolic dysfunction. He underwent cardiac cath which revealed multivessel coronary artery disease and intervention to the RCA. He required return to cath on 01/08 and underwent PCI to LAD. With placement of stents patient's EF did return to 50%, but had basal segmental inferior wall akinesis. He was continued on regimen of aspirin, Plavix, statin, metoprolol, Aldactone. He also required IV diuresis with Lasix but this was discontinued at discharge secondary to hypotension. He hospital course was further complicated by PAF treated with IV amiodarone and transition to p.o. amiodarone. He had hematuria secondary to Qiu causing a acute blood loss anemia requiring patient to have PRBC x4. Incidentally patient CBC with differential and peripheral smear revealed new diagnosis of AML. Patient overall clinically improved and was discharged on 01/14/19. In ED patient was placed on 2 L supplement oxygen to maintain oxygenation. He has been afebrile but HR 93 and tachypneic 29. Lab findings consistent with leukocytosis 12.73, H&H 9.4 27.8, platelet 166. Differential significant for lymphocytosis and myelocytes. BMP revealed sodium 132, BUN 18, creatinine 1.20, glucose 135, lactic acid 1.77. He did have transaminitis AST 108, ALT 147, T bili 1.3. His troponin was 0.181, on prior presentation on 01/05 was 28. His procalcitonin was WNL. Chest x-ray concerning for pulmonary vascular congestion as well as concern for bibasilar consolidation - pneumonia versus atelectasis. Venous Doppler of right upper extremity revealed SVT of cephalic vein. Patient met sepsis criteria on admission with leukocytosis, tachycardia, documented source of infection pneumonia Blood cultures obtained Patient received IV vancomycin and Zosyn Lactic acid was 1.7 He did not receive IV fluid resuscitation secondary to also evidence of congestive heart failure Admit to PCU Continue broad-spectrum antibiotics with cefepime, obtain MRSA swab if negative will not continue Vanco Blood cultures pending Hold on any IV fluid given evidence of CHF Pulmonary toilet with DuoNeb 4 times daily, flutter valve, incentive spirometry Supplemental oxygen as needed Follow clinical course, low threshold to consult pulmonary if no improvement (3) CHF (congestive heart failure): Patient is status post N STEMI s/p JERSON to RCA and LAD Initial systolic EF 30% with improvement to 50% post stenting Patient does not appear significantly/grossly volume overload but evidence of CH F on imaging Received 20mg IV Lasix in ED, give additional 40mg IV this afternoon Continue metoprolol, Aldactone -defer Lasix dosing to cardiology-appreciate their input Daily weights Strict I's and O's (4) CAD (coronary artery disease): No chest pain Troponin 0.181, which is trended down from prior admission Cycle troponin x2 Cardiology consult Continue ASA, Plavix, statin, BB (5) Acute thrombosis of superficial veins of right upper extremity: Conservative management at this time Ice and elevation of extremity Patient is on aspirin (6) Elevated transaminase level: Had been elevated during prior hospitalization, amiodarone discontinued Patient continues on high intensity statin therapy given CAD Obtain RUQ ultrasound Monitor LFT Patient does not have any abdominal or GI symptoms (7) Atrial fibrillation: Patient in normal sinus rhythm Continue metoprolol, amiodarone discontinued secondary to elevated transaminitis (8) Anemia: H/H stable at 9.4 and 27.8 No signs or symptoms of bleeding Monitor CBC closely (9) T2DM (type 2 diabetes mellitus): A1c 6.7, most recent admission Metformin initiated-will hold inpatient Accu-Cheks and NovoLog sliding scale per protocol Would recommend liberal control given comorbidities (10) Hypercholesteremia: Continue statin (11) Myeloblastic leukemia: Recent diagnosis Patient with peripheral smear and flow cytometry on 01/05 which showed increased circulating blasts 15% 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 Patient did have bone marrow biopsy on 07/2018 which did reveal myeloproliferative neoplasm but no excess blasts. He recently saw Dr. Turner on 01/15 and felt his overall disease not bad enough to handle any kind of systemic chemo. Overall prognosis remains poor. Follow CBC, low threshold to consult oncology. (12) DVT prophylaxis: SCDS/TEDS for now He is high risk for VTE but also high risk for bleed. He was on heparin last admission and discontinued due to hematuria and requiring transfusion assess on daily basis need for chemical prophylaxis Disposition: Admit to PCU, case management consulted discharge disposition to be determined Follow-up: PCP Dr. Guru Elizalde upon discharge as well as Dr. Turner Heme/Onc Patient was seen and examined in collaboration with Dr. Fernandez, please see addendum 110 minutes was spent with patient and family reviewing past medical records, current medical records and history, obtaining a detailed history and physical and reviewing overall assessment and plan History of Present Illness Chief Complaint: Fever x1 day. Primary Care Provider: Guru Elizalde MD This is a 78-year-old male who has a significant PMH of recently diagnosed an NSTEMI with multivessel CAD status post PCI, newly diagnosed AML, anemia, essential thrombocytosis, HLD, history of prostate cancer s/p brachytherapy who presents to [facility] ED secondary to fever x1 day. Daughter is at bedside. Of significance patient was recently hospitalized at [facility] on 01/05 to 01/14/2019. He presented to ED with an NSTEMI and cardiogenic shock with a new left ventricular systolic dysfunction. He underwent cardiac cath which revealed multivessel coronary artery disease and intervention to the RCA. He required return to cath on 01/08 and underwent PCI to LAD. With placement of stents patient's EF did return to 50%, but had basal segmental inferior wall akinesis. He was continued on regimen of aspirin, Plavix, statin, metoprolol, Aldactone. He also required IV diuresis with Lasix but this was discontinued at discharge secondary to hypotension. He hospital course was further complicated by PAF treated with IV amiodarone and transition to p.o. amiodarone. He had hematuria secondary to Qiu causing a acute blood loss anemia requiring patient to have PRBC x4. Incidentally patient CBC with differential and peripheral smear revealed new diagnosis of AML. Patient overall clinically improved and was discharged on 01/14/19. He had been doing fairly well at home until last evening when his temp was 99.7 and 102.1 today. For the past 3 days he has noted a productive purulent cough, increasing shortness of breath with rest and at exertion, chills, sweats. He further complains of orthopnea, waking up in the middle of night secondary to cough, poor sleep, weakness, decreased appetite. He complains of right arm pain, warmth and swelling. He states this is where he had an IV site. He has been weighing himself on a daily basis and has remained at about 170lb. He does complain of some pedal edema which is stable since discharge. He denies any lightheadedness, dizziness, syncope, chest pain, palpitations, hemoptysis, nausea, vomiting, abdominal pain, diarrhea, dysuria, hematuria, increased urgency with urination. He has not had a bowel movement since discharge. He has had some increased urinary frequency. Daughter at bedside states that he continues to be weak but she has had him up and walking. Prior to most recent hospitalization patient was very active mowing 10 yards a week. In ED patient was placed on 2 L supplement oxygen to maintain oxygenation. He has been afebrile but HR 93 and tachypneic 29. Lab findings consistent with leukocytosis 12.73, H&H 9.4 27.8, platelet 166. Differential significant for lymphocytosis and myelocytes. BMP revealed sodium 132, BUN 18, creatinine 1.20, glucose 135, lactic acid 1.77. He did have transaminitis AST 108, ALT 147, T bili 1.3. His troponin was 0.181, on prior presentation on 01/05 was 28. His procalcitonin was WNL. Chest x-ray concerning for pulmonary vascular congestion as well as concern for bibasilar consolidation - pneumonia versus atelectasis. Venous Doppler of right upper extremity revealed SVT of cephalic vein. Allergies Allergy/AdvReac Type Severity Reaction Status Date / Time No Known Allergies Allergy Verified 01/17/19 09:57 Home Medications Home Medications Medication Instructions Recorded Confirmed Type multivitamin 1 tab PO DAILY 07/08/18 01/17/19 History aspirin [Ecotrin Low Strength] 81 mg PO QAM 30 Days #30 tab 01/14/19 01/17/19 Rx atorvastatin 40 mg PO HS 30 Days #30 tab 01/14/19 01/17/19 Rx clopidogrel 75 mg PO QAM 30 Days #30 tab 01/14/19 01/17/19 Rx metformin [Glucophage] 500 mg PO QDD 30 Days #30 tab 01/14/19 01/17/19 Rx metoprolol succinate 75 mg PO QAM 30 Days #90 tab 01/14/19 01/17/19 Rx spironolactone 12.5 mg PO DAILY 30 Days #15 tab 01/14/19 01/17/19 Rx Past Med/Surg History Medical History Elevated transaminase level Ischemic cardiomyopathy Hematuria Atrial fibrillation was on amiodarone but discontinued due to increase LFTs CAD (coronary artery disease) Cardiogenic shock Pulmonary edema NSTEMI (non-ST elevated myocardial infarction) (Acute) Anemia (Chronic) s/p 1 unit PRBC this am 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 (Chronic) Hypercholesteremia (Chronic) Prostate cancer (Chronic) Elevated troponin I level Surgical History Status post percutaneous transluminal coronary angioplasty History of appendectomy (Chronic) S/P TURP S/P cardiac catheterization 01/06 and 01/08/with JERSON to LAD and RCA Family History Brother Heart disease Stroke Social History Preferred Language: Icelandic Communication Ability: Effective Beliefs That Will Affect Care: None Current Living Situation: Family Other Information That Helps Us Care for You: No Feels Safe at Home: Yes Safety Concerns: Feels Safe At This Time Smoking Status: Never smoker Tobacco Type: cigars Second Hand Exposure: No Hx Alcohol Use: No Hx Substance Use: No Review of Systems Review of Systems: As noted per HPI, 10 systems reviewed and negative unless noted above. Physical Exam Physical Exam: Gen: Tall ill-appearing elderly male, appears stated age, WD/WN, NAD but mildly tachypneic on O2 via NC, sitting up in bed, pleasant, conversing easily Head: Normocephalic, Atraumatic Eyes: Sclera normal, no conjunctival injection, PERRLA, EOMI ENT: Gross hearing intact, normal pharynx, mucous membranes moist Neck: supple, no adenopathy, mild JVD, no bruit, Resp: Clear to auscultation with bibasilar crackles, no wheezes or rhonchi. Increased insp/exp effort, no accessory muscle use, on 2 L of supple oxygen CV: Regular rate, regular rhythm, 2/6 MATT noted RUSB, no rub, gallop, or ectopy Abd: +BS x 4, soft, nontender, nondistended Musculoskeletal: moves extremities active rom x 4, strength intact, good chief controller center strength Extremities: No edema bilaterally Skin: warm, hyperpigmented, moist, no rash, negative turgor, cap refill < 2sec Neuro: Alert and oriented x 3, speech normal, good mood/affect, cran nerve 2-12 intact grossly : deferred Results & Data Vital Signs (Past 12 Hours) Vital Signs Temp Pulse Pulse Resp BP BP Pulse Ox 01/17/19 12:00 93 H 29 H 111/60 91 01/17/19 11:30 93 H 28 H 109/65 91 01/17/19 11:20 93 H 30 H 110/63 91 01/17/19 11:17 92 H 28 H 110/63 92 01/17/19 10:00 96 H 26 H 100/56 L 92 01/17/19 09:47 93 01/17/19 09:46 90 01/17/19 09:45 100 H 30 H 108/68 94 01/17/19 09:19 37.3 C 102 H 20 109/68 91 Laboratory Results Short CBC 01/17/19 Range/Units 09:43 WBC 12.73 H (4.8-10.8) K/uL Hgb 9.4 L (14.0-18.0) g/dL Hct 27.8 L (42-52) % Plt Count 166 (130-400) K/uL BMP 01/17/19 09:43 Sodium 132 L Potassium 4.2 Chloride 99 Carbon Dioxide 25 BUN 18 Creatinine 1.20 Glucose 135 H Calcium 8.5 Cardiac Enzymes 01/17/19 Range/Units 09:43 Troponin I 0.181 H* (0-0.045) ng/ml Liver Function 01/17/19 Range/Units 09:43 Total Bilirubin 1.3 H (0.2-1) mg/dl AST 108 H (15-37) U/L ALT 147 H (12-78) U/L Alkaline Phosphatase 72 (45-117) U/L Albumin 2.6 L (3.4-5.0) gm/dl Urine 01/17/19 Range/Units 11:20 Urine Color Dark Yellow Urine Appearance Cloudy A (Clear) Urine pH 5.0 (4.5-7.5) Ur Specific Holliday 1.028 (1.000-1.030) Urine Protein 1+ H (Negative) Urine Glucose (UA) Negative (Negative) Diagnostic Findings Venous Doppler IMPRESSION: 1. There is no sonographic evidence of deep venous thrombosis identified in the right upper extremity. 2. There is a long segment of occlusive superficial venous thrombus identified within the cephalic vein as above. CXR: IMPRESSION: 1. Cardiomegaly with evidence of congestive failure and interstitial edema. 2. There are small pleural effusions with bibasilar consolidation. This could represent atelectasis and/or pneumonia. Clinical correlation will be required. Medications Administered Ioversol (Optiray 320 125ml) 120 ml IV ONCE PRN PRN Reason: Interaction Checking Stop: 01/21/19 12:10 Last Admin: 01/17/19 12:12 Dose: 120 ml Documented by: [id number] Discontinued Medications Furosemide (Lasix) 20 mg IV NOW STA Stop: 01/17/19 10:22 Last Admin: 01/17/19 11:15 Dose: 20 mg Documented by: [id number] Vancomycin HCl 1,600 mg/ (Sodium Chloride) 532 mls @ 200 mls/hr IV NOW ONE; Protocol Stop: 01/17/19 12:26 Last Admin: 01/17/19 11:15 Dose: 200 mls/hr Documented by: [id number] Piperacillin Sod/Tazobactam Sod (Zosyn) 4.5 gm in 120 mls @ 240 mls/hr IV NOW ONE Stop: 01/17/19 10:16 Last Infusion: 01/17/19 10:23 Dose: 0 mls/hr Documented by: [id number] Admin: 01/17/19 09:53 Dose: 240 mls/hr Documented by: [id number] ECG Rate (beats per minute): 105 Rhythm: sinus tachycardia Code Status & VTE Plan Code Status Full Code VTE Prophylaxis Plan VTE Prophylaxis will be ordered: Yes Supervising Physician Co-Signing Physician Notes I have seen and examined the patient with physician activity assistant and agree with the assessment and plan as above and would like to comment with following changes that patient's main respiratory of lung infiltrates may be hospital acquired pneumonia combined with acute systolic congestive heart failure as a result of recent hospitalization with NSTEMI and stents for which he was discharged recently . Patient has other other comorbidities as documented by physician activity assistant. At this time the main focus on admission day is that of the lung infiltrates and patient received IV vancomycin and Zosyn in the ED. MRSA swab is negative and no need for vancomycin and also Zosyn has salt content which may not be beneficial in this patient with cardiac health problems. Lasix 20 mg IV x 1 given in the ED and based on currently blood pressures will give additional Lasix 20 mg IV instead of higher dose. Patient also known to have bleeding from last hospitalization and while he has acute thrombosis of superficial veins of right upper extremity, would not anticaogulate as there is no pulmonary embolism on CTA scan. Would defer anticoagulation medications at this time and offer DVT prophylaxis with SCDs of the legs if there are no deep vein thrombosis of the lower extremities. Have discussed with nurse that TEDs are appropriate while awaiting lower extremity ultrasound results. Patient also has myelodysplastic syndrome with excessive blasts and/or a silver acute myeloid leukemia and may need oncology evaluation while inpatient. Otherwise agree with physician activity assistant as documented On exam General: not in distress, verbal, answers questions Lungs: no acute wheezes, on nasal cannula oxygen Heart: heart rate controlled Abdomen: soft, nontender, bowel sounds present Neuro: no acute focal deficits Psych: alert, cooperative (1) CHF (congestive heart failure) Heart failure chronicity: unspecified Heart failure type: unspecified Qualified Code(s): I50.9 - Heart failure, unspecified
--- NOTE | 2019-01-17 12:40 | CT Scan Report ---
CT ANGIOGRAM OF THE CHEST CLINICAL HISTORY: Dyspnea. COMPARISON STUDY: Chest x-ray dated 01/17/2019. Chest CT dated 01/05/2019. TECHNIQUE: Following the IV administration of 120 cc of Optiray 320, CT angiogram of the chest was pe rformed from the upper abdomen to the thoracic inlet utilizing the pulmonary embolus protocol. Images are reviewed in the axial, sagittal, and coronal planes. 3-D MIPS images are created and assessed. I V contrast was administered without complication. A dose lowering technique was utilized adhering to the principles of ALARA. The examination is degraded by motion artifact. CT DOSE: 500.50 mGy.cm FINDINGS: Thyroid: Imaged portions of the thyroid gland are normal in size and attenuation. Thoracic aorta: There is mild atherosclerotic calcification of the thoracic aorta, which is normal in caliber and demonstrates standard 3-vessel arch anatomy. No dissection is seen. Pulmonary vasculature: The pulmonary trunk is normal in caliber. There are no filling defects identif ied in main, lobar, or proximal segmental pulmonary branches to suggest pulmonary embolus. Evaluation of the peripheral branches is modestly degraded by motion artifact. Heart: The heart is enlarged and without pericardial effusion. The coronary arteries are densely calc ified. Lungs and pleural spaces: There are small to moderate pleural effusions with bibasilar consolidation. Additional foci of consolidation are seen throughout the upper lobes. Diffuse intralobular septal th ickening and peribronchial thickening are noted. The trachea and central airways are clear. Mediastinum: There are numerous mildly enlarged mediastinal lymph nodes. Litzy: There are mildly enlarged hilar lymph nodes which measure up to 15 mm in short axis. Axillae: There is no axillary lymphadenopathy. Upper abdomen: Partially visualized upper abdominal viscera is grossly unremarkable. Skeletal structures: The skeletal structures are osteopenic. No lytic or blastic bony lesions are see n. Arthritic change is noted in the shoulders. Soft tissues: Gynecomastia is noted. IMPRESSION: 1. There is no evidence of pulmonary embolus in the main, lobar, or proximal segmental pulmonary sheela mira. Evaluation of the peripheral branches is degraded by motion artifact. 2. Cardiomegaly with evidence of congestive failure. 3. There are small to moderate pleural effusions with bibasilar consolidation. Additional foci of air space consolidation are seen throughout the upper lobes. This could represent pulmonary interstitial edema and/or multifocal pneumonia. This has worsened as compared to 01/05/2019. Clinical correlation wi ll be essential and radiographic follow-up to resolution is recommended. 4. There are mildly enlarged mediastinal and hilar lymph nodes. Electronically signed by: Bryson Curry M.D. 01/17/2019 12:38 PM
--- NOTE | 2019-01-17 13:25 | Ultrasound Report ---
ULTRASOUND RIGHT UPPER QUADRANT ABDOMEN CLINICAL HISTORY: Right upper quadrant abdominal pain. Elevated hepatic transaminases. COMPARISON STUDY: Abdominal CT dated 07/08/2018. TECHNIQUE: Real-time, grayscale, and color flow sonography of the right upper quadrant of the abdomen was performed. Images are reviewed in the transverse and longitudinal planes. FINDINGS: Liver: The liver is normal in size and echotexture. There is no intrahepatic biliary ductal dilatatio n. The main portal vein is patent. Gallbladder: The gallbladder is normal in appearance. No gallstones are identified. There is no gallb ladder wall thickening or pericholecystic fluid. A sonographic Coleman's sign is reportedly absent. Th e common bile duct measures up to 0.5 cm in diameter. Pancreas: Not visualized due to overlying bowel gas. Right kidney: Survey images of the right kidney demonstrate normal size and echotexture. There is no hydronephrosis. Ascites: None. Pleural spaces: A right pleural effusion is noted. IMPRESSION: 1. No acute sonographic abnormality is identified in the right upper quadrant. No gallstones are iden tified. 2. Right pleural effusion. Electronically signed by: Bryson Curry M.D. 01/17/2019 1:24 PM
[2019-01-17] MEDS ORDERED: DEXTROSE 50% 50 ML SYRINGE IV PRN (13:33)
[2019-01-17] MEDS ORDERED: GLUCAGON FOR INJ 1 MG VIAL SQ PRN (13:33)
[2019-01-17] MEDS ORDERED: MAGNESIUM HYDROXIDE SUSP 30 ML UDC PO PRN (13:33)
[2019-01-17] MEDS ORDERED: GLUCOSE 40% GEL 15 GM TUBE PO PRN (13:33)
[2019-01-17] MEDS ORDERED: POLYETHYLENE (MIRALAX) 17 GM PACK PO PRN (13:33)
[2019-01-17] MEDS ORDERED: ONDANSETRON INJ 2 MG/ML 2 ML VIAL IV PRN (13:33)
[2019-01-17] MEDS ORDERED: CARBOHYDRATES FOR HYPOGLYCEMIA PO PRN (13:33)
[2019-01-17] MEDS ORDERED: ALUMINUM/MAGNESIUM SUSP 30 ML UDC PO PRN (13:33)
[2019-01-17] MEDS ORDERED: GLUCOSE 10 TABS/TUBE PO PRN (13:33)
[2019-01-17] MEDS ORDERED: METOPROLOL SUCC 25MG EXT REL TAB PO SCH (14:00)
[2019-01-17] MEDS ORDERED: CEFEPIME 2,000 MG in SYRINGE 7.5 ML IV ONE (14:00)
[2019-01-17] MEDS ORDERED: CEFEPIME CONSULT ACTIVE PRN (14:02)
[2019-01-17] MEDS: SPIRONOLACTONE 25 MG TAB PO SCH (14:21)
[2019-01-17] MEDS: DOCUSATE SODIUM/SENNA 50/8.6MG TAB PO SCH (14:21)
[2019-01-17 14:27] LABS: Albumin Level 2.3 gm/dl (3.4-5.0); BUN Creatinine Ratio 15.3 (10-20); Calcium 7.7 mg/dl (8.5-10.1); Creatinine Clr Calc Pharmacy 53.5 ml/min; Est GFR (African American) 74.1; Potassium 3.8 mmol/L (3.5-5.1)
[2019-01-17 14:32] LABS: Albumin Globulin Ratio 0.6 (0.9-2); Bilirubin,Total 1.1 mg/dl (0.2-1); Globulin 3.7 gm/dl (2.5-4.0)
[2019-01-17] MEDS ORDERED: FUROSEMIDE 40 MG in SYRINGE 0 ML IV SCH (15:00)
[2019-01-17] MEDS: ALBUT/IPRATROP 3MG/0.5MG NEB 3 ML VIAL NEB SCH ×2 (15:21→19:31)
[2019-01-17] MEDS ORDERED: FUROSEMIDE 20 MG in SYRINGE 0 ML IV ONE (15:30)
--- NOTE | 2019-01-17 17:13 | Emergency Department Note ---
Entered by Carla Patel acting as a scribe for Eddy Medeiros MD ED Provider Note CHIEF COMPLAINT: Fever HISTORY OF PRESENT ILLNESS: The patient is a year old 78 who presents to the Emergency Room with complaints of a fever. The patient just had a heart attack. The patient states that the fever started yesterday followed by some congestion. The patient also states he is short of breath. The patient states the fever was 101 and he did not take any medication prior to arrival. The patient states he feels weak. The patient is not allergic to anything. Pt denies LOC, headache, diaphoresis, visual changes, neck pain, chest pain, nausea, vomiting, abdominal pain, back pain, melena, hematochezia, urinary symptoms, numbness, lymphadenopathy, rash, or other complaints. REVIEW OF SYSTEMS: See HPI for pertinent positives and negatives. A total of ten systems were reviewed and were otherwise negative. PMHx/PSHx: acute blood loss anemia, elevated transaminase level, ischemic cardiomyopathy SOCIAL HISTORY: Patient lives at home. PHYSICAL EXAM: GENERAL: Tires appearing, increased work of breathing. HENT: Normocephalic, atraumatic. Oropharynx unremarkable. EYES: PERRL. Normal conjunctiva. Sclera non-icteric. NECK: Inspection normal. Non-tender. Supple. No nuchal rigidity. FROM. No masses. RESPIRATORY: Clear to auscultation. No wheezes. No rales. Normal respiratory effort. CARDIAC: Normal rate. Normal rhythm. No murmurs. No rubs. Extremities warm and well perfused. Pulses equal. No JVD. MUSCULOSKELETAL: Atraumatic. Chest examination reveals no tenderness. The back is symmetrical on inspection without obvious abnormality. There is no CVA tenderness to palpation. No joint edema. LOWER EXTREMITIES: Calves are equal size bilaterally and non-tender. No edema. No discoloration. UPPER EXTREMITIES: Redness and swelling on the medial aspect of the forearm up to the bicep NEURO: Normal sensorium. No sensory or motor deficits noted. SKIN: No rash or jaundice noted. EMERGENCY DEPARTMENT COURSE: 0936: Past medical records reviewed. The patient was evaluated in room A11B, and a complete history and physical examination were performed. 1107: I spoke with Nuris Uribe PA-C under Dr. Comer, about the patient's case and they agreed to accept the patient for further evaluation. 1125: The patient has been admitted. MEDICAL DECISION MAKING: Prior records/ancillary studies reviewed. Per the hospitalist note: Recent admission and treatment for NSTEMI (non-ST elevated myocardial infarction): Patient presented with respiratory distress, cardiogenic shock picture with volume overload, newly diagnosed left ventricular systolic dysfunction, non-ST segment myocardial infarction, 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 Return to the lab and underwent LAD PCI on 01/08/2019. Triage Nursing notes reviewed and agree them. Additional history obtained from the family. The patient's history was concerning for shortness of breath. Differential diagnosis: Etiologies such as pneumonia, COPD, reactive airway disease, CHF, cardiac ischemia, pulmonary embolism, pneumothorax, musculoskeletal, infections, gastrointestinal, as well as others were entertained. Physical examination: The patient had increased work of breathing and had crackles. Patient also had swelling in the right upper extremity concerning for cellulitis/DVT/SVT. ER treatment provided: Supplemental oxygen Cardiac monitoring IV Zosyn IV vancomycin On reassessment the patient felt better. Diagnostic interpretation by me: The electrocardiogram was negative for pathologic change. The labs revealed mild elevation of serum lactate at 1.7. Patient's CBC shows a stable anemia. He has a leukocytosis. Patient's troponin is mildly elevated however this is much improved from prior. Chemistry panel was unremarkable. Imaging studies: Chest x-ray concerning for CHF and pneumonia. Ultrasound imaging revealed a clot within the cephalic vein. No DVT. Consultation: A consultation was placed with the hospitalist. The case was discussed and diagnostics were reviewed. The patient was evaluated in the ER for further treatment. IMPRESSION: Shortness of breath fever pneumonia CHF pulmonary edema superficial venous thrombosis right arm PLAN: Admitted The scribe's documentation has been prepared under my direction and personally reviewed by me in its entirety. I confirm that the note above accurately reflects all work, treatment, procedures, and medical decision making performed by me. 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 (Chronic) Hypercholesteremia (Chronic) Prostate cancer (Chronic) Elevated troponin I level Surgical History Status post percutaneous transluminal coronary angioplasty History of appendectomy (Chronic) S/P TURP S/P cardiac catheterization 01/06 and 01/08/with JERSON to LAD and RCA Family History Brother Heart disease Stroke Social History Preferred Language: [place] Communication Ability: Effective Beliefs That Will Affect Care: None Current Living Situation: Family Other Information That Helps Us Care for You: No Feels Safe at Home: Yes Safety Concerns: Feels Safe At This Time Smoking Status: Never smoker Tobacco Type: cigars Second Hand Exposure: No Hx Alcohol Use: No Hx Substance Use: No Results & Data Vital Signs Vital Signs - 24 hr 01/17/19 09:19 01/17/19 09:45 01/17/19 09:46 Temperature 37.3 C Temperature Source Oral Sepsis Recent Fever Within 48 Hours No Sepsis New/Unexplained Change in Mental Status No Sepsis Action Taken by Nursing No Action Required Pulse Rate 102 H 100 H Pulse Rate [Apical] Pulse Rate from SpO2 Sensor 100 H Respiratory Rate 20 30 H Respiratory Effort / Characteristics Non-Labored Respiratory Depth Normal Respiratory Pattern Blood Pressure 109/68 108/68 Blood Pressure [Left Arm] Blood Pressure Mean 81 81 Blood Pressure Mean [Left Arm] Blood Pressure Position Sitting Pulse Oximetry 91 94 90 Oxygen Delivery Method Room Air Nasal Cannula Room Air Oxygen Flow Rate 2 01/17/19 09:47 01/17/19 10:00 01/17/19 11:17 Temperature Temperature Source Sepsis Recent Fever Within 48 Hours Sepsis New/Unexplained Change in Mental Status Sepsis Action Taken by Nursing Pulse Rate 96 H 92 H Pulse Rate [Apical] Pulse Rate from SpO2 Sensor 97 H 92 H Respiratory Rate 26 H 28 H Respiratory Effort / Characteristics Respiratory Depth Respiratory Pattern Blood Pressure 100/56 L 110/63 Blood Pressure [Left Arm] Blood Pressure Mean 70 78 Blood Pressure Mean [Left Arm] Blood Pressure Position Pulse Oximetry 93 92 92 Oxygen Delivery Method Nasal Cannula Nasal Cannula Nasal Cannula Oxygen Flow Rate 2 2 2 01/17/19 11:20 01/17/19 11:30 01/17/19 11:36 Temperature Temperature Source Sepsis Recent Fever Within 48 Hours Sepsis New/Unexplained Change in Mental Status Sepsis Action Taken by Nursing Pulse Rate 93 H Pulse Rate [Apical] 93 H Pulse Rate from SpO2 Sensor 95 H Respiratory Rate 30 H 28 H Respiratory Effort / Characteristics Spontaneous Spontaneous Short of Breath SOB on Exertion Respiratory Depth Normal Respiratory Pattern Regular Blood Pressure 109/65 Blood Pressure [Left Arm] 110/63 Blood Pressure Mean 79 Blood Pressure Mean [Left Arm] 78 Blood Pressure Position Pulse Oximetry 91 91 Oxygen Delivery Method Nasal Cannula Nasal Cannula Nasal Cannula Oxygen Flow Rate 2 2 2 01/17/19 12:00 Temperature Temperature Source Sepsis Recent Fever Within 48 Hours Sepsis New/Unexplained Change in Mental Status Sepsis Action Taken by Nursing Pulse Rate 93 H Pulse Rate [Apical] Pulse Rate from SpO2 Sensor 93 H Respiratory Rate 29 H Respiratory Effort / Characteristics Respiratory Depth Respiratory Pattern Blood Pressure 111/60 Blood Pressure [Left Arm] Blood Pressure Mean 77 Blood Pressure Mean [Left Arm] Blood Pressure Position Pulse Oximetry 91 Oxygen Delivery Method Nasal Cannula Oxygen Flow Rate 2 Home Medications Current Medication List: was personally reviewed by me Laboratory Data Attestation: I reviewed the patient's lab results. Result diagrams: 01/17/19 09:43 01/17/19 13:59 Lab Results 01/17/19 01/17/19 01/17/19 Range/Units 09:41 09:43 09:43 WBC 12.73 H (4.8-10.8) K/uL RBC 2.81 L (4.7-6.1) M/uL Hgb 9.4 L (14.0-18.0) g/dL Hct 27.8 L (42-52) % MCV 98.9 (80-100) fL MCH 33.5 (25-34) pg MCHC 33.8 (32-36) g/dL RDW Std Deviation 69.9 H (36.4-46.3) fL RDW Coeff of Eliana 19.6 H (11.5-14.5) % Plt Count 166 (130-400) K/uL MPV 10.5 H (7.4-10.4) fL Absolute Nucleated RBC 0.05 H (0-0) K/uL Nucleated RBC % (auto) 0.4 % Neutrophils % (Manual) 43.9 % Lymphocytes % (Manual) 18.1 % Reactive Lymphs % (Man) 31.0 % Monocytes % (Manual) 5.2 % Metamyelocytes % (Man) 0.9 % Myelocytes % (Man) 0.9 % Neutrophils # (Manual) 5.59 (1.4-6.5) K/uL Total Absolute Neuts 5.59 (1.4-6.5) K/uL Lymphocytes # (Manual) 2.30 (1.2-3.4) K/uL Reactive Lymphs # 3.95 K/uL Total Abs Lymphocytes 6.25 H (1.2-3.4) K/uL Monocytes # (Manual) 0.66 H (0.11-0.59) K/uL Metamyelocytes # (Man) 0.11 H (0-0) K/uL Myelocytes # (Manual) 0.11 H (0-0) K/uL RBC Morphology Unremarkable Sodium 132 L (136-145) mmol/L Potassium 4.2 (3.5-5.1) mmol/L Chloride 99 (98-107) mmol/L Carbon Dioxide 25 (21-32) mmol/L Anion Gap 8.0 (3-11) BUN 18 (7-18) mg/dl Creatinine 1.20 (0.6-1.4) mg/dl Est Cr Clr Drug Dosing 49.1 ml/min Est GFR ( Amer) 66.7 Est GFR (Non-Af Amer) 57.6 BUN/Creatinine Ratio 15.0 (10-20) Glucose 135 H (70-99) mg/dl POC Lactic Acid Dung 1.77 H (0.90-1.70) mmol/L Calcium 8.5 (8.5-10.1) mg/dl Total Bilirubin 1.3 H (0.2-1) mg/dl AST 108 H (15-37) U/L ALT 147 H (12-78) U/L Alkaline Phosphatase 72 (45-117) U/L Troponin I 0.181 H* (0-0.045) ng/ml Total Protein 6.6 (6.4-8.2) gm/dl Albumin 2.6 L (3.4-5.0) gm/dl Globulin 4.0 (2.5-4.0) gm/dl Albumin/Globulin Ratio 0.6 L (0.9-2) Procalcitonin (0-0.5) ng/ml Urine Color Urine Appearance (Clear) Urine pH (4.5-7.5) Ur Specific [place] (1.000-1.030) Urine Protein (Negative) Urine Glucose (UA) (Negative) Urine Ketones (Negative) Urine Blood (Negative) Urine Nitrite (Negative) Urine Bilirubin (Negative) Urine Urobilinogen (Negative) Ur Leukocyte Esterase (Negative) Urine WBC (Auto) (0-5) /hpf Urine RBC (Auto) (0-4) /hpf U Hyaline Cast (Auto) (0-5) /lpf U Epithel Cells (Auto) (0-5) /lpf Urine Bacteria (Auto) (Negative) Urine Yeast 01/17/19 01/17/19 Range/Units 09:43 11:20 WBC (4.8-10.8) K/uL RBC (4.7-6.1) M/uL Hgb (14.0-18.0) g/dL Hct (42-52) % MCV (80-100) fL MCH (25-34) pg MCHC (32-36) g/dL RDW Std Deviation (36.4-46.3) fL RDW Coeff of Eliana (11.5-14.5) % Plt Count (130-400) K/uL MPV (7.4-10.4) fL Absolute Nucleated RBC (0-0) K/uL Nucleated RBC % (auto) % Neutrophils % (Manual) % Lymphocytes % (Manual) % Reactive Lymphs % (Man) % Monocytes % (Manual) % Metamyelocytes % (Man) % Myelocytes % (Man) % Neutrophils # (Manual) (1.4-6.5) K/uL Total Absolute Neuts (1.4-6.5) K/uL Lymphocytes # (Manual) (1.2-3.4) K/uL Reactive Lymphs # K/uL Total Abs Lymphocytes (1.2-3.4) K/uL Monocytes # (Manual) (0.11-0.59) K/uL Metamyelocytes # (Man) (0-0) K/uL Myelocytes # (Manual) (0-0) K/uL RBC Morphology Sodium (136-145) mmol/L Potassium (3.5-5.1) mmol/L Chloride (98-107) mmol/L Carbon Dioxide (21-32) mmol/L Anion Gap (3-11) BUN (7-18) mg/dl Creatinine (0.6-1.4) mg/dl Est Cr Clr Drug Dosing ml/min Est GFR ( Amer) Est GFR (Non-Af Amer) BUN/Creatinine Ratio (10-20) Glucose (70-99) mg/dl POC Lactic Acid Dung (0.90-1.70) mmol/L Calcium (8.5-10.1) mg/dl Total Bilirubin (0.2-1) mg/dl AST (15-37) U/L ALT (12-78) U/L Alkaline Phosphatase (45-117) U/L Troponin I (0-0.045) ng/ml Total Protein (6.4-8.2) gm/dl Albumin (3.4-5.0) gm/dl Globulin (2.5-4.0) gm/dl Albumin/Globulin Ratio (0.9-2) Procalcitonin 0.46 (0-0.5) ng/ml Urine Color Dark Yellow Urine Appearance Cloudy A (Clear) Urine pH 5.0 (4.5-7.5) Ur Specific [place] 1.028 (1.000-1.030) Urine Protein 1+ H (Negative) Urine Glucose (UA) Negative (Negative) Urine Ketones Trace H (Negative) Urine Blood Negative (Negative) Urine Nitrite Negative (Negative) Urine Bilirubin Negative (Negative) Urine Urobilinogen Negative (Negative) Ur Leukocyte Esterase Trace H (Negative) Urine WBC (Auto) 1-5 (0-5) /hpf Urine RBC (Auto) 0-4 (0-4) /hpf U Hyaline Cast (Auto) 1-5 (0-5) /lpf U Epithel Cells (Auto) 20-30 H (0-5) /lpf Urine Bacteria (Auto) Negative (Negative) Urine Yeast Not Reportable Administered Medications Albuterol (Duoneb) 3 ml NEB QIDR WALTER Stop: 02/16/19 15:59 Last Admin: 01/17/19 15:21 Dose: 3 ml Documented by: [id number] Metoprolol Succinate (Toprol Xl) 75 mg PO QAM WALTER Stop: 02/16/19 13:59 Last Admin: 01/17/19 14:21 Dose: 75 mg Documented by: [id number] Senna/Docusate Sodium (Senokot S) 1 tab PO QAM WALTER Stop: 02/16/19 13:59 Last Admin: 01/17/19 14:21 Dose: 1 tab Documented by: [id number] Spironolactone (Aldactone) 12.5 mg PO DAILY WALTER Stop: 02/16/19 13:59 Last Admin: 01/17/19 14:21 Dose: 12.5 mg Documented by: [id number] Discontinued Medications Furosemide (Lasix) 20 mg IV NOW STA Stop: 01/17/19 10:22 Last Admin: 01/17/19 11:15 Dose: 20 mg Documented by: [id number] Vancomycin HCl 1,600 mg/ (Sodium Chloride) 532 mls @ 200 mls/hr IV NOW ONE; Protocol Stop: 01/17/19 12:26 Last Infusion: 01/17/19 14:22 Dose: 0 mls/hr Documented by: [id number] Admin: 01/17/19 11:15 Dose: 200 mls/hr Documented by: [id number] Piperacillin Sod/Tazobactam Sod (Zosyn) 4.5 gm in 120 mls @ 240 mls/hr IV NOW ONE Stop: 01/17/19 10:16 Last Infusion: 01/17/19 10:23 Dose: 0 mls/hr Documented by: [id number] Admin: 01/17/19 09:53 Dose: 240 mls/hr Documented by: [id number] Furosemide 40 mg/ Syringe 4 mls @ 4 mls/min IV DAILY WALTER Stop: 02/16/19 14:59 Last Admin: 01/17/19 15:12 Dose: Not Given Documented by: [id number] Cefepime HCl 2,000 mg/ Syringe 20 mls @ 5 mls/min IV ONE ONE; Protocol Stop: 01/17/19 14:03 Last Admin: 01/17/19 14:21 Dose: 5 mls/min Documented by: [id number] Furosemide 20 mg/ Syringe 2 mls @ 4 mls/min IV 1530 ONE Stop: 01/17/19 15:31 Last Admin: 01/17/19 16:13 Dose: 4 mls/min Documented by: [id number] Ioversol (Optiray 320 125ml) 120 ml IV ONCE PRN PRN Reason: Interaction Checking Stop: 01/21/19 12:10 Last Admin: 01/17/19 12:12 Dose: 120 ml Documented by: [id number] Imaging Data Attestation: I personally reviewed and interpreted this imaging study as follows: Radiologist's Impression: Radiology results have been interpreted by the radiologist and reviewed by me. SINGLE VIEW CHEST CLINICAL HISTORY: Fever. Dyspnea. FINDINGS: An AP, portable, upright chest radiograph is compared to study dated 01/14/2019 and correlated with chest CT dated 01/05/2019. The examination is degraded by portable technique and patient rotation. The heart is enlarged and there is atherosclerotic calcification of the thoracic aorta. There is pulmonary vascular congestion and interstitial edema. There are small pleural effusions with bibasilar consolidation. No pneumothorax is seen. The skeletal structures are osteopenic. The bony thorax is grossly intact. IMPRESSION: 1. Cardiomegaly with evidence of congestive failure and interstitial edema. 2. There are small pleural effusions with bibasilar consolidation. This could represent atelectasis and/or pneumonia. Clinical correlation will be required. Electronically signed by: Bryson Curry M.D. 01/17/2019 9:52 AM ULTRASOUND RIGHT UPPER EXTREMITY VENOUS CLINICAL HISTORY: Right arm swelling. COMPARISON STUDY: No prior. TECHNIQUE: Real-time, grayscale, and color Doppler sonography of the deep veins of the right upper extremity is performed. Compression and augmentation were utilized. FINDINGS: There is no sonographic evidence of deep venous thrombosis identified in the right upper extremity. The right internal jugular, axillary, and brachial veins are patent and normally compressible. Normal venous waveforms and augmentation are seen within the right subclavian vein. The basilic vein is clear. There is a long segment of occlusive superficial venous thrombus identified within the cephalic vein extending from the antecubital fossa to the mid upper arm. This measures over 5 cm in length. The visualized radial and ulnar veins are patent. IMPRESSION: 1. There is no sonographic evidence of deep venous thrombosis identified in the right upper extremity. 2. There is a long segment of occlusive superficial venous thrombus identified within the cephalic vein as above. Electronically signed by: Bryson Curry M.D. 01/17/2019 11:03 AM ECG Data Attestation: I personally reviewed and interpreted this ECG as follows: Indication: other (fever) Rate (beats per minute): 105 Rhythm: sinus tachycardia Findings: + nonspecific-ST abn; no PAC, no PVC, no ST depression and no ST elevation Blood Pressure Blood Pressure Findings: Elevated blood pressure Blood Pressure Disposition: Referred to patients primary care provider Discharge Plan Visit Data *Final* Discharge Date/Time: 01/17/19 13:13 Chief Complaint: Fever Stated Complaint: FEVER ED Provider: Eddy Medeiros Discharge Problem: Chronic shortness of breath, Pulmonary edema, Fever, Pneumonia, CHF (congestive heart failure), Acute thrombosis of superficial veins of right upper extremity Patient Disposition: Admitted As Inpatient Discharge Instructions Interventions: ED Discharge Assessment Last Done: 01/17/19 13:13 Discharge Problem: Pulmonary edema Qualifiers: Chronicity: acute Qualified Code(s): J81.0 - Acute pulmonary edema Fever Qualifiers: Fever type: unspecified Qualified Code(s): R50.9 - Fever, unspecified Pneumonia Qualifiers: Pneumonia type: aspiration pneumonia Aspiration pneumonia type: unspecified Laterality: unspecified laterality Lung location: unspecified part of lung Qualified Code(s): J69.0 - Pneumonitis due to inhalation of food and vomit CHF (congestive heart failure) Qualifiers: Heart failure type: unspecified Heart failure chronicity: unspecified Qualified Code(s): I50.9 - Heart failure, unspecified The scribe's documentation has been prepared under my direction and personally reviewed by me in its entirety. I confirm that the note above accurately reflects all work, treatment, procedures, and medical decision making performed by me.
[2019-01-17] MEDS: INSULIN ASPART 100 UNITS/ML 3 ML PEN SC SCH ×2 (17:30→21:18)
[2019-01-17] MEDS: ATORVASTATIN 40 MG TAB PO SCH (19:56)
[2019-01-18] MEDS: ACETAMINOPHEN 325 MG TAB PO PRN (01:28)
[2019-01-18] MEDS: CEFEPIME 2,000 MG in SYRINGE 7.5 ML IV SCH ×2 (01:30→14:00)
[2019-01-18] MEDS ORDERED: POTASSIUM CHLORIDE 20 MEQ TABCR PO STA (04:24)
[2019-01-18] MEDS ORDERED: MAGNESIUM SULFATE / D5W 1 GM/100 ML BAG IV ONE (04:24)
[2019-01-18] MEDS: METOPROLOL SUCC 25MG EXT REL TAB PO SCH ×2 (04:51→07:50)
[2019-01-18 05:27] LABS: Mean Corpuscular Hgb Conc 34.4 g/dL (32-36); Mean Platelet Volume 9.7 fL (7.4-10.4); Nucleated RBC # (auto) 0.05 K/uL (0-0); Nucleated RBC % (auto) 0.4 %; Platelet Count 120 K/uL (130-400)
[2019-01-18 05:48] LABS: Albumin Level 2.3 gm/dl (3.4-5.0); BUN Creatinine Ratio 16.9 (10-20); Calcium 7.6 mg/dl (8.5-10.1); Creatinine Clr Calc Pharmacy 48.3 ml/min; Est GFR (African American) 65.4; Est GFR (Non-African American) 56.4; Magnesium 2.1 mg/dl (1.8-2.4); Potassium 3.8 mmol/L (3.5-5.1)
[2019-01-18 05:50] LABS: Albumin Globulin Ratio 0.6 (0.9-2); Bilirubin,Total 0.9 mg/dl (0.2-1); Globulin 3.8 gm/dl (2.5-4.0); Total Protein 6.1 gm/dl (6.4-8.2)
[2019-01-18 05:53] LABS: Hematocrit (blood only) 25.6 % (42-52); Hemoglobin 8.8 g/dL (14.0-18.0); Mean Corpuscular Volume 97.3 fL (80-100); RDW Coefficient of Variation 19.7 % (11.5-14.5); RDW Standard Deviation 68.5 fL (36.4-46.3); Red Blood Count 2.63 M/uL (4.7-6.1); White Blood Count 10.39 K/uL (4.8-10.8)
[2019-01-18 05:55] LABS: ALC (manual) 2.12 K/uL (1.2-3.4); Blast # (manual) 3.87 K/uL (0-0); Blast Cells % (manual) 37.2 %; Echinocytes 1+; Lymphocytes # (manual) 2.12 K/uL (1.2-3.4); Lymphocytes % (manual) 20.4 %; Monocytes # (manual) 0.36 K/uL (0.11-0.59); Monocytes % (manual) 3.5 %; Myelocytes # (manual) 0.09 K/uL (0-0); Myelocytes % (manual) 0.9 %; Tear Drop Cells 1+
[2019-01-18] MEDS ORDERED: Nursing to Pharmacy Communication ONE (06:16)
--- NOTE | 2019-01-18 06:46 | Ultrasound Report ---
US venous doppler LE BI HISTORY: Pain. Edema. rule out leg DVTs COMPARISON STUDY: None. FINDINGS: There is normal compressibility, flow, and augmentation within the bilateral lower extremit y deep venous systems. IMPRESSION: No DVT within the right or left lower extremity. The above report was generated using voice recognition software. It may contain grammatical, syntax or spelling errors. Electronically signed by: Guru Peter M.D. 01/18/2019 6:45 AM
[2019-01-18] MEDS: IPRATROPIUM BROMIDE NEB SOLN 0.02% 2.5 ML VIAL INH SCH ×3 (07:44→19:43)
[2019-01-18] MEDS: LEVALBUTEROL 1.25MG/0.5ML NEB INH SCH ×3 (07:44→19:43)
[2019-01-18] MEDS: DOCUSATE SODIUM/SENNA 50/8.6MG TAB PO SCH (07:48)
[2019-01-18] MEDS: CLOPIDOGREL BISULFATE 75 MG TAB PO SCH (07:49)
[2019-01-18] MEDS: FUROSEMIDE 20 MG in SYRINGE 0 ML IV SCH ×2 (07:49→17:24)
[2019-01-18] MEDS: INSULIN ASPART 100 UNITS/ML 3 ML PEN SC SCH ×4 (07:51→20:18)
[2019-01-18] MEDS ORDERED: XOPENEX/ATROVENT 1.25mg/0.5MG NEB COMBO NEB SCH (08:00)
[2019-01-18] MEDS: SPIRONOLACTONE 25 MG TAB PO SCH (08:19)
[2019-01-18] MEDS: ASPIRIN 81 MG ECTAB PO SCH (08:19)
[2019-01-18] MEDS: MULTIVITAMIN TAB PO SCH (08:19)
--- NOTE | 2019-01-18 08:57 | Hospitalist Progress Note ---
Date of Service January 18, 2019 Assessment & Plan (1) Sepsis: (2) Hospital acquired PNA: "This is a 78-year-old male who has a significant PMH of recently diagnosed an NSTEMI with multivessel CAD status post PCI, newly diagnosed AML, anemia, essential thrombocytosis, HLD, history of prostate cancer s/p brachytherapy who presents to [facility] ED secondary to fever x1 day. Of significance patient was recently hospitalized at [facility] on 01/05 to 01/14/2019. He presented to ED with an NSTEMI and cardiogenic shock with a new left ventricular systolic dysfunction. He underwent cardiac cath which revealed multivessel coronary artery disease and intervention to the RCA. He required return to cath on 01/08 and underwent PCI to LAD. With placement of stents patient's EF did return to 50%, but had basal segmental inferior wall akinesis. He was continued on regimen of aspirin, Plavix, statin, metoprolol, Aldactone. He also required IV diuresis with Lasix but this was discontinued at discharge secondary to hypotension. He hospital course was further complicated by PAF treated with IV amiodarone and transition to p.o. amiodarone. He had hematuria secondary to Gardner causing a acute blood loss anemia requiring patient to have PRBC x4. Incidentally patient CBC with differential and peripheral smear revealed new diagnosis of AML. Patient overall clinically improved and was discharged on 01/14/19. In ED patient was placed on 2 L supplement oxygen to maintain oxygenation. He has been afebrile but HR 93 and tachypneic 29. Lab findings consistent with leukocytosis 12.73, H&H 9.4 27.8, platelet 166. Differential significant for lymphocytosis and myelocytes. BMP revealed sodium 132, BUN 18, creatinine 1.20, glucose 135, lactic acid 1.77. He did have transaminitis AST 108, ALT 147, T bili 1.3. His troponin was 0.181, on prior presentation on 01/05 was 28. His procalcitonin was WNL. Chest x-ray concerning for pulmonary vascular congestion as well as concern for bibasilar consolidation - pneumonia versus atelectasis. Venous Doppler of right upper extremity revealed SVT of cephalic vein. Patient met sepsis criteria on admission with leukocytosis, tachycardia, documented source of infection pneumonia Blood cultures obtained Patient received IV vancomycin and Zosyn Lactic acid was 1.7 He did not receive IV fluid resuscitation secondary to also evidence of congestive heart failure" -concern that lung infiltrates as hospital acquired pneumonia combined with acute systolic congestive heart failure as a result of recent hospitalization with NSTEMI and stents -since 01/18/19, patient has been on Cefepime 2 gram q12 hours, continue and follow blood cultures -MRSA swab negative -Supplemental oxygen as needed -Pulmonary toilet with DuoNeb 4 times daily, flutter valve, incentive spirometry (3) CHF (congestive heart failure): Acute on chronic congestive heart failure -concern that lung infiltrates as hospital acquired pneumonia combined with acute systolic congestive heart failure as a result of recent hospitalization with NSTEMI and stents RCA and LAD (Initial systolic EF 30% with improvement to 50% post stenting on last hospital admission) -due to low normotensive blood pressures have placed Lasix 20 mg IV BID -Continue metoprolol, Aldactone (because of intermittent atrial fibrillation, have asked cardiology service to evaluate whether any role of anti-arrhythmic) (4) CAD (coronary artery disease): No chest pain admission Troponin 0.181, which is trended down from prior admission for NSTEMI Continue aspirin, Plavix, statin, metoprolol (5) Acute thrombosis of superficial veins of right upper extremity: -Patient also known to have bleeding from last hospitalization and while he has acute thrombosis of superficial veins of right upper extremity (There is a long segment of occlusive superficial venous thrombus identified within the cephalic vein extending from the antecubital fossa to the mid upper arm. This measures over 5 cm in length) on this 01/17/19 admission - would not anticoagulate as there is no pulmonary embolism on 01/17/19 CTA scan and venous ultrasound 01/17/19: no deep vein thrombosis of the lower extremities. -01/18/19: had request vascular consult and spoke with Dr. Butler and he recommended on the phone not to anticoagulate for superficial DVT and he recom mends anti-inflammatory for pain control and follow up ultrasound in 3 days to monitor for progression of the superficial vein thrombosis and he asked hospitalist to place consult if needed depending on follow up ultrasound -Ice and elevation of extremity when possible, Patient is on aspirin, will have prn acetaminophen for pain or for fever (6) Elevated transaminase level: -review of chart from previous hospitalization showed some elevations in liver enzymes -was initially though to be drug induced -01/17/19 No acute sonographic abnormality is identified in the right upper quadrant. No gallstones are identified. -if cardiology feels indicated for cardiac health to start amiodarone then will monitor Liver function enzymes s closely (7) Atrial fibrillation: -Continue metoprolol, Aldactone -(because of intermittent atrial fibrillation, have asked cardiology service to evaluate whether any role of anti-arrhythmic) (8) Anemia: -recent hospitalization with hematuria exacerbated by gardner use and needing blood transfusions -monitor CBC (9) T2DM (type 2 diabetes mellitus): A1c 6.7, most recent admission hold home dose Metformin -Accu-Cheks and NovoLog sliding scale per protocol (10) Hypercholesteremia: Continue statin (11) Myeloblastic leukemia: As per review of outpatient oncology notes from Dr. Turner from 01/15/19 -"Because of worsening anemia, decided discontinue on hydroxyurea on 12/15/2018. Started on Anagrelide since October 2018... recent blood workup done at [facility], he received 2 units of PRBC, flow cytometry from the peripheral blood shows excess blast measuring about 15%. Platelet count is around 200,000 range hydroxyurea has been discontinued earlier in December 2018, as Platelet count is normal, Plavix has been discontinued during recent hospitalization in early January 2019... the progression to the acute leukemia in his case, his overall disease not fit enough to handle any kind of systemic chemotherapy for the acute leukemia diagnosis." and Dr. Turner comments that he is not expecting improvement in his clinical condition. -inpatient oncology consult requested to follow patient on this hospital admission (12) DVT prophylaxis: SCDS/TEDS for now Daughter Clarisa [phone] Subjective patient on nasal cannula and not in distress. breathing on nasal cannula. denies chest pain. restricted arm access band on right upper extremity. patient reports right upper extremity tenderness feels better today . intermittent atrial fibrillation over night. currently in sinus Physical Exam Constitutional: comfortable Eyes: PERRL, conjunctivae normal, anicteric sclerae EOM intact bilaterally Neck: trachea midline, no thyromegaly Respiratory: Auscultation: + diminished lung sounds Cardiovascular: Rate/Rhythm: regular rate and regular rhythm Gastrointestinal (Abdomen): normal bowel sounds, soft, nontender, no hepatosplenomegaly Musculoskeletal: right upper extremity swelling Neurologic: PERRL, EOMI, accommodation nl, no face palsy, no dysarthria Psychiatric: Orientation: alert and cooperative Results & Data Vital Signs (Past 12 Hours) Vital Signs Temp Pulse Pulse Resp BP Pulse Ox 01/18/19 07:44 82 18 95 01/18/19 07:06 36.4 C L 90 23 99/66 L 96 01/18/19 04:09 36.3 C L 90 25 H 118/68 95 01/18/19 01:28 95 H 22 107/72 92 01/17/19 23:42 95 H 01/17/19 22:49 36.9 C 93 H 26 H 107/68 92 (1) CHF (congestive heart failure) Heart failure chronicity: unspecified Heart failure type: unspecified Qualified Code(s): I50.9 - Heart failure, unspecified
--- NOTE | 2019-01-18 10:42 | Cardiology Consultation ---
Date of Consultation January 18, 2019 Assessment & Plan (1) CHF (congestive heart failure): Acute systolic heart failure in the setting of coronary heart disease. Agree with cautious IV diuretic therapy, start with furosemide 20 mg twice daily, received a dose this morning. Creatinine and elect lites are stable. He has ongoing relative hypotension with systolic blood pressure readings in the 90s. This is relatively unchanged compared to his prior hospital stay. Continue metoprolol succinate. Continue spinal lactone. Continue to hold KRISTINA inhibitor/angiotensin receptor kiko/Entresto due to relative hypotension, however candidacy for 1 of these agents will be reassessed on a daily basis. Continue dual antiplatelet therapy of aspirin and clopidogrel for recent RCA and LAD interventions. He has residual circumflex territory disease which is been managed medically. CT of the chest performed yesterday revealed no evidence of pericardial effusion. I do not think a repeat echocardiogram is necessary at this time. He has a mild, but flat elevation his troponin I consistent with CHF rather than recurrent acute coronary syndrome. (2) Atrial fibrillation: Vision with ongoing episodes of paroxysmal, a symptom medic atrial fibrillation. He had PAF for 2 hours last night, and an hour this morning. Continue metoprolol. As noted previously he is not a candidate for anticoagulation as this would require triple therapy, and he is already had ongoing issues of anemia, and silver hematuria just several days ago. His hematuria has since resolved, and he did not require cystoscopy last week. While for rhythm control strategy. We will add low-dose amiodarone 200 mg daily, and follow his mild elevation in his AST ALT closely. AST ALT elevation may be due to hepatic congestion from heart failure and hopefully will improve with improvement in his volume status. Although starting amiodarone at present is not ideal given his mild elevation in LFTs, I think a rhythm control strategy as necessary as he is at high risk for cardioembolic stroke and high risk for bleeding complication. I do not think he is a good candidate for alternative antiarrhythmic therapy such as dofetilide or sotalol and would recommend that amiodarone would be the most effective agent for him. (3) Hospital acquired PNA: Mild fever noted on presentation, he certainly is at risk for hospital-acquired pneumonia and may have had aspiration issues last admission. Continue empiric antibiotics, limit intake of IV fluid. (4) Myeloblastic leukemia: Has apparent recent diagnosis of AMK on outpt labs. This needs to be clarified. Dr Fernandez to discuss with [facility] hematology oncology. DVT prophylaxis: Continue knee-high compression stockings and knee-high sequent ial pneumatic compression devices, not a candidate for pharmacologic DVT prophylaxis due to recent gross hematuria and anemia. History of Present Illness Attending Physician: George Fernandez MD History of Present Illness Hannah Anderson Sr is a 78 year old male seen in cardiology consultation per the request of Dr Fernandez for the evaluation of shortness of breath. The patient's recent medical history dates back to 01/05/2019 when he presented with symptoms of shortness of breath and was found to have acute systolic heart failure with moderate to severe left ventricular systolic dysfunction, LVEF in the range of 30%, volume overload, cardiogenic shock, and a non-ST segment elevation myocardial infarction. He was seen in consultation by Dr. Galindo of our practice, and underwent acute cardiac catheterization performed by Dr. Jaramillo of interventional cardiology with findings of three-vessel coronary heart disease. He underwent PCI, drug-eluting stenting to the culprit right coronary artery lesion initially on 01/05/2019, and there was treated for congestive heart failure in the intensive care unit requiring transient BiPAP support. The patient returned to the cardiac catheterization laboratory on 01/08/2019 and underwent staged PCI ,drug-eluting stent to the LAD at that time. His hospital stay was further complicated by anemia including silver hematuria for which he required 4 units of packed red blood cells and episodes of paroxysmal atrial fibrillation. He was discharged on 01/14/2019. His discharge medications included aspirin, clopidogrel, metoprolol, aspirin lactone, and atorvastatin. He was not discharged on a loop diuretic as it was felt that his volume status is improved, and his repeat echocardiogram performed prior to discharge revealed improvement in his LVEF to the range of 50%. He was not discharged on an KRISTINA inhibitor, angiotensin receptor kiko, or Entresto due to his relative low blood pressure. The patient however returned to the emergency room on 01/17/2019 with recurrent shortness of breath and findings on CT suggestive of volume overload including small pleural effusions and interstitial edema. He received a total of 60 mg of furosemide yesterday, with 1.6 L of urine output overnight. He remains on supplemental oxygen. He feels improved, but is breathing is certainly still labored. Allergies Allergy/AdvReac Type Severity Reaction Status Date / Time No Known Allergies Allergy Verified 01/17/19 09:57 Home Medications Home Medications Medication Instructions Recorded Confirmed Type multivitamin 1 tab PO DAILY 07/08/18 01/17/19 History aspirin [Ecotrin Low Strength] 81 mg PO QAM 30 Days #30 tab 01/14/19 01/17/19 Rx atorvastatin 40 mg PO HS 30 Days #30 tab 01/14/19 01/17/19 Rx clopidogrel 75 mg PO QAM 30 Days #30 tab 01/14/19 01/17/19 Rx metformin [Glucophage] 500 mg PO QDD 30 Days #30 tab 01/14/19 01/17/19 Rx metoprolol succinate 75 mg PO QAM 30 Days #90 tab 01/14/19 01/17/19 Rx spironolactone 12.5 mg PO DAILY 30 Days #15 tab 01/14/19 01/17/19 Rx Patient History Medical History Elevated transaminase level Ischemic cardiomyopathy Hematuria Atrial fibrillation was on amiodarone but discontinued due to increase LFTs CAD (coronary artery disease) Cardiogenic shock Pulmonary edema NSTEMI (non-ST elevated myocardial infarction) (Acute) Anemia (Chronic) s/p 1 unit PRBC this am 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 (Chronic) Hypercholesteremia (Chronic) Prostate cancer (Chronic) Elevated troponin I level Surgical History Status post percutaneous transluminal coronary angioplasty History of appendectomy (Chronic) S/P TURP S/P cardiac catheterization 01/06 and 01/08/with JERSON to LAD and RCA Family History Brother Heart disease Stroke Social History Preferred Language: Singaporean Communication Ability: Effective Beliefs That Will Affect Care: None Current Living Situation: Family Other Information That Helps Us Care for You: No Feels Safe at Home: Yes Safety Concerns: Feels Safe At This Time Smoking Status: Never smoker Tobacco Type: cigars Second Hand Exposure: No Hx Alcohol Use: No Hx Substance Use: No Review of Systems Review of Systems: All systems reviewed & are unremarkable except as noted in HPI & below Physical Exam Physical Exam: Temp Pulse Resp BP Pulse Ox 36.4 C L 89 18 99/66 L 99 01/18/19 07:06 01/18/19 09:19 01/18/19 07:44 01/18/19 07:06 01/18/19 09:24 Constitutional: + ill appearing Respiratory: Auscultation: + rales (Mild Rales bilaterally at the bases, no rhonchi or wheezing) Cardiovascular: Vessels: + JVD Extremities: + edema (Trace bilateral lower extremity edema) Chest (Breasts): normal inspection/palpation of breasts Gastrointestinal (Abdomen): normal bowel sounds, soft, nontender, no hepatosplenomegaly Skin: no rashes, warm and dry Neurologic: PERRL, EOMI, accommodation nl, no face palsy, no dysarthria Genitourinary: Voiding clear yellow urine noted in his bedside urinal Results & Data Vital Signs (Past 12 Hours) Vital Signs Temp Pulse Pulse Resp BP Pulse Ox Pulse Ox 01/18/19 09:24 99 01/18/19 09:19 89 01/18/19 07:44 82 18 95 01/18/19 07:06 36.4 C L 90 23 99/66 L 96 01/18/19 04:09 36.3 C L 90 25 H 118/68 95 01/18/19 01:28 95 H 22 107/72 92 01/17/19 23:42 95 H 01/17/19 22:49 36.9 C 93 H 26 H 107/68 92 Laboratory Results Cardiac Enzymes 01/17/19 01/17/19 01/17/19 Range/Units 13:59 16:20 21:14 AST 95 H (15-37) U/L Troponin I 0.181 H* 0.157 H* (0-0.045) ng/ml 01/18/19 Range/Units 05:11 AST 77 H (15-37) U/L Troponin I (0-0.045) ng/ml CBC 01/18/19 Range/Units 05:11 WBC 10.39 (4.8-10.8) K/uL RBC 2.63 L (4.7-6.1) M/uL Hgb 8.8 L (14.0-18.0) g/dL Hct 25.6 L (42-52) % Plt Count 120 L (130-400) K/uL Comprehensive Metabolic Panel 01/17/19 01/18/19 Range/Units 13:59 05:11 Sodium 130 L 132 L (136-145) mmol/L Potassium 3.8 3.8 (3.5-5.1) mmol/L Chloride 99 99 (98-107) mmol/L Carbon Dioxide 25 24 (21-32) mmol/L BUN 17 21 H (7-18) mg/dl Creatinine 1.10 1.22 (0.6-1.4) mg/dl Glucose 105 H 106 H (70-99) mg/dl Calcium 7.7 L 7.6 L (8.5-10.1) mg/dl AST 95 H 77 H (15-37) U/L ALT 129 H 116 H (12-78) U/L Alkaline Phosphatase 63 62 (45-117) U/L Total Protein 6.0 L 6.1 L (6.4-8.2) gm/dl Albumin 2.3 L 2.3 L (3.4-5.0) gm/dl Intake and Output 01/17/19 01/18/19 01/18/19 22:59 06:59 14:59 Output Total 751 / 1626 375 / 1626 151 / 151 Balance -751 / -974 -375 / -974 -151 / -151 Output: Urine 750 / 1625 375 / 1625 150 / 150 # Bowel Movements Other: Other Intake Source 100 sips # Unmeasured Voids 1 Weight 76.1 kg Patient Weight 01/19/19 06:59 Weight 76.1 kg Diagnostic Findings EKG performed 01/17/2019 at 935 revealed sinus tachycardia with no significant repolarization changes Repeat EKG performed this morning at 01/18/2019 revealed normal sinus rhythm without significant repolarization changes . (1) CHF (congestive heart failure) Heart failure chronicity: unspecified Heart failure type: unspecified Qualified Code(s): I50.9 - Heart failure, unspecified
[2019-01-18] MEDS: AMIODARONE 200 MG TAB PO SCH (12:21)
[2019-01-18 15:07] LABS: Blast # (manual) 3.95 K/uL (0-0)
[2019-01-18] MEDS: ATORVASTATIN 40 MG TAB PO SCH (20:18)
[2019-01-19] MEDS: IPRATROPIUM BROMIDE NEB SOLN 0.02% 2.5 ML VIAL INH SCH ×3 (01:40→13:51)
[2019-01-19] MEDS: LEVALBUTEROL 1.25MG/0.5ML NEB INH SCH ×3 (01:40→13:52)
[2019-01-19] MEDS: CEFEPIME 2,000 MG in SYRINGE 7.5 ML IV SCH (02:13)
[2019-01-19] MEDS: ACETAMINOPHEN 325 MG TAB PO PRN (02:15)
[2019-01-19 06:23] LABS: Mean Corpuscular Hgb Conc 34.4 g/dL (32-36); Mean Platelet Volume 10.5 fL (7.4-10.4); Nucleated RBC # (auto) 0.04 K/uL (0-0); Nucleated RBC % (auto) 0.3 %; Platelet Count 112 K/uL (130-400)
[2019-01-19 06:57] LABS: Hematocrit (blood only) 24.1 % (42-52); Hemoglobin 8.3 g/dL (14.0-18.0); Mean Corpuscular Volume 97.2 fL (80-100); RDW Coefficient of Variation 19.7 % (11.5-14.5); RDW Standard Deviation 68.7 fL (36.4-46.3); Red Blood Count 2.48 M/uL (4.7-6.1); White Blood Count 12.31 K/uL (4.8-10.8)
[2019-01-19 07:00] LABS: ALC (manual) 1.62 K/uL (1.2-3.4); Anisocytosis Present; Blast # (manual) 4.32 K/uL (0-0); Blast Cells % (manual) 35.1 %; Lymphocytes # (manual) 1.62 K/uL (1.2-3.4); Lymphocytes % (manual) 13.2 %; Metamyelocytes # (manual) 0.32 K/uL (0-0); Metamyelocytes % (manual) 2.6 %; Monocytes # (manual) 2.15 K/uL (0.11-0.59); Monocytes % (manual) 17.5 %; Neutrophils % (manual) 31.6 %
--- NOTE | 2019-01-19 07:53 | XRay Report ---
XR chest 1V portable CLINICAL HISTORY: follow up lung infiltrates COMPARISON STUDY: 01/17/2019 FINDINGS: The heart is the upper limits of normal in size. There are small bilateral pleural effusion s. There are improving bilateral interstitial pulmonary opacities, likely secondary to improving pulm onary edema.[ IMPRESSION: 1. Improving pulmonary edema pattern. Small bilateral pleural effusions. Electronically signed by: Elmo Salazar M.D. 01/19/2019 7:52 AM
[2019-01-19] MEDS: INSULIN ASPART 100 UNITS/ML 3 ML PEN SC SCH ×4 (08:01→20:26)
[2019-01-19] MEDS: CLOPIDOGREL BISULFATE 75 MG TAB PO SCH (08:48)
[2019-01-19] MEDS: DOCUSATE SODIUM/SENNA 50/8.6MG TAB PO SCH (08:51)
[2019-01-19] MEDS: SPIRONOLACTONE 25 MG TAB PO SCH (08:51)
[2019-01-19] MEDS: ASPIRIN 81 MG ECTAB PO SCH (08:52)
[2019-01-19] MEDS: AMIODARONE 200 MG TAB PO SCH (08:52)
[2019-01-19] MEDS: FUROSEMIDE 20 MG in SYRINGE 0 ML IV SCH ×2 (08:52→16:12)
[2019-01-19] MEDS: MULTIVITAMIN TAB PO SCH (08:52)
[2019-01-19] MEDS ORDERED: AMOXICILLIN/CLAVULANATE 875 MG TAB PO ONE (10:29)
[2019-01-19] MEDS ORDERED: DOXYCYCLINE HYCLATE 100 MG CAP PO STA (10:30)
[2019-01-19] MEDS: METOPROLOL SUCC 25MG EXT REL TAB PO SCH (10:30)
[2019-01-19 11:01] LABS: Albumin Level 2.4 gm/dl (3.4-5.0); BUN Creatinine Ratio 17.1 (10-20); Calcium 7.9 mg/dl (8.5-10.1); Creatinine Clr Calc Pharmacy 50.8 ml/min; Est GFR (African American) 69.5; Potassium 3.7 mmol/L (3.5-5.1)
[2019-01-19 11:06] LABS: Albumin Globulin Ratio 0.6 (0.9-2); Bilirubin,Total 0.7 mg/dl (0.2-1); Globulin 4.3 gm/dl (2.5-4.0); Total Protein 6.7 gm/dl (6.4-8.2)
--- NOTE | 2019-01-19 13:46 | Cardiology Progress Note ---
Date of Service January 19, 2019 Assessment & Plan (1) Ischemic cardiomyopathy: Acute systolic heart failure. Continue cautious dose of furosemide 20 mg IV twice daily due to relative hypotension. Replace potassium with 40 mg orally now, continue low-dose spironolactone. He is not on KRISTINA inhibitor or angiotensin receptor kiko due to relative hypotension. (2) Atrial fibrillation: Continue metoprolol succinate 75 mg daily. Amiodarone 200 mg daily added yesterday, with caution given mild elevation in the AST ALT which will be trended. (3) Elevated transaminase level: Trend, given statin treatment and amiodarone. (4) Myeloblastic leukemia: New diagnosis, will need hematology assessment. Subjective Chief Complaint: follow up shortness of breath Subjective: Pt feels ongoing shortness of breath. He feels slightly better than yesterday. 1.9 L of urine outpt over last 23 hrs. Review of Systems Review of Systems: All systems reviewed & are unremarkable except as noted in HPI & below Physical Exam Physical Exam: Temp Pulse Resp BP Pulse Ox 36.8 C 74 24 106/66 94 01/19/19 11:10 01/19/19 11:10 01/19/19 11:10 01/19/19 08:00 01/19/19 11:10 Constitutional: WD/WN, vitals as above Respiratory: Auscultation: + diminished lung sounds (milldy decreased BS at the bases); no crackles and no rales Gastrointestinal (Abdomen): normal bowel sounds, soft, nontender, no hepatosplenomegaly Skin: no rashes, warm and dry Neurologic: PERRL, EOMI, accommodation nl, no face palsy, no dysarthria Results & Data Laboratory Results Cardiac Enzymes 01/19/19 Range/Units 10:32 AST 95 H (15-37) U/L CBC 01/19/19 Range/Units 05:57 WBC 12.31 H (4.8-10.8) K/uL RBC 2.48 L (4.7-6.1) M/uL Hgb 8.3 L (14.0-18.0) g/dL Hct 24.1 L (42-52) % Plt Count 112 L (130-400) K/uL Comprehensive Metabolic Panel 01/19/19 Range/Units 10:32 Sodium 130 L (136-145) mmol/L Potassium 3.7 (3.5-5.1) mmol/L Chloride 96 L (98-107) mmol/L Carbon Dioxide 26 (21-32) mmol/L BUN 20 H (7-18) mg/dl Creatinine 1.16 (0.6-1.4) mg/dl Glucose 111 H (70-99) mg/dl Calcium 7.9 L (8.5-10.1) mg/dl AST 95 H (15-37) U/L ALT 137 H (12-78) U/L Alkaline Phosphatase 74 (45-117) U/L Total Protein 6.7 (6.4-8.2) gm/dl Albumin 2.4 L (3.4-5.0) gm/dl Intake and Output 01/18/19 01/19/19 01/19/19 22:59 06:59 14:59 Intake Total 460 / 1260 200 / 1260 Output Total 1976 Balance -240 / -717 -225 / -717 Intake: Oral 460 / 1260 200 / 1260 Output: Urine 1974 Other: Weight 75.5 kg Medications Administered Current Inpatient Medications Acetaminophen (Tylenol) 650 mg PO Q4H PRN PRN Reason: Pain or Fever Stop: 02/16/19 13:32 Last Admin: 01/19/19 02:15 Dose: 650 mg Documented by: Amiodarone HCl (Cordarone) 200 mg PO DAILY [facility] Stop: 02/17/19 10:44 Last Admin: 01/19/19 08:52 Dose: 200 mg Documented by: Amoxicillin/Clavulanate Potassium (Augmentin 875mg) 1 tab PO BIDM [facility] Stop: 01/26/19 16:59 Aspirin ([facility]rin Ectab) [facility] [place] Stop: 02/17/19 08:59 Last Admin: 01/19/19 08:52 Dose: 81 mg Documented by: Atorvastatin Calcium (Lipitor) 40 mg PO [facility] Stop: 02/16/19 20:59 Last Admin: 01/18/19 20:18 Dose: 40 mg Documented by: Clopidogrel Bisulfate (Plavix) [facility] [place] Stop: 02/17/19 08:59 Last Admin: 01/19/19 08:48 Dose: 75 mg Documented by: Dextrose (Dextrose 50%) 25 - 50 ml IV UD PRN; Protocol PRN Reason: Hypoglycemia Protocol Stop: 02/16/19 13:32 Doxycycline Hyclate (Vibramycin) 100 mg PO BID [facility] Stop: 01/26/19 20:59 Glucagon (Glucagen) 1 mg SQ UD PRN; Protocol PRN Reason: Hypoglycemia Protocol Stop: 02/16/19 13:32 Glucose (Glucose 40%) 15 - 30 gm PO UD PRN; Protocol PRN Reason: Hypoglycemia Protocol Stop: 02/16/19 13:32 Glucose (Dex4 Glucose) 4 - 8 tabs PO UD PRN; Protocol PRN Reason: Hypoglycemia Protocol Stop: 02/16/19 13:32 Furosemide 20 mg/ Syringe 2 mls @ 4 mls/min IV DAILY [facility] Stop: 02/17/19 08:59 Last Admin: 01/19/19 08:52 Dose: 4 mls/min Documented by: Furosemide 20 mg/ Syringe 2 mls @ 4 mls/min IV DAILY@1700 [facility] Stop: 02/17/19 16:59 Last Admin: 01/18/19 17:24 Dose: 4 mls/min Documented by: Insulin Aspart (Novolog Flexpen) 0 units SC ACHS [facility] Stop: 02/16/19 16:29 Last Admin: 01/19/19 12:05 Dose: 4 units Documented by: Ipratropium [place] (Atrovent 0.02% 0.5mg/2.5ml) 0.5 mg INH Q6R [facility] Stop: 02/17/19 07:59 Last Admin: 01/19/19 07:10 Dose: 0.5 mg Documented by: Levalbuterol HCl (Xopenex 1.25mg/0.5ml [place]) 1.25 mg INH Q6R [facility] Stop: 02/17/19 07:59 Last Admin: 01/19/19 07:10 Dose: 1.25 mg Documented by: Metoprolol Succinate (Toprol Xl) 75 mg PO QAM [facility] Stop: 02/17/19 04:29 Last Admin: 01/19/19 10:30 Dose: 75 mg Documented by: Miscellaneous (Carbohydrates For Hypoglycemia) 15 - 30 gm PO UD PRN PRN Reason: Hypoglycemia Treatment Stop: 02/16/19 13:32 Multivitamins (Multivitamin Tab) 1 tab PO DAILY [facility] Stop: 02/17/19 08:59 Last Admin: 01/19/19 08:52 Dose: 1 tab Documented by: Ondansetron HCl (Zofran) 4 mg IV Q6H PRN PRN Reason: Nausea Stop: 02/16/19 13:32 Polyethylene Glycol (Miralax Powder Packet) 17 gm PO DAILY PRN PRN Reason: Constipation Stop: 02/16/19 13:32 Potassium Chloride (Klor-Con M20) 40 meq PO NOW [facility] Stop: 02/18/19 13:59 Senna/Docusate Sodium (Senokot S) 1 tab PO QAM [facility] Stop: 02/16/19 13:59 Last Admin: 01/19/19 08:51 Dose: 1 tab Documented by: Spironolactone (Aldactone) 12.5 mg PO DAILY [facility] Stop: 02/16/19 13:59 Last Admin: 01/19/19 08:51 Dose: 12.5 mg Documented by:
[2019-01-19] MEDS ORDERED: POTASSIUM CHLORIDE 20 MEQ TABCR PO SCH (14:00)
[2019-01-19] MEDS: AMOXICILLIN/CLAVULANATE 875 MG TAB PO SCH (16:12)
[2019-01-19] MEDS ORDERED: POTASSIUM CHLORIDE 20 MEQ TABCR PO ONE (16:15)
--- NOTE | 2019-01-19 16:26 | Hospitalist Progress Note ---
Date of Service January 19, 2019 Assessment & Plan (1) Sepsis: (2) Hospital acquired PNA: "This is a 78-year-old male who has a significant PMH of recently diagnosed an NSTEMI with multivessel CAD status post PCI, newly diagnosed AML, anemia, essential thrombocytosis, HLD, history of prostate cancer s/p brachytherapy who presents to [facility] ED secondary to fever x1 day. Of significance patient was recently hospitalized at [facility] on 01/05 to 01/14/2019. He presented to ED with an NSTEMI and cardiogenic shock with a new left ventricular systolic dysfunction. He underwent cardiac cath which revealed multivessel coronary artery disease and intervention to the RCA. He required return to cath on 01/08 and underwent PCI to LAD. With placement of stents patient's EF did return to 50%, but had basal segmental inferior wall akinesis. He was continued on regimen of aspirin, Plavix, statin, metoprolol, Aldactone. He also required IV diuresis with Lasix but this was discontinued at discharge secondary to hypotension. He hospital course was further complicated by PAF treated with IV amiodarone and transition to p.o. amiodarone. He had hematuria secondary to Gardner causing a acute blood loss anemia requiring patient to have PRBC x4. Incidentally patient CBC with differential and peripheral smear revealed new diagnosis of AML. Patient overall clinically improved and was discharged on 01/14/19. In ED patient was placed on 2 L supplement oxygen to maintain oxygenation. He has been afebrile but HR 93 and tachypneic 29. Lab findings consistent with leukocytosis 12.73, H&H 9.4 27.8, platelet 166. Differential significant for lymphocytosis and myelocytes. BMP revealed sodium 132, BUN 18, creatinine 1.20, glucose 135, lactic acid 1.77. He did have transaminitis AST 108, ALT 147, T bili 1.3. His troponin was 0.181, on prior presentation on 01/05 was 28. His procalcitonin was WNL. Chest x-ray concerning for pulmonary vascular congestion as well as concern for bibasilar consolidation - pneumonia versus atelectasis. Venous Doppler of right upper extremity revealed SVT of cephalic vein. Patient met sepsis criteria on admission with leukocytosis, tachycardia, documented source of infection pneumonia Blood cultures obtained Patient received IV vancomycin and Zosyn Lactic acid was 1.7 He did not receive IV fluid resuscitation secondary to also evidence of congestive heart failure" -concern that lung infiltrates as hospital acquired pneumonia combined with acute systolic congestive heart failure as a result of recent hospitalization with NSTEMI and stents -Patient was started on 01/18/19 as Cefepime 2 gram q12 hours, MRSA swab negative -01/19/19 Patient's lung AM CXR shows improvement with diuretic and antibiotics. Continued the Lasix as 20 mg IV BID and blood pressures are okay. Blood cultures are negative and IV Cefepime changed to Augmentin and Doxycycline BID. Supplemental oxygen as needed; nebulizers changed from scheduled q6 hours to as needed (3) CHF (congestive heart failure): Acute on chronic congestive heart failure -concern that lung infiltrates as hospital acquired pneumonia combined with acute systolic congestive heart failure as a result of recent hospitalization with NSTEMI and stents RCA and LAD (Initial systolic EF 30% with improvement to 50% post stenting on last hospital admission) -due to low normotensive blood pressures have placed Lasix 20 mg IV BID, continue -Continue metoprolol, Aldactone -cardiology started amiodarone on 01/18/19, continue (4) CAD (coronary artery disease): No chest pain admission Troponin 0.181, which is trended down from prior admission for NSTEMI Continue aspirin, Plavix, statin, metoprolol cardiology started amiodarone on 01/18/19, continue (5) Acute thrombosis of superficial veins of right upper extremity: -Patient also known to have bleeding from last hospitalization and while he has acute thrombosis of superficial veins of right upper extremity (There is a long segment of occlusive superficial venous thrombus identified within the cephalic vein extending from the antecubital fossa to the mid upper arm. This measures over 5 cm in length) on this 01/17/19 admission - would not anticoagulate as there is no pulmonary embolism on 01/17/19 CTA scan and venous ultrasound 01/17/19: no deep vein thrombosis of the lower extremit ies. -01/18/19: had request vascular consult and spoke with Dr. Butler and he recommended on the phone not to anticoagulate for superficial DVT and he recommends anti-inflammatory for pain control and follow up ultrasound in 3 days to monitor for progression of the superficial vein thrombosis and he asked hospitalist to place consult if needed depending on follow up ultrasound -Ice and elevation of extremity when possible, Patient is on aspirin, will have prn acetaminophen for pain or for fever -follow up ultrasound planned for 01/19/19 (6) Elevated transaminase level: -review of chart from previous hospitalization showed some elevations in liver enzymes -was initially though to be drug induced -01/17/19 No acute sonographic abnormality is identified in the right upper quadrant. No gallstones are identified. -monitor Liver function enzymes closely while on amiodarone (7) Atrial fibrillation: -Continue metoprolol, Aldactone -intermittent atrial fibrillation on 01/18/19 -cardiology started amiodarone on 01/18/19, continue - sinus on telemetry on 01/19/19 (8) Anemia: -recent hospitalization with hematuria exacerbated by gardner use and needing blood transfusions -monitor CBC -Discussed with Dr. Turner on telephone 01/17/19 and he reports that patient may not be able to make adequate Hgb production over time due to myelodysplastic syndrome leading to myeloblastic leukemia (9) T2DM (type 2 diabetes mellitus): A1c 6.7, most recent admission hold home dose Metformin -Accu-Cheks and NovoLog sliding scale per protocol (10) Hypercholesteremia: Continue statin (11) Myeloblastic leukemia: -was treated in the past for prostate cancer and then Essential thrombocythemia and now progression of myelodysplastic syndrome to leukemia As per review of outpatient oncology notes from Dr. Turner from 01/15/19 -"Because of worsening anemia, decided discontinue on hydroxyurea on 12/15/2018. Started on Anagrelide since October 2018... recent blood workup done at [facility], he received 2 units of PRBC, flow cytometry from the peripheral blood shows excess blast measuring about 15%. Platelet count is around 200,000 range hydroxyurea has been discontinued earlier in December 2018, as Platelet count is normal, Plavix has been discontinued during recent hospitalization in early January 2019... the progression to the acute leukemia in his case, his overall disease not fit enough to handle any kind of systemic chemotherapy for the acute leukemia diagnosis." and Dr. Turner comments that he is not expecting improvement in his clinical condition. (12) DVT prophylaxis: SCDS/TEDS for now Daughter Clarisa [phone] Subjective Patient's lung AM CXR shows improvement with diuretic and antibiotics. Continued the Lasix as 20 mg IV BID and blood pressures are okay. Blood cultures are negative and IV Cefepime changed to Augmentin and Doxycycline BID. sinus on telemetry Patient continues to be nasal cannula. he feels breathing is better and he reports ambulation. no chest pain. no palpitations. no abdomen pain. no vomiting right upper extremity size unchanged as yesterday follow up ultrasound planned for 01/19/19 Physical Exam Constitutional: comfortable Eyes: PERRL, conjunctivae normal, anicteric sclerae EOM intact bilaterally Neck: trachea midline, no thyromegaly Respiratory: normal respiratory effort Cardiovascular: Rate/Rhythm: regular rate and regular rhythm Gastrointestinal (Abdomen): normal bowel sounds, soft, nontender, no hepatosplenomegaly Musculoskeletal: Head/Neck/Chest: normocephalic and head atraumatic right arm mildly larger in size compared to left arm Neurologic: PERRL, EOMI, accommodation nl, no face palsy, no dysarthria Psychiatric: Orientation: alert and cooperative Results & Data Vital Signs (Past 12 Hours) Vital Signs Temp Pulse Pulse Pulse Resp BP Pulse Ox 01/19/19 15:56 96 H 01/19/19 15:41 36.8 C 98 H 18 119/62 96 01/19/19 13:56 94 H 22 91 01/19/19 11:10 36.8 C 74 24 103/67 94 01/19/19 08:00 80 106/66 01/19/19 07:26 36.7 C 01/19/19 07:17 77 24 94/64 L 97 01/19/19 07:10 74 18 97 (1) CHF (congestive heart failure) Heart failure chronicity: unspecified Heart failure type: unspecified Qualified Code(s): I50.9 - Heart failure, unspecified
[2019-01-19] MEDS ORDERED: LEVALBUTEROL 1.25MG/0.5ML NEB INH PRN (16:27)
[2019-01-19] MEDS ORDERED: IPRATROPIUM BROMIDE NEB SOLN 0.02% 2.5 ML VIAL INH PRN (16:27)
[2019-01-19] MEDS: DOXYCYCLINE HYCLATE 100 MG CAP PO SCH (20:16)
[2019-01-19] MEDS: ATORVASTATIN 40 MG TAB PO SCH (20:16)
[2019-01-20] MEDS ORDERED: BENZONATATE 100 MG CAPSULE PO PRN (04:20)
[2019-01-20] MEDS ORDERED: guaiFENesin SUGAR FREE 200 MG/10 ML UDC PO PRN (04:20)
--- NOTE | 2019-01-20 06:39 | Ultrasound Report ---
US venous doppler UE RT HISTORY: Pain. Thrombophlebitis. follow up thrombosis progression COMPARISON STUDY: 01/17/2019 FINDINGS: No significant change from the prior study. The deep venous system shows no evidence for th rombosis. There continues to be superficial thrombophlebitis involving the cephalic vein. The distribution is u nchanged from the prior study. There is no evidence for progression. IMPRESSION: 1. Stable unchanged superficial thrombophlebitis right cephalic vein. 2. No evidence for deep venous thrombosis. 3. No change from the prior exam. The above report was generated using voice recognition software. It may contain grammatical, syntax or spelling errors. Electronically signed by: Guru Peter M.D. 01/20/2019 6:37 AM
[2019-01-20 07:26] LABS: Mean Platelet Volume 10.9 fL (7.4-10.4); Platelet Count 110 K/uL (130-400)
[2019-01-20 07:55] LABS: Anisocytosis Present; Blast # (manual) 6.23 K/uL (0-0); Blast Cells % (manual) 41.9 %; Eosinophils # (manual) 0.13 K/uL (0-0.5); Eosinophils % (manual) 0.9 %; Giant Platelets 1+; Lymphocytes % (manual) 12.8 %; Monocytes # (manual) 1.26 K/uL (0.11-0.59); Monocytes % (manual) 8.5 %; Myelocytes # (manual) 0.25 K/uL (0-0); Myelocytes % (manual) 1.7 %; Neutrophils % (manual) 34.2 %
[2019-01-20 07:57] LABS: Hematocrit (blood only) 25.6 % (42-52); Hemoglobin 8.7 g/dL (14.0-18.0); RDW Coefficient of Variation 19.7 % (11.5-14.5); RDW Standard Deviation 67.8 fL (36.4-46.3); Red Blood Count 2.64 M/uL (4.7-6.1); White Blood Count 14.87 K/uL (4.8-10.8)
[2019-01-20 08:09] LABS: Albumin Globulin Ratio 0.6 (0.9-2); Albumin Level 2.3 gm/dl (3.4-5.0); BUN Creatinine Ratio 19.5 (10-20); Bilirubin,Total 0.8 mg/dl (0.2-1); Calcium 8.1 mg/dl (8.5-10.1); Creatinine Clr Calc Pharmacy 57.2 ml/min; Est GFR (African American) 80.3; Est GFR (Non-African American) 69.3; Potassium 4.3 mmol/L (3.5-5.1); Total Protein 6.3 gm/dl (6.4-8.2)
[2019-01-20] MEDS: CLOPIDOGREL BISULFATE 75 MG TAB PO SCH (08:45)
[2019-01-20] MEDS: MULTIVITAMIN TAB PO SCH (08:45)
[2019-01-20] MEDS: METOPROLOL SUCC 25MG EXT REL TAB PO SCH (08:45)
[2019-01-20] MEDS: FUROSEMIDE 20 MG in SYRINGE 0 ML IV SCH ×2 (08:46→18:43)
[2019-01-20] MEDS: DOXYCYCLINE HYCLATE 100 MG CAP PO SCH ×2 (08:47→21:08)
[2019-01-20] MEDS: AMIODARONE 200 MG TAB PO SCH (08:47)
[2019-01-20] MEDS: SPIRONOLACTONE 25 MG TAB PO SCH (08:47)
[2019-01-20] MEDS: DOCUSATE SODIUM/SENNA 50/8.6MG TAB PO SCH (08:47)
[2019-01-20] MEDS: ASPIRIN 81 MG ECTAB PO SCH (08:48)
[2019-01-20] MEDS: AMOXICILLIN/CLAVULANATE 875 MG TAB PO SCH ×2 (08:48→18:43)
[2019-01-20] MEDS: INSULIN ASPART 100 UNITS/ML 3 ML PEN SC SCH ×4 (09:24→21:08)
--- NOTE | 2019-01-20 15:10 | Cardiology Progress Note ---
Date of Service January 20, 2019 Assessment & Plan (1) CHF (congestive heart failure): (2) Ischemic cardiomyopathy: (3) Anemia: Is felt that the patient has multifactorial shortness of breath including acute on chronic systolic heart failure. His chest x-ray performed 01/19/2019 is trending toward improvement. He has ongoing anemia, and is likely progressing from a myelodysplastic syndrome to leukemia with inability to manufacture compensatory red blood cells in the setting of recent acute blood loss. He is not candidate for anticoagulation given recurrent anemia, past hematuria. Continue conservative dose of amiodarone, with knowledge that he has a mild transaminitis, AST 83, ALT 132 today. Amiodarone is not an ideal medication for him, however it is felt that he will tolerate atrial fibrillation poorly from a hemodynamic standpoint, and therefore it is still the best option. Increase activity as tolerated. Discontinue furosemide 20 mg a.m. 20 mg p.m. at 5 PM after this afternoon's dose, and will start furosemide 40 mg IV tomorrow with plans to transition him to oral as soon as possible. Subjective Chief complaint: Follow-up shortness of breath Subjective: Patient trending toward improvement. Telemetry reveals sinus rhythm in the 90 to 95 bpm range with several brief episodes of atrial fibrillation that were nonsustained overnight last night. Review of Systems Review of Systems: All systems reviewed & are unremarkable except as noted in HPI & below Physical Exam Physical Exam: Temp Pulse Resp BP Pulse Ox 36.3 C L 92 H 19 96/58 L 96 01/20/19 11:33 01/20/19 11:33 01/20/19 11:33 01/20/19 11:33 01/20/19 11:33 Constitutional: WD/WN, vitals as above Respiratory: Auscultation: + diminished lung sounds (Mildly decreased breath sounds bilaterally at the bases) Cardiovascular: RRR, no murmur, no edema Vessels: no JVD Extremities: no edema Gastrointestinal (Abdomen): normal bowel sounds, soft, nontender, no hepatosplenomegaly Neurologic: PERRL, EOMI, accommodation nl, no face palsy, no dysarthria Results & Data Laboratory Results Cardiac Enzymes 01/20/19 Range/Units 07:05 AST 83 H (15-37) U/L CBC 01/20/19 Range/Units 07:05 WBC 14.87 H (4.8-10.8) K/uL RBC 2.64 L (4.7-6.1) M/uL Hgb 8.7 L (14.0-18.0) g/dL Hct 25.6 L (42-52) % Plt Count 110 L (130-400) K/uL Comprehensive Metabolic Panel 01/20/19 Range/Units 07:05 Sodium 131 L (136-145) mmol/L Potassium 4.3 D (3.5-5.1) mmol/L Chloride 99 (98-107) mmol/L Carbon Dioxide 25 (21-32) mmol/L BUN 20 H (7-18) mg/dl Creatinine 1.03 (0.6-1.4) mg/dl Glucose 101 H (70-99) mg/dl Calcium 8.1 L (8.5-10.1) mg/dl AST 83 H (15-37) U/L ALT 132 H (12-78) U/L Alkaline Phosphatase 78 (45-117) U/L Total Protein 6.3 L (6.4-8.2) gm/dl Albumin 2.3 L (3.4-5.0) gm/dl Intake and Output 01/20/19 01/20/19 01/20/19 06:59 14:59 22:59 Intake Total 250 / 825 300 / 300 Output Total 450 / 1303 Balance -200 / -478 300 / 300 Intake: Oral 250 / 825 300 / 300 Output: Urine 450 / 1300 (1) CHF (congestive heart failure) Heart failure chronicity: unspecified Heart failure type: unspecified Qualified Code(s): I50.9 - Heart failure, unspecified
--- NOTE | 2019-01-20 16:31 | Oncology Consultation ---
Date of Consultation January 20, 2019 Assessment & Plan (1) Essential thrombocythemia: 78-year-old male, a case of essential thrombocythemia over the last 9 years, now has transformation into the acute myeloid leukemia, earlier he was treated with hydroxyurea and lately anagrelide but because of gradual drop in the hemoglobin level and platelet count, decided discontinue hydroxyurea and anagrelide. Now he's admitted for pneumonia, recently he was admitted for acute myocardial infarction, S/P stent placement, he is on aspirin and Plavix, further drop in the platelet count noted, latest value is around 100,000 range, no bleeding from any sites. He is on oxygen treatment, declining performed status noted. Looking at his overall clinical condition and other comorbid conditions, I do not think he is a candidate for any kind of treatment for acute myeloid leukemia. I am also not expecting improvement of the hemoglobin and platelet count in his case, he may require blood and platelet transfusion in the future. I spoke with him about the recent diagnosis, overall poor prognosis with that, also spoke with the patient's daughter on the phone and reviewed with her regarding the recent blood workup findings, new diagnosis of acute leukemia and the treatment plan would be supportive and symptomatic. If his clinical condition deteriorates, I would consider for home hospice to provide comfort care. We can continue aspirin and Plavix for now but if his platelet count continues to go down to less than 30,000 range, we may have to stop it. Thanks for the consultation. 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 (10/2009) - NeoTYPE Analysis-->MPL mutation --> positive.SF3B1 mutation--> positive(07/2018) -EPO level--> 30 (08/11/2018). Peripheral blood examination flow cytometry > excess blast measuring about 15% (01/2019) - History of prostate cancer. S/P Lupron and brachytherapy, no evidence of recurrent disease. Current treatment: - Earlier he was on hydroxyurea and anagrelide but it has been discontinued because of drop in the hemoglobin level and platelet count noted lately with the presence of blast in peripheral blood suggest transformation into the acute myeloid leukemia. Recently he was admitted with acute viral infection, I saw him in the office last week, now admitted for increasing shortness of breath, found to have pneumonia, receiving broad-spectrum antibiotic coverage. I saw him at bedside, sitting comfortably in the bed, on oxygen treatment, coughing present but it has improved, no fever at this time, no leg edema, on diuretic treatment, has underlying congestive heart failure, fair appetite, some weight loss noted, declining performed status noted, Allergies Allergy/AdvReac Type Severity Reaction Status Date / Time No Known Allergies Allergy Verified 01/17/19 09:57 Home Medications Home Medications Medication Instructions Recorded Confirmed Type multivitamin 1 tab PO DAILY 07/08/18 01/17/19 History aspirin [Ecotrin Low Strength] 81 mg PO QAM 30 Days #30 tab 01/14/19 01/17/19 Rx atorvastatin 40 mg PO HS 30 Days #30 tab 01/14/19 01/17/19 Rx clopidogrel 75 mg PO QAM 30 Days #30 tab 01/14/19 01/17/19 Rx metformin [Glucophage] 500 mg PO QDD 30 Days #30 tab 01/14/19 01/17/19 Rx metoprolol succinate 75 mg PO QAM 30 Days #90 tab 01/14/19 01/17/19 Rx spironolactone 12.5 mg PO DAILY 30 Days #15 tab 01/14/19 01/17/19 Rx Patient History Medical History Elevated transaminase level Ischemic cardiomyopathy Hematuria Atrial fibrillation was on amiodarone but discontinued due to increase LFTs CAD (coronary artery disease) Cardiogenic shock Pulmonary edema NSTEMI (non-ST elevated myocardial infarction) (Acute) Anemia (Chronic) s/p 1 unit PRBC this am 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 (Chronic) Hypercholesteremia (Chronic) Prostate cancer (Chronic) Elevated troponin I level Surgical History Status post percutaneous transluminal coronary angioplasty History of appendectomy (Chronic) S/P TURP S/P cardiac catheterization 01/06 and 01/08/with JERSON to LAD and RCA Family History Brother Heart disease Stroke Social History Preferred Language: [place] Communication Ability: Effective Beliefs That Will Affect Care: None Current Living Situation: Family Other Information That Helps Us Care for You: No Feels Safe at Home: Yes Safety Concerns: Feels Safe At This Time Smoking Status: Never smoker Tobacco Type: cigars Second Hand Exposure: No Hx Alcohol Use: No Hx Substance Use: No Review of Systems Review of Systems: REVIEW OF SYSTEMS: GENERAL: slight weight loss noted, no fever or chills at this time, denies weakness and fatigue present, SKIN: No skin rash, some easy bruising present. HEAD: No increasing order new headache, no dizziness. EYES: No recent change in the vision, no diplopia, EARS: No earache ,no tinnitus, NOSE: No epistaxis, No nasal discharge or stuffiness, MOUTH: No sores, no dysphagia, no hoarseness of voice, NECK: No lumps, No swelling in thyroid area. No stiffness. PULMONARY: cough and shortness of breath present, no hemoptysis, no chest pain, No wheezing. CARDIOVASCULAR: No anginal chest pain at present, no PND, no orthopnea. No palpitation, had leg edema which has improved. No syncope. GASTRIINTESTINAL: No abdominal pain, no nausea or vomiting. No diarrhea, No constipation. No blood in stool or black tarry stools. No abdominal distention. UROLOGIC: No burning urination. No hematuria. MUSCULOSKELETAL: No joint pain, No joint swelling, no muscle weakness. NEUROLOGIC: No seizures, no focal weakness, no speech difficulty, No memory disturbances. No tingling or numbness of the extremities. PSYCHRIATRIC: No depression. Some anxiety present. No psychosis. Physical Exam Physical Exam: On exam: - Alert and oriented x3, thin built man, not in any distress. - HEENT: no icterus, pallor present, Throat: Normal. - Neck: No palpable cervical lymphadenopathy. - Abdomen: soft, nontender, no hepatomegaly, no splenomegaly. - No focal neuro deficit. - Extremities: no finger clubbing, no leg edema. Results & Data Vital Signs (Past 12 Hours) Vital Signs Temp Pulse Resp BP Pulse Ox Pulse Ox Pulse Ox 01/20/19 16:02 36.5 C 92 H 18 96/54 L 96 01/20/19 15:48 97 96 01/20/19 11:33 36.3 C L 92 H 19 96/58 L 96 01/20/19 07:21 36.8 C 95 H 19 98/61 L 95 LABS: - WBC 12,700, H&H of 9.4/27.8, Platelet count of 166,000, nucleated red blood cells noted, about 4% blasts reported (09/17/2018) - WBC 14,800, H&H of 8.7/25.6, MCV 97, Platelet count of 110,000 (01/20/2019) - BUN/creatinine: 20/1.3, calcium 8.1 (01/20/2019) - ProBNP around 6500 (01/19/2019) - AST 83, ALT 132, alkaline phosphatase 78, Total bilirubin: 0.8 IMAGING: - No evidence of DVT in lower extremity doppler evaluation (01/17/2019 - Abdominal ultrasound (01/17/2019): no abnormal finding noted right upper quadrant, no gallstones, right pleural effusion noted. CT chest (01/17/2019) - No evidence of pulmonary embolism - Cardiomegaly with congestive heart failure features - Small to moderate pleural effusions with bibasilar consolidation. - Mildly enlarged mediastinal hilar lymph nodes noted. Doppler evaluation the right upper extremity (01/20/2019) > Superficial thrombophlebitis of right cephalic vein noted.
--- NOTE | 2019-01-20 16:51 | Hospitalist Progress Note ---
Date of Service January 20, 2019 Assessment & Plan (1) Sepsis: resuscitated, source likely pneumonia (2) Hospital acquired PNA: IV cefepime was switched to Aumentin and Doxycycline with no decline in patient status overnight. He is afebrile and although ill-appearing, this may have something to do with his AML. Robitussin AC for cough. (3) Acute exacerbation of CHF (congestive heart failure): Acute systolic heart failure. Still with an oxygen requirement in setting of pneumonia. Cont Lasix BID. Cont medical therapy including metoprolol and aldactone. (4) CAD (coronary artery disease): Stable, denies chest pain, recent stent placement in last two weeks . Cont medical management including ASA, Plavix, Lipitor and Lopressor. ACEI not an option with current blood pressure (5) Acute thrombosis of superficial veins of right upper extremity: no AC required. Cont supportive care with ice, elevation as tolerated. Pain control with APAP as needed. (6) Elevated transaminase level: Present during prior hospitalization, also. Was thought possibly secondary to amiodarone use, which was held. RUQ us performed this admission is negative for gallstones or other pathology. Cont to monitor LFTs periodically on restarted amio. (7) Atrial fibrillation: cont BB, not a candidate for anticoagulation given comorbidities, hemoglobin and low platelets. Amiodarone was restarted this admission with intermittent atrial fibrillation episodes seen on telemetry (8) Anemia: Likely multitfactorial includingm low BM production, and frequent phlebotomy. No bleeding or need for transfusions at this time. Cont to monitor. (9) T2DM (type 2 diabetes mellitus): A1c 6.7, most recent admission hold home dose Metformin Blood sugars are controlled and on the low side. Will eliminate carb coverage for now to avoid hypoglycemia and cont to monitor glucose with fingersticks. 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 Per Dr. Turner today no further treatment is recommended for his AML. Blood and platelet counts may not improve requiring transfusions in the future. Dr. Turner discussed this with Mr. Andersno and his family. Will offer Palliative consult to discuss treatment goals and readdress code status. (11) DVT prophylaxis: SCDS/TEDS for now in the setting of low platelets and increased bleeding risk with ASA and plavix on board, necessary for newly placed stents. Full Code Dispo-pending improvement clinically, will likely be here through the weekend. Ileana Galdamez DO [facility] Hospitalist Subjective The patient was hospitalized recently from [id number] for a non-ST elevated myocardial infarction. On presentation at that time he presented with respiratory distress and cardiogenic shock with volume overload and was found to have a newly diagnosed left ventricular systolic dysfunction. At that time he underwent cardiac catheterization with multivessel disease seen subsequent drug- eluting stent placement to his RCA. He spent some time in the ICU because of hemodynamics instability. Repeat cardiac catheterization was required on 01/08 with a drug-eluting stent placed to the LAD. Aspirin and Plavix were started and other new medications included spironolactone, metoprolol succinate 75 mg p.o. every morning. Anagrelide was stopped. He returned on 01/17 with a sepsis type picture thought secondary to hospital- acquired pneumonia he was. Admitted to the PCU and continued on broad-spectrum antibiotics with cefepime and vancomycin. Acute decompensated CHF was also considered in the diagnosis and IV diuretics were given. Cardiology was consulted and felt this was an acute systolic heart failure decompensation in the setting of coronary artery disease. He continues on twice daily diuretics. He is known to have a history of atrial fibrillation and was continued on beta- kiko therapy with the addition of amiodarone 200 mg p.o. daily on 01/19. Additionally lab work was concerning with new onset myeloblastic leukemia in the setting of essential thrombocythemia with recent discontinuation of anagrelide. Hematology was consulted and had a silver discussion with the patient and his family today. He expects the hemoglobin and platelet count may not improve and transfusions may be required of both these in the future. He explained the patient he is not a candidate for any treatment for acute myeloid leukemia at this time. Currently the patient is resting comfortably but is ill-appearing and reports being fatigued. He reports persistent coughing that is keeping him up at night. He denies any other chest pain or shortness of breath. He is on oxygen today and declines being on oxygen at home. Review of Systems Review of Systems: All systems reviewed & are unremarkable except as noted in HPI & below Physical Exam Physical Exam: CONSTITUTIONAL: WNWD, vitals as above, generally ill-appearing EYES: normal conjunctivae, no scleral icterus ENT: MMM RESPIRATORY: clear to auscultation bilaterally, no crackles, rales or wheezes, normal respiratory effort CARDIOVASCULAR: regular rate and rhythm, S1 and 2 heard without murmurs, gallops or rubs, no JVD, no peripheral edema GASTROINTESTINAL: normal bowel sounds, soft, nontender, nondistended MUSCULOSKELETAL: strength 5/5 throughout, head is normocephalic and atraumatic SKIN: warm and dry NEUROLOGIC: CN 2-12 grossly intact, no gross focal deficits. PSYCHIATRIC: alert cooperative and oriented Results & Data Vital Signs (Past 12 Hours) Vital Signs Temp Pulse Resp BP Pulse Ox Pulse Ox Pulse Ox 01/20/19 16:02 36.5 C 92 H 18 96/54 L 96 01/20/19 15:48 97 96 01/20/19 11:33 36.3 C L 92 H 19 96/58 L 96 01/20/19 07:21 36.8 C 95 H 19 98/61 L 95 Laboratory Results Short CBC 01/20/19 Range/Units 07:05 WBC 14.87 H (4.8-10.8) K/uL Hgb 8.7 L (14.0-18.0) g/dL Hct 25.6 L (42-52) % Plt Count 110 L (130-400) K/uL BMP 01/20/19 07:05 Sodium 131 L Potassium 4.3 D Chloride 99 Carbon Dioxide 25 BUN 20 H Creatinine 1.03 Glucose 101 H Calcium 8.1 L Liver Function 01/20/19 Range/Units 07:05 Total Bilirubin 0.8 (0.2-1) mg/dl AST 83 H (15-37) U/L ALT 132 H (12-78) U/L Alkaline Phosphatase 78 (45-117) U/L Albumin 2.3 L (3.4-5.0) gm/dl Medications Administered Current Inpatient Medications Acetaminophen (Tylenol) 650 mg PO Q4H PRN PRN Reason: Pain or Fever Stop: 02/16/19 13:32 Last Admin: 01/19/19 02:15 Dose: 650 mg Documented by: Amiodarone HCl (Cordarone) 200 mg PO DAILY [facility] Stop: 02/17/19 10:44 Last Admin: 01/20/19 08:47 Dose: 200 mg Documented by: Amoxicillin/Clavulanate Potassium (Augmentin 875mg) 1 tab PO BIDM [facility] Stop: 01/26/19 16:59 Last Admin: 01/20/19 08:48 Dose: 1 tab Documented by: Aspirin (Ecotrin Ectab) 81 mg PO QAM [facility] Stop: 02/17/19 08:59 Last Admin: 01/20/19 08:48 Dose: 81 mg Documented by: Atorvastatin Calcium (Lipitor) 40 mg PO HS [facility] Stop: 02/16/19 20:59 Last Admin: 01/19/19 20:16 Dose: 40 mg Documented by: Benzonatate (Tessalon Perle) 100 mg PO TID PRN PRN Reason: Cough Stop: 02/19/19 08:59 Last Admin: 01/20/19 05:04 Dose: 100 mg Documented by: Clopidogrel Bisulfate (Plavix) 75 mg PO QAM [facility] Stop: 02/17/19 08:59 Last Admin: 01/20/19 08:45 Dose: 75 mg Documented by: Dextrose (Dextrose 50%) 25 - 50 ml IV UD PRN; Protocol PRN Reason: Hypoglycemia Protocol Stop: 02/16/19 13:32 Doxycycline Hyclate (Vibramycin) 100 mg PO BID [facility] Stop: 01/26/19 20:59 Last Admin: 01/20/19 08:47 Dose: 100 mg Documented by: Glucagon (Glucagen) 1 mg SQ UD PRN; Protocol PRN Reason: Hypoglycemia Protocol Stop: 02/16/19 13:32 Glucose (Glucose 40%) 15 - 30 gm PO UD PRN; Protocol PRN Reason: Hypoglycemia Protocol Stop: 02/16/19 13:32 Glucose (Dex4 Glucose) 4 - 8 tabs PO UD PRN; Protocol PRN Reason: Hypoglycemia Protocol Stop: 02/16/19 13:32 Guaifenesin (Robitussin Sugar Free) 200 mg PO Q6H PRN PRN Reason: Cough Stop: 02/19/19 04:19 Last Admin: 01/20/19 05:04 Dose: 200 mg Documented by: Furosemide 20 mg/ Syringe 2 mls @ 4 mls/min IV DAILY@1700 [facility] Stop: 01/20/19 20:00 Last Admin: 01/19/19 16:12 Dose: 4 mls/min Documented by: Furosemide 40 mg/ Syringe 4 mls @ 4 mls/min IV DAILY [facility] Stop: 02/20/19 08:59 Insulin Aspart (Novolog Flexpen) 0 units SC ACHS [facility] Stop: 02/16/19 16:29 Last Admin: 01/20/19 13:00 Dose: Not Given Documented by: Ipratropium Burns (Atrovent 0.02% 0.5mg/2.5ml) 0.5 mg INH Q6R PRN PRN Reason: Shortness Of Breath Or Wheezing Stop: 02/17/19 07:59 Levalbuterol HCl (Xopenex 1.25mg/0.5ml Neb) 1.25 mg INH Q6R PRN PRN Reason: Shortness Of Breath Or Wheezing Stop: 02/17/19 07:59 Metoprolol Succinate (Toprol Xl) 75 mg PO QAM [facility] Stop: 02/17/19 04:29 Last Admin: 01/20/19 08:45 Dose: 75 mg Documented by: Miscellaneous (Carbohydrates For Hypoglycemia) 15 - 30 gm PO UD PRN PRN Reason: Hypoglycemia Treatment Stop: 02/16/19 13:32 Multivitamins (Multivitamin Tab) 1 tab PO DAILY [facility] Stop: 02/17/19 08:59 Last Admin: 01/20/19 08:45 Dose: 1 tab Documented by: Ondansetron HCl (Zofran) 4 mg IV Q6H PRN PRN Reason: Nausea Stop: 02/16/19 13:32 Polyethylene Glycol (Miralax Powder Packet) 17 gm PO DAILY PRN PRN Reason: Constipation Stop: 02/16/19 13:32 Senna/Docusate Sodium (Senokot S) 1 tab PO QAM [facility] Stop: 02/16/19 13:59 Last Admin: 01/20/19 08:47 Dose: Not Given Documented by: Spironolactone (Aldactone) 12.5 mg PO DAILY [facility] Stop: 02/16/19 13:59 Last Admin: 01/20/19 08:47 Dose: 12.5 mg Documented by:
[2019-01-20] MEDS ORDERED: METOPROLOL TARTRATE 25 MG TAB PO STA (18:10)
[2019-01-20] MEDS ORDERED: GUAIFENESIN/CODEINE 100MG/10MG 5ML UDC PO STA (18:59)
[2019-01-20] MEDS: ATORVASTATIN 40 MG TAB PO SCH (21:08)
[2019-01-21] MEDS: ACETAMINOPHEN 325 MG TAB PO PRN (05:32)
[2019-01-21 06:36] LABS: Mean Corpuscular Hgb Conc 34.6 g/dL (32-36)
[2019-01-21 06:56] LABS: Hematocrit (blood only) 23.7 % (42-52); Hemoglobin 8.2 g/dL (14.0-18.0); Mean Corpuscular Volume 98.3 fL (80-100); Mean Platelet Volume 10.4 fL (7.4-10.4); Platelet Count 87 K/uL (130-400); RDW Coefficient of Variation 19.5 % (11.5-14.5); RDW Standard Deviation 69.7 fL (36.4-46.3); Red Blood Count 2.41 M/uL (4.7-6.1); White Blood Count 18.61 K/uL (4.8-10.8)
[2019-01-21 07:03] LABS: ALC (manual) 3.11 K/uL (1.2-3.4); Anisocytosis Present; Basophils # (manual) 0.17 K/uL (0-0.2); Basophils % (manual) 0.9 %; Blast # (manual) 7.48 K/uL (0-0); Blast Cells % (manual) 40.2 %; Lymphocytes # (manual) 3.11 K/uL (1.2-3.4); Lymphocytes % (manual) 16.7 %; Monocytes # (manual) 2.94 K/uL (0.11-0.59); Monocytes % (manual) 15.8 %; Myelocytes # (manual) 0.65 K/uL (0-0); Myelocytes % (manual) 3.5 %; Neutrophils % (manual) 21.1 %; Platelet Estimate Decreased (Normal); Promyelocytes # (manual) 0.33 K/uL (0-0); Promyelocytes % (manual) 1.8 %
[2019-01-21 07:12] LABS: Albumin Level 2.1 gm/dl (3.4-5.0); BUN Creatinine Ratio 21.6 (10-20); Calcium 7.4 mg/dl (8.5-10.1); Creatinine Clr Calc Pharmacy 50.3 ml/min; Est GFR (African American) 68.8; Est GFR (Non-African American) 59.4
[2019-01-21 07:15] LABS: Albumin Globulin Ratio 0.6 (0.9-2); Bilirubin,Total 0.7 mg/dl (0.2-1); Globulin 3.8 gm/dl (2.5-4.0); Total Protein 5.9 gm/dl (6.4-8.2)
[2019-01-21] MEDS: INSULIN ASPART 100 UNITS/ML 3 ML PEN SC SCH ×4 (07:56→21:17)
[2019-01-21] MEDS: CLOPIDOGREL BISULFATE 75 MG TAB PO SCH (07:57)
[2019-01-21] MEDS: MULTIVITAMIN TAB PO SCH (07:57)
[2019-01-21] MEDS: DOCUSATE SODIUM/SENNA 50/8.6MG TAB PO SCH (07:57)
[2019-01-21] MEDS: SPIRONOLACTONE 25 MG TAB PO SCH (07:57)
[2019-01-21] MEDS: METOPROLOL SUCC 50MG EXT REL TAB PO SCH (07:58)
[2019-01-21] MEDS: ASPIRIN 81 MG ECTAB PO SCH (07:58)
[2019-01-21] MEDS: DOXYCYCLINE HYCLATE 100 MG CAP PO SCH ×2 (07:58→21:05)
[2019-01-21] MEDS: AMOXICILLIN/CLAVULANATE 875 MG TAB PO SCH ×2 (07:58→17:07)
[2019-01-21] MEDS: AMIODARONE 200 MG TAB PO SCH (07:58)
[2019-01-21] MEDS ORDERED: FUROSEMIDE 40 MG/4 ML VIAL IV SCH (09:00)
[2019-01-21] MEDS ORDERED: FUROSEMIDE 40 MG in SYRINGE 0 ML IV SCH (09:00)
--- NOTE | 2019-01-21 15:14 | Palliative Care Consultation ---
Date of Consultation January 21, 2019 Assessment & Plan (1) Palliative care encounter: Patient seen and examined this afternoon, patient's daughter, Clarisa, as well as 2 brothers present at bedside. Patient is a 78-year-old male with a history of thrombocytopenia for approximately 9 years, history of prostate cancer, CHF, A. fib, CAD, diet- controlled diabetes, who was recently admitted to [facility] from 01/05 to 01/14 after suffering a non-STEMI with stent placement on 01/08. Patient presented to the emergency room on 01/17 with a fever of 101. Patient was found to have pneumonia-suspected to be hospital-acquired. Patient was admitted and is on antibiotics. Patient's white count on 01/14 was 9.59, with some blasts, platelet count 190K. On CBC drawn today his white count is 18.61 with approximately 15% blasts, hemoglobin 8.2, platelet count 87K. Patient was seen yesterday by Dr. Corrine Turner-patient was told his hematological disease was not doing well and was not felt to be a good candidate for chemotherapy. Patient states he is feeling better, has been afebrile since admission. Reviewed with both patient and family patient's current medical conditions and poor prognosis. Will need additional input from Dr. Turner regarding prognosis- whether we're talking weeks or months. Patient was considering rehab at SNF-if prognosis is only weeks, would consider home rehab if patient qualifies. Initiated discussion regarding CODE STATUS-patient stated he did want to live as long as he could-daughter seem to understand that given his prognosis keeping him a full code may not be to his benefit. Patient and family to have further discussion regarding CODE STATUS. Patient also stated that he can go home and stay at her daughter's for a while- he has multiple family members and good family support locally. Patient stated that if he could not make decisions for himself he would not want his daughter, Clarisa Wheat, to make decisions for him. Encourage daughter and patient to have further discussion regarding his wishes. 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 Patient has 5 children, 4 of which live locally. -Goals of care-initiated discussion, patient to have further discussions with family, will follow up with patient and family tomorrow -Myoblastic leukemia-patient not a candidate for chemotherapy due to comorbiditi es. Patient plans further discussion with Dr. Turner regarding prognosis -Acute on chronic CHF-patient currently on a Lasix drip, shortness of breath improving -Hospital-acquired PNA-patient currently on Augmentin and doxycycline, clinically improving -Thrombosis of right superficial cephalic vein-patient on low-dose aspirin as well as Plavix -Recent [id number]-scitcs post stent on 01/08-on low-dose aspirin, statin, Plavix, Aldactone, amiodarone and metoprolol. Will need to monitor platelets-as per oncology will need to discontinue aspirin and Plavix if platelet count drops below 30,000 -A. fib-rate controlled with amiodarone and metoprolol Will continue to follow and have further discussions regarding CODE STATUS and assist patient and family with medical decision making (2) Myeloblastic leukemia: (3) Acute exacerbation of CHF (congestive heart failure): (4) Hospital acquired PNA: (5) Acute thrombosis of superficial veins of right upper extremity: (6) NSTEMI (non-ST elevated myocardial infarction): (7) Atrial fibrillation: History of Present Illness Reason for Consultation: Address goals of care as well as CODE STATUS Requesting Physician: Dr. Galdamez Attending Physician: lIeana Galdamez, History of Present Illness Patient seen and examined this afternoon, patient's daughter, Clarisa, as well as 2 brothers present at bedside. Patient is a 78-year-old male with a history of thrombocytopenia for approximately 9 years, history of prostate cancer, CHF, A. fib, CAD, diet- controlled diabetes, who was recently admitted to [facility] from 01/05 to 01/14 after suffering a non-STEMI with stent placement on 01/08. Patient presented to the emergency room on 01/17 with a fever of 101. Patient was found to have pneumonia-suspected to be hospital-acquired. Patient was admitted and is on antibiotics. Patient's white count on 01/14 was 9.59, with some blasts, platelet count 190K. On CBC drawn today his white count is 18.61 with approximately 15% blasts, hemoglobin 8.2, platelet count 87K. Patient was seen yesterday by Dr. Shawn Turner-patient was told his hematological disease was not doing well and was not felt to be a good candidate for chemotherapy. Patient states he is feeling better, has been afebrile since admission. Reviewed with both patient and family patient's current medical conditions and poor prognosis. Will need additional input from Dr. Turner regarding prognosis- whether we're talking weeks or months. Patient was considering rehab at SNF-if prognosis is only weeks, would consider home rehab if patient qualifies. Initiated discussion regarding CODE STATUS-patient stated he did want to live as long as he could-daughter seem to understand that given his prognosis keeping him a full code may not be to his benefit. Patient and family to have further discussion regarding CODE STATUS. Patient also stated that he can go home and stay at her daughter's for a while- he has multiple family members and good family support locally. Patient stated that if he could not make decisions for himself he would not want his daughter, Clarisa Wheat, to make decisions for him. Encourage daughter and patient to have further discussion regarding his wishes. 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 Patient has 5 children, 4 of which live locally. Allergies Allergy/AdvReac Type Severity Reaction Status Date / Time No Known Allergies Allergy Verified 01/17/19 09:57 Home Medications Home Medications Medication Instructions Recorded Confirmed Type multivitamin 1 tab PO DAILY 07/08/18 01/17/19 History aspirin [Ecotrin Low Strength] 81 mg PO QAM 30 Days #30 tab 01/14/19 01/17/19 Rx atorvastatin 40 mg PO HS 30 Days #30 tab 01/14/19 01/17/19 Rx clopidogrel 75 mg PO QAM 30 Days #30 tab 01/14/19 01/17/19 Rx metformin [Glucophage] 500 mg PO QDD 30 Days #30 tab 01/14/19 01/17/19 Rx metoprolol succinate 75 mg PO QAM 30 Days #90 tab 01/14/19 01/17/19 Rx spironolactone 12.5 mg PO DAILY 30 Days #15 tab 01/14/19 01/17/19 Rx Patient History Medical History Elevated transaminase level Ischemic cardiomyopathy Hematuria Atrial fibrillation was on amiodarone but discontinued due to increase LFTs CAD (coronary artery disease) Cardiogenic shock Pulmonary edema NSTEMI (non-ST elevated myocardial infarction) (Acute) Anemia (Chronic) s/p 1 unit PRBC this am 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 (Chronic) Hypercholesteremia (Chronic) Prostate cancer (Chronic) Elevated troponin I level Surgical History Status post percutaneous transluminal coronary angioplasty History of appendectomy (Chronic) S/P TURP S/P cardiac catheterization 01/06 and 01/08/with JERSON to LAD and RCA Family History Brother Heart disease Stroke Social History Preferred Language: Indonesian Communication Ability: Effective Beliefs That Will Affect Care: None Current Living Situation: Family Other Information That Helps Us Care for You: No Feels Safe at Home: Yes Safety Concerns: Feels Safe At This Time Smoking Status: Never smoker Tobacco Type: cigars Second Hand Exposure: No Hx Alcohol Use: No Hx Substance Use: No Review of Systems Review of Systems: Patient denies fever, chills, increased shortness of breath, chest pain or abdominal pain. Physical Exam Physical Exam: PE: No acute distress HEENT: EOMI, hearing within normal limits Respirations: Unlabored, good air movement, diminished at bases CV: Rate controlled, no edema Abdomen: Soft, nontender Extremities: Full range of motion Neuro: Alert and oriented x4 Results & Data Vital Signs (Past 12 Hours) Vital Signs Temp Pulse Pulse Resp BP Pulse Ox 01/21/19 11:59 98.4 F 86 16 129/64 96 01/21/19 11:12 99 01/21/19 07:47 98.6 F 96 H 18 131/69 95 01/21/19 05:28 98.8 F 94 H 95 H 16 95/60 L 93 01/21/19 04:00 97.3 F L 96 H 20 95/60 L 94 PG Care Time/CCT Total # of Minutes Spent Total Time Spent with Patient: Total time spent is greater than 50% in coordination of care (as documented) at patient's floor/unit and/or counseling patient: Time Spent Attending Total time spent 70 minutes with greater than 50% of the time spent at bedside discussing generalized prognosis, initiating conversation regarding CODE STATUS and goals of care.
--- NOTE | 2019-01-21 18:21 | Hospitalist Progress Note ---
Date of Service January 21, 2019 Assessment & Plan (1) Sepsis: resuscitated, source likely pneumonia (2) Hospital acquired PNA: IV cefepime was switched to Augmentin and Doxycycline. He is afebrile and although ill-appearing, this may have something to do with his AML. Robitussin AC for cough. (3) Acute exacerbation of CHF (congestive heart failure): Acute systolic heart failure. Still with an oxygen requirement in setting of pneumonia. Cont Lasix BID. Cont medical therapy including metoprolol and aldactone. (4) CAD (coronary artery disease): Stable, denies chest pain, recent stent placement in last two weeks . Cont medical management including ASA, Plavix, Lipitor and Lopressor. ACEI not an option with current blood pressure (5) Acute thrombosis of superficial veins of right upper extremity: no AC required. Cont supportive care with ice, elevation as tolerated. Pain control with APAP as needed. (6) Elevated transaminase level: Present during prior hospitalization, also. Was thought possibly secondary to amiodarone use, which was held. RUQ us performed this admission is negative for gallstones or other pathology. Cont to monitor LFTs periodically on amiodarone. (7) Atrial fibrillation: cont BB, not a candidate for anticoagulation given comorbidities, hemoglobin and low platelets. Amiodarone was restarted this admission with intermittent atrial fibrillation episodes seen on telemetry (8) Anemia: Likely multitfactorial including low bone marrow production, and frequent phlebotomy. No bleeding or need for transfusions at this time. Cont to monitor. 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 Per Dr. Turner no further treatment is recommended for his AML. Blood and platelet counts may not improve requiring transfusions in the future. Dr. Turner discussed this with Mr. Anderson and his family. Palliative consult. (11) DVT prophylaxis: SCDS/TEDS for now in the setting of low platelets and increased bleeding risk with ASA and plavix on board, necessary for newly placed stents. Full Code Dispo-pending improvement clinically, will likely be here through the weekend. Ielana Galdamez [facility] Subjective Doing well overall, denies fevers or chills, +cough Tolerating PO Review of Systems Review of Systems: All systems reviewed & are unremarkable except as noted in HPI & below Physical Exam Physical Exam: CONSTITUTIONAL: WNWD, vitals as above, generally ill-appearing EYES: normal conjunctivae, no scleral icterus ENT: MMM RESPIRATORY: clear to auscultation bilaterally, no crackles, rales or wheezes, normal respiratory effort CARDIOVASCULAR: regular rate and rhythm, S1 and 2 heard without murmurs, gallops or rubs, no JVD, no peripheral edema GASTROINTESTINAL: normal bowel sounds, soft, nontender, nondistended MUSCULOSKELETAL: strength 5/5 throughout, head is normocephalic and atraumatic SKIN: warm and dry NEUROLOGIC: CN 2-12 grossly intact, no gross focal deficits. PSYCHIATRIC: alert cooperative and oriented Results & Data Vital Signs (Past 12 Hours) Vital Signs Temp Pulse Resp BP Pulse Ox 01/21/19 17:15 36.7 C 95 H 20 95/60 L 92 01/21/19 16:00 92 01/21/19 11:59 36.9 C 86 16 129/64 96 01/21/19 11:12 99 01/21/19 07:47 37.0 C 96 H 18 131/69 95 Laboratory Results Short CBC 01/21/19 Range/Units 06:19 WBC 18.61 H (4.8-10.8) K/uL Hgb 8.2 L (14.0-18.0) g/dL Hct 23.7 L (42-52) % Plt Count 87 L (130-400) K/uL BMP 01/21/19 06:19 Sodium 129 L Potassium 4.0 Chloride 96 L Carbon Dioxide 27 BUN 25 H Creatinine 1.17 Glucose 104 H Calcium 7.4 L Liver Function 01/21/19 Range/Units 06:19 Total Bilirubin 0.7 (0.2-1) mg/dl AST 61 H (15-37) U/L ALT 107 H (12-78) U/L Alkaline Phosphatase 71 (45-117) U/L Albumin 2.1 L (3.4-5.0) gm/dl Medications Administered Current Inpatient Medications Acetaminophen (Tylenol) 650 mg PO Q4H PRN PRN Reason: Pain or Fever Stop: 02/16/19 13:32 Last Admin: 01/21/19 05:32 Dose: 650 mg Documented by: Amiodarone HCl (Cordarone) 200 mg PO DAILY [facility] Stop: 02/17/19 10:44 Last Admin: 01/21/19 07:58 Dose: 200 mg Documented by: Amoxicillin/Clavulanate Potassium (Augmentin 875mg) 1 tab PO BIDM [facility] Stop: 01/26/19 16:59 Last Admin: 01/21/19 17:07 Dose: 1 tab Documented by: Aspirin (Ecotrin Ectab) 81 mg PO QAM [facility] Stop: 02/17/19 08:59 Last Admin: 01/21/19 07:58 Dose: 81 mg Documented by: Atorvastatin Calcium (Lipitor) 40 mg PO HS [facility] Stop: 02/16/19 20:59 Last Admin: 01/20/19 21:08 Dose: 40 mg Documented by: Clopidogrel Bisulfate (Plavix) 75 mg PO QAM [facility] Stop: 02/17/19 08:59 Last Admin: 01/21/19 07:57 Dose: 75 mg Documented by: Dextrose (Dextrose 50%) 25 - 50 ml IV UD PRN; Protocol PRN Reason: Hypoglycemia Protocol Stop: 02/16/19 13:32 Doxycycline Hyclate (Vibramycin) 100 mg PO BID [facility] Stop: 01/26/19 20:59 Last Admin: 01/21/19 07:58 Dose: 100 mg Documented by: Glucagon (Glucagen) 1 mg SQ UD PRN; Protocol PRN Reason: Hypoglycemia Protocol Stop: 02/16/19 13:32 Glucose (Glucose 40%) 15 - 30 gm PO UD PRN; Protocol PRN Reason: Hypoglycemia Protocol Stop: 02/16/19 13:32 Glucose (Dex4 Glucose) 4 - 8 tabs PO UD PRN; Protocol PRN Reason: Hypoglycemia Protocol Stop: 02/16/19 13:32 Guaifenesin/Codeine Phosphate (Robitussin-Ac Sugar Free) 10 ml PO Q6H PRN PRN Reason: Cough Stop: 02/19/19 18:57 Furosemide 40 mg/ Syringe 4 mls @ 4 mls/min IV DAILY [facility] Stop: 02/20/19 08:59 Last Admin: 01/21/19 07:57 Dose: 4 mls/min Documented by: Insulin Aspart (Novolog Flexpen) 0 units SC ACHS [facility] Stop: 02/16/19 16:29 Last Admin: 01/21/19 17:02 Dose: Not Given Documented by: Ipratropium [place] (Atrovent 0.02% 0.5mg/2.5ml) 0.5 mg INH Q6R PRN PRN Reason: Shortness Of Breath Or Wheezing Stop: 02/17/19 07:59 Levalbuterol HCl (Xopenex 1.25mg/0.5ml Neb) 1.25 mg INH Q6R PRN PRN Reason: Shortness Of Breath Or Wheezing Stop: 02/17/19 07:59 Metoprolol Succinate (Toprol Xl) 100 mg PO QAM [facility] Stop: 02/20/19 08:59 Last Admin: 01/21/19 07:58 Dose: 100 mg Documented by: Miscellaneous (Carbohydrates For Hypoglycemia) 15 - 30 gm PO UD PRN PRN Reason: Hypoglycemia Treatment Stop: 02/16/19 13:32 Multivitamins (Multivitamin Tab) 1 tab PO DAILY [facility] Stop: 02/17/19 08:59 Last Admin: 01/21/19 07:57 Dose: 1 tab Documented by: Ondansetron HCl (Zofran) 4 mg IV Q6H PRN PRN Reason: Nausea Stop: 02/16/19 13:32 Polyethylene Glycol (Miralax Powder Packet) 17 gm PO DAILY PRN PRN Reason: Constipation Stop: 02/16/19 13:32 Senna/Docusate Sodium (Senokot S) 1 tab PO QAM [facility] Stop: 02/16/19 13:59 Last Admin: 01/21/19 07:57 Dose: 1 tab Documented by: Spironolactone (Aldactone) 12.5 mg PO DAILY [facility] Stop: 02/16/19 13:59 Last Admin: 01/21/19 07:57 Dose: 12.5 mg Documented by:
--- NOTE | 2019-01-21 19:29 | Cardiology Progress Note ---
Date of Service January 21, 2019 Assessment & Plan (1) CHF (congestive heart failure): (2) CAD (coronary artery disease): (3) A-fib: (4) Myeloblastic leukemia: Patient received 40 mg of IV furosemide this morning. Sodium down to 129. We will hold off on further diuretic therapy for now we will hold off on chemistry panel 01/22/2019 to save him a day of phlebotomy given his anemia. Hematology input noted and appreciated. 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 He has had recent [place] complicated by cardiogenic shock, and staged PCI to the RCA and then LAD. Continue amiodarone cautiously given LFT elevation, as rhythm control as necessary as he is not anticoagulation candidate due to anemia, gross hematuria noted several weeks ago. Prognosis poor. Subjective Chief complaint: Follow-up shortness of breath Subjective: Patient discouraged and tired. Atrial fibrillation have been noted overnight and he converted back to sinus rhythm at 12:30 AM on 01/21/2019 and is remained in sinus rhythm. Review of Systems Review of Systems: All systems reviewed & are unremarkable except as noted in HPI & below Physical Exam Physical Exam: Temp Pulse Resp BP Pulse Ox 36.7 C 95 H 20 95/60 L 92 01/21/19 17:15 01/21/19 17:15 01/21/19 17:15 01/21/19 17:15 01/21/19 17:15 Constitutional: + ill appearing Respiratory: Auscultation: + crackles (Mild crackles noted at the left base, otherwise clear) Cardiovascular: RRR, no murmur, no edema Gastrointestinal (Abdomen): normal bowel sounds, soft, nontender, no hepatosplenomegaly Neurologic: PERRL, EOMI, accommodation nl, no face palsy, no dysarthria Results & Data Vital Signs (Past 12 Hours) Vital Signs Temp Pulse Resp BP Pulse Ox 01/21/19 17:15 36.7 C 95 H 20 95/60 L 92 01/21/19 16:00 92 01/21/19 11:59 36.9 C 86 16 129/64 96 01/21/19 11:12 99 01/21/19 07:47 37.0 C 96 H 18 131/69 95 (1) CHF (congestive heart failure) Heart failure chronicity: unspecified Heart failure type: unspecified Qualified Code(s): I50.9 - Heart failure, unspecified
[2019-01-21] MEDS: ATORVASTATIN 40 MG TAB PO SCH (21:04)
[2019-01-21] MEDS: GUAIFENESIN/CODEINE 200MG/20MG 10ML UDC PO PRN (22:35)
[2019-01-22] MEDS: DOCUSATE SODIUM/SENNA 50/8.6MG TAB PO SCH (08:22)
[2019-01-22] MEDS: MULTIVITAMIN TAB PO SCH (08:22)
[2019-01-22] MEDS: DOXYCYCLINE HYCLATE 100 MG CAP PO SCH ×2 (08:22→20:22)
[2019-01-22] MEDS: METOPROLOL SUCC 50MG EXT REL TAB PO SCH (08:22)
[2019-01-22] MEDS: ASPIRIN 81 MG ECTAB PO SCH (08:22)
[2019-01-22] MEDS: AMOXICILLIN/CLAVULANATE 875 MG TAB PO SCH ×2 (08:22→17:07)
[2019-01-22] MEDS: CLOPIDOGREL BISULFATE 75 MG TAB PO SCH (08:22)
[2019-01-22] MEDS: AMIODARONE 200 MG TAB PO SCH (08:22)
[2019-01-22] MEDS: SPIRONOLACTONE 25 MG TAB PO SCH (08:23)
[2019-01-22] MEDS: INSULIN ASPART 100 UNITS/ML 3 ML PEN SC SCH ×4 (08:24→20:26)
[2019-01-22] MEDS: GUAIFENESIN/CODEINE 200MG/20MG 10ML UDC PO PRN ×2 (08:33→20:21)
[2019-01-22 08:57] LABS: Mean Corpuscular Hgb Conc 34.5 g/dL (32-36)
[2019-01-22 09:27] LABS: Hematocrit (blood only) 26.4 % (42-52); Hemoglobin 9.1 g/dL (14.0-18.0); Mean Corpuscular Volume 98.1 fL (80-100); Mean Platelet Volume 10.1 fL (7.4-10.4); Platelet Count 82 K/uL (130-400); RDW Coefficient of Variation 19.6 % (11.5-14.5); RDW Standard Deviation 68.9 fL (36.4-46.3); Red Blood Count 2.69 M/uL (4.7-6.1); White Blood Count 23.93 K/uL (4.8-10.8)
[2019-01-22 09:28] LABS: ALC (manual) 4.74 K/uL (1.2-3.4); Basophils # (manual) 0.22 K/uL (0-0.2); Basophils % (manual) 0.9 %; Blast # (manual) 5.77 K/uL (0-0); Blast Cells % (manual) 24.1 %; Lymphocytes # (manual) 4.74 K/uL (1.2-3.4); Lymphocytes % (manual) 19.8 %; Monocytes # (manual) 8.88 K/uL (0.11-0.59); Monocytes % (manual) 37.1 %; Myelocytes # (manual) 0.81 K/uL (0-0); Myelocytes % (manual) 3.4 %; Neutrophils % (manual) 14.7 %
[2019-01-22 09:30] LABS: BUN Creatinine Ratio 21.1 (10-20); Creatinine Clr Calc Pharmacy 39.3 ml/min; Potassium 4.1 mmol/L (3.5-5.1)
--- NOTE | 2019-01-22 11:24 | Cardiology Progress Note ---
Date of Service January 22, 2019 Assessment & Plan (1) CHF (congestive heart failure): Volume status appears stable. Creatinine elevated today. Hold loop diuretic therapy at this time. Continue Aldactone at this time. Repeat basic metabolic panel in a.m. Continue metoprolol however will not add KRISTINA inhibitor, Entresto, or ARB due to hypotension. Overall prognosis remains poor. Recommend addition of low-dose loop diuretic therapy at the time of discharge, i.e. Lasix 20 mg daily or Demadex 5 to 10 mg daily. Acute systolic heart failure in the setting of coronary heart disease. Continue dual antiplatelet therapy of aspirin and clopidogrel for recent RCA and LAD interventions. He has residual circumflex territory disease which is been managed medically. He has had recent [place] complicated by cardiogenic shock, and staged PCI to the RCA and then LAD. Continue amiodarone cautiously given LFT elevation, as rhythm control as necessary as he is not anticoagulation candidate due to anemia, gross hematuria noted several weeks ago. Telemetry currently shows rate controlled atrial f ibrillation. Prognosis poor. Agree with palliative care consult. (2) CAD (coronary artery disease): (3) A-fib: (4) Myeloblastic leukemia: Hematology input noted and appreciated. 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 Subjective Patient seen and examined at the bedside. Converted back to atrial fibrillation. Denies chest pain, palpitations, shortness of breath. He is discouraged and fatigued. No significant edema. Reports hip pain today. No orthopnea or PND. Review of Systems Review of Systems: All systems reviewed & are unremarkable except as noted in HPI & below Physical Exam Physical Exam: General: NAD, AAO x3, well nourished. Chronically ill. HEENT: Normocephalic. Atraumatic. Conjunctiva pink, no scleral icterus. Neck: No carotid bruits, the carotid upstrokes are brisk. No JVD. No HJR Heart: Irregular rhythm. Normal S1 and S2. No murmurs or rub appreciated. PMI is not displaced. No RV heave. Lungs: Clear bilateral without rales , rhonchi, or wheeze. Abdomen: Normal bowel sounds. Soft. Nontender. No masses or organomegaly. No abdominal bruits. Extremities: No clubbing, cyanosis, or edema. Pulses: radial=2/4, posterior tibial=2/4. Neuro: Cranial nerves grossly intact. No focal motor deficit. Results & Data Vital Signs (Past 12 Hours) Vital Signs Temp Pulse Resp BP Pulse Ox 01/22/19 08:00 36.5 C 74 18 125/69 95 01/22/19 07:49 84 L 01/22/19 04:00 37.5 C 85 19 95/60 L 93 01/21/19 23:42 93 01/21/19 23:41 37.9 C H 88 20 103/61 86 L (1) CHF (congestive heart failure) Heart failure chronicity: unspecified Heart failure type: unspecified Qual ified Code(s): I50.9 - Heart failure, unspecified
[2019-01-22] MEDS ORDERED: LORazepam 1 MG TAB SL PRN (17:08)
[2019-01-22] MEDS ORDERED: MoRPHine SULFATE 10 MG/0.5 ML UDP PO PRN (17:08)
--- NOTE | 2019-01-22 17:11 | Hospitalist Progress Note ---
Date of Service January 22, 2019 Assessment & Plan (1) Sepsis: resuscitated, source likely pneumonia (2) Hospital acquired PNA: Cont Augmentin and Doxycycline. (3) Acute exacerbation of CHF (congestive heart failure): Acute systolic heart failure. Still with an oxygen requirement in setting of pneumonia. Cont Lasix BID. Cont medical therapy including metoprolol and aldactone. (4) CAD (coronary artery disease): Stable, denies chest pain, recent stent placement in last two weeks . Cont medical management including ASA, Plavix, Lipitor and Lopressor. ACEI not an option with current blood pressure (5) Acute thrombosis of superficial veins of right upper extremity: no AC required. Cont supportive care with ice, elevation as tolerated. Pain control with APAP as needed. (6) Elevated transaminase level: Present during prior hospitalization, also. Was thought possibly secondary to amiodarone use, which was held. RUQ us performed this admission is negative for gallstones or other pathology. Cont to monitor LFTs periodically on amiodarone. (7) Atrial fibrillation: cont BB, not a candidate for anticoagulation given comorbidities, hemoglobin and low platelets. Amiodarone was restarted this admission with intermittent atrial fibrillation episodes seen on telemetry (8) Anemia: Likely multi-factorial including low BM production, and frequent phlebotomy. No bleeding or need for transfusions at this time. Cont to monitor. (9) T2DM (type 2 diabetes mellitus): A1c 6.7, most recent admission hold home dose Metformin Cont insulin coverage as needed. 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 No further treatment is recommended for his AML. Blood and platelet counts may not improve requiring transfusions in the future. Dr. Turner discussed this with Mr. Anderson and his family. Palliative consult. (11) DVT prophylaxis: SCDS/TEDS for now in the setting of low platelets and increased bleeding risk with ASA and plavix on board, necessary for newly placed stents. Full Code Dispo-pending improvement clinically, will likely be here through the weekend. Ileana Galdamez DO [facility] Hospitalist Physical Exam Physical Exam: CONSTITUTIONAL: WNWD, vitals as above, generally ill-appearing EYES: normal conjunctivae, no scleral icterus ENT: MMM RESPIRATORY: clear to auscultation bilaterally, no crackles, rales or wheezes, normal respiratory effort CARDIOVASCULAR: regular rate and rhythm, S1 and 2 heard without murmurs, gallops or rubs, no JVD, no peripheral edema GASTROINTESTINAL: normal bowel sounds, soft, nontender, nondistended MUSCULOSKELETAL: strength 5/5 throughout, head is normocephalic and atraumatic SKIN: warm and dry NEUROLOGIC: CN 2-12 grossly intact, no gross focal deficits. PSYCHIATRIC: alert cooperative and oriented Results & Data Vital Signs (Past 12 Hours) Vital Signs Temp Pulse Resp BP Pulse Ox 01/22/19 15:17 36.4 C L 70 16 95/59 L 92 01/22/19 11:30 36.8 C 76 18 131/60 96 01/22/19 08:00 36.5 C 74 18 125/69 95 01/22/19 07:49 84 L Laboratory Results Short CBC 01/22/19 Range/Units 08:43 WBC 23.93 H (4.8-10.8) K/uL Hgb 9.1 L (14.0-18.0) g/dL Hct 26.4 L (42-52) % Plt Count 82 L (130-400) K/uL BMP 01/22/19 08:43 Sodium 129 L Potassium 4.1 Chloride 96 L Carbon Dioxide 24 BUN 32 H Creatinine 1.50 H D Glucose 132 H Calcium 8.0 L Medications Administered Current Inpatient Medications Acetaminophen (Tylenol) 650 mg PO Q4H PRN PRN Reason: Pain or Fever Stop: 02/16/19 13:32 Last Admin: 01/21/19 05:32 Dose: 650 mg Documented by: Amiodarone HCl (Cordarone) 200 mg PO DAILY [facility] Stop: 02/17/19 10:44 Last Admin: 01/22/19 08:22 Dose: 200 mg Documented by: Amoxicillin/Clavulanate Potassium (Augmentin 875mg) 1 tab PO BIDM [facility] Stop: 01/26/19 16:59 Last Admin: 01/22/19 17:07 Dose: 1 tab Documented by: Aspirin (Ecotrin Ectab) 81 mg PO QAM [facility] Stop: 02/17/19 08:59 Last Admin: 01/22/19 08:22 Dose: 81 mg Documented by: Atorvastatin Calcium (Lipitor) 40 mg PO HS [facility] Stop: 02/16/19 20:59 Last Admin: 01/21/19 21:04 Dose: 40 mg Documented by: Clopidogrel Bisulfate (Plavix) 75 mg PO QAM [facility] Stop: 02/17/19 08:59 Last Admin: 01/22/19 08:22 Dose: 75 mg Documented by: Dextrose (Dextrose 50%) 25 - 50 ml IV UD PRN; Protocol PRN Reason: Hypoglycemia Protocol Stop: 02/16/19 13:32 Doxycycline Hyclate (Vibramycin) 100 mg PO BID [facility] Stop: 01/26/19 20:59 Last Admin: 01/22/19 08:22 Dose: 100 mg Documented by: Glucagon (Glucagen) 1 mg SQ UD PRN; Protocol PRN Reason: Hypoglycemia Protocol Stop: 02/16/19 13:32 Glucose (Glucose 40%) 15 - 30 gm PO UD PRN; Protocol PRN Reason: Hypoglycemia Protocol Stop: 02/16/19 13:32 Glucose (Dex4 Glucose) 4 - 8 tabs PO UD PRN; Protocol PRN Reason: Hypoglycemia Protocol Stop: 02/16/19 13:32 Guaifenesin/Codeine Phosphate (Robitussin-Ac Sugar Free) 10 ml PO Q6H PRN PRN Reason: Cough Stop: 02/19/19 18:57 Last Admin: 01/22/19 08:33 Dose: 10 ml Documented by: Insulin Aspart (Novolog Flexpen) 0 units SC [facility] Stop: 02/16/19 16:29 Last Admin: 01/22/19 17:08 Dose: Not Given Documented by: Ipratropium [place] (Atrovent 0.02% 0.5mg/2.5ml) 0.5 mg INH Q6R PRN PRN Reason: Shortness Of Breath Or Wheezing Stop: 02/17/19 07:59 Levalbuterol HCl (Xopenex 1.25mg/0.5ml Neb) 1.25 mg INH Q6R PRN PRN Reason: Shortness Of Breath Or Wheezing Stop: 02/17/19 07:59 Lorazepam (Ativan) 1 mg SL Q6H PRN PRN Reason: anxiety/agitation Stop: 02/21/19 17:14 Metoprolol Succinate ([facility]l) [facility] Stop: 02/20/19 08:59 Last Admin: 01/22/19 08:22 Dose: 100 mg Documented by: Miscellaneous (Carbohydrates For Hypoglycemia) 15 - 30 gm PO UD PRN PRN Reason: Hypoglycemia Treatment Stop: 02/16/19 13:32 Morphine Sulfate (Roxanol) 10 mg PO Q2H PRN PRN Reason: Severe Pain Stop: 02/05/19 17:07 Multivitamins (Multivitamin Tab) 1 tab PO DAILY [facility] Stop: 02/17/19 08:59 Last Admin: 01/22/19 08:22 Dose: 1 tab Documented by: Ondansetron HCl (Zofran) 4 mg IV Q6H PRN PRN Reason: Nausea Stop: 02/16/19 13:32 Polyethylene Glycol (Miralax Powder Packet) 17 gm PO DAILY PRN PRN Reason: Constipation Stop: 02/16/19 13:32 Senna/Docusate Sodium (Senokot S) 1 tab PO QAM [facility] Stop: 02/16/19 13:59 Last Admin: 01/22/19 08:22 Dose: 1 tab Documented by: Spironolactone (Aldactone) 12.5 mg PO DAILY [facility] Stop: 02/16/19 13:59 Last Admin: 01/22/19 08:23 Dose: 12.5 mg Documented by:
--- NOTE | 2019-01-22 17:32 | Palliative Care Progress Note ---
Date of Service January 22, 2019 Assessment & Plan (1) Palliative care encounter: Patient seen and examined this afternoon, patient's daughter, Clarisa, as well as son-in-law, friend, son, and 2 brothers present at bedside. Patient is a 78-year-old male with a history of thrombocytopenia for ap proximately 9 years, history of prostate cancer, CHF, A. fib, CAD, diet- controlled diabetes, who was recently admitted to [facility] from 01/05 to 01/14 after suffering a non-STEMI with stent placement on 01/08. Patient presented to the emergency room on 01/17 with a fever of 101. Patient was found to have pneumonia-suspected to be hospital-acquired. Patient was admitted and is on antibiotics. Patient's white count on 01/14 was 9.59, with some blasts, platelet count 190K. On CBC on admission had a white count of 18.61 with approximately 15% blasts, hemoglobin 8.2, platelet count 87K. White count on labs drawn today was 23.93. Patient's prognosis is approximately 4 weeks-discussed with family some symptoms to expect, did state that time could be shorter or hopefully significantly longer-even months. Patient understands his poor prognosis-is amenable to DNR/DNI Plan is for patient to be discharged to his daughter, Clarisa his home with hospice care-good family support available Patient named his daughter, Clarisa Wheat, as his healthcare surrogate. -Goals of care-initiated discussion -goal is to return home and enjoy family reunion which patient has organized-referral made to hospice, plan to discharge patient home tomorrow once DME in place -Myoblastic leukemia-patient not a candidate for chemotherapy due to comorbidities. Poor prognosis-likely weeks -Acute on chronic CHF-improved on a Lasix drip -now stable on p.o. meds -Hospital-acquired PNA-patient currently on Augmentin and doxycycline, clinically improving -Thrombosis of right superficial cephalic vein-patient on low-dose aspirin as well as Plavix -Recent adl-PITWJ-jkovyp post stent on 01/08-on low-dose aspirin, statin, Plavix, Aldactone, amiodarone and metoprolol. -A. fib-rate controlled with amiodarone and metoprolol Collaborating with attending physician and case management to initiate hospice referral for discharge tomorrow. (2) Myeloblastic leukemia: (3) Acute exacerbation of CHF (congestive heart failure): (4) Hospital acquired PNA: (5) Acute thrombosis of superficial veins of right upper extremity: (6) NSTEMI (non-ST elevated myocardial infarction): (7) Atrial fibrillation: Subjective Patient seen and examined-multiple family at bedside including 2 brothers, friend, daughter, son and son-in-law. Patient gave permission to speak in front of all family present Discussed with both patient and family that patient's general prognosis is in the range of weeks -patient's personal goal is to be home by this Friday for family reunion for which he was responsible for organizing. Family agreeable to hospice care-would like to have patient transferred home tomorrow if DME can be in place. Patient currently has home health with home nursing agency-family amenable to having them continue care under their hospice program. Collaborated with case management to place referral and arrange for DME to be delivered tomorrow. Patient will need O2, portable O2, hospital bed, bedside table as well as a wheelchair in order to attend the family reunion- orders placed by case management. Patient is to be discharged to his daughter's home in [place]. Reviewed patient's disease process, prognosis. Answered all questions and addressed all concerns from patient and family. Review of Systems Review of Systems: Patient denies fever, chills, chest pain, increased shortness of breath, or abdominal pain Physical Exam Physical Exam: PE: Appears comfortable, NAD HEENT: EOMI, hearing within normal limits Respirations: Unlabored, good air movement CV: Rate controlled, no edema Abdomen: Not distended, nontender, soft Neuro: Alert and oriented x4 Psych: Appropriate mood and affect. Results & Data Vital Signs (Past 12 Hours) Vital Signs Temp Pulse Resp BP Pulse Ox 01/22/19 15:17 97.5 F L 70 16 95/59 L 92 01/22/19 11:30 98.2 F 76 18 131/60 96 01/22/19 08:00 97.7 F 74 18 125/69 95 01/22/19 07:49 84 L PG Care Time/CCT Total # of Minutes Spent Total Time Spent: 70 Total Time Spent with Patient: Total time spent is greater than 50% in coordination of care (as documented) at patient's floor/unit and/or counseling patient: Prolonged Care Time Prolonged Care Time: Yes Total Prolonged Care Time: 35 Time Spent Attending Total time spent 70 minutes with greater than 50% of the time at bedside discussing goals of care and CODE STATUS. Time spent collaborating plans for discharge
[2019-01-22] MEDS: ATORVASTATIN 40 MG TAB PO SCH (20:22)
[2019-01-22] MEDS ORDERED: ACETAMINOPHEN 500 MG TAB PO STA (20:56)
[2019-01-23] MEDS: INSULIN ASPART 100 UNITS/ML 3 ML PEN SC SCH ×2 (09:09→12:33)
[2019-01-23] MEDS: SPIRONOLACTONE 25 MG TAB PO SCH (09:11)
[2019-01-23] MEDS: AMOXICILLIN/CLAVULANATE 875 MG TAB PO SCH (09:11)
[2019-01-23] MEDS: AMIODARONE 200 MG TAB PO SCH (09:12)
[2019-01-23] MEDS: MULTIVITAMIN TAB PO SCH (09:13)
[2019-01-23] MEDS: CLOPIDOGREL BISULFATE 75 MG TAB PO SCH (09:13)
[2019-01-23] MEDS: DOCUSATE SODIUM/SENNA 50/8.6MG TAB PO SCH (09:13)
[2019-01-23] MEDS: ASPIRIN 81 MG ECTAB PO SCH (09:13)
[2019-01-23] MEDS: DOXYCYCLINE HYCLATE 100 MG CAP PO SCH (09:14)
[2019-01-23] MEDS: METOPROLOL SUCC 50MG EXT REL TAB PO SCH (09:14)
[2019-01-23] MEDS ORDERED: MoRPHine SULFATE 10 MG/0.5 ML UDP PO STA (11:25)
--- NOTE | 2019-01-23 12:01 | Discharge Summary ---
Date of Service January 23, 2019 Admission HPI Per Admitting Provider This is a 78-year-old male who has a significant PMH of recently diagnosed an NSTEMI with multivessel CAD status post PCI, newly diagnosed AML, anemia, essential thrombocytosis, HLD, history of prostate cancer s/p brachytherapy who presents to [facility] ED secondary to fever x1 day. Daughter is at bedside. Of significance patient was recently hospitalized at [facility] on 01/05 to 01/14/2019. He presented to ED with an NSTEMI and cardiogenic shock with a new left ventricular systolic dysfunction. He underwent cardiac cath which revealed multivessel coronary artery disease and intervention to the RCA. He required return to cath on 01/08 and underwent PCI to LAD. With placement of stents patient's EF did return to 50%, but had basal segmental inferior wall akinesis. He was continued on regimen of aspirin, Plavix, statin, metoprolol, Aldactone. He also required IV diuresis with Lasix but this was discontinued at discharge secondary to hypotension. He hospital course was further complicated by PAF treated with IV amiodarone and transition to p.o. amiodarone. He had hematuria secondary to Qiu causing a acute blood loss anemia requiring patient to have PRBC x4. Incidentally patient CBC with differential and peripheral smear revealed new diagnosis of AML. Patient overall clinically improved and was discharged on 01/14/19. He had been doing fairly well at home until last evening when his temp was 99.7 and 102.1 today. For the past 3 days he has noted a productive purulent cough, increasing shortness of breath with rest and at exertion, chills, sweats. He further complains of orthopnea, waking up in the middle of night secondary to cough, poor sleep, weakness, decreased appetite. He complains of right arm pain, warmth and swelling. He states this is where he had an IV site. He has been weighing himself on a daily basis and has remained at about 170lb. He does complain of some pedal edema which is stable since discharge. He denies any lightheadedness, dizziness, syncope, chest pain, palpitations, hemoptysis, nausea, vomiting, abdominal pain, diarrhea, dysuria, hematuria, increased urgency with urination. He has not had a bowel movement since discharge. He has had some increased urinary frequency. Daughter at bedside states that he continues to be weak but she has had him up and walking. Prior to most recent hospitalization patient was very active mowing 10 yards a week. In ED patient was placed on 2 L supplement oxygen to maintain oxygenation. He has been afebrile but HR 93 and tachypneic 29. Lab findings consistent with leukocytosis 12.73, H&H 9.4 27.8, platelet 166. Differential significant for lymphocytosis and myelocytes. BMP revealed sodium 132, BUN 18, creatinine 1.20, glucose 135, lactic acid 1.77. He did have transaminitis AST 108, ALT 147, T bili 1.3. His troponin was 0.181, on prior presentation on 01/05 was 28. His procalcitonin was WNL. Chest x-ray concerning for pulmonary vascular congestion as well as concern for bibasilar consolidation - pneumonia versus atelectasis. Venous Doppler of right upper extremity revealed SVT of cephalic vein. Admission Exam Per Admitting Provider Gen: Tall ill-appearing elderly male, appears stated age, WD/WN, NAD but mildly tachypneic on O2 via NC, sitting up in bed, pleasant, conversing easily Head: Normocephalic, Atraumatic Eyes: Sclera normal, no conjunctival injection, PERRLA, EOMI ENT: Gross hearing intact, normal pharynx, mucous membranes moist Neck: supple, no adenopathy, mild JVD, no bruit, Resp: Clear to auscultation with bibasilar crackles, no wheezes or rhonchi. 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 Extremities: No edema bilaterally Skin: warm, hyperpigmented, moist, no rash, negative turgor, cap refill < 2sec Neuro: Alert and oriented x 3, speech normal, good mood/affect, cran nerve 2-12 intact grossly : deferred Principal Diagnosis Hospital-acquired pneumonia Myeloblastic Leukemia Comfort care measures only status Discharge Data Allergies Allergy/AdvReac Type Severity Reaction Status Date / Time No Known Allergies Allergy Verified 01/17/19 09:57 Consultations 01/17/19 11:19 ED Decision to Admit Stat 01/17/19 12:07 Consult Cardiology Routine 01/17/19 13:33 Consult Case Management - Discharge Planning Routine 01/18/19 08:00 Consult Oncology Routine 01/21/19 13:56 Consult Palliative Care Routine Ordered Studies 01/17/19 09:46 US venous doppler UE RT Stat 01/17/19 11:52 CT angio chest PE protocol Stat 01/17/19 12:07 US abdomen limited Urgent 01/17/19 15:34 US venous doppler LE BI Urgent 01/20/19 09:30 US venous doppler UE RT Routine Hospital Course (1) Sepsis: resuscitated, source likely pneumonia (2) Hospital acquired PNA: IV cefepime was switched to Augmentin and Doxycycline with no decline in patient status. Robitussin AC given for cough. (3) Acute exacerbation of CHF (congestive heart failure): Acute systolic heart failure. Still with an oxygen requirement in setting of pneumonia which he does not require at baseline. Cont Lasix BID. Cont me dical therapy including metoprolol and aldactone. (4) CAD (coronary artery disease): Stable, denies chest pain throughout hospitalization, recent stent nohemi cement in last two weeks. Cont medical management including ASA, Plavix, Lipitor and Lopressor. ACEI not an option with current blood pressure (5) Acute thrombosis of superficial veins of right upper extremity: no anticoagulation required, and wouldn't tolerate with current comorbidities. Cont supportive care with ice, elevation as tolerated. Pain con trol with APAP as needed. (6) Elevated transaminase level: Present during prior hospitalization, also. Was thought possibly secondary to amiodarone use, which was held at that time. RUQ us performed this admission is negative for gallstones or other pathology. Cont to monitor LFTs periodically on amiodarone which was restarted because of intermittent atrial fibrillation bursts seen on telemetry. (7) Atrial fibrillation: cont BB, not a candidate for anticoagulation given comorbidities, hemoglobin and low platelets. Amiodarone was restarted this admission with intermittent atrial fibrillation episodes seen on telemetry. Continued to have these bursts throughout the hospitalization (8) Anemia: Likely multifactorial including low bine marrow production, and frequent phlebotomy. No bleeding or need for transfusions at this time. (9) T2DM (type 2 diabetes mellitus): A1c 6.7, most recent admission hold home dose Metformin BSG controlled on PRN insulin as needed. 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 Per Dr. Turner no further treatment is recommended for his AML. Blood and platelet counts may not improve requiring transfusions in the future. Dr. Turner discussed this with Mr. Anderson and his family. Palliative care addressed this and patient left the hospital on home hospice as a DNR. At time of discharge a face to face examination was performed revealing a very ill-appearing man with generalized weakness. He was in no acute distress but was exhibiting some use of respiratory muscles. Morphine was given. Physical exam revealed clear lungs to auscultation with good air movement and was otherwise unremarkable and unchanged from prior exams except that he was more ill and weak. He was discharged in guarded condition in the setting of terminal illness on Home Hospice with his family. Supplemental oxygen was needed at time of discharge and was delivered to his home. To continue his medications or not was left up to him but new scripts were filled in case he still wanted to continue them. Total Time Total Time Spent Total Time Spent (In Minutes): 60 Total Time Includes: Examination of the Patient, Discharge Planning, Medication Reconciliation, Communication With Other Providers and Other ([facility] [facility] Case Managment to set up equipment for Hospice at home preio to departure.) Discharge Plan Discharge Items Patient Disposition: Hospice - Home Reason For Visit: HOSPITAL AXQUIRED PNA,SUPERFICAL CLOT Discharge Diagnosis: Hospital-acquired pneumonia Myeloblastic Leukemia Comfort care measures only status Condition: Serious Discharge Goals: Decrease discomfort Activity: Resume your previous activity Non-emergency contact: Primary Care Provider Call non-emergency contact if: you have any medication questions, your symptoms worsen, your pain is not controlled, your pain is worsening, your pain is unusual for you, your pain is concerning for you and you have a fever Follow-up/Referrals: Guru Elizalde MD [Primary Care Provider] - Diet: Regular Addtl Provider Instructions: You are going home with Home Hospice. Prescriptions have been provided to your Hospice agency for necessary medical equipment, which should be set up prior to your arrival home, and for controlled medications that can alleviate pain and suffering. You received a full course of antibiotics for your pneumonia while in the hospital. You are being given two new medications. First, AMIODARONE is being given to keep you in a normal sinus rhythm more often than not. Please follow-up with your primary care physician for monitoring on this medication periodically. Second, you were given an increased dose of TOPROL XL to keep your heart rate more under control. It was a pleasure taking care of you! Please call if you have any questions or problems. You can reach a [facility] hospitalist on duty at [facility] 24 hours a day by calling [phone]. Take care of yourself. Ileana Galdamez, DO [facility] Hospitalist Prescriptions: New metoprolol succinate 50 mg Tablet Extended Release 24 Hr 100 mg PO QAM Qty: 60 RF: 1 amiodarone 200 mg Tablet 200 mg PO DAILY Qty: 30 RF: 1 Continued multivitamin Tablet 1 tab PO DAILY RF: 0 atorvastatin 40 mg Tablet 40 mg PO HS 30 Days Qty: 30 RF: 0 metformin [Glucophage] 500 mg Tablet 500 mg PO QDD 30 Days Qty: 30 RF: 0 clopidogrel 75 mg Tablet 75 mg PO QAM 30 Days Qty: 30 RF: 0 aspirin [Ecotrin Low Strength] 81 mg Tablet,Delayed Release (Dr/Ec) 81 mg PO QAM 30 Days Qty: 30 RF: 0 spironolactone 25 mg Tablet 12.5 mg PO DAILY 30 Days Qty: 15 RF: 0 Discontinued metoprolol succinate 25 mg Tablet Extended Release 24 Hr 75 mg PO QAM 30 Days Qty: 90 RF: 0 Stand-Alone Forms: My [facility] Discharge Orders: Discharge Order (Routine); Ordered 01/23/19 Ordered By: Ileana Galdamez Admission Data Admit Date/Time: 01/17/19 12:07 Attending Provider: Ileana Galdamez Admit Provider: George Fernandez Primary Care Provider: Guru Elizalde Other Providers: Home,Nursing Agency ; George Fernandez ; Eric Owusu ; Layla Cummings ; Jade Medina Service: Medical Other Interventions: Discharge Summary Assessment (RN) Last Done: 01/23/19 14:19 DC Date/Time DO NOT enter until pt leaves facility: 01/23/19 16:32
[2019-01-23] MEDS: GUAIFENESIN/CODEINE 200MG/20MG 10ML UDC PO PRN (12:29)
== END 2019-01-23 16:32 | disposition hospice, home (50) | DRG 871 ==
LOC: ED 09:17 → 2S 12:07 → SUATTDRO 12:07 → 2S 13:13 → 2N 01-22 17:09
DX: Z66 Do not resuscitate; Z82.49 Family history of ischemic heart disease and other diseases of the circulatory system; I21.4 Non-ST elevation (NSTEMI) myocardial infarction; I25.5 Ischemic cardiomyopathy; C92.00 Acute myeloblastic leukemia, not having achieved remission; A41.9 Sepsis, unspecified organism; I48.91 Unspecified atrial fibrillation; Z51.5 Encounter for palliative care; J18.9 Pneumonia, unspecified organism; I50.21 Acute systolic (congestive) heart failure; Z82.3 Family history of stroke